=== PATIENT | female | born 1960 ===

== ENCOUNTER 2016-11-29 10:45 | Emergency (ER) | payer MEDICARE, MEDICAID ==
--- NOTE | 2016-11-29 10:52 | ED PDOC ---
Arrival/HPI - General Time Seen by Provider: 11/29/16 10:51 Historian: Patient - History of Present Illness Narrative History of Present Illness (Text): 11/29/16 10:52 This 56 yo female with pmh dm, asthma, presents to this ED c/o left nipple painful nodule for a week. Patient admits similar symptoms in the past on her right breast which it has resolved. Patient denies fever, discharge or erythema. On the contrary to triage note, patient denies right breast abscess. Time/Duration: 1 week Context: Home Past Medical History - Provider Review Nursing Documentation Reviewed: Yes - Infectious Disease Hx of Infectious Diseases: None - Tetanus Immunization Tetanus Immunization: Unknown - Cardiac Hx Cardiac Disorders: Yes Hx Angina: Yes - Pulmonary Hx Respiratory Disorders: Yes Hx Asthma: Yes Hx Chronic Obstructive Pulmonary Disease (COPD): Yes Hx Sleep Apnea: Yes - Neurological Hx Neurological Disorder: Yes Hx Migraine: Yes - HEENT Hx HEENT Disorder: No - Renal Hx Renal Disorder: No - Endocrine/Metabolic Hx Endocrine Disorders: Yes Hx Diabetes Mellitus Type 2: Yes - Hematological/Oncological Hx Blood Transfusions: No - Integumentary Hx Dermatological Disorder: No - Musculoskeletal/Rheumatological Hx Musculoskeletal Disorders: Yes Hx Arthritis: Yes Hx Back Pain: Yes Hx Falls: No - Gastrointestinal Hx Gastrointestinal Disorders: Yes Hx Gastroesophageal Reflux: Yes - Genitourinary/Gynecological Hx Genitourinary Disorders: Yes Hx Urinary Tract Infection: Yes - Psychiatric Hx Psychophysiologic Disorder: Yes Hx Anxiety: Yes Hx Depression: Yes Hx Substance Use: No - Surgical History Hx Cardiac Catheterization: Yes Other/Comment: 12 surgeries to bilateral breast to remove recurrent abccess - Anesthesia Hx Anesthesia Reactions: No Hx Malignant Hyperthermia: No - Suicidal Assessment Feels Threatened In Home Enviroment: No Family/Social History - Physician Review Nursing Documentation Reviewed: Yes Family/Social History: No Known Family HX Smoking Status: Light Smoker < 10 Cigarettes Daily Hx Alcohol Use: No Hx Substance Use: No Hx Substance Use Treatment: No Allergies/Home Meds Allergies/Adverse Reactions: Allergies No Known Allergies Allergy (Verified 11/29/16 10:51) Home Medications: Home Meds Medication Instructions Recorded Confirmed Fluticasone Propionate [Flovent 0.22 mg IH DAILY 06/02/15 11/29/16 Hfa] Review of Systems - Review of Systems Constitutional: Normal. absent: Fatigue, Weight Change, Fevers Eyes: Normal ENT: Normal Respiratory: Normal Cardiovascular: Normal Gastrointestinal: Normal Genitourinary Female: Normal Musculoskeletal: Normal Skin: Other (Pain nodule left breast) Neurological: Normal Endocrine: Normal Hemo/Lymphatic: Normal Psychiatric: Normal Physical Exam Vital Signs Temp Pulse Resp BP Pulse Ox 11/29/16 11:07 99.2 F 86 20 126/77 97 11/29/16 10:52 98.3 F 91 H 18 141/81 97 Temperature: Afebrile Blood Pressure: Normal Pulse: Regular Respiratory Rate: Normal Appearance: Positive for: Well-Appearing, Non-Toxic, Comfortable Pain Distress: None Mental Status: Positive for: Alert and Oriented X 3 - Systems Exam Head: Present: Atraumatic, Normocephalic Neck: Present: Normal Range of Motion Respiratory/Chest: Present: Clear to Auscultation, Good Air Exchange. No: Respiratory Distress, Accessory Muscle Use, Wheezes, Rales, Rhonchi Cardiovascular: Present: Regular Rate and Rhythm, Normal S1, S2. No: Murmurs Abdomen: No: Tenderness Breast/Axillary: Present: Swelling ((+) approx. 1 cm indurated tender cyst like. No fluctuance, erythema, rash, drainage. The rest of breast is non tender. no erythema). No: Axillary Lymphad, Discoloration, Erythema, Fluctuance, Masses, Nipple Discharge Upper Extremity: Present: Normal Inspection, Normal ROM Lower Extremity: Present: Normal Inspection, Normal ROM Neurological: Present: GCS=15, CN II-XII Intact, Speech Normal, Motor Func Grossly Intact, Normal Sensory Function, Normal Cerebellar Funct, Gait Normal, Memory Normal Skin: Present: Warm, Dry, Normal Color. No: Rashes Lymphatic: No: Axillary Adenopathy Psychiatric: Present: Alert, Oriented x 3 Medical Decision Making ED Course and Treatment: 11/29/16 12:23 Re-evaluation. Patient feels better. Discussed results and plan with patient who expresses understanding. All questions answered and there is agreement with the plan to discharge home with instructions. Patient stable for discharge. Return if symptoms persist or worsen. Patient was recommended to apply warmth compress every 2 hours for 2-3 days. To take medication as instructed, and revaluation in 2-3 days. Return to emergency if symptoms worsen. Re-evaluation Time: 12:23 Reassessment Condition: Re-examined, Improved - Medication Orders Current Medication Orders: Discontinued Medications Amoxicillin/Clavulanate Potassium (Augmentin 875 Mg-125 Mg Tab) 1 tab PO STAT STA PRN Reason: Protocol Stop: 11/29/16 12:00 Last Admin: 11/29/16 12:12 Dose: 1 TAB Tramadol/Acetaminophen (Ultracet 37.5/325 Mg) 1 tab PO STAT STA Stop: 11/29/16 12:00 Last Admin: 11/29/16 12:12 Dose: 1 TAB Trimethoprim/Sulfamethoxazole (Bactrim Ds Tab) 1 tab PO STAT STA PRN Reason: Protocol Stop: 11/29/16 11:59 Last Admin: 11/29/16 12:12 Dose: 1 TAB Disposition/Present on Arrival - Present on Arrival Any Indicators Present on Arrival: No History of DVT/PE: No History of Uncontrolled Diabetes: Yes Urinary Catheter: No History Surgical Site Infection Following: None - Disposition Have Diagnosis and Disposition been Completed?: Yes Diagnosis: Abscess Disposition: HOME/ ROUTINE Disposition Time: 12:32 Patient Plan: Discharge Condition: GOOD Discharge Instructions (ExitCare): Abscess (ED) Additional Instructions: Call private doctor for follow up visit in 1-3 days. Take medication as instructed. Apply warmth compress. Return to emergency if symptoms worsen. Prescriptions: Amoxicillin/Clavulanate [Augmentin 875 MG-125 MG] 1 tab PO BID #14 tab Sulfamethoxazole/Trimethoprim [Bactrim DS 800 mg-160 mg] 1 tab PO BID #14 tab Acetaminophen with Codeine [Tylenol with Codeine No. 3 300 mg-30 mg] 1 tab PO TID #12 tab Referrals: Jhon Cabrera MD [Primary Care Provider] - Follow up with primary
[2016-11-29 10:53] VITALS: O2SAT 97
[2016-11-29 11:16] VITALS: BP 126/77; PULSE 86; RESP 20; TEMP 99.2
[2016-11-29] MEDS ORDERED: Tmp-Smz 800 mg-160 mg DS Tab PO STA (11:58)
[2016-11-29] MEDS ORDERED: TraMADol/Apap 37.5/325 mg Tab PO STA (11:59)
[2016-11-29] MEDS ORDERED: Amoxicillin-Clav 875-125 mg Tab PO STA (11:59)
[2016-11-29 12:03] VITALS: BMI 53.4
== END 2016-11-29 12:58 | disposition home or self-care (01) ==
LOC: ED 10:45
DX: N61.1 Abscess of the breast and nipple (principal); F17.210 Nicotine dependence, cigarettes, uncomplicated; E11.9 Type 2 diabetes mellitus without complications

== ENCOUNTER 2017-04-18 10:37 | Day surgery (SDC) | payer OTHER, MEDICAID ==
[2017-03-21 09:34] VITALS: BMI 50.5
[2017-04-18] MEDS ORDERED: Bupivacaine 0.5% Inj(30mL) ONE (10:45)
[2017-04-18] MEDS ORDERED: Propofol 10 mg/ml Inj (20 ML) ONE (11:05)
[2017-04-18] MEDS ORDERED: Midazolam 2 MG/2 ML VIAL ONE (11:05)
[2017-04-18] MEDS ORDERED: Lidocaine 2% Inj (20ml) ONE (11:05)
[2017-04-18] MEDS ORDERED: Sevoflurane - Inhalation Anesthetic Liq (250 ml) ONE (11:13)
[2017-04-18] MEDS ORDERED: HYDROmorphone 0.5 mg/0.5 ml ISec IVP PRN (12:58)
[2017-04-18] MEDS ORDERED: Lactated Ringer's 1,000 ML IV SCH (12:58)
[2017-04-18 14:32] VITALS: RESP 18; TEMP 97.6
[2017-04-18 14:54] VITALS: BP 111/70; PULSE 56; O2SAT 97
--- NOTE | 2017-04-20 21:52 | OP ---
PROCEDURE DATE: 04/18/2017 PREOPERATIVE DIAGNOSES: 1. 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 2. Diabetes mellitus - poor controlled. 3. Chronic obstructive pulmonary disease. 4. Morbid obesity. POSTOPERATIVE DIAGNOSES: 1. Recurrent left breast abscess with ductal disease. 2. Diabetes mellitus - poor controlled. 3. Chronic obstructive pulmonary disease. 4. Morbid obesity. PROCEDURE: On 04/18/2017, left partial mastectomy. SURGEON: Dr. Vargas. METAL FURNITURE GLAZIER: Chavo Kebede DO, PGY-3 SCARF AND ANNEAL OPERATOR: Dr. Pichardo. ANESTHESIA: General - LMA - Marcaine 0.5/18 mL. PATHOLOGY: Pending. OPERATIVE INDICATION: The patient is a 57-year-old female ,who is super morbidly obese over 300 pounds with history of 13 abscess drainages of her left breast. She returns with areolar drainage at this time and significant pain. She is begging for removal of her breast and she has been offered partial mastectomy, removal of the ductal system and the inflamed recurring origin of her breast abscesses. This has been done on the contralateral right breast and has been satisfactory all this year. Risks, benefits, alternatives and their anticipated outcomes were discussed with the patient and she signs the informed consent. OPERATIVE NOTE: The patient was brought to the operating room. She is identified by her wrist band and the indelible marking on the significant breast. She undergoes time-out procedure and was placed on a table in a supine manner and undergoes the induction of general anesthesia in the insertion of an intralaryngeal mask. Once, respirations have been stabilized and vital signs are acceptable and sequential compression devices were placed on her lower extremities and the patient is rotated slightly to the right and the left breast was then prepped with Hibiclens and chlorhexidine preparation and aseptically draped. An elliptical incision was made around the areola edge and it is excised to remove the somewhat transverse incision that is converting right through the upper portion of the areola. The skin has been infiltrated superiorly and inferiorly and the cicatrix of the areola and breast tissue are excised and submitted to pathology in formalin. Hemostasis maintained with the electrocoagulating cautery and the subareolar-nipple complexes excised with the cautery scalpel completely removing all ductal tissue under the skin. The abscess is at this point have become quiescent and cultures are not available for specimens at this time. Hemostasis was contained with electrocoagulating cautery where necessary and the specimen was then submitted to pathology in formalin for permanent section analysis. The incision is now closed with interrupted 3-0 subcuticular Polysorb suture and the skin closed with the suture skin stapler. An 8-Yakut red rubber catheter inserted into the incision and secured by the stapler to the dressing and will be changed by the patient on the first postoperative day. This will allow removal of subcutaneous and incisional fluids to the dressing and prevent accumulation. The breast is not cleaned, dressed aseptically and secured with 3M tape. The patient is now awakened, extubated and transported to the recovery room in a satisfactory condition. Sponge, instrument and suture count were verified as correct at the end of the procedure. Estimated blood loss during this procedure was less than 20 mL of blood. This dictation will be electronically signed without being read. Ghassan Vargas MD
== END 2017-04-18 15:30 | disposition home or self-care (01) ==
LOC: SDS 10:37
PROVIDERS: ATTEND Surgery
DX: N61.1 Abscess of the breast and nipple (principal); L90.5 Scar conditions and fibrosis of skin; E66.01 Morbid (severe) obesity due to excess calories; Z68.43 Body mass index [BMI] 50.0-59.9, adult; E11.65 Type 2 diabetes mellitus with hyperglycemia; J44.9 Chronic obstructive pulmonary disease, unspecified
CPT/HCPCS: 19301; 82948; 88305; 88307; J0690; J1170; J2250; J2704; J2765; J3010; J7120

== ENCOUNTER 2017-05-01 10:53 | Inpatient (IN) | payer OTHER, MEDICAID ==
[2017-05-01] MEDS ORDERED: Morphine 4 mg/ml ISec IVP STA (11:37)
--- NOTE | 2017-05-01 11:37 | ED PDOC ---
Arrival/HPI - General Chief Complaint: Medical Clearance Time Seen by Provider: 05/01/17 11:27 - History of Present Illness Narrative History of Present Illness (Text): 05/01/17 11:34 Patient is a 57 y/o F with DM, morbid obesity and hx of recurrent breast abscess. Patient has had partial mastectomy and removal of ducts from R breast 1 year ago with no recurrence until 3 days ago. She reports that she has had increased redness and pain. She spoke to her surgeon Dr. Vargas and has been taking outpatient antibiotics and pain medication with no improvement. Of note , patient had partial mastectomy to L breast on 04/20 for same and reports no issuess. Past Medical History - Infectious Disease Hx of Infectious Diseases: None - Tetanus Immunization Tetanus Immunization: Unknown - Cardiac Hx Pacemaker: No - Pulmonary Hx Respiratory Disorders: Yes Hx Asthma: Yes Hx Chronic Obstructive Pulmonary Disease (COPD): Yes Hx Sleep Apnea: Yes - Neurological Hx Paralysis: No - HEENT Hx HEENT Disorder: No - Renal Hx Renal Disorder: No - Endocrine/Metabolic Hx Endocrine Disorders: Yes Hx Diabetes Mellitus Type 2: Yes - Hematological/Oncological Hx Blood Transfusions: No - Integumentary Hx Dermatological Disorder: No - Musculoskeletal/Rheumatological Hx Musculoskeletal Disorders: No - Gastrointestinal Hx Gastrointestinal Disorders: Yes Hx Gastroesophageal Reflux: Yes - Genitourinary/Gynecological Hx Genitourinary Disorders: Yes Hx Urinary Tract Infection: Yes - Psychiatric Hx Emotional Abuse: No Hx Physical Abuse: No Hx Substance Use: No - Surgical History Other/Comment: Left breast cyst removal. - Anesthesia Hx Anesthesia Reactions: No Hx Malignant Hyperthermia: No - Suicidal Assessment Feels Threatened In Home Enviroment: No Family/Social History Family/Social History: No Known Family HX Smoking Status: Light Smoker < 10 Cigarettes Daily Hx Alcohol Use: No Hx Substance Use: No Hx Substance Use Treatment: No Allergies/Home Meds Allergies/Adverse Reactions: Allergies No Known Allergies Allergy (Verified 05/01/17 11:07) Home Medications: Home Meds Medication Instructions Recorded Confirmed Atorvastatin [Lipitor] 20 mg PO QPM 03/21/17 05/01/17 Fluticasone/Vilanterol [Breo 1 puff IH DAILY 03/21/17 05/01/17 Ellipta 200-25 Mcg INH] Gabapentin [Neurontin] 300 mg PO QPM 03/21/17 05/01/17 Metformin HCl [Glucophage] 500 mg PO ACTID 03/21/17 05/01/17 Omeprazole 20 mg PO QPM 03/21/17 05/01/17 Ciprofloxacin [Cipro] 500 mg PO BID 05/01/17 05/01/17 Potassium Chloride [K-Dur 20] 20 meq PO DAILY 05/01/17 05/01/17 Review of Systems - Physician Review All systems were reviewed & negative as marked: Yes - Review of Systems Constitutional: Fevers (subjective) Eyes: absent: Vision Changes ENT: absent: Rhinorrhea Respiratory: absent: SOB, Cough, Sputum, Wheezing Cardiovascular: absent: Chest Pain Gastrointestinal: absent: Abdominal Pain, Constipation, Diarrhea, Nausea, Vomiting Genitourinary Female: absent: Dysuria Musculoskeletal: Arthralgias Skin: Skin Lesions, Cellulitis Neurological: absent: Headache, Dizziness Psychiatric: absent: Anxiety, Depression Physical Exam Vital Signs Temp Pulse Resp BP Pulse Ox 05/01/17 10:59 98.2 F 88 17 104/67 97 Temperature: Afebrile Blood Pressure: Normal Pulse: Regular Respiratory Rate: Normal Appearance: Positive for: Well-Appearing, Non-Toxic, Comfortable Pain Distress: None Mental Status: Positive for: Alert and Oriented X 3 - Systems Exam Head: Present: Atraumatic, Normocephalic Pupils: Present: PERRL Extroacular Muscles: Present: EOMI Conjunctiva: Present: Normal Mouth: Present: Moist Mucous Membranes Neck: Present: Normal Range of Motion. No: Meningeal Signs Respiratory/Chest: Present: Clear to Auscultation, Good Air Exchange. No: Respiratory Distress, Accessory Muscle Use Cardiovascular: Present: Regular Rate and Rhythm, Normal S1, S2. No: Murmurs Abdomen: No: Tenderness, Distention Breast/Axillary: Present: Erythema (erythema to R breast from 1oclock to 6 oclock. Surgical dressing to L breast) Upper Extremity: Present: Normal Inspection Lower Extremity: Present: Normal Inspection Psychiatric: Present: Alert, Oriented x 3 Medical Decision Making ED Course and Treatment: 05/01/17 11:38 R breast has extensive cellulitis. Spoke to Dr. Vargas who will evaluate at bedside 05/01/17 11:52 Dr. Vargas evaluated and requesting b/l breast ultrasound with IV antibiotics and admission under his service for recurrent abscess and failed outpatient therapy. - RAD Interpretation Radiology Orders: 05/01/17 11:49 BREAST BILATERAL [US] Stat - Medication Orders Current Medication Orders: Discontinued Medications Morphine Sulfate (Morphine) 4 mg IVP STAT STA Stop: 05/01/17 11:38 Last Admin: 05/01/17 11:59 Dose: 4 mg Disposition/Present on Arrival - Present on Arrival Any Indicators Present on Arrival: No History of DVT/PE: No History of Uncontrolled Diabetes: Yes Urinary Catheter: No History of Decub. Ulcer: No History Surgical Site Infection Following: None - Disposition Have Diagnosis and Disposition been Completed?: Yes Diagnosis: Cellulitis of breast Disposition: HOSPITALIZED Disposition Time: 11:52 Patient Plan: Admission Patient Problems: Current Active Problems Problem Status Onset Cellulitis of breast Acute Condition: FAIR Discharge Instructions (ExitCare): Cellulitis (ED) Forms: [facility] (Romansh)
[2017-05-01 12:22] LABS: ALB/GLOB RATIO 1.4 (1.1-1.8); ALKALINE PHOSPHATASE 85 U/L (38-126); ALT/SGPT 32 U/L (7-56); AST/SGOT 18 U/L (14-36); BILIRUBIN,TOTAL 0.6 mg/dL (0.2-1.3); BLOOD UREA NITROGEN 13 mg/dL (7-21); CALCIUM 9.3 mg/dL (8.4-10.5); CARBON DIOXIDE 25 mmol/L (21-33); CHLORIDE 104 mmol/L (98-107); GFR AFRICAN-AMERICAN > 60; GLUCOSE,RANDOM 100 mg/dL (70-110); SODIUM 143 mmol/L (132-148); TOTAL PROTEIN 6.8 g/dL (5.8-8.3)
[2017-05-01 12:23] LABS: POTASSIUM 3.9 mmol/L (3.6-5.0)
[2017-05-01 12:47] LABS: BASO # 0.03 K/mm3 (0.0-2.0); BASO % 0.2 % (0.0-3.0); EOS # 0.2 (0.0-0.7); EOS % 1.3 % (1.5-5.0); GRAN # 10.08 (1.4-6.5); LYMPH # 2.4 (1.2-3.4); LYMPH % 17.6 % (22.0-35.0); MEAN CELL VOLUME 93.1 fl (80.0-105.0); MEAN CORPUSCULAR HEMOGLOBIN 30.4 pg (25.0-35.0); MEAN CORPUSCULAR HGB CONC 32.6 g/dl (31.0-37.0); MEAN PLATELET VOLUME 10.8 fl (7.0-11.0); MONO # 0.8 (0.1-0.6); MONO % 5.9 % (1.0-6.0); RED CELL DISTRIBUTION WIDTH 13.7 % (11.5-14.5); WHITE BLOOD COUNT 13.5 10^3/ul (4.5-11.0)
--- NOTE | 2017-05-01 13:54 | US ---
HISTORY: Reason for exam: Right breast cellulitis. COMPARISON: None TECHNIQUE: BREAST LIMITED BI FINDINGS: Right breast: At 3 o'clock position in the periareolar region at the site of the scar, there is a 3.2 x 1.7 x 4.4 cm ovoid hypoechoic mass with layering internal echoes thick margins and increased peripheral vascularity. There is also edema in the breast. Left breast: There is heterogeneous background echotexture. There is no suspicious solid mass, cyst or fibroadenoma. IMPRESSION: Findings are concerning for 3.2 x 1.7 x 4.4 cm abscess versus complex fluid collection in the right breast at 3 o'clock position in the periareolar region at the site of the scar. Surgical consultation advised. No evidence of solid or cystic mass in the left breast. BIRAD: BIRADS 3 Probably Benign Recommendation: Short-interval 6-month follow-up
[2017-05-01] MEDS ORDERED: Vancomycin 1gm in NS 250ml 1 GM/250 ML BAG IVPB STA (14:31)
--- NOTE | 2017-05-01 15:44 | CP.PCM.HP ---
History of Present Illness - History of Present Illness History of Present Illness: History and Physical for Dr. Vargas 57F presents with recurrent breast abscess. PMH: DM, morbid obesity. Patient has had partial mastectomy and removal of ducts from R breast 1 year ago with no recurrence until 5 days ago. Patient admits to increased redness and pain. Patient has been taking outpatient antibiotics and pain medication with no improvement. Patient also noticed a redness of the areolar area that began 5 days ago. Patient tolerates pain on left breast s/p partial mastectomy Surgery date 04/20/17 . Patient was placed on IV Abx and breast ultrasound was ordered. Breast US 3.2x1.7x4.4cm fluid collection at 3 o'clock position in perla-areolar region at site of scar PMH: DM, morbid obesity PSH: removal of ducts from R breast (~1 year). partial mastectomy of L breast Present on Admission - Present on Admission Any Indicators Present on Admission: No History of DVT/PE: No History of Uncontrolled Diabetes: No Urinary Catheter: No Decubitus Ulcer Present: No Past Patient History - Infectious Disease Hx of Infectious Diseases: None - Tetanus Immunizations Tetanus Immunization: Unknown - Past Medical History & Family History Past Medical History?: Yes - Past Social History Smoking Status: Light Smoker < 10 Cigarettes Daily - CARDIAC Hx Pacemaker: No - PULMONARY Hx Respiratory Disorders: Yes Hx Asthma: Yes Hx Chronic Obstructive Pulmonary Disease (COPD): Yes Hx Sleep Apnea: Yes - NEUROLOGICAL Hx Paralysis: No - HEENT Hx HEENT Problems: No - RENAL Hx Chronic Kidney Disease: No - ENDOCRINE/METABOLIC Hx Endocrine Disorders: Yes Hx Diabetes Mellitus Type 2: Yes - HEMATOLOGICAL/ONCOLOGICAL Hx Blood Transfusions: No - INTEGUMENTARY Hx Dermatological Problems: No - MUSCULOSKELETAL/RHEUMATOLOGICAL Hx Musculoskeletal Disorders: No - GASTROINTESTINAL Hx Gastrointestinal Disorders: Yes Hx Gastroesophageal Reflux: Yes - GENITOURINARY/GYNECOLOGICAL Hx Genitourinary Disorders: Yes Hx Urinary Tract Infection: Yes - PSYCHIATRIC Hx Emotional Abuse: No Hx Physical Abuse: No Hx Substance Use: No - SURGICAL HISTORY Other/Comment: Left breast cyst removal. - ANESTHESIA Hx Anesthesia Reactions: No Hx Malignant Hyperthermia: No Meds Allergies/Adverse Reactions: Allergies Allergy/AdvReac Type Severity Reaction Status Date / Time No Known Allergies Allergy Verified 05/01/17 17:16 Physical Exam - Constitutional Appears: Non-toxic - Head Exam Head Exam: NORMAL INSPECTION - Eye Exam Eye Exam: EOMI, Normal appearance - ENT Exam ENT Exam: Mucous Membranes Moist - Respiratory Exam Respiratory Exam: Clear to Auscultation Bilateral, NORMAL BREATHING PATTERN. absent: Accessory Muscle Use, Respiratory Distress - Cardiovascular Exam Cardiovascular Exam: REGULAR RHYTHM. absent: Bradycardia, Tachycardia - GI/Abdominal Exam GI & Abdominal Exam: Normal Bowel Sounds, Soft. absent: Firm, Guarding, Hyperactive Bowel Sounds, Hypoactive Bowel Sounds, Rebound, Rigid, Tenderness - Extremities Exam Extremities exam: Positive for: full ROM, normal inspection. Negative for: pedal edema - Neurological Exam Neurological exam: Alert, Normal Gait - Psychiatric Exam Psychiatric exam: Normal Affect, Normal Mood - Skin Skin Exam: Dry, Normal Color, Warm Additional comments: Left periareolar area stapled s/p partial mastectomy 3 days ago. periareolar area with cellulitis induration of right breast tissue correlated with ultrasound findings Results - Vital Signs Recent Vital Signs: Last Vital Signs Temp 98.2 F 05/01/17 10:59 Pulse 88 05/01/17 10:59 Resp 17 05/01/17 10:59 BP 104/67 05/01/17 10:59 Pulse Ox 97 05/01/17 10:59 - Labs Result Diagrams: 05/01/17 11:54 05/01/17 12:00 Labs: Laboratory Results - last 24 hr 05/01/17 05/01/17 11:54 12:00 WBC 13.5 H D RBC 4.51 Hgb 13.7 Hct 42.0 MCV 93.1 MCH 30.4 MCHC 32.6 RDW 13.7 Plt Count 353 MPV 10.8 Gran % 75.0 H Lymph % (Auto) 17.6 L [place] % (Auto) 5.9 Eos % (Auto) 1.3 L Baso % (Auto) 0.2 Gran # 10.08 H Lymph # 2.4 [place] # 0.8 H Eos # 0.2 Baso # 0.03 Sodium 143 Potassium 3.9 Chloride 104 Carbon Dioxide 25 Anion Gap 18 BUN 13 Creatinine 0.7 Est GFR ( Amer) > 60 Est GFR (Non-Af Amer) > 60 Random Glucose 100 Calcium 9.3 Total Bilirubin 0.6 AST 18 ALT 32 Alkaline Phosphatase 85 Total Protein 6.8 Albumin 4.0 Globulin 2.8 Albumin/Globulin Ratio 1.4 Assessment & Plan - Assessment and Plan (Free Text) Assessment: 57F presents with recurrent breast abscess Plan: IV ABx IVF Diet: consistent carbohydrate diet Fingerstick glucose readings q6H c/w pain control Breast US 3.2x1.7x4.4cm fluid collection at 3 o'clock position in perla-areolar region at site of scar Marely Mcbride DO PGY1 - Date & Time Date: 05/01/17 Time: 15:46
[2017-05-01] MEDS ORDERED: Morphine 2 mg/ml ISec IVP PRN (17:31)
--- NOTE | 2017-05-01 19:10 | CP.PCM.PCO ---
Physician Communication Note - Physician Communication Note Physician Communication Note: I & D OR Monday
[2017-05-01] MEDS: Sodium Chloride 0.9% 1,000 ML IV SCH (20:31)
[2017-05-01 21:52] VITALS: BMI 50.1
[2017-05-01] MEDS ORDERED: Pneumococcal 23-Valent Vaccine IM ONE (21:52)
[2017-05-01] MEDS: Morphine 4 mg/ml ISec IVP PRN (22:44)
--- NOTE | 2017-05-02 08:36 | RAD ---
HISTORY: preop COMPARISON: 03/21/2027 TECHNIQUE: Chest PA and lateral FINDINGS: LUNGS: Poor inspiration with low lung volumes, crowded bronchovascular markings and mild bibasilar atelectasis. There is elevation right hemidiaphragm that could be secondary to eventration. PLEURA: No significant pleural effusion identified. No pneumothorax apparent. CARDIOVASCULAR: Cardiomegaly. Aorta ectatic uncoiled. OSSEOUS STRUCTURES: Mild multilevel degenerative spondylosis of the thoracic spine. VISUALIZED UPPER ABDOMEN: Normal. OTHER FINDINGS: None. IMPRESSION: Poor inspiration with low lung volumes, crowded bronchovascular markings and mild bibasilar atelectasis.
[2017-05-02] MEDS: Morphine 4 mg/ml ISec IVP PRN ×3 (10:18→22:29)
[2017-05-02] MEDS ORDERED: Morphine 2 mg/ml ISec IVP PRN (10:32)
[2017-05-02] MEDS ORDERED: Lactated Ringer's 1,000 ML IV SCH (10:45)
[2017-05-02] MEDS ORDERED: Midazolam 2 MG/2 ML VIAL ONE (11:02)
[2017-05-02] MEDS ORDERED: Propofol 10 mg/ml Inj (20 ML) ONE (11:02)
[2017-05-02] MEDS ORDERED: Bupivacaine 0.5% Inj(30mL) ONE (12:04)
[2017-05-02] MEDS ORDERED: Vancomycin 1gm in NS 250ml 1 GM/250 ML BAG IVPB SCH (13:00)
[2017-05-02] MEDS ORDERED: Morphine 2 mg/ml ISec ONE (13:06)
[2017-05-02] MEDS ORDERED: Morphine 2 mg/ml ISec IVP ONE (13:10)
[2017-05-02] MEDS: Vancomycin 1gm in NS 250ml 1 GM/250 ML BAG IVPB SCH (14:48)
[2017-05-02] MEDS: Insulin Lispro (humaLOG) MEDIUM Coverage SC SCH ×2 (16:30→21:53)
--- NOTE | 2017-05-02 16:53 | PCM.SURG1 ---
Surgeon's Initial Post Op Note - Surgeon's Notes Surgeon: Dr. Vargas Medical Sociologist: Dr. Lux PGY-2 Type of Anesthesia: General LMA, IV Sedation Pre-Operative Diagnosis: recurrent right breast abscess Operative Findings: recurrent right breast abscess Post-Operative Diagnosis: see operative report Operation Performed: incision and drainage of recurrent abscess of right breast Specimen/Specimens Removed: pus Estimated Blood Loss: EBL {In ML}: 5 Blood Products Given: N/A Drains Used: No Drains Post-Op Condition: Good Date of Surgery/Procedure: 05/02/17 Time of Surgery/Procedure: 11:00
[2017-05-02] MEDS: Pantoprazole 40 mg EC Tab PO SCH (18:09)
[2017-05-02] MEDS: Sodium Chloride 0.9% 1,000 ML IV SCH (20:09)
--- NOTE | 2017-05-02 22:49 | CARD ---
APPROVED REPORT EKG Measurement Heart [id number] OR [id number] [id number] <Conclusion> Sinus rhythm with marked sinus arrhythmia Nonspecific T wave abnormality Abnormal ECG
[2017-05-03] MEDS: Vancomycin 1gm in NS 250ml 1 GM/250 ML BAG IVPB SCH ×2 (01:27→11:59)
[2017-05-03] MEDS: Morphine 4 mg/ml ISec IVP PRN ×5 (02:31→22:24)
[2017-05-03] MEDS: Sodium Chloride 0.9% 1,000 ML IV SCH (07:37)
[2017-05-03] MEDS: Insulin Lispro (humaLOG) MEDIUM Coverage SC SCH ×4 (08:11→22:23)
[2017-05-03 10:12] LABS: BASO # 0.02 K/mm3 (0.0-2.0); BASO % 0.2 % (0.0-3.0); EOS # 0.2 (0.0-0.7); EOS % 2.2 % (1.5-5.0); GRAN # 5.27 (1.4-6.5); GRAN % 63.6 % (50.0-68.0); HEMATOCRIT 37.2 % (36.0-48.0); LYMPH # 2.2 (1.2-3.4); LYMPH % 26.7 % (22.0-35.0); MEAN CELL VOLUME 93.2 fl (80.0-105.0); MEAN CORPUSCULAR HEMOGLOBIN 30.1 pg (25.0-35.0); MEAN CORPUSCULAR HGB CONC 32.3 g/dl (31.0-37.0); MEAN PLATELET VOLUME 10.3 fl (7.0-11.0); MONO # 0.6 (0.1-0.6); MONO % 7.3 % (1.0-6.0); RED CELL DISTRIBUTION WIDTH 13.6 % (11.5-14.5); WHITE BLOOD COUNT 8.3 10^3/ul (4.5-11.0)
[2017-05-03 10:20] LABS: ALB/GLOB RATIO 1.1 (1.1-1.8); ALKALINE PHOSPHATASE 75 U/L (38-126); ALT/SGPT 31 U/L (7-56); AST/SGOT 16 U/L (14-36); BILIRUBIN,TOTAL 0.3 mg/dL (0.2-1.3); BLOOD UREA NITROGEN 12 mg/dL (7-21); CALCIUM 8.5 mg/dL (8.4-10.5); CARBON DIOXIDE 31 mmol/L (21-33); CHLORIDE 106 mmol/L (95-110); GFR AFRICAN-AMERICAN > 60; GLUCOSE,RANDOM 135 mg/dL (70-110); POTASSIUM 4.1 mmol/L (3.6-5.0); SODIUM 145 mmol/L (132-148); TOTAL PROTEIN 6.4 g/dL (5.8-8.3)
--- NOTE | 2017-05-03 11:39 | CP.PCM.PCO ---
Physician Communication Note - Physician Communication Note Physician Communication Note: Plan Packing out with [place] breast staple removal in am/DC 05/04
--- NOTE | 2017-05-03 13:13 | CP.PCM.PN ---
Subjective - Date & Time of Evaluation Date of Evaluation: 05/03/17 Time of Evaluation: 13:12 - Subjective Subjective: General Surgery Consult for Dr. Vargas PT S&E and examined at bedside. Patient is complaining of pain. Dressing changed at bedside. Packing in place. 4x4 and medipore tape on top. PT denies F/ C, N/V, Constipation, diarrhea Objective - Vital Signs/Intake and Output Vital Signs (last 24 hours): Temp Pulse Resp BP Pulse Ox 99.1 F 82 20 123/59 L 94 L 05/03/17 11:58 05/03/17 06:00 05/03/17 06:00 05/03/17 06:00 05/03/17 06:00 Intake and Output: 05/03/17 05/03/17 06:59 18:59 Intake Total 720 1800 Balance 720 1800 - Medications Medications: Current Medications Acetaminophen (Tylenol 325mg Tab) 650 mg PO Q4H PRN PRN Reason: Pain, Mild (1-3) Last Admin: 05/03/17 11:58 Dose: 650 mg Gabapentin (Neurontin) 300 mg PO QPM [facility] PRN Reason: Protocol Last Admin: 05/02/17 18:09 Dose: 300 mg Sodium Chloride (Sodium Chloride 0.9%) 1,000 mls @ 60 mls/hr IV .[id number] [facility] Last Admin: 05/03/17 07:37 Dose: Not Given Vancomycin HCl (Vancomycin 1gm) 1 gm in 250 mls @ 167 mls/hr IVPB Q12H [facility] PRN Reason: Protocol Last Admin: 05/03/17 11:59 Dose: 167 mls/hr Insulin Human Lispro (Humalog Med) 0 units SC ACHS [facility] PRN Reason: Protocol Last Admin: 05/03/17 11:39 Dose: Not Given Metformin HCl (Glucophage) 500 mg PO ACTID [facility] Last Admin: 05/03/17 11:46 Dose: 500 mg Morphine Sulfate (Morphine) 4 mg IVP Q4H PRN PRN Reason: Pain, moderate (4-7) Last Admin: 05/03/17 10:46 Dose: 4 mg Pantoprazole Sodium (Protonix Ec Tab) 40 mg PO QPM [facility] Last Admin: 05/02/17 18:09 Dose: 40 mg - Labs Labs: 05/03/17 09:45 05/03/17 09:45 - Constitutional Appears: Non-toxic - Head Exam Head Exam: NORMAL INSPECTION - Eye Exam Eye Exam: EOMI, Normal appearance - ENT Exam ENT Exam: Mucous Membranes Moist - Respiratory Exam Respiratory Exam: NORMAL BREATHING PATTERN. absent: Accessory Muscle Use, Respiratory Distress - Cardiovascular Exam Cardiovascular Exam: REGULAR RHYTHM. absent: Bradycardia, Tachycardia - GI/Abdominal Exam GI & Abdominal Exam: Soft, Normal Bowel Sounds - Extremities Exam Extremities Exam: Full ROM, Normal Inspection. absent: Pedal Edema - Neurological Exam Neurological Exam: Alert, Awake, Oriented x3 - Skin Skin Exam: Dry, Warm Additional comments: area of erythema at right periareolar region right I&D site packed. dressings changed at bedside Assessment and Plan - Assessment and Plan (Free Text) Assessment: 57F s/p I&D of Right Breast POD#1 Plan: left periareolar stitches in place. areas without full approximation. Other areas continue with dressings c/w pain control c/w IVF cw/ medical management no surgical intervention needed at this time c/w antibiotics coag neg staph resulted from wound culture Packing out with outpatient staple removed from left periareolar region possible DC tomorrow if patient is stable per Dr. Sam Mcbride, DO PGY1
[2017-05-03] MEDS: Pantoprazole 40 mg EC Tab PO SCH (18:04)
[2017-05-04] MEDS: Vancomycin 1gm in NS 250ml 1 GM/250 ML BAG IVPB SCH (00:25)
[2017-05-04] MEDS: Morphine 4 mg/ml ISec IVP PRN ×2 (05:55→11:32)
[2017-05-04] MEDS: Insulin Lispro (humaLOG) MEDIUM Coverage SC SCH ×2 (08:14→12:21)
[2017-05-04 08:19] VITALS: BP 122/64; PULSE 80; RESP 20; TEMP 99; O2SAT 94
--- NOTE | 2017-05-04 11:07 | CP.PCM.DIS ---
Provider - Provider Date of Admission: 05/01/17 11:50 Attending physician: Ghassan Vargas MD Primary care physician: NO PRIMARY CARE PROVIDER Time Spent in preparation of Discharge (in minutes): 35 Hospital Course - Lab Results Lab Results: Micro Results 05/02/17 13:25 Breast - Right Gram Stain - Final 05/02/17 13:25 Breast - Right Anaerobic Culture - Preliminary No growth. 05/02/17 13:25 Breast - Right Wound Culture - Preliminary Coagulase Neg Staphylococcus 05/01/17 12:15 Blood Blood Culture - Preliminary NO GROWTH AFTER 48 HOURS 05/01/17 12:00 Blood Blood Culture - Preliminary NO GROWTH AFTER 48 HOURS Most Recent Lab Values WBC 8.3 10^3/ul (4.5-11.0) D 05/03/17 09:45 RBC 3.99 10^6/uL (3.5-6.1) 05/03/17 09:45 Hgb 12.0 g/dL (12.0-16.0) 05/03/17 09:45 Hct 37.2 % (36.0-48.0) 05/03/17 09:45 MCV 93.2 fl (80.0-105.0) 05/03/17 09:45 MCH 30.1 pg (25.0-35.0) 05/03/17 09:45 MCHC 32.3 g/dl (31.0-37.0) 05/03/17 09:45 RDW 13.6 % (11.5-14.5) 05/03/17 09:45 Plt Count 298 10^3/uL (120.0-450.0) 05/03/17 09:45 MPV 10.3 fl (7.0-11.0) 05/03/17 09:45 Gran % 63.6 % (50.0-68.0) 05/03/17 09:45 Lymph % (Auto) 26.7 % (22.0-35.0) 05/03/17 09:45 [place] % (Auto) 7.3 % (1.0-6.0) H 05/03/17 09:45 Eos % (Auto) 2.2 % (1.5-5.0) 05/03/17 09:45 Baso % (Auto) 0.2 % (0.0-3.0) 05/03/17 09:45 Gran # 5.27 (1.4-6.5) 05/03/17 09:45 Lymph # 2.2 (1.2-3.4) 05/03/17 09:45 [place] # 0.6 (0.1-0.6) 05/03/17 09:45 Eos # 0.2 (0.0-0.7) 05/03/17 09:45 Baso # 0.02 K/mm3 (0.0-2.0) 05/03/17 09:45 Sodium 145 mmol/L (132-148) 05/03/17 09:45 Potassium 4.1 mmol/L (3.6-5.0) 05/03/17 09:45 Chloride 106 mmol/L (95-110) 05/03/17 09:45 Carbon Dioxide 31 mmol/L (21-33) 05/03/17 09:45 Anion Gap 12 (10-20) 05/03/17 09:45 BUN 12 mg/dL (7-21) 05/03/17 09:45 Creatinine 0.6 mg/dL (0.5-1.4) 05/03/17 09:45 Est GFR ( Amer) > 60 05/03/17 09:45 Est GFR (Non-Af Amer) > 60 05/03/17 09:45 POC Glucose (mg/dL) 166 mg/dL (65-110) H 05/04/17 07:38 Random Glucose 135 mg/dL (70-110) H 05/03/17 09:45 Calcium 8.5 mg/dL (8.4-10.5) 05/03/17 09:45 Total Bilirubin 0.3 mg/dL (0.2-1.3) 05/03/17 09:45 AST 16 U/L (14-36) 05/03/17 09:45 ALT 31 U/L (7-56) 05/03/17 09:45 Alkaline Phosphatase 75 U/L (38-126) 05/03/17 09:45 Total Protein 6.4 g/dL (5.8-8.3) 05/03/17 09:45 Albumin 3.3 g/dL (3.0-4.8) 05/03/17 09:45 Globulin 3.1 gm/dL 05/03/17 09:45 Albumin/Globulin Ratio 1.1 (1.1-1.8) 05/03/17 09:45 - Hospital Course Hospital Course: Discharge Summary for Dr. Vargas 57F presents with recurrent breast abscess. PMH: DM, morbid obesity. Patient has had partial mastectomy and removal of ducts from R breast 1 year ago with no recurrence until 5 days ago. Patient admits to increased redness and pain. Patient has been taking outpatient antibiotics and pain medication with no improvement. Patient also noticed a redness of the areolar area that began 5 days ago. Patient tolerates pain on left breast s/p partial mastectomy Surgery date 04/20/17 Patient was placed on IV Abx and breast ultrasound was ordered. Breast US 3.2x1.7x4.4cm fluid collection at 3 o'clock position in perla-areolar region at site of scar ' Patient had a Right breast &D in the OR 05/02. Patient continued on Vancomycin. culture resulted in coagulase negative gram positive cocci in clusters. Patient instructed to continue medication. Packing removed at bedside. covered with nonadhesive, 4x4 and medipore tape - Date & Time of H&P Date of H&P: 05/04/17 Time of H&P: 11:09 Discharge Exam - Head Exam Head Exam: NORMAL INSPECTION - Eye Exam Eye Exam: EOMI, Normal appearance - ENT Exam ENT Exam: Mucous Membranes Moist - Respiratory Exam Respiratory Exam: NORMAL BREATHING PATTERN. absent: Accessory Muscle Use, Decreased Breath Sounds - Cardiovascular Exam Cardiovascular Exam: REGULAR RHYTHM. absent: Bradycardia, Tachycardia Discharge Plan - Discharge Medications Prescriptions: Cephalexin [cephalexin] 500 mg PO TID #20 cap traMADol [Ultram] 50 mg PO TID #20 tab - Follow Up Plan Condition: FAIR Disposition: HOME/ ROUTINE Instructions: Breast Abscess Drainage (DC) Additional Instructions: If you experience any worsening of pain, increasing shortness of breath, nausea/ vomiting, fever, chills or chest pain contact your doctor or come back to the emergency room. c/w antibiotic therapy pain control as needed f/u with Dr. Vargas in 1 week for staple removal Referrals: PCP,NO [Primary Care Provider] -
--- NOTE | 2017-05-05 17:18 | OP ---
PROCEDURE DATE: 05/02/2017 LOCATION: Room 365, bed 1. PREOPERATIVE DIAGNOSES: 1. Recurrent right breast abscess (13 times). 2. Chronic obstructive pulmonary disease. 3. Obesity. POSTOPERATIVE DIAGNOSES: 1. Recurrent right breast abscess (13 times). 2. Chronic obstructive pulmonary disease. 3. Obesity. PROCEDURE: On 05/02/2017, incision and drainage of a right breast abscess. SURGEON: Ghassan Vargas MD PRODUCT TECHNOLOGY SCIENTIST: Dr. Lux, PGY2. SECOND PRODUCT TECHNOLOGY SCIENTIST: Dr. Mcbride, PGY1. OPERATIVE INDICATION: The patient is a 57-year-old 300-pound [place] lady, who has had 13 previous procedures draining abscess from her right breast. Earlier this year, she had the entire ductal system removed and was doing well and told 3 days prior to this when she developed another recurrent breast abscess prompting admission. Her contralateral breast had gotten red from previous surgery in the last 2 weeks; however, it is cleared at this point. It is recommended to the patient that she undergo incision and drainage and she is wholeheartedly agreeable to this and the plan will be to return after the infection is completely resolved for possible mastectomy. OPERATIVE NOTE: The patient was brought to the operating room. Identified by her wrist band. She undergoes time-out procedure and was placed on a table in a supine manner and undergoes the induction of general anesthesia with the insertion of an intralaryngeal mask. Right breast was prepped with Hibiclens and chlorhexidine preparation and she has been aseptically draped. A field block infiltration is employed from 9 o'clock to 11 o'clock on the superior aspect of the areola and following good take incision is made and approximately 45 to 50 mL of gonzales-purulent material is evacuated, cultured aerobically and anaerobically and loculations are digitally broken up. The wound was lavaged with saline solution until return is clear and hemostasis was confirmed. The wound is packed with 1-inch Iodoform gauze. The dry dressing placed over same and the patient awakened and transported to the recovery room in a satisfactory condition. Sponge, instrument and suture count were verified as correct at the end of the procedure. Estimated blood loss during this procedure was less than 5 mL of blood. The golf course assistant was present throughout the procedure and was extremely helpful in the dissection and in the drainage of the abscess collection. This dictation will be electronically signed without being read. Ghassan Vargas MD [facility] # [id number]
== END 2017-05-04 13:29 | disposition home or self-care (01) | DRG 600 ==
LOC: ED 10:53 → ERH 11:50 → 3RNO 14:51
PROVIDERS: ADMIT Surgery; ATTEND Surgery
PROC: 0H9T0ZZ Drainage of Right Breast, Open Approach (ICD-10-PCS; principal; 2017-05-02 09:30)
DX: N61.1 Abscess of the breast and nipple (principal); Z68.43 Body mass index [BMI] 50.0-59.9, adult; E11.9 Type 2 diabetes mellitus without complications; J44.9 Chronic obstructive pulmonary disease, unspecified; K21.9 Gastro-esophageal reflux disease without esophagitis; E66.01 Morbid (severe) obesity due to excess calories; G47.30 Sleep apnea, unspecified

== ENCOUNTER 2017-08-23 09:54 | Inpatient (IN) | payer MEDICARE, MEDICAID ==
[2017-08-23 12:08] LABS: BASO # 0.03 [, K/mm3] (0.0-2.0); BASO % 0.3 % (0.0-3.0); EOS # 0.1 (0.0-0.7); EOS % 1.5 % (1.5-5.0); GRAN # 5.97 (1.4-6.5); GRAN % 63.7 % (50.0-68.0); HEMOGLOBIN 14.8 g/dL (12.0-16.0); LYMPH # 2.7 (1.2-3.4); MEAN CELL VOLUME 91.3 fl (80.0-105.0); MEAN CORPUSCULAR HEMOGLOBIN 30.1 pg (25.0-35.0); MEAN PLATELET VOLUME 11.5 fl (7.0-11.0); MONO # 0.5 (0.1-0.6); MONO % 5.5 % (1.0-6.0); RBC 4.92 [, 10^6/uL] (3.5-6.1); RED CELL DISTRIBUTION WIDTH 14.4 % (11.5-14.5); WHITE BLOOD COUNT 9.4 [, 10^3/ul] (4.5-11.0)
[2017-08-23 12:16] LABS: ALB/GLOB RATIO 1.3 (1.1-1.8); ALBUMIN 3.7 g/dL (3.0-4.8); ALT/SGPT 37 U/L (7-56); AST/SGOT 20 U/L (14-36); BLOOD UREA NITROGEN 12 mg/dL (7-21); CALCIUM 9.3 mg/dL (8.4-10.5); GFR AFRICAN-AMERICAN > 60; GFR NON-AFRICAN AMERICAN > 60
[2017-08-23] MEDS ORDERED: Piperacillin/Tazobact 3.375 gm 100 ML IVPB STA (12:41)
--- NOTE | 2017-08-23 13:41 | ED PDOC ---
Arrival/HPI - General Chief Complaint: Breast Problem Time Seen by Provider: 08/23/17 11:27 Historian: Patient - History of Present Illness Narrative History of Present Illness (Text): 08/23/17 13:40 57-year-old female with a history of 18 breast surgeries for recurrent abscess presents today sent in by Dr. Vargas for admission for mastitis. Patient has been on by mouth antibiotics for the past 2 days with minimal improvement in her symptoms. She is complaining of pain and erythema over the left breast. Patient denies fevers or chills. No chest pain or shortness of breath. Patient complaining of achy burning pain to the left breast. No other complaints Time/Duration: Other (2 days) Symptom Onset: Gradual Symptom Course: Unchanged Past Medical History - Provider Review Nursing Documentation Reviewed: Yes - Travel History Have you recently traveled outside [place] w/in the past 3 mons?: No - Infectious Disease Hx of Infectious Diseases: None - Tetanus Immunization Tetanus Immunization: Unknown - Cardiac Hx Cardiac Disorders: Yes Hx Pacemaker: No - Pulmonary Hx Respiratory Disorders: Yes (SMOKES 3 CIG A DAY.) Hx Asthma: Yes Hx Chronic Obstructive Pulmonary Disease (COPD): Yes Hx Sleep Apnea: Yes - Neurological Hx Neurological Disorder: Yes Hx Migraine: Yes - HEENT Hx HEENT Disorder: No - Renal Hx Renal Disorder: No - Endocrine/Metabolic Hx Endocrine Disorders: Yes Hx Diabetes Mellitus Type 2: Yes - Hematological/Oncological Hx Blood Transfusions: No - Integumentary Hx Dermatological Disorder: Yes Other/Comment: BILATERAL RECURRENT BREAST ABSCESS. 14 TIMES HAD SURGERY TO RIGHT BREAST. - Musculoskeletal/Rheumatological Hx Musculoskeletal Disorders: No Hx Falls: No - Gastrointestinal Hx Gastrointestinal Disorders: Yes Hx Gastroesophageal Reflux: Yes - Genitourinary/Gynecological Hx Genitourinary Disorders: Yes Hx Urinary Tract Infection: Yes - Psychiatric Hx Emotional Abuse: No Hx Physical Abuse: No Hx Substance Use: No - Surgical History Other/Comment: Left breast cyst removal,UMBILICAL NERNIA REPAIR,CARD CATH, - Anesthesia Hx Anesthesia Reactions: No Hx Malignant Hyperthermia: No - Suicidal Assessment Feels Threatened In Home Enviroment: No Family/Social History - Physician Review Nursing Documentation Reviewed: Yes Family/Social History: Unknown Family HX Smoking Status: Current Some Days Smoker Hx Alcohol Use: No Hx Substance Use: No Hx Substance Use Treatment: No Allergies/Home Meds Allergies/Adverse Reactions: Allergies No Known Allergies Allergy (Verified 08/23/17 10:45) Home Medications: Home Meds Medication Instructions Recorded Confirmed Atorvastatin [Lipitor] 20 mg PO QPM 03/21/17 05/01/17 Fluticasone/Vilanterol [Breo 1 puff IH DAILY 03/21/17 05/01/17 Ellipta 200-25 Mcg INH] Gabapentin [Neurontin] 300 mg PO QPM 03/21/17 05/01/17 Metformin HCl [Glucophage] 500 mg PO ACTID 03/21/17 05/01/17 Omeprazole 20 mg PO QPM 03/21/17 05/01/17 Ciprofloxacin [Cipro] 500 mg PO BID 05/01/17 05/01/17 Potassium Chloride [K-Dur 20 mEq 20 meq PO DAILY 05/01/17 05/01/17 ER Tab] Review of Systems - Review of Systems Constitutional: absent: Fatigue, Fevers Respiratory: absent: SOB, Cough Cardiovascular: absent: Chest Pain, Palpitations Gastrointestinal: absent: Abdominal Pain, Nausea, Vomiting Genitourinary Female: absent: Dysuria Musculoskeletal: absent: Arthralgias, Back Pain, Neck Pain Skin: Rash, Cellulitis Neurological: absent: Headache, Dizziness Psychiatric: absent: Anxiety, Depression Physical Exam Vital Signs Reviewed: Yes Vital Signs Temp Pulse Resp BP Pulse Ox 08/23/17 13:29 62 18 128/75 99 08/23/17 12:05 64 18 131/80 97 08/23/17 11:45 98.2 F 86 18 138/76 98 Temperature: Afebrile Blood Pressure: Normal Pulse: Regular Respiratory Rate: Normal Appearance: Positive for: Well-Appearing, Non-Toxic, Comfortable Pain Distress: None Mental Status: Positive for: Alert and Oriented X 3 - Systems Exam Head: Present: Atraumatic Mouth: Present: Moist Mucous Membranes Neck: Present: Normal Range of Motion Respiratory/Chest: Present: Clear to Auscultation Cardiovascular: Present: Regular Rate and Rhythm, Normal S1, S2. No: Murmurs Breast/Axillary: Present: Erythema, Swelling, Symmetrical, Tender to Palpation ( left breast; there is swelling and erythema along the scar along the superior aspect of the areola; + tenderness. + induration. ). No: Axillary Lymphad, Discoloration, Fluctuance, Nipple Discharge Upper Extremity: Present: Normal ROM Lower Extremity: Present: Normal ROM Neurological: Present: GCS=15, Speech Normal Skin: Present: Warm, Dry, Normal Color Psychiatric: Present: Alert, Oriented x 3 Medical Decision Making ED Course and Treatment: 08/23/17 13:43 57-year-old female with left breast mastitis sent in by her surgeon for IV antibiotics Patient has been PO antibiotics 2 days CBC: wnl cmp; wnl 'blood cultures pending pt was seen and evaluated by dr. vargas; he would like to keep for IV abx for mastitis with failure of outpatient abx. zosyn started IV> case discussed with dr. dodson; accepts admission. impression; mastitis, failure outpatient abx. admit to med/surg - Lab Interpretations Lab Results: 08/23/17 11:50 08/23/17 11:50 Lab Results 08/23/17 11:50: WBC 9.4, RBC 4.92, Hgb 14.8 D, Hct 44.9, MCV 91.3, MCH 30.1, MCHC 33.0, RDW 14.4, Plt Count 316, MPV 11.5 H, Gran % 63.7, Lymph % (Auto) 29.0 , [place] % (Auto) 5.5, Eos % (Auto) 1.5, Baso % (Auto) 0.3, Gran # 5.97, Lymph # 2.7, [place] # 0.5, Eos # 0.1, Baso # 0.03 08/23/17 11:50: Sodium 143, Potassium 4.1, Chloride 104, Carbon Dioxide 28, Anion Gap 15, BUN 12, Creatinine 0.6 L, Est GFR ( Amer) > 60, Est GFR ( Non-Af Amer) > 60, Random Glucose 98, Calcium 9.3, Total Bilirubin 0.6, AST 20, ALT 37, Alkaline Phosphatase 76, Total Protein 6.7, Albumin 3.7, Globulin 2.9, Albumin/Globulin Ratio 1.3 - Medication Orders Current Medication Orders: Discontinued Medications Piperacillin Sod/Tazobactam Sod (Zosyn 3.375 In Ns 100ml) 100 mls @ 200 mls/hr IVPB STAT STA PRN Reason: Protocol Stop: 08/23/17 13:10 Last Admin: 08/23/17 13:00 Dose: 200 mls/hr eMAR Start Stop Document 08/23/17 13:00 OCS (Rec: 08/23/17 13:00 OCS [id number]) Intravenous Solution Start Date 08/23/17 Start Time 13:00 End Date 08/23/17 End time 13:30 Total Infusion Time 30 Disposition/Present on Arrival - Present on Arrival Any Indicators Present on Arrival: No History of DVT/PE: No History of Uncontrolled Diabetes: No Urinary Catheter: No History of Decub. Ulcer: No History Surgical Site Infection Following: None - Disposition Have Diagnosis and Disposition been Completed?: Yes Diagnosis: Mastitis Disposition: HOSPITALIZED Disposition Time: 13:38 Patient Plan: Admission Condition: FAIR Referrals: Jhon Cabrera MD [Primary Care Provider] - Follow up with primary
[2017-08-23] MEDS ORDERED: Piperacillin/Tazobact 3.375 gm 100 ML IVPB SCH (18:15)
--- NOTE | 2017-08-23 18:20 | CP.PCM.PCO ---
Physician Communication Note - Physician Communication Note Physician Communication Note: L subareolar mastitis not responding to po Ab/ Doubt surgery reqd
--- NOTE | 2017-08-23 21:17 | CP.PCM.CON ---
<Danielle Olivares - Last Filed: 08/23/17 21:18> History of Present Illness - History of Present Illness History of Present Illness: GENERAL SURGERY CONSULT NOTE FOR DR. VARGAS 57yo F with PMHx of DM, moribid obesity, HTN, COPD, sleep apnea, asthma and recurrent breast abscesses who presents with failure of outpatient therapy. She had noticed a nodule about 2 weeks ago[address] saw Dr[address] Vargas in his office on Monday. She was give PO antibiotics. On Monday, she returned to Dr. Vargas office. The symptoms had not improved so Dr. Vargas told her to come to the ED. She complains of pain in the lump on the left breast. No fever or chills. No drainage. Last mammogram was around 2 years ago per patient. She states that she is unable to get one because it hurts too much due to the abscesses. 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 Allergies: none SOcial history: smokes 3 cigarettes per day, denies illicit drug use or etoh Review of Systems - Review of Systems All systems: reviewed and no additional remarkable complaints except (as per hpi ) Past Patient History - Infectious Disease Hx of Infectious Diseases: None - Tetanus Immunizations Tetanus Immunization: Unknown - Past Medical History & Family History Past Medical History?: Yes - Past Social History Smoking Status: Current Some Days Smoker - CARDIAC Hx Cardiac Disorders: Yes Hx Pacemaker: No - PULMONARY Hx Respiratory Disorders: Yes (SMOKES 3 CIG A DAY.) Hx Asthma: Yes Hx Chronic Obstructive Pulmonary Disease (COPD): Yes Hx Sleep Apnea: Yes - NEUROLOGICAL Hx Neurological Disorder: Yes Hx Migraine: Yes - HEENT Hx HEENT Problems: No - RENAL Hx Chronic Kidney Disease: No - ENDOCRINE/METABOLIC Hx Endocrine Disorders: Yes Hx Diabetes Mellitus Type 2: Yes - HEMATOLOGICAL/ONCOLOGICAL Hx Blood Transfusions: No - INTEGUMENTARY Hx Dermatological Problems: Yes Other/Comment: BILATERAL RECURRENT BREAST ABSCESS. 14 TIMES HAD SURGERY TO RIGHT BREAST. - MUSCULOSKELETAL/RHEUMATOLOGICAL Hx Musculoskeletal Disorders: No Hx Falls: No - GASTROINTESTINAL Hx Gastrointestinal Disorders: Yes Hx Gastroesophageal Reflux: Yes - GENITOURINARY/GYNECOLOGICAL Hx Genitourinary Disorders: Yes Hx Urinary Tract Infection: Yes - PSYCHIATRIC Hx Emotional Abuse: No Hx Physical Abuse: No Hx Substance Use: No - SURGICAL HISTORY Other/Comment: Left breast cyst removal,UMBILICAL NERNIA REPAIR,CARD CATH, - ANESTHESIA Hx Anesthesia Reactions: No Hx Malignant Hyperthermia: No Meds Allergies/Adverse Reactions: Allergies Allergy/AdvReac Type Severity Reaction Status Date / Time No Known Allergies Allergy Verified 08/23/17 20:35 - Medications Medications: Current Medications Acetaminophen (Tylenol 325mg Tab) 650 mg PO Q6 PRN PRN Reason: Pain, Mild (1-3) Albuterol/Ipratropium (Duoneb 3 Mg/0.5 Mg (3 Ml) Ud) 3 ml IH [id number] [facility] Atorvastatin Calcium (Lipitor) 20 mg PO QPM [facility] Docusate Sodium (Colace) 100 mg PO BID [facility] Famotidine (Pepcid) 20 mg PO BID [facility] Gabapentin (Neurontin) 300 mg PO QPM [facility] PRN Reason: Protocol Heparin Sodium (Porcine) (Heparin) 5,000 units SC Q12 [facility] PRN Reason: Protocol Piperacillin Sod/Tazobactam Sod (Zosyn 3.375 In Ns 100ml) 100 mls @ 200 mls/hr IVPB Q6 [facility] PRN Reason: Protocol Stop: 08/29/17 00:01 Insulin Human Regular (Humulin R Low) 0 units SC ACHS [facility] PRN Reason: Protocol Metformin HCl (Glucophage) 500 mg PO ACTID [facility] Fluticasone/Vilanterol [Breo Ellipta 200-25 Mcg Inh] 1 puff IH DAILY [facility] Pantoprazole Sodium (Protonix Ec Tab) 40 mg PO QPM [facility] Tramadol HCl (Ultram) 50 mg PO TID [facility] Physical Exam - Constitutional Appears: Non-toxic, No Acute Distress - Eye Exam Eye Exam: EOMI, Normal appearance - Respiratory Exam Respiratory Exam: NORMAL BREATHING PATTERN. absent: Respiratory Distress - Cardiovascular Exam Cardiovascular Exam: +S1, +S2 - GI/Abdominal Exam GI & Abdominal Exam: Hernia, Soft. absent: Distended, Firm, Guarding, Tenderness Additional comments: obese abdomen well healed midline incision scar - Neurological Exam Neurological exam: Alert, CN II-XII Intact, Oriented x3 - Psychiatric Exam Psychiatric exam: Normal Affect, Normal Mood - Skin Skin Exam: Dry, Warm Additional comments: Left breast: subareolar mastitis, tender, minimal erythema Results - Vital Signs Recent Vital Signs: Last Vital Signs Temp 98.2 F 08/23/17 14:56 Pulse 70 08/23/17 14:56 Resp 18 08/23/17 14:56 BP 124/73 08/23/17 14:56 Pulse Ox 98 08/23/17 14:56 - Labs Result Diagrams: 08/23/17 11:50 08/23/17 11:50 Assessment & Plan - Assessment and Plan (Free Text) Assessment: 57yo F with PMHx of DM, moribid obesity, HTN, COPD, sleep apnea, asthma and recurrent breast mastitis and failure of outpatient PO antibiotics - Afebrile, VSS - IV antibiotics - No surgery at this time - D/w Dr. Sam Olivares PGY-3 <Ghassan Vargas - Last Filed: 08/24/17 11:03> Meds - Medications Medications: Current Medications Acetaminophen (Tylenol 325mg Tab) 650 mg PO Q6 PRN PRN Reason: Pain, Mild (1-3) Last Admin: 08/24/17 05:43 Dose: 650 mg Albuterol/Ipratropium (Duoneb 3 Mg/0.5 Mg (3 Ml) Ud) 3 ml IH [id number] [facility] Last Admin: 08/24/17 08:07 Dose: 3 ml Atorvastatin Calcium (Lipitor) 20 mg PO QPM [facility] Docusate Sodium (Colace) 100 mg PO BID [facility] Last Admin: 08/24/17 09:33 Dose: 100 mg Famotidine (Pepcid) 20 mg PO BID [facility] Last Admin: 08/24/17 09:35 Dose: 20 mg Gabapentin (Neurontin) 300 mg PO QPM [facility] PRN Reason: Protocol Heparin Sodium (Porcine) (Heparin) 5,000 units SC Q12 CARLOS PRN Reason: Protocol Last Admin: 08/24/17 09:35 Dose: 5,000 units Piperacillin Sod/Tazobactam Sod (Zosyn 3.375 In Ns 100ml) 100 mls @ 200 mls/hr IVPB Q6 CAR[facility]OS PRN Reason: Protocol Stop: 08/29/17 00:01 Last Admin: 08/24/17 05:44 Dose: 200 mls/hr Vancomycin HCl (Vancomycin 1gm) 1 gm in 250 mls @ 167 mls/hr IVPB Q12H [facility] PRN Reason: Protocol Last Admin: 08/23/17 23:36 Dose: 167 mls/hr Insulin Human Regular (Humulin R Low) 0 units SC ACHS CARLOS PRN Reason: Protocol Last Admin: 08/24/17 08:01 Dose: Not Given Metformin HCl (Glucophage) 500 mg PO ACTID [facility] Last Admin: 08/24/17 09:30 Dose: Not Given Fluticasone/Vilanterol [Breo Ellipta 200-25 Mcg Inh] 1 puff IH DAILY [facility] Pantoprazole Sodium (Protonix Ec Tab) 40 mg PO QPM [facility] Tramadol HCl (Ultram) 50 mg PO Q8H PRN PRN Reason: Pain, moderate (4-7) Last Admin: 08/23/17 22:21 Dose: 50 mg Results - Vital Signs Recent Vital Signs: Last Vital Signs Temp 98.7 F 08/24/17 04:00 Pulse 73 08/24/17 04:00 Resp 20 08/24/17 04:00 BP 111/73 08/24/17 04:00 Pulse Ox 98 08/24/17 04:00 - Labs Result Diagrams: 08/24/17 08:00 08/24/17 08:00 Labs: Laboratory Results - last 24 hr 08/23/17 08/24/17 08/24/17 21:22 07:29 08:00 WBC RBC Hgb Hct MCV MCH MCHC RDW Plt Count MPV Gran % Lymph % (Auto) Hill % (Auto) Eos % (Auto) Baso % (Auto) Gran # Lymph # Hill # Eos # Baso # ESR PT INR APTT Sodium 144 Potassium 4.0 Chloride 105 Carbon Dioxide 29 Anion Gap 14 BUN 13 Creatinine 0.7 Est GFR ( Amer) > 60 Est GFR (Non-Af Amer) > 60 POC Glucose (mg/dL) 131 H 128 H Random Glucose 125 H Calcium 8.9 Iron TIBC % Saturation Total Creatine Kinase 48 Triglycerides 137 Cholesterol 162 LDL Cholesterol Direct 109 HDL Cholesterol 33 TSH 3rd Generation 08/24/17 08/24/17 08/24/17 08:00 08:00 08:00 WBC 7.3 D RBC 4.64 Hgb 13.7 Hct 42.5 MCV 91.6 MCH 29.5 MCHC 32.2 RDW 14.6 H Plt Count 299 MPV 11.3 H Gran % 58.7 Lymph % (Auto) 33.1 Hill % (Auto) 5.5 Eos % (Auto) 2.3 Baso % (Auto) 0.4 Gran # 4.25 Lymph # 2.4 Hill # 0.4 Eos # 0.2 Baso # 0.03 ESR 5 PT INR APTT Sodium Potassium Chloride Carbon Dioxide Anion Gap BUN Creatinine Est GFR ( Amer) Est GFR (Non-Af Amer) POC Glucose (mg/dL) Random Glucose Calcium Iron 82 TIBC 356 % Saturation 23 Total Creatine Kinase Triglycerides Cholesterol LDL Cholesterol Direct HDL Cholesterol TSH 3rd Generation 0.51 08/24/17 08:00 WBC RBC Hgb Hct MCV MCH MCHC RDW Plt Count MPV Gran % Lymph % (Auto) Hill % (Auto) Eos % (Auto) Baso % (Auto) Gran # Lymph # Hill # Eos # Baso # ESR PT 12.2 INR 1.06 APTT 28.4 Sodium Potassium Chloride Carbon Dioxide Anion Gap BUN Creatinine Est GFR ( Amer) Est GFR (Non-Af Amer) POC Glucose (mg/dL) Random Glucose Calcium Iron TIBC % Saturation Total Creatine Kinase Triglycerides Cholesterol LDL Cholesterol Direct HDL Cholesterol TSH 3rd Generation Assessment & Plan - Assessment and Plan (Free Text) Assessment: Dx Rec Breast Abscess(14 Operations) Recent bilateral partial mastectomies(Ductal System)-2016 Not responding to PO Ab-Admitted for strong breast pain/IV AB CtChest: Ant Mediastinal Mass Brown cont present Rx This consult done under my direct supervision Anton Vargas MD FACS
--- NOTE | 2017-08-23 21:43 | CP.PCM.HP ---
<Teresa Mcallister - Last Filed: 08/23/17 21:40> History of Present Illness - History of Present Illness History of Present Illness: 57 yr female w/ history of DM II (non-insulin dependent), morbidly obese, sleep apnea, depression, insomnia, hyperlipidemia, neuropathic pain, GERD , & 18 bilateral breast surgeries for recurrent abscess. Pt took PO antibiotics for the past 2 days with minimal improvement. She is complaining of pain and erythema over the L breast. Pt reports wheezing and shortness of breath. Pt denies fevers, chills, n/v, diarrhea, constipation, urinary frequency, or chest pain. Present on Admission - Present on Admission Any Indicators Present on Admission: No History of DVT/PE: No History of Uncontrolled Diabetes: No Urinary Catheter: No Decubitus Ulcer Present: No Review of Systems - Constitutional Constitutional: As Per HPI - EENT Eyes: As Per HPI Ears: As Per HPI Nose/Mouth/Throat: As Per HPI - Breasts Breasts: As Per HPI - Cardiovascular Cardiovascular: As Per HPI - Respiratory Respiratory: As Per HPI - Gastrointestinal Gastrointestinal: As Per HPI - Genitourinary Genitourinary: As Per HPI - Reproductive: Female Reproductive:Female: As Per HPI - Musculoskeletal Musculoskeletal: As Per HPI - Integumentary Integumentary: As Per HPI - Neurological Neurological: As Per HPI - Psychiatric Psychiatric: As Per HPI - Endocrine Endocrine: As Per HPI - Hematologic/Lymphatic Hematologic: As Per HPI Past Patient History - Infectious Disease Hx of Infectious Diseases: None - Tetanus Immunizations Tetanus Immunization: Unknown - Past Medical History & Family History Past Medical History?: Yes - Past Social History Smoking Status: Light Smoker < 10 Cigarettes Daily - CARDIAC Hx Cardiac Disorders: Yes Hx Pacemaker: No - PULMONARY Hx Respiratory Disorders: Yes (SMOKES 3 CIG A DAY.) Hx Asthma: Yes Hx Chronic Obstructive Pulmonary Disease (COPD): Yes Hx Sleep Apnea: Yes - NEUROLOGICAL Hx Neurological Disorder: Yes Hx Migraine: Yes - HEENT Hx HEENT Problems: No - RENAL Hx Chronic Kidney Disease: No - ENDOCRINE/METABOLIC Hx Endocrine Disorders: Yes Hx Diabetes Mellitus Type 2: Yes - HEMATOLOGICAL/ONCOLOGICAL Hx Blood Transfusions: No - INTEGUMENTARY Hx Dermatological Problems: Yes Other/Comment: BILATERAL RECURRENT BREAST ABSCESS. 14 TIMES HAD SURGERY TO RIGHT BREAST. - MUSCULOSKELETAL/RHEUMATOLOGICAL Hx Musculoskeletal Disorders: No Hx Falls: No - GASTROINTESTINAL Hx Gastrointestinal Disorders: Yes Hx Gastroesophageal Reflux: Yes - GENITOURINARY/GYNECOLOGICAL Hx Genitourinary Disorders: Yes Hx Urinary Tract Infection: Yes - PSYCHIATRIC Hx Psychophysiologic Disorder: Yes Hx Depression: Yes Hx Emotional Abuse: No Hx Physical Abuse: No Hx Substance Use: No - SURGICAL HISTORY Hx Surgeries: Yes Other/Comment: Left breast cyst removal,UMBILICAL NERNIA REPAIR,CARD CATH, - ANESTHESIA Hx Anesthesia Reactions: No Hx Malignant Hyperthermia: No Meds Allergies/Adverse Reactions: Allergies Allergy/AdvReac Type Severity Reaction Status Date / Time No Known Allergies Allergy Verified 08/23/17 20:35 Physical Exam - Constitutional Appears: Well - Head Exam Head Exam: ATRAUMATIC, NORMAL INSPECTION, NORMOCEPHALIC - Eye Exam Eye Exam: EOMI, Normal appearance, PERRL Pupil Exam: NORMAL ACCOMODATION, PERRL - ENT Exam ENT Exam: Mucous Membranes Moist, Normal Exam - Neck Exam Neck exam: Positive for: Normal Inspection - Respiratory Exam Respiratory Exam: Decreased Breath Sounds, Wheezes, NORMAL BREATHING PATTERN - Cardiovascular Exam Cardiovascular Exam: REGULAR RHYTHM, +S1, +S2 - GI/Abdominal Exam GI & Abdominal Exam: Normal Bowel Sounds, Soft. absent: Tenderness - Back Exam Back exam: NORMAL INSPECTION - Neurological Exam Neurological exam: Alert, CN II-XII Intact, Normal Gait, Oriented x3, Reflexes Normal - Skin Additional comments: left breast; there is swelling and erythema along the scar along the superior aspect of the areola; + tenderness. + induration. Results - Vital Signs Recent Vital Signs: Last Vital Signs Temp 98.2 F 08/23/17 14:56 Pulse 70 08/23/17 14:56 Resp 18 08/23/17 14:56 BP 124/73 08/23/17 14:56 Pulse Ox 98 08/23/17 14:56 - Labs Result Diagrams: 08/23/17 11:50 08/23/17 11:50 Assessment & Plan (1) Morbid (severe) obesity due to excess calories Status: Acute (2) Wheezing Status: Acute (3) Mastitis Status: Acute (4) Cellulitis of breast Status: Acute - Assessment and Plan (Free Text) Plan: IV zosyn. GI/VTE prophylaxis. CXR. CT scan of chest. US of breast Labs ordered. Ysabel. Consults: Surgery = Dr. Ghassan Vargas ID = Dr. Johnston Facility Specialist = Dr. Dominguez Boring And Filling Machine Operator = Dr. Pollard Reviewed: ECG = ABNOMRAL, NSR nonspecific T wave abnormality - Date & Time Date: 08/23/17 Time: 07:00 <IsidoroShonda thomson - Last Filed: 08/24/17 07:58> Results - Vital Signs Recent Vital Signs: Last Vital Signs Temp 98.7 F 08/24/17 04:00 Pulse 73 08/24/17 04:00 Resp 20 08/24/17 04:00 BP 111/73 08/24/17 04:00 Pulse Ox 98 08/24/17 04:00 - Labs Result Diagrams: 08/23/17 11:50 08/23/17 11:50 Labs: Laboratory Results - last 24 hr 08/23/17 08/24/17 21:22 07:29 POC Glucose (mg/dL) 131 H 128 H Assessment & Plan - Assessment and Plan (Free Text) Plan: 57 yr female w/ history of DM II (non-insulin dependent), morbidly obese, sleep apnea, depression, insomnia, hyperlipidemia, neuropathic pain, GERD , & 18 bilateral breast surgeries for recurrent abscess. Pt took PO antibiotics for the past 2 days with minimal improvement. She is complaining of pain and erythema over the L breast. Pt reports wheezing and shortness of breath. Pt denies fevers, chills, n/v, diarrhea, constipation, urinary frequency, or chest pain. pt is seen and examined at bed side , looking comfortable . no n.v.d .no olivier had breast tenderness . d/d with dr allison . and my payroll tax analyst had , regino . pulmonary consult called , need bi /pap or c/ pap , anb as per id , will f/u agreed all above
[2017-08-23] MEDS: Insulin Reg-LOW-Coverage SC SCH (21:49)
--- NOTE | 2017-08-23 23:21 | CT ---
EXAM: CT Chest Without Intravenous Contrast EXAM DATE/TIME: 08/23/2017 9:25 PM CLINICAL HISTORY: 57 years old, female; Signs and symptoms; Other: Mastitis TECHNIQUE: Axial computed tomography images of the chest without intravenous contrast. All CT scans at this facility use one or more dose reduction techniques, viz.: automated exposure control; ma/kV adjustment per patient size (including targeted exams where dose is matched to indication; i.e. head); or iterative reconstruction technique. Coronal and sagittal reformatted images were created and reviewed. COMPARISON: There are no prior studies for comparison. FINDINGS: Artifacts: Motion artifact degrades image quality. Lungs and pleural spaces: Trachea and main bronchi are patent. There is minimal subsegmental atelectasis/scarring in the right middle lobe. There is no focal consolidation. There is minimal scarring at the left base. There are no effusions. Heart and vasculature: The heart is enlarged. There is no pericardial effusion.Aorta and main pulmonary artery are normal in caliber. Mediastinum: There is a 2.1 x 2.8 x 2.4 cm soft tissue nodule in the fat of the anterior mediastinum. No other mediastinal nodes are identified. Deirdre are not optimally evaluated without contrast material. Esophagus is unremarkable. Thyroid: Thyroid is not optimally demonstrated. Bones/joints: There are degenerative changes in the osseus structures. Soft tissues: Technique and body habitus limit evaluation of the breasts. Upper abdomen: There are no acute abnormalities in the visualized portion of the abdomen. IMPRESSION: Slightly limited by patient motion, no acute cardiopulmonary disease; 2.1 x 2.8 x 2.4 cm anterior mediastinal node/mass; limited evaluation of breasts do to patient size and position Additional nonemergent findings as described above.
[2017-08-23 23:23] VITALS: BMI 43.9
[2017-08-23] MEDS ORDERED: Pneumococcal 23-Valent Vaccine IM ONE (23:23)
[2017-08-23] MEDS ORDERED: Influenza Vaccine 60 mcg/0.5 mL SYR (4YR UP) IM ONE (23:23)
[2017-08-23] MEDS: Vancomycin 1gm in NS 250ml 1 GM/250 ML BAG IVPB SCH (23:36)
[2017-08-24] MEDS: Piperacillin/Tazobact 3.375 gm 100 ML IVPB SCH ×4 (00:24→18:44)
[2017-08-24] MEDS: Albuterol-Ipratrop 3 mg / 0.5 (3 ml) UD IH SCH ×4 (01:34→20:12)
[2017-08-24] MEDS: Insulin Reg-LOW-Coverage SC SCH ×4 (08:01→22:13)
--- NOTE | 2017-08-24 08:20 | RAD ---
HISTORY: Wheeze COMPARISON: 05/01/2017 TECHNIQUE: Chest PA and lateral FINDINGS: LUNGS: No active pulmonary disease. PLEURA: No significant pleural effusion identified. No pneumothorax apparent. CARDIOVASCULAR: Mild cardiomegaly OSSEOUS STRUCTURES: No significant abnormalities. VISUALIZED UPPER ABDOMEN: Normal. OTHER FINDINGS: None. IMPRESSION: No active disease.
--- NOTE | 2017-08-24 08:38 | CP.PCM.PN ---
Subjective - Date & Time of Evaluation Date of Evaluation: 08/24/17 Time of Evaluation: 07:30 - Subjective Subjective: Patient seen and examined at bedside this AM. No acute events reported overnight. Patient is a recent admit for suspected left breast mastitis. Patient reports pain associated with her left breast, tender to touch. Denies discharge, fever, chills, nausea, vomiting, chest pain, shortness of breath. Patient indicates she has had multiple infections similar to her presenting symptoms related to her breasts. Objective - Vital Signs/Intake and Output Vital Signs (last 24 hours): Temp Pulse Resp BP Pulse Ox 98.7 F 73 20 111/73 98 08/24/17 04:00 08/24/17 04:00 08/24/17 04:00 08/24/17 04:00 08/24/17 04:00 Intake and Output: 08/24/17 08/24/17 06:59 18:59 Intake Total 870 Output Total 420 Balance 450 - Medications Medications: Current Medications Acetaminophen (Tylenol 325mg Tab) 650 mg PO Q6 PRN PRN Reason: Pain, Mild (1-3) Last Admin: 08/24/17 05:43 Dose: 650 mg Albuterol/Ipratropium (Duoneb 3 Mg/0.5 Mg (3 Ml) Ud) 3 ml IH [id number] [facility] Last Admin: 08/24/17 08:07 Dose: 3 ml Atorvastatin Calcium (Lipitor) 20 mg PO QPM [facility] Docusate Sodium (Colace) 100 mg PO BID [facility] Famotidine (Pepcid) 20 mg PO BID [facility] Last Admin: 08/23/17 22:21 Dose: 20 mg Gabapentin (Neurontin) 300 mg PO QPM [facility] PRN Reason: Protocol Heparin Sodium (Porcine) (Heparin) 5,000 units SC Q12 [facility] PRN Reason: Protocol Last Admin: 08/23/17 22:21 Dose: 5,000 units Piperacillin Sod/Tazobactam Sod (Zosyn 3.375 In Ns 100ml) 100 mls @ 200 mls/hr IVPB Q6 [facility] PRN Reason: Protocol Stop: 08/29/17 00:01 Last Admin: 08/24/17 05:44 Dose: 200 mls/hr Vancomycin HCl (Vancomycin 1gm) 1 gm in 250 mls @ 167 mls/hr IVPB Q12H [facility] PRN Reason: Protocol Last Admin: 08/23/17 23:36 Dose: 167 mls/hr Insulin Human Regular (Humulin R Low) 0 units SC ACHS [facility] PRN Reason: Protocol Last Admin: 08/24/17 08:01 Dose: Not Given Metformin HCl (Glucophage) 500 mg PO ACTID [facility] Fluticasone/Vilanterol [Breo Ellipta 200-25 Mcg Inh] 1 puff IH DAILY [facility] Pantoprazole Sodium (Protonix Ec Tab) 40 mg PO QPM [facility] Tramadol HCl (Ultram) 50 mg PO Q8H PRN PRN Reason: Pain, moderate (4-7) Last Admin: 08/23/17 22:21 Dose: 50 mg - Constitutional Appears: Non-toxic - Head Exam Head Exam: ATRAUMATIC, NORMAL INSPECTION - Eye Exam Eye Exam: EOMI - ENT Exam ENT Exam: Mucous Membranes Moist - Neck Exam Neck Exam: Full ROM - Respiratory Exam Respiratory Exam: Clear to Ausculation Bilateral, NORMAL BREATHING PATTERN. absent: Rhonchi, Wheezes - Cardiovascular Exam Cardiovascular Exam: +S1, +S2 - GI/Abdominal Exam GI & Abdominal Exam: Soft, Hernia, Normal Bowel Sounds. absent: Firm, Rigid, Tenderness Additional comments: obese abdomen with previous midline incision scar - Extremities Exam Extremities Exam: absent: Calf Tenderness, Pedal Edema - Back Exam Back Exam: absent: paraspinal tenderness, rash noted - Neurological Exam Neurological Exam: Alert, Awake, Normal Gait, Oriented x3 Additional comments: motor and sensory grossly intact, patient able to follow commands, move all extremities past midline - Psychiatric Exam Psychiatric exam: Normal Affect, Normal Mood - Skin Skin Exam: Dry, Intact, Warm. absent: Cyanosis, Pallor, Rash Additional comments: left breast areola with evidence of mastitis with mild erythema, no evidence of purulent drainage, tenderness to palpation Assessment and Plan - Assessment and Plan (Free Text) Assessment: 57 year old female with PMH of DM, moribid obesity, HTN, COPD, sleep apnea, asthma and multiple recurrent breast mastitis of each breast with failure of outpatient PO antibiotics who is admitted for suspected mastitis Plan: - Patient continues to be afebrile - No purulent drainage noted, tender to palpation - Cont IV antibiotics - No plans for surgical intervention at this time - Discuss with Dr. Sam Samson recommendations per Dr. Sam Claire PGY1
[2017-08-24 08:39] LABS: BASO # 0.03 [, K/mm3] (0.0-2.0); BASO % 0.4 % (0.0-3.0); EOS # 0.2 (0.0-0.7); EOS % 2.3 % (1.5-5.0); GRAN # 4.25 (1.4-6.5); GRAN % 58.7 % (50.0-68.0); HEMOGLOBIN 13.7 g/dL (12.0-16.0); LYMPH # 2.4 (1.2-3.4); LYMPH % 33.1 % (22.0-35.0); MEAN CELL VOLUME 91.6 fl (80.0-105.0); MEAN CORPUSCULAR HEMOGLOBIN 29.5 pg (25.0-35.0); MEAN CORPUSCULAR HGB CONC 32.2 g/dl (31.0-37.0); MEAN PLATELET VOLUME 11.3 fl (7.0-11.0); MONO # 0.4 (0.1-0.6); MONO % 5.5 % (1.0-6.0); RBC 4.64 [, 10^6/uL] (3.5-6.1); RED CELL DISTRIBUTION WIDTH 14.6 % (11.5-14.5); WHITE BLOOD COUNT 7.3 [, 10^3/ul] (4.5-11.0)
[2017-08-24 08:48] LABS: IRON 82 ug/dL (45-180)
[2017-08-24 08:50] LABS: BLOOD UREA NITROGEN 13 mg/dL (7-21); CALCIUM 8.9 mg/dL (8.4-10.5); GFR AFRICAN-AMERICAN > 60; GFR NON-AFRICAN AMERICAN > 60; HDL CHOLESTEROL 33 mg/dL (29-60); INR 1.06 (0.93-1.08); PARTIAL THROMBOPLASTIN TIME 28.4 Seconds (25.1-36.5); PROTHROMBIN TIME 12.2 SECONDS (9.4-12.5)
[2017-08-24 08:57] LABS: % IRON SATURATION 23 % (20-55); TOTAL IRON BINDING CAPACITY 356 ug/dL (265-497)
[2017-08-24 09:01] LABS: LDL CHOLESTEROL 109 mg/dL (0-129)
--- NOTE | 2017-08-24 10:50 | CP.PCM.PCO ---
Physician Communication Note - Physician Communication Note Physician Communication Note: Ant Mediastina; mass/Breast OK Now/Cont Rx
[2017-08-24] MEDS ORDERED: Aminophylline 25 mg/ml Inj ONE (11:18)
--- NOTE | 2017-08-24 12:34 | CP.PCM.CON ---
History of Present Illness - History of Present Illness History of Present Illness: 57 year old female with PMH of HTN, dyslipidemia, asthma, anxiety, depression, gastritis, history of colon polyps history of bilateral breast mastitis/ abscesses was sent in by Dr. Vargas because of continued pain and a lump on the left breast area. She had been placed on PO antibiotics as an outpatient but continues to have pain. She has no fever or chills, no nausea or vomiting, no headache or dizziness, no SOB, no cough or colds, no sore throat, no nausea or vomiting, no abdominal pain, no diarrhea, no dysuria. She has not had a mammogram in 2 years because of the pain. Infectious Diseases consult is requested to further evaluate and manage. Review of Systems - Review of Systems All systems: reviewed and no additional remarkable complaints except (as per HPI ) Past Patient History - Infectious Disease Hx of Infectious Diseases: None - Tetanus Immunizations Tetanus Immunization: Unknown - Past Medical History & Family History Past Medical History?: Yes - Past Social History Smoking Status: Light Smoker < 10 Cigarettes Daily - CARDIAC Hx Cardiac Disorders: Yes Hx Pacemaker: No - PULMONARY Hx Respiratory Disorders: Yes (SMOKES 3 CIG A DAY.) Hx Asthma: Yes Hx Chronic Obstructive Pulmonary Disease (COPD): Yes Hx Sleep Apnea: Yes - NEUROLOGICAL Hx Neurological Disorder: Yes Hx Migraine: Yes - HEENT Hx HEENT Problems: No - RENAL Hx Chronic Kidney Disease: No - ENDOCRINE/METABOLIC Hx Endocrine Disorders: Yes Hx Diabetes Mellitus Type 2: Yes - HEMATOLOGICAL/ONCOLOGICAL Hx Blood Transfusions: No - INTEGUMENTARY Hx Dermatological Problems: Yes Other/Comment: BILATERAL RECURRENT BREAST ABSCESS. 14 TIMES HAD SURGERY TO RIGHT BREAST. - MUSCULOSKELETAL/RHEUMATOLOGICAL Hx Musculoskeletal Disorders: No Hx Falls: No - GASTROINTESTINAL Hx Gastrointestinal Disorders: Yes Hx Gastroesophageal Reflux: Yes - GENITOURINARY/GYNECOLOGICAL Hx Genitourinary Disorders: Yes Hx Urinary Tract Infection: Yes - PSYCHIATRIC Hx Psychophysiologic Disorder: Yes Hx Depression: Yes Hx Emotional Abuse: No Hx Physical Abuse: No Hx Substance Use: No - SURGICAL HISTORY Hx Surgeries: Yes Other/Comment: Left breast cyst removal,UMBILICAL NERNIA REPAIR,CARD CATH, - ANESTHESIA Hx Anesthesia Reactions: No Hx Malignant Hyperthermia: No Meds Allergies/Adverse Reactions: Allergies Allergy/AdvReac Type Severity Reaction Status Date / Time No Known Allergies Allergy Verified 08/23/17 20:35 - Medications Medications: Current Medications Acetaminophen (Tylenol 325mg Tab) 650 mg PO Q6 PRN PRN Reason: Pain, Mild (1-3) Albuterol/Ipratropium (Duoneb 3 Mg/0.5 Mg (3 Ml) Ud) 3 ml IH [id number] CARLOS Atorvastatin Calcium (Lipitor) 20 mg PO QPM [facility] Docusate Sodium (Colace) 100 mg PO BID [facility] Famotidine (Pepcid) 20 mg PO BID [facility] Last Admin: 08/23/17 22:21 Dose: 20 mg Gabapentin (Neurontin) 300 mg PO QPM [facility] PRN Reason: Protocol Heparin Sodium (Porcine) (Heparin) 5,000 units SC Q12 CAR[facility]OS PRN Reason: Protocol Last Admin: 08/23/17 22:21 Dose: 5,000 units Piperacillin Sod/Tazobactam Sod (Zosyn 3.375 In Ns 100ml) 100 mls @ 200 mls/hr IVPB Q6 CARLOS PRN Reason: Protocol Stop: 08/29/17 00:01 Vancomycin HCl (Vancomycin 1gm) 1 gm in 250 mls @ 167 mls/hr IVPB Q12H [facility] PRN Reason: Protocol Insulin Human Regular (Humulin R Low) 0 units SC ACHS [facility] PRN Reason: Protocol Last Admin: 08/23/17 21:49 Dose: Not Given Metformin HCl (Glucophage) 500 mg PO ACTID [facility] Fluticasone/Vilanterol [Breo Ellipta 200-25 Mcg Inh] 1 puff IH DAILY [facility] Pantoprazole Sodium (Protonix Ec Tab) 40 mg PO QPM [facility] Tramadol HCl (Ultram) 50 mg PO Q8H PRN PRN Reason: Pain, moderate (4-7) Last Admin: 08/23/17 22:21 Dose: 50 mg Physical Exam - Constitutional Appears: Non-toxic - Head Exam Head Exam: NORMAL INSPECTION - Neck Exam Neck exam: Negative for: Meningismus - Respiratory Exam Respiratory Exam: Decreased Breath Sounds - Cardiovascular Exam Cardiovascular Exam: +S1, +S2 - GI/Abdominal Exam GI & Abdominal Exam: Soft. absent: Tenderness Results - Vital Signs Recent Vital Signs: Last Vital Signs Temp 98.2 F 08/23/17 14:56 Pulse 70 08/23/17 14:56 Resp 18 08/23/17 14:56 BP 124/73 08/23/17 14:56 Pulse Ox 98 08/23/17 14:56 - Labs Result Diagrams: 08/24/17 08:00 08/24/17 08:00 Assessment & Plan - Assessment and Plan (Free Text) Plan: Assessment PRobable left breast mastitis history of recurrent breast abscesses HTN dyslipidemia asthma anxiety depression gastritis history of colon polyps Plan started patient on Vancomycin and Zosyn pending wound cx, blood cx; follow up further surgery recommendations; reviewed CT chest will monitor clinically
[2017-08-24 12:58] LABS: FOLATE 12.2 ng/mL
[2017-08-24] MEDS: Fluticasone/Vilanterol [Breo Ellipta 200-25 Mcg Inh] IH SCH (14:07)
[2017-08-24] MEDS: Vancomycin 1gm in NS 250ml 1 GM/250 ML BAG IVPB SCH (15:53)
--- NOTE | 2017-08-24 16:16 | US ---
HISTORY: COMPARISON:: 05/01/2017 TECHNIQUE: Grayscale imaging was performed. FINDINGS: RIGHT BREAST: There is heterogeneous background echotexture. No solid or cystic masses identified. No axillary lymphadenopathy identified. LEFT BREAST: There is heterogeneous background echotexture. There is a 5 mm well-circumscribed round hypoechoic lesion in the retroareolar region. There is also surrounding diffuse increased echogenicity. There is no central flow on color Doppler imaging No suspicious solid mass identified. No axillary lymphadenopathy identified. IMPRESSION: 5 mm retroareolar lesion could represent a complicated cyst or focal ductal dilatation dilatation. No peripheral increased vascularity to suggest abscess. Also noted is presumable edema in the breast tissue which could represent mild mastitis. Clinical follow-up is advised. Short-term follow-up ultrasound is recommended to assess resolution. BIRADS: BIRADS 3 Probably Benign Recommendation: Short-interval 3-month follow-up
[2017-08-24] MEDS ORDERED: Non Formulary Medication (Omeprazole [Omeprazole] 20 MG) PO SCH (18:00)
[2017-08-24] MEDS: Pantoprazole 40 mg EC Tab PO SCH (18:02)
--- NOTE | 2017-08-24 18:03 | CARD ---
APPROVED REPORT EKG Measurement Heart [id number] <Conclusion> Normal sinus rhythm Nonspecific T wave abnormality Abnormal ECG
--- NOTE | 2017-08-24 18:52 | CARD ---
APPROVED REPORT EXAM: Two-dimensional and M-mode echocardiogram with Doppler and color Doppler. INDICATION Chest Pain 2D DIMENSIONS Left Atrium (2D)3.7 (1.6-4.0cm)IVSd1.3 (0.7-1.1cm) Aortic Root (2D)2.9 (2.0-3.7cm)LVDd3.8 (3.9-5.9cm) PWd1.2 (0.7-1.1cm)LVDs2.3 (2.5-4.0cm) FS (%) 39.6 %LVEF (%)70.9 (>50%) M-Mode DIMENSIONS Aortic Cusp Exc.2.40 (1.5-2.0cm) Aortic Valve AoV Peak Dquqdkte055.0cm/Jaz Peak GR.9mmHg Mitral Valve MV E Hwjtygar19.9cm/sMV A Gfphnobm93.6cm/sE/A ratio1.2 TDI Lateral E' Peak V10.30cm/sMedial E' Peak V7.80cm/sE/Lateral E'8.0 E/Medial E'10.5 Pulmonary Valve PV Peak Lovyzqyj87.9cm/sPV Peak Grad.3mmHg Tricuspid Valve TR Peak Rubptdec346rv/sRAP SBPYEBFE0ptUrTU Peak Gr.27mmHg [id number] LEFT VENTRICLE The left ventricle is normal size. There is mild concentric left ventricular hypertrophy. The left ventricular function is normal.EF-60-65% There is normal LV segmental wall motion. The left ventricular diastolic function is normal. No left ventricle thrombus noted on this study. There is no ventricular septal defect visualized. There is no left ventricular aneurysm. There is no mass noted in the left ventricle. RIGHT VENTRICLE The right ventricle is normal size. There is normal right ventricular wall thickness. The right ventricular systolic function is normal. ATRIA The left atrium size is normal. The right atrium size is normal. The interatrial septum is intact with no evidence for an atrial septal defect. AORTIC VALVE The aortic valve is thickened but opens well. No aortic regurgitation is present. There is no aortic valvular stenosis. There is no aortic valvular vegetation. MITRAL VALVE The mitral valve is thickened but opens well. Mitral regurgitation is trace. There is no mitral valve stenosis. There is no evidence of mitral valve prolapse. TRICUSPID VALVE The tricuspid valve leaflets are thickened , but open well. There is trace tricuspid regurgitation.RVSP-30 mmofhg. There is no tricuspid valve stenosis. There is no tricuspid valve prolapse or vegetation. PULMONIC VALVE The pulmonary valve is normal in structure. There is no pulmonic valvular regurgitation. There is no pulmonic valvular stenosis. GREAT VESSELS The aortic root is normal in size. The ascending aorta is normal in size. The pulmonary artery is normal. The IVC is normal in size and collapses >50% with inspiration. PERICARDIAL EFFUSION There is no pleural effusion. There is no pericardial effusion. <Conclusion> Normal Chamber Size. EF-60-65% Mitral regurgitation is trace. There is trace tricuspid regurgitation.RVSP-30 mmofhg. The IVC is normal in size and collapses >50% with inspiration. There is no pericardial effusion.
--- NOTE | 2017-08-24 20:44 | CARD ---
APPROVED REPORT Protocol: LEXISCAN Test Type: Lexiscan Sestamibi Stress Test Attending Physician: Dr. Kervin Pollard Referring Physician: Dr. Shonda Chaudhry Test Indications: Chest Pain Height:5 ft 3 in Weight:248lbs Medications: TYLENOL, DUONEB, LIPITOR, COLACE, PEPCID, NEURONTIN, HEPARIN, GLUCOPHAGE, BREO, PROTONIZ, ZOSYN, ULLTRAM, VANCO Medical History: 57 YEAR OLD FEMALE WITH A H/O DIABETES, SLEEP APNEA, GERD AND HIGH CHOLESTEROL Target HR: 165 bpm Resting ECG: RSR. ST_T Changes. Resting Heart Rate: 62 bpm Resting Blood Pressure: 112/62mmHg Submaximum (85%): 140 bpm PROCEDURE Pharmacologic stress testing was performed using 0.4mg per 5ml of regadenoson given intravenously over 7-10 seconds. Reversal agent aminophyline 100 mg, given intravenously for Dyspnea. POST EXERCISE Reason for Termination: Protocol completed Target HR: No Max HR: 55 bpm 51% of Maximum Predicted HR: 165 bpm Exercise duration: 00:31 min:sec, 0 Stage Exercise capacity: 1.0METs Max Blood Pressure: 112/62mmHg Blood Pressure response to exercise: normal resting BP - appropriate response Heart Rate response to exercise: appropriate Chest Pain: No, none Angina index: 0 Arrhythmia: No, none ST Change: Yes, No Additional ST_T Changes. Deviation: 0 mm INTERPRETATION Stress EKG Conclusion: IV LEXISCAN NUCLEAR STRESS TEST NEGATIVE FOR CHEST PAIN AND NEGATIVE FOR ST-T CHANGES. NUCLEAR SCAN REPORT PENDING. Signed by Kervin Pollard Electronically Approved: 08/24/2017 12:16:08 EXAM: Myocardial Perfusion REST/STRESS Stress Test Type: Pharmacologic Imaging Protocol Rest Spect myocardial perfusion imaging was performed in supine position 45 minutes following the injection of 10.4 mCi of Tc-99 Myoview. At peak stress, the patient was injected intravenously with 30.9mCi of Tc-99 tetrofosmin after an infusion time of 0 minutes and 10 seconds. Gated Stress Spect was performed 60 minutes after intravenous Tc-99 Myoview injection. The images were gated to evaluate regional wall motion and calculate ventricular ejection fraction.Images were reconstructed using backfilter projection method in short horizontal and verticle long axis. Spect slices were generated. LV Perfusion The quality of the study is good. The left ventricle is within normal limits in size. The right ventricle is unremarkable. The lung uptake is normal. The distribution of tracer reveals heterogeneous uptake with an area of moderately and diffusely decreased perfusion in the inferior wall on the stress study. The remainder of the LV myocardium is unremarkable. The rest myocardial perfusion study shows no significant change. Wall Motion Wall motion study shows good contractility of the left ventricle. LVEF = 64%. Conclusion 1. Essnetially normal SPECT myocardial perfusion study. 2. Heterogeneous activities and fixed, inferior defect are most likely due to low lying breast/ soft tissue attenuation. 3. Normal gated wall motion and thicknening of the left ventricle.
--- NOTE | 2017-08-24 21:45 | PN ---
REASON FOR CONSULTATION: Cardiac evaluation, abnormal EKG. BRIEF CLINICAL HISTORY: A 57-year-old female with past medical history significant for type 2 diabetes, morbid obesity, sleep apnea, depression, insomnia, hyperlipidemia, COPD, asthma, multiple breast surgery, recurrent mastitis, came in with complaint of pain in the left breast, sometimes also pain is retrosternal, short of breath and tightness in the chest. I am not sure it is secondary to asthma or secondary to mastitis. PAST MEDICAL HISTORY: Significant for diabetes, hypertension, hyperlipidemia, morbid obesity, sleep apnea, recurrent mastitis, multiple breast surgery bilateral, admitted with the left breast pain, but also complains of tightness in the chest. It is not sure secondary to asthma or breast pain. SOCIAL HISTORY: Denies smoking. Denies any history of alcohol abuse. CURRENT MEDICATION AT HOME: Patient was taking omeprazole, tramadol, potassium, metformin, gabapentin, ciprofloxacin, Keflex, and atorvastatin. REVIEW OF SYSTEMS: As per HPI. ALLERGIES: NO KNOWN DRUG ALLERGY. PHYSICAL EXAMINATION: GENERAL: As follows, height of the patient is 5 feet 3 inch, weight of the patient 248 pounds, body mass index of 50 kg/M2. VITAL SIGNS: Temperature afebrile, heart rate 73, and blood pressure 101/73. HEENT: PERRLA. Extraocular muscles are intact. NECK: Supple. No carotid bruits or thyromegaly. CHEST: Clear to auscultation. HEART: S1 and S2 regular. ABDOMEN: Soft. EXTREMITIES: Clubbing and cyanosis negative. LABORATORY DATA: Blood workup as follows, WBC , hemoglobin 13.7, hematocrit 42.5, and platelet count 299. Chemistry shows sodium 144, potassium 4, chloride 105, carbon dioxide 29, anion gap of 14, BUN 13, creatinine 0.7. IMPRESSION AND PLAN: Morbid obesity, diabetes, hypertension, hyperlipidemia, chest pain, increasing obesity, diabetes. Suggest echo and stress test. We will get lipid profile, TSH, hemoglobin A1c, echo and stress. Further recommendations after the hospital course. We will follow with you. Thank you Dr. Chaudhry for providing us the opportunity in taking care of the patient, Lizet Bhat. We will follow with you. Kervin Hughes MD [facility] # [id number]
[2017-08-25] MEDS: Piperacillin/Tazobact 3.375 gm 100 ML IVPB SCH ×4 (00:01→17:31)
[2017-08-25] MEDS: Vancomycin 1gm in NS 250ml 1 GM/250 ML BAG IVPB SCH ×3 (00:52→22:57)
--- NOTE | 2017-08-25 02:40 | PN ---
DATE: SUBJECTIVE: The patient is 57-year-old female. The patient is seen and examined at the bedside. In the stress test lab, Dr. Pollard was also at the bedside, complaining about pain in the breast. No fever, no chills. No nausea, vomiting or diarrhea. No headache, no dizziness, no cold sweats, no sore throat, no abdominal pain, no diarrhea, no dysuria. The patient had mammography done 2 years ago because of the pain and has multiple surgeries on the breast, has scar ingrid. PHYSICAL EXAMINATION VITAL SIGNS: Temperature 98.7, pulse 72, blood pressure 111/73, respiratory rate 20. HEENT: Head: Normocephalic and atraumatic. Eyes: PERRLA. Extraocular muscles intact. Conjunctivae clear. Nose patent. Mucous membranes moist. NECK: Supple. No carotid bruits or thyromegaly. CHEST: Bilaterally symmetrical. HEART: S1 and S2 positive. LUNGS: Clear to auscultation. ABDOMEN: Soft. Bowel sounds present. No organomegaly. EXTREMITIES: No edema, no cyanosis. NEUROLOGIC: The patient is awake, alert. Moving all four extremities. No focal deficits. LABORATORY DATA: White blood cell is 7.3, hemoglobin 13.7, hematocrit 42.5, platelets 299. Sodium 144, potassium 4.0, BUN 13, creatinine 0.7, glucose 125, hemoglobin A1c 7.1. ASSESSMENT AND PLAN: Ms. Lizet Bhat is a 57-year-old lady with diabetes mellitus, comorbid obesity, hypertension, hypercholesterolemia. EKG was abnormal. Cardiology consult called. They suggested echo and stress test. Has pain in the breast, multiple scar tissues on the breast, history of multiple surgeries, history of asthma, anxiety, depression, gastritis, history of colon polyp, bilateral mastitis, The patient's doctor was Dr. Ghassan Vargas. Now the patient has lump on the left breast as per the patient. P.o. antibiotic is not helping. History of recurrent breast abscess and now rule out breast mastitis bilaterally. Start the patient on vancomycin as well as Zosyn. Pending wound culture, blood culture. Followup surgery recommended. The patient went for stress test according to Dr. Jose A Dickerson, essentially normal SPECT myocardial perfusion study, heterogenous activity and fixed inferior defect are most likely due to low lying breast and soft tissue attenuation, normal gated wall motion, thickening of the left ventricle. Discussion done with Dr. Ghassan Vargas, who knows this patient from many years. Appreciating Dr. Ghassan Vargas' communication report. CAT scan of the chest shows slightly limited by patient motion, no acute cardiopulmonary disease, 2.1 x 2.8 x 2.4 cm anterior mediastinal node plus mass, limited evaluation of breast due to the patient's size and motion. Gastrointestinal and deep venous thrombosis prophylaxis. Repeat lab. Breast ultrasound done showed 5 mm retroareolar lesion, could represent complicated cyst or focal ductal dilatation. No peripheral increase of vascularity to suggest abscess. Also noted is presumable edema in the breast tissue, which could represent mild mastitis. Continue intravenous antibiotics as per Infectious Disease. We will follow up. Shonda Chaudhry MD [facility]TD[facility]
[2017-08-25] MEDS: Albuterol-Ipratrop 3 mg / 0.5 (3 ml) UD IH SCH ×4 (03:10→20:40)
--- NOTE | 2017-08-25 06:29 | CON ---
DATE: 08/24/2017 PULMONARY CONSULTATION REFERRING PHYSICIAN: Dr. Chaudhry. REASON FOR CONSULTATION: Cough, shortness of breath, sleep apnea syndrome and mediastinal left breast abscess. HISTORY OF PRESENT ILLNESS: This is a 57-year-old female with a past medical history significant for diabetes, sleep apnea syndrome, depression, insomnia, hyperlipidemia, GERD, has a history of recurrent abscesses on the breast. She was seen as outpatient for left breast cellulitis and abscess, used p.o. antibiotics without much relief, finally came to the ER and was admitted, seen by surgery. She also has some cough. At home, she has CPAP and is compliant with it. PAST MEDICAL HISTORY: As per history of present illness. SOCIAL HISTORY: Positive history of smoking. Deny alcohol use. ALLERGIES: NONE KNOWN. FAMILY HISTORY: No significant cardiopulmonary disease reported. MEDICATIONS: She is on Colace 100 mg twice a day, Duo-Nebs q.6 hours, Breo-Ellipta 1 puff daily, metformin 500 mg before meal t.i.d., heparin 5000 units subcutaneously q.12 hours, insulin coverage, Lipitor 20 mg daily, gabapentin 300 mg, Pepcid 20 mg twice a day, Protonix 40 mg daily, Tylenol p.r.n., Ultram 50 mg q.8 hours p.r.n., vancomycin 1 g IV q.12 hours, Zosyn 3.375 g IV q.6 hours. REVIEW OF SYSTEMS: No headache. No rhinitis. Has some cough, shortness of breath. No chest pain. Left breast discomfort. No nausea. No vomiting. No diarrhea. No dysuria. No leg pain or swelling. PHYSICAL EXAMINATION: GENERAL: Lying in the bed, no acute distress. VITAL SIGNS: Temperature is 98, heart rate is 73, respiratory rate is 20, blood pressure is 111/73, pulse ox is 98% on room air. HEENT: Moist mucous membranes. Crowded airway. Mallampati score is IV. NECK: Supple. No JVD. LUNGS: Has scattered rhonchi. HEART: S1, S2. ABDOMEN: Soft, nontender. No organomegaly. EXTREMITIES: No edema. BREASTS: Left breast is tender. NEUROLOGIC: Awake, alert, follows simple commands. LABORATORY DATA: Shows hemoglobin 13.7, hematocrit 42.5, WBC 7.3, platelet is 299. INR 1.06, PTT is 29. Sodium 144, potassium 4.0, chloride 105, bicarbonate 29, BUN 13, creatinine 0.7, glucose is 151, hemoglobin A1c 7.9, calcium 8.9, iron is 82. C-reactive protein 6.14, TSH is 0.5. Microbiology; blood cultures have been negative. Had a myocardial stress test done; the wall motion study shows good contractility, left ventricular ejection fraction of 64, essentially normal SPECT myocardial study. Also had an echocardiogram done, which shows right ventricular systolic pressure is 30, LV ejection fraction 60%-65%. Had a CAT scan of the chest done, which shows slightly limited by patient motion. No acute cardiopulmonary disease. There is 2 x 2.8 x 2.4 cm mediastinal node/mass. Also had a breast ultrasound done, which shows 5 mm retroareolar lesion, could represent complicated cyst or focal ductal dilatation; recommended followup. ASSESSMENT: Recurrent breast abscesses and cellulitis, hypertension, diabetes, morbid obesity, chronic obstructive lung disease, obstructive sleep apnea syndrome, active smoker, mediastinal nodule. PLAN: We will continue inhaled bronchodilator, continue antibiotics. We will speak to the patient in detail the option of followup versus biopsy. Thank you and we will follow with you. Kervin Dominguez MD
[2017-08-25] MEDS: Insulin Reg-LOW-Coverage SC SCH ×4 (08:11→22:30)
--- NOTE | 2017-08-25 08:23 | CP.PCM.PN ---
Subjective - Date & Time of Evaluation Date of Evaluation: 08/25/17 Time of Evaluation: 07:15 - Subjective Subjective: Surgery Progress note. Dr. Vargas Pt seen and examined at bedside. No acute events overnight. Still complain of some pain to left periareolar area. No F/C. No new complaints. Objective - Vital Signs/Intake and Output Vital Signs (last 24 hours): Temp Pulse Resp BP Pulse Ox 98.2 F 82 19 128/82 95 08/25/17 06:00 08/25/17 06:00 08/25/17 06:00 08/25/17 06:00 08/25/17 06:00 - Medications Medications: Current Medications Acetaminophen (Tylenol 325mg Tab) 650 mg PO Q6 PRN PRN Reason: Pain, Mild (1-3) Last Admin: 08/25/17 06:09 Dose: 650 mg Albuterol/Ipratropium (Duoneb 3 Mg/0.5 Mg (3 Ml) Ud) 3 ml IH [id number] [facility] Last Admin: 08/25/17 08:03 Dose: 3 ml Atorvastatin Calcium (Lipitor) 20 mg PO QPM [facility] Last Admin: 08/24/17 18:01 Dose: 20 mg Docusate Sodium (Colace) 100 mg PO BID [facility] Last Admin: 08/24/17 18:00 Dose: 100 mg Famotidine (Pepcid) 20 mg PO BID [facility] Last Admin: 08/24/17 18:01 Dose: 20 mg Gabapentin (Neurontin) 300 mg PO QPM CARLOS PRN Reason: Protocol Last Admin: 08/24/17 18:01 Dose: 300 mg Heparin Sodium (Porcine) (Heparin) 5,000 units SC Q12 CARLOS PRN Reason: Protocol Last Admin: 08/24/17 22:12 Dose: 5,000 units Piperacillin Sod/Tazobactam Sod (Zosyn 3.375 In Ns 100ml) 100 mls @ 200 mls/hr IVPB Q6 CARLOS PRN Reason: Protocol Stop: 08/29/17 00:01 Last Admin: 08/25/17 06:01 Dose: 200 mls/hr Vancomycin HCl (Vancomycin 1gm) 1 gm in 250 mls @ 167 mls/hr IVPB Q12H CARLOS PRN Reason: Protocol Last Admin: 08/25/17 00:52 Dose: 167 mls/hr Insulin Human Regular (Humulin R Low) 0 units SC ACHS [facility] PRN Reason: Protocol Last Admin: 08/25/17 08:11 Dose: Not Given Metformin HCl (Glucophage) 500 mg PO ACTID [facility] Last Admin: 08/24/17 18:00 Dose: 500 mg Fluticasone/Vilanterol [Breo Ellipta 200-25 Mcg Inh] 1 puff IH DAILY [facility] Last Admin: 08/24/17 14:07 Dose: Not Given Pantoprazole Sodium (Protonix Ec Tab) 40 mg PO QPM [facility] Last Admin: 08/24/17 18:02 Dose: 40 mg Tramadol HCl (Ultram) 50 mg PO Q8H PRN PRN Reason: Pain, moderate (4-7) Last Admin: 08/24/17 23:40 Dose: 50 mg - Labs Labs: 08/24/17 08:00 08/24/17 08:00 PT 12.2 SECONDS (9.4-12.5) 08/24/17 08:00 INR 1.06 (0.93-1.08) 08/24/17 08:00 APTT 28.4 Seconds (25.1-36.5) 08/24/17 08:00 - Constitutional Appears: Non-toxic, No Acute Distress - Head Exam Head Exam: ATRAUMATIC, NORMAL INSPECTION, NORMOCEPHALIC - Eye Exam Eye Exam: EOMI, Normal appearance - ENT Exam ENT Exam: Mucous Membranes Moist - Respiratory Exam Respiratory Exam: NORMAL BREATHING PATTERN. absent: Accessory Muscle Use, Respiratory Distress - GI/Abdominal Exam GI & Abdominal Exam: Soft. absent: Guarding, Rigid, Tenderness - Extremities Exam Extremities Exam: Normal Inspection. absent: Calf Tenderness - Skin Additional comments: left breast 12'oclock areola mild discharge expressed. Tenderness to palpation in same area. Previous surgical scars noted. Assessment and Plan - Assessment and Plan (Free Text) Assessment: 57yo F with multiple recurrent Left breast abscess with I&D with failure of outpatient PO antibiotics. Admitted for suspected mastitis - CT scan noted Plan: - Recommend mediastinal mass/node work-up - Pain control - Cont antibiotics as per ID - Continue medical management - No plans for acute surgical intervention at this time Futher recs as per Dr. Sam Durham PGY1 surgery pager: [phone]
[2017-08-25] MEDS: Fluticasone/Vilanterol [Breo Ellipta 200-25 Mcg Inh] IH SCH (09:25)
--- NOTE | 2017-08-25 12:56 | PN ---
DATE: 08/25/2017 REASON FOR CONSULTATION AND FOLLOWUP: Cardiac evaluation, chest pain. Preop evaluation for possible breast surgery. SUBJECTIVE: The patient denies any chest pain, shortness of breath or any palpitation. OBJECTIVE: GENERAL: Not in apparent distress. VITAL SIGNS: Temperature afebrile, heart rate 82, blood pressure 120/82. HEENT: PERRLA intact. NECK: Supple. No carotid bruits or thyromegaly. CHEST: Clear to auscultation. HEART: S1 and S2 regular. ABDOMEN: Soft. EXTREMITIES: Clubbing and cyanosis negative. LABORATORY DATA: Blood workup as follows; WBC 7.3, hemoglobin 13.7, hematocrit 42.5, and platelet count 299. Chemistry shows sodium 144, potassium 4, chloride 105, carbon dioxide 29, anion gap of 14, BUN 13, creatinine was 0.7. Triglycerides are 137, cholesterol 162, LDL 109, HDL 33. TSH 0.5. Hemoglobin A1c 7.5. IMPRESSION: Morbid obesity, diabetes, preoperative evaluation for possible breast surgery, mastitis, multiple breast surgery, hypertension, hyperlipidemia. The patient underwent a stress test is essentially negative. No reversible ischemia. Essentially, normal myocardial perfusion study, ejection fraction reported 64%. The patient had echocardiography done yesterday that showed normal chamber size, ejection fraction of 65%, trace mitral regurgitation and tricuspid regurgitation. RECOMMENDATION: The patient is clear from cardiac point of view to go for surgery for breast if needed. Continue aggressive medical treatment, excessive weight reduction, modification of risk factor for coronary artery disease. The patient is cleared from Cardiology point of view to go for surgery. No absolute contraindication. No evidence of ischemia, no evidence of arrhythmia or congestive heart failure. We will discontinue telemetry, aggressive medical treatment. Kervin Hughes MD
--- NOTE | 2017-08-25 13:48 | CP.PCM.PN ---
Subjective - Date & Time of Evaluation Date of Evaluation: 08/25/17 Time of Evaluation: 10:10 - Subjective Subjective: Still with left breast pain, no fevers overnight, no nausea, no diarrhea. Objective - Vital Signs/Intake and Output Vital Signs (last 24 hours): Temp Pulse Resp BP Pulse Ox 98.2 F 82 19 128/82 95 08/25/17 06:00 08/25/17 06:00 08/25/17 06:00 08/25/17 06:00 08/25/17 06:00 - Medications Medications: Current Medications Acetaminophen (Tylenol 325mg Tab) 650 mg PO Q6 PRN PRN Reason: Pain, Mild (1-3) Last Admin: 08/25/17 06:09 Dose: 650 mg Albuterol/Ipratropium (Duoneb 3 Mg/0.5 Mg (3 Ml) Ud) 3 ml IH [id number] [facility] Last Admin: 08/25/17 03:10 Dose: 3 ml Atorvastatin Calcium (Lipitor) 20 mg PO QPM [facility] Last Admin: 08/24/17 18:01 Dose: 20 mg Docusate Sodium (Colace) 100 mg PO BID [facility] Last Admin: 08/24/17 18:00 Dose: 100 mg Famotidine (Pepcid) 20 mg PO BID [facility] Last Admin: 08/24/17 18:01 Dose: 20 mg Gabapentin (Neurontin) 300 mg PO QPM [facility] PRN Reason: Protocol Last Admin: 08/24/17 18:01 Dose: 300 mg Heparin Sodium (Porcine) (Heparin) 5,000 units SC Q12 CARLOS PRN Reason: Protocol Last Admin: 08/24/17 22:12 Dose: 5,000 units Piperacillin Sod/Tazobactam Sod (Zosyn 3.375 In Ns 100ml) 100 mls @ 200 mls/hr IVPB Q6 CARLOS PRN Reason: Protocol Stop: 08/29/17 00:01 Last Admin: 08/25/17 06:01 Dose: 200 mls/hr Vancomycin HCl (Vancomycin 1gm) 1 gm in 250 mls @ 167 mls/hr IVPB Q12H CARLOS PRN Reason: Protocol Last Admin: 08/25/17 00:52 Dose: 167 mls/hr Insulin Human Regular (Humulin R Low) 0 units SC ACHS CARLOS PRN Reason: Protocol Last Admin: 08/24/17 22:13 Dose: Not Given Metformin HCl (Glucophage) 500 mg PO ACTID [facility] Last Admin: 08/24/17 18:00 Dose: 500 mg Fluticasone/Vilanterol [Breo Ellipta 200-25 Mcg Inh] 1 puff IH DAILY [facility] Last Admin: 08/24/17 14:07 Dose: Not Given Pantoprazole Sodium (Protonix Ec Tab) 40 mg PO QPM [facility] Last Admin: 08/24/17 18:02 Dose: 40 mg Tramadol HCl (Ultram) 50 mg PO Q8H PRN PRN Reason: Pain, moderate (4-7) Last Admin: 08/24/17 23:40 Dose: 50 mg - Labs Labs: 08/24/17 08:00 08/24/17 08:00 PT 12.2 SECONDS (9.4-12.5) 08/24/17 08:00 INR 1.06 (0.93-1.08) 08/24/17 08:00 APTT 28.4 Seconds (25.1-36.5) 08/24/17 08:00 - Constitutional Appears: Non-toxic - Head Exam Head Exam: NORMAL INSPECTION - ENT Exam ENT Exam: Mucous Membranes Moist - Neck Exam Neck Exam: absent: Lymphadenopathy, Meningismus - Respiratory Exam Respiratory Exam: Decreased Breath Sounds - Cardiovascular Exam Cardiovascular Exam: +S1, +S2 - GI/Abdominal Exam GI & Abdominal Exam: Soft. absent: Tenderness Assessment and Plan - Assessment and Plan (Free Text) Plan: Assessment Probable left breast mastitis history of recurrent breast abscesses HTN dyslipidemia asthma anxiety depression gastritis history of colon polyps Plan continue Vancomycin and Zosyn day 2; pending wound cx, blood cx; follow up further surgery recommendations; reviewed CT chest will continue to monitor clinically
--- NOTE | 2017-08-25 16:53 | CP.PCM.PCO ---
Physician Communication Note - Physician Communication Note Physician Communication Note: Pt agrees to CT Bx mediastinal tumor
[2017-08-25] MEDS: Pantoprazole 40 mg EC Tab PO SCH (17:29)
--- NOTE | 2017-08-26 00:29 | PN ---
DATE: 08/25/2017 SUBJECTIVE: The patient is seen and examined at the bedside. looking as comfortable. Still complaining about pain in the breast, getting IV antibiotics. No nausea, vomiting, diarrhea. No fever. No chills. No overnight episode happened. PHYSICAL EXAMINATION VITAL SIGNS: Temperature 98.2, pulse 82, respiratory rate 19, blood pressure 128/82, pulse oximetry 95. HEENT: Head: Normocephalic and atraumatic. Eyes: PERRLA. Extraocular muscles intact. Conjunctivae clear. Nose patent. Mucous membranes moist. NECK: Supple. No carotid bruits. No JVD or thyromegaly. CHEST: Bilaterally symmetrical. HEART: S1, S2 positive. LUNGS: Clear to auscultation. ABDOMEN: Soft. Bowel sounds present. No organomegaly. EXTREMITIES: No edema. No cyanosis. NEUROLOGIC: The patient is awake, alert, and moving all four extremities. No focal deficit. LABORATORY DATA: WBC 7.3, hemoglobin 13.7, hematocrit 42.5. Glucose 299, sodium 144, potassium 4.0. BUN 13, creatinine 0.7, glucose 125. MEDICATIONS: Tylenol, DuoNeb, Lipitor, Colace, Pepcid, Neurontin, Protonix, heparin, Zosyn, vancomycin, Glucophage, Ellipta, tramadol . ASSESSMENT AND PLAN: Ms. Lizet Bhat is a 57-year-old lady with uncontrolled diabetes mellitus, left breast mastitis, history of recurrent breast abscesses, hypertension, dyslipidemia, asthma, anxiety, depression, gastritis, past history of colon polyps. ID is on the case. According to ID continue vancomycin and Zosyn on day #2, finding upon wound cultures, blood cultures. Follow up further Surgery recommendation. CAT scan of the chest shows tumor. The patient agrees for a biopsy. Call consult with Dr. Jim Ma for biopsy. Seen by contract associate manager Dr. Hughes. The patient underwent stress test; test is essentially negative. No reversible ischemia. Normal myocardial perfusion study, ejection fraction was 54%. The patient had echocardiography done also, ejection fraction of 55%, trace mitral regurgitation and tricuspid regurgitation and according to Cardiology, the patient is cleared for surgery if we have to do surgery. Chronic obstructive lung disease, obstructive sleep apnea syndrome, active smoker. We will continue inhaled bronchodilator. GI prophylaxis, repeat laboratories. We will followup. Shonda Chaudhry MD [facility] # [id number] MARIA ALEJANDRA
[2017-08-26] MEDS: Piperacillin/Tazobact 3.375 gm 100 ML IVPB SCH ×4 (00:50→18:07)
[2017-08-26] MEDS: Albuterol-Ipratrop 3 mg / 0.5 (3 ml) UD IH SCH ×4 (02:55→19:30)
--- NOTE | 2017-08-26 04:03 | PN ---
DATE: 08/25/2017 REFERRING PHYSICIAN: Shonda Chaudhry MD. SUBJECTIVE: She is lying in the bed, head at 45 degrees. Night was unremarkable. Could not tolerate full face mask. Usually used to with a nasal pillow mask. Cough and short of breath is better. No nausea. Still has left breast tenderness. No nausea. No vomiting. No diarrhea. No leg pain. No leg swelling. OBJECTIVE: GENERAL: In no acute distress. VITAL SIGNS: Temperature is 98, heart rate 67, respiratory rate is 18, blood pressure 100/61, pulse ox of 95% on nasal cannula. HEENT: Moist mucous membranes. Crowded airway, Mallampati score is IV. NECK: Supple. No JVD. LUNGS: Have a fair airflow with rhonchi. HEART: S1 and S2. BREASTS: Left breast nipple area is tender. ABDOMEN: Soft, nontender. No organomegaly. EXTREMITIES: No edema. NEUROLOGIC: Awake, alert, and follows simple commands. CURRENT MEDICATIONS: She is on Colace 100 mg twice a day, DuoNeb q.6 hours, metformin 500 mg a.c. t.i.d., heparin 5000 units q.12 hours, insulin coverage, Lipitor 20 mg daily, gabapentin 300 mg, Pepcid 20 mg twice a day, Protonix 40 mg daily, Tylenol p.r.n., Ultram 50 mg q.8 hours p.r.n., vancomycin 1 g IV q.12 hours and Zosyn 3.375 g q.6 hours. LABORATORY DATA: Shows blood sugar is 144. Microbiology, blood culture has been negative. IMPRESSION AND PLAN: Recurrent breast abscess and cellulitis, hypertension, diabetes, morbid obesity, chronic obstructive lung disease, obstructive sleep apnea syndrome, active smoker, anterior mediastinal nodule. Case was discussed with Dr. Hurst. Patient may get endoscopy, ultrasound with biopsy. Presently, continue bronchodilator, keep head at 45 degrees, antibiotics; once improve as outpatient, can get a biopsy done. Thank you and we will follow with you. Kervin Dominguez MD
[2017-08-26] MEDS: Insulin Reg-LOW-Coverage SC SCH ×4 (08:31→22:40)
[2017-08-26] MEDS: Fluticasone/Vilanterol [Breo Ellipta 200-25 Mcg Inh] IH SCH (11:49)
[2017-08-26] MEDS: Vancomycin 1gm in NS 250ml 1 GM/250 ML BAG IVPB SCH ×2 (11:57→23:54)
[2017-08-26] MEDS: HYDROmorphone 0.5 mg/0.5 ml ISec IVP PRN ×3 (12:04→23:54)
--- NOTE | 2017-08-26 15:43 | PN ---
DATE: 08/26/2017 LOCATION: Patient in room 365, bed 1. REASON FOR CONSULTATION: Cardiac evaluation, chest pain, possible breast surgery. SUBJECTIVE: The patient is lying comfortably in bed without any shortness of breath or palpitation. Once a while, she gets pain in the chest on coughing and she has tenderness on the anterior chest wall. PHYSICAL EXAMINATION: VITAL SIGNS: Blood pressure 119/56, respirations 20, pulse of 58, and temperature 98. HEENT: Head is normocephalic. Eyes: Pupils are normal. Conjunctivae are normal. Nose and throat normal. NECK: JVP low. Carotid equal. THORAX: AP diameter is normal. LUNGS: Clear. CARDIOVASCULAR: S1 and S2. ABDOMEN: Soft. No tenderness. No organomegaly. EXTREMITIES: No clubbing. No cyanosis. LABORATORY DATA: WBC 7.3, hemoglobin 13.7, hematocrit 42.5, and platelets 299. Random sugar 119. Sodium 144, potassium 4.0, BUN 13, creatinine 0.7, and glucose 125. DIAGNOSES: Chest pain, musculoskeletal, on coughing and also has local tenderness on anterior chest wall; morbid obesity; diabetes; hypertension; hyperlipidemia; history of multiple breast surgeries. The patient's stress test done on this admission is negative with normal LV ejection fraction of 64%. Echo done on this admission also showed normal chamber size, ejection fraction 65%, trace mitral regurgitation, and trace tricuspid regurgitation. RECOMMENDATION AND PLAN: From cardiac point of view, the patient is stable and can go for breast surgery as a moderate risk. The patient is already on IV vancomycin, piperacillin and tazobactam 3.375 IV q. 6 hours, vancomycin 1 gram IV q. 12 hours, heparin 5000 units subcutaneous q. 12 hours, and metformin 500 mg p.o. t.i.d. We will continue present therapy. We will follow. Kervin Pollard MD
--- NOTE | 2017-08-26 16:18 | PN ---
DATE: 08/26/2017 SUBJECTIVE: The patient is in bed in no acute distress, was seen earlier today in 365, bed 1. OBJECTIVE: VITAL SIGNS: Temperature is 98, blood pressure is 119/60, respiratory rate of 20, and heart rate of 58. HEENT: Unremarkable. NECK: Supple. LUNGS: Decreased breath sounds. HEART: Normal S1 and S2. ABDOMEN: Soft and nontender. LABORATORY DATA: Reveals the patient to have white count of 7.3, hemoglobin of 13, and platelets of 299. Coagulation is noted. Chemistries reveals BUN of 13 and creatinine of 0.7. C-reactive protein is 6.14, and microbiology reveals the blood cultures are no growth. ASSESSMENT AND PLAN: This is a 57-year-old female seen in 365, bed 1 earlier with no known allergies who was admitted with left breast mastitis, history of recurrent breast abscesses, hypertension, dyslipidemia, asthma, anxiety, depression, gastritis, and history of colon polyps, currently on vancomycin and Zosyn day #3, with negative blood cultures and awaiting for the wound culture and clinical response. We will continue the present course. We will also order a vancomycin trough level. The patient's vancomycin is given at 11:00 a.m. and 11:00 p.m. We will get vancomycin trough level for tomorrow at 10:00 a.m. We will make further recommendations. Javier Johnston MD
[2017-08-26] MEDS: Pantoprazole 40 mg EC Tab PO SCH (17:18)
[2017-08-27] MEDS: Piperacillin/Tazobact 3.375 gm 100 ML IVPB SCH ×4 (00:42→17:45)
[2017-08-27] MEDS: Albuterol-Ipratrop 3 mg / 0.5 (3 ml) UD IH SCH ×4 (01:23→20:38)
[2017-08-27] MEDS: Insulin Reg-LOW-Coverage SC SCH ×4 (07:45→22:30)
[2017-08-27 08:12] LABS: ALB/GLOB RATIO 1.2 (1.1-1.8); ALBUMIN 3.4 g/dL (3.0-4.8); ALT/SGPT 28 U/L (7-56); AST/SGOT 26 U/L (14-36); BLOOD UREA NITROGEN 10 mg/dL (7-21); GFR AFRICAN-AMERICAN > 60; GFR NON-AFRICAN AMERICAN > 60
[2017-08-27] MEDS: HYDROmorphone 0.5 mg/0.5 ml ISec IVP PRN ×3 (08:58→22:09)
[2017-08-27] MEDS: Vancomycin 1gm in NS 250ml 1 GM/250 ML BAG IVPB SCH (11:01)
--- NOTE | 2017-08-27 12:00 | RAD ---
PROCEDURE: Radiographs of the Lumbar Spine. HISTORY: pain COMPARISON: No prior. FINDINGS: BONES: Normal alignment. No listhesis. No fracture. DISC SPACES: Unremarkable. OTHER FINDINGS: None. IMPRESSION: Unremarkable radiographs of the lumbar spine.
[2017-08-27] MEDS: Pantoprazole 40 mg EC Tab PO SCH (17:39)
[2017-08-27] MEDS: Fluticasone/Vilanterol [Breo Ellipta 200-25 Mcg Inh] IH SCH (17:41)
--- NOTE | 2017-08-27 18:29 | PN ---
DATE: 08/27/2017 LOCATION: Patient in room 365, bed 1. REASON FOR CONSULTATION: Cardiac evaluation, chest pain, possible breast surgery. SUBJECTIVE: Patient is having cough, lying in the bed. She denies chest pain now. Denies any palpitation. PHYSICAL EXAMINATION: VITAL SIGNS: Blood pressure 111/46, respirations 18, pulse 80, temperature 97.3. HEENT: Head: Normocephalic. Eyes: Pupils are normal. Conjunctivae are normal. Nose and throat: Normal. NECK: JVP low. Carotid equal. THORAX: AP diameter is normal. LUNGS: Clear. CARDIOVASCULAR: S1 and S2. ABDOMEN: Protuberant. No organomegaly. EXTREMITIES: No clubbing. No cyanosis. LABORATORY DATA: WBC 7.3, hemoglobin 13.7, hematocrit 42.5, platelets 299. Sodium 143, potassium 4.2, BUN 10, and creatinine 0.7. Random sugar 104. AST and ALT normal. Total protein and bilirubin normal. Patient's stress test on this admission, normal with normal LV ejection fraction of 64%. Also, echo done in this admission showed ejection fraction of 65%, trace mitral regurgitation, trace tricuspid regurgitation. PLAN: As shown by above test and clinically patient's cardiac status is stable. Patient can go for surgery as a moderate risk and patient, in the meantime, is on DuoNeb hand nebulizer therapy, metformin 500 mg p.o. t.i.d., Lipitor 20 daily, gabapentin 300 mg p.o. q.p.m., famotidine 20 mg b.i.d., vancomycin 1 g q. 12 hours, piperacillin-tazobactam 3.375 g IV q. 6 hour. We will continue present therapy and we will follow. Kervin Pollard MD
--- NOTE | 2017-08-27 19:42 | PN ---
DATE: SUBJECTIVE: Patient is a 57-year-old female. Patient is seen and examined at the bedside, looking comfortable. No nausea, vomiting, or diarrhea. No hematuria or hematochezia. No swelling of the legs. Still having breast tenderness, especially on the left side. Cough is a little bit better. Shortness of breath is a little bit better. No headache. No dizziness. PHYSICAL EXAMINATION: VITAL SIGNS: Temperature is 97.3, pulse 80, blood pressure is 111/42, respiratory rate of 18. HEENT: Head: Normocephalic and atraumatic. Eyes: PERRLA. Extraocular muscles intact. Conjunctivae clear. Nose: Patent. Mucous membranes moist. NECK: Supple. No carotid bruits. No JVD or thyromegaly. CHEST: Bilaterally symmetrical. HEART: S1, S2 positive. LUNGS: Clear to auscultation. ABDOMEN: Soft. Bowel sounds present. No organomegaly. EXTREMITIES: No edema. No cyanosis. NEUROLOGIC: Patient is awake, alert, and moving all four extremities. No focal deficit. MEDICATIONS: Colace, Dilaudid, DuoNeb, Breo Ellipta, Glucophage, heparin, Lipitor, gabapentin, Pepcid, tramadol, vancomycin, Zosyn. LABORATORY DATA: While blood cells 7.3, hemoglobin 13.7, hematocrit 42.5, platelets 299. Sodium 143, potassium 4.2, BUN 10, creatinine 0.7, glucose 123, 149. Vancomycin trough is 5.8. ASSESSMENT AND PLAN: Ms. Home Hinds is a 57-year-old lady with uncontrolled diabetes mellitus, comorbid obesity, has breast mastitis especially left, history of recurrent breast abscess, hypertension, hypercholesterolemia, asthma, anxiety, depression, gastritis, history of colon polyp, getting vancomycin and Zosyn, day #3. Negative blood cultures, waiting for the wound culture and clinical response. Continue present treatment. Patient is getting vancomycin trough. Continue antibiotics as per Dr. Johnston, Infectious Disease. History of chronic obstructive pulmonary disease, obstructive sleep apnea syndrome, active smoker, has anterior mediastinal lymph nodes/mass, needs biopsy. We will see either Dr. Hrust, will do ultrasound-guided endoscopic biopsy or Dr. Jim Ma, interventional radiologist, will do a biopsy. We will talk with both of the physicians. Continue present treatment. Gastrointestinal and deep venous thrombosis prophylaxis, out of bed, physical therapy. We will follow. Shonda Chaudhry MD
[2017-08-27] MEDS: Amoxicillin-Clav 875-125 mg Tab PO SCH (21:53)
--- NOTE | 2017-08-27 23:26 | PN ---
DATE: 08/27/2017 PULMONARY PROGRESS NOTE REFERRING PHYSICIAN: Shonda Chaudhry MD SUBJECTIVE: She is lying in the bed head at 45 degrees, feels a little better, mild cough. No nausea. No vomiting. No diarrhea. No leg pain. Has a left breast discomfort. PHYSICAL EXAMINATION GENERAL: In no acute distress. VITAL SIGNS: Temperature is 98, heart rate is 80, respiratory rate is 18, blood pressure is 111/46 and pulse oximetry 93% on 2 L nasal cannula. HEENT: Moist mucous membranes. Crowded airway. NECK: Supple. No JVD. LUNGS: Has fair airflow with few scattered rhonchi. HEART: S1 and S2. ABDOMEN: Soft and nontender. No organomegaly. EXTREMITIES: No edema. NEUROLOGIC: Awake, alert and follows simple commands. MEDICATIONS: She is on Colace 100 mg twice a day, Dilaudid 0.5 mg q.6 hours p.r.n., Breo 200/25 one puff daily, metformin 500 mg a.c. t.i.d., heparin 5000 units subq q.12 hours, insulin coverage, Lipitor 20 mg daily, gabapentin 300 mg daily, Pepcid 20 mg twice a day, Protonix 40 mg daily, Ultram 50 mg q.8 hours p.r.n., vancomycin 1 g q.12 hours and Zosyn 3.375 g q.6 hours. LABORATORY DATA: Shows sodium 143, potassium 4.2, chloride 107, bicarbonate 30, BUN 10, creatinine 0.7, glucose 94 and calcium 9.0. AST 26, ALT 28, alk phos is 67, albumin is 3.4. Microbiology; blood culture has been negative. Has a lumbar spine x-ray done, which shows unremarkable. IMPRESSION AND PLAN: Recurrent breast abscess and cellulitis, hypertension, diabetes, morbid obesity, chronic obstructive lung disease, obstructive sleep apnea syndrome, active smoker, anterior mediastinal nodule, also has lumbar radiculopathy. Pulmonary point of view, she is doing okay. Continue bronchodilator. Keep head at 45 degrees, antibiotics, gastric prophylaxis, deep venous thrombosis prophylaxis. Out of bed to chair. Encourage bilevel positive airway pressure use. May have component of sleep apnea. Thank you, and we will follow with you. Kervin Dominguez MD
--- NOTE | 2017-08-27 23:54 | PN ---
DATE: 08/27/2017 SUBJECTIVE: The patient is in bed, in no acute distress. Nontoxic, was seen early this morning in room 365, bed 1. She states she is feeling better. PHYSICAL EXAMINATION VITAL SIGNS: Temperature is 98, blood pressure is 120/60, respiratory rate of 16. HEENT: Unremarkable. NECK: Supple. LUNGS: Have decreased breath sounds. HEART: Normal S1, S2. ABDOMEN: Soft and nontender. BREASTS: Examination of the left breast, erythema is almost resolved. LABORATORY DATA: Reveals a white count of 7.3, hemoglobin of 13. Chemistries are noted and vancomycin trough is 5.8. Microbiology reveals blood cultures no growth. Review of orders are noted. ASSESSMENT AND PLAN: This is a 57-year-old female seen earlier today in 365, bed 1, admitted with a left breast mastitis, history of recurrent breast abscess, hypertension, dyslipidemia, asthma, anxiety, depression, gastritis, colon polyps; on day #4 of vancomycin and Zosyn. Cultures negative. We will discontinue the vancomycin and Zosyn and complete with p.o. doxycycline and p.o. Augmentin for five days. We will follow closely with you. Javier Johnston MD
[2017-08-28] MEDS: Albuterol-Ipratrop 3 mg / 0.5 (3 ml) UD IH SCH ×4 (01:24→20:23)
[2017-08-28] MEDS: Insulin Reg-LOW-Coverage SC SCH ×4 (08:01→22:31)
[2017-08-28] MEDS: HYDROmorphone 0.5 mg/0.5 ml ISec IVP PRN ×3 (08:24→22:30)
[2017-08-28] MEDS: Amoxicillin-Clav 875-125 mg Tab PO SCH ×2 (09:26→22:30)
--- NOTE | 2017-08-28 09:27 | PN ---
DATE: 08/26/2017 SUBJECTIVE: The patient is a 57-year-old female. The patient was seen and examined on the bedside, complaining about back pain and pain in the left breast. According to her, tramadol and Tylenol is not helping, and back pain is going to left lower extremity, also like numbness. No nausea, vomiting or diarrhea. No hematuria, no hematochezia. No headache, no dizziness. No fever, no chills. PHYSICAL EXAMINATION: VITAL SIGNS: Temperature 98, pulse 58, blood pressure 119/63, respiratory rate 20. HEENT: Head: Normocephalic, atraumatic. Eyes; PERRLA. Extraocular muscles intact. Conjunctivae clear. Nose is patent. Mucous membranes moist. NECK: Supple. No carotid bruits. No JVD or thyromegaly. CHEST: Bilaterally symmetrical. HEART: S1, S2 positive. LUNGS: Clear to auscultation. ABDOMEN: Soft. Bowel sounds positive. No organomegaly. EXTREMITIES: No edema. No cyanosis. NEUROLOGIC: The patient is awake and alert. Moving all 4 extremities. No focal deficits. BREASTS: Left breast is tender to palpation. MEDICATIONS: Colace, Dilaudid, DuoNeb, Ellipta Breo, Glucophage, heparin, insulin, Lipitor, Neurontin, Pepcid, vancomycin, Zosyn. LABORATORY DATA: White blood cell 7.3, hemoglobin 13.7, hematocrit 42.5, platelets 299. Glucose 165. ASSESSMENT AND PLAN: The patient is a 57-year-old lady with multiple medical problems, has recurrent breast abscess and cellulitis bilaterally, but this time this is more on the left, hypertension, diabetes mellitus, morbid obesity, chronic obstructive lung disease, sleep apnea syndrome, active smoker, anterior mediastinal nodule/mass, back pain, rule lumbosacral radiculopathy. The patient may get endoscopy and ultrasound-guided biopsy as per Dr. Hurst. Continue bronchodilators. Antibiotics as per Infectious Disease. Gastrointestinal and deep venous thrombosis prophylaxis. Out of bed. Physical therapy. Appreciate Dr. Vargas' communication note. The patient added to CT biopsy mediastinal tumor by Dr. Jim Ma. We will follow. Shonda Chaudhry MD
--- NOTE | 2017-08-28 09:34 | PN ---
DATE: 08/26/2017 REFERRING PHYSICIAN: Dr. Chaudhry. SUBJECTIVE: She is lying in the bed, head at 45 degrees, on nebulizer treatment, still has cough. No sputum production. Still has swelling erythema of the left breast. No nausea, no vomiting or diarrhea. No leg pain or leg swelling. PHYSICAL EXAMINATION: GENERAL: In no acute distress. VITAL SIGNS: Temperature is 98, heart rate is 50, respiratory rate is 18, blood pressure is 119/66, pulse oximetry 75% on nasal cannula. HEENT: Moist mucous membranes. Crowded airway. NECK: Supple. No JVD. LUNGS: She has a few scattered rhonchi. HEART: S1 and S2. ABDOMEN: Soft, nontender. No organomegaly. EXTREMITIES: There is no edema. NEUROLOGIC: Awake and alert, follows simple command. MEDICATIONS: He is on Colace 100 mg twice a day, Dilaudid 0.5 mg q. 6 hours p.r.n., DuoNeb q. 6 hours, Breo 200/25 one tab daily, metformin 500 mg a.c. t.i.d., heparin 5000 units subcutaneously q. 12 hours, insulin coverage, Lipitor 20 mg daily, gabapentin 300 mg daily, Pepcid 20 mg twice a day, Protonix 40 mg daily, Ultram 50 mg q. 8 hours p.r.n., vancomycin 1 g IV q. 12 hours and Zosyn 3.375 g IV q. 6 hours. LABORATORY DATA: Shows blood sugar this morning 128. Microbiology, blood culture been negative. IMPRESSION AND PLAN: Recurrent breast abscess and cellulitis, hypertension, diabetes morbid obesity, chronic obstructive lung disease, obstructive sleep apnea syndrome, active smoker, anterior mediastinal mass. Pulmonary point of view doing okay. Continue bronchodilator, add Singulair 10 mg daily, keep head elevated at 45 degrees. Once improved, will need biopsy of anterior mediastinal mass. I doubt if we can do CT guided, but if we can reach that would be fine, ideal probably is endoscopy with ultrasound guided. Thank you and we will follow with you. Kervin Dominguez MD [facility] # [id number]
[2017-08-28] MEDS: Fluticasone/Vilanterol [Breo Ellipta 200-25 Mcg Inh] IH SCH (10:47)
--- NOTE | 2017-08-28 11:17 | CP.PCM.PCO ---
Physician Communication Note - Physician Communication Note Physician Communication Note: Await CT guided Bx mediastinal nodule/Cont IV AB for mastitis
--- NOTE | 2017-08-28 16:40 | PN ---
DATE: 08/28/2017 SUBJECTIVE: The patient is in bed, in no acute distress. Nontoxic. PHYSICAL EXAMINATION: VITAL SIGNS: Temperature is 98, blood pressure is 120/70, respiratory rate is 16. HEENT: Unremarkable. NECK: Supple. LUNGS: Have decreased breath sounds. HEART: Normal S1, S2. ABDOMEN: Soft. LABORATORY DATA: Reveals a white count of 7.3, hemoglobin of 13, platelets are 299. Chemistries are noted and blood cultures are negative. Review of orders reveals the patient to be on p.o. doxycycline and p.o. Augmentin. Dr. Vargas' report is reviewed. He is awaiting for CAT scan guided biopsy of mediastinal lymph nodes. Dr. Dominguez's note is reviewed from yesterday. Dr. Chaudhry's note is reviewed. ASSESSMENT AND PLAN: This is a 57-year-old female seen earlier today with left breast mastitis, history of recurrent breast abscess, hypertension, dyslipidemia, asthma, anxiety, depression, gastritis, colonic polyps; had received 4 days of vancomycin and Zosyn. Cultures negative. On exam, the mastitis has resolved. Currently, on doxycycline and Augmentin. Javier Johnston MD
[2017-08-28] MEDS: Pantoprazole 40 mg EC Tab PO SCH (17:11)
--- NOTE | 2017-08-28 19:04 | US ---
HISTORY: epigastric pain COMPARISON: None. TECHNIQUE: Sonographic evaluation of the abdomen. FINDINGS: LIVER: Measures 14.6 cm. Hepatopedal blood flow. Fatty infiltration manifest ultrasonographically as increased echogenicity of the liver parenchyma. No mass. No intrahepatic bile duct dilatation. GALLBLADDER: Unremarkable. No gallstones. COMMON BILE DUCT: Measures 3.6 mm. No stones. No dilatation. PANCREAS: Unremarkable as visualized. No mass. No ductal dilatation. RIGHT KIDNEY: Measures 10.9 x 6.4cm. Normal echogenicity. No calculus, mass, or hydronephrosis. LEFT KIDNEY: Measures 5.4 x 12cm. Normal echogenicity. No calculus, mass, or hydronephrosis. SPLEEN: Normal in size and contour. No mass. AORTA: No aneurysmal dilatation. IVC: Unremarkable. OTHER FINDINGS: None. IMPRESSION: No acute findings related to/accounting for the clinical presentation. Additional benign and/or incidental findings described above.
--- NOTE | 2017-08-28 19:45 | PN ---
DATE: 08/28/2017 REASON FOR CONSULTATION: Followup, cardiac evaluation, chest pain, possible breast surgery for recurrent mastitis. Negative stress test. SUBJECTIVE: The patient denies any chest pain, shortness of breath, or any palpitation. PHYSICAL EXAMINATION: GENERAL: Not in apparent distress. VITAL SIGNS: As follows; temperature afebrile, heart rate , and blood pressure 130/74. HEENT: PERRLA. Extraocular muscles intact. NECK: Supple. No carotid bruits or thyromegaly. CHEST: Clear to auscultation. HEART: S1 and S2, regular. ABDOMEN: Soft. EXTREMITIES: Clubbing and cyanosis negative. IMPRESSION: Morbid obesity, recurrent mastitis, preop evaluation certification for breast surgery, negative stress test and mediastinal mass. The patient had nuclear stress test, and she had negative echocardiogram, showed ejection fraction of 65%, trace mitral regurgitation, trace tricuspid regurgitation, morbid obesity, and chronic obstructive pulmonary disease. RECOMMENDATIONS: Continue aggressive medical treatment, excessive weight reduction. The patient is cleared from cardiac point of view to go for lymph node biopsy, CT-guided, for mediastinal as well as breast surgery if required. No contraindication. We will follow with you. Thank you Dr. Chaudhry for providing us the opportunity in taking care of the patient. Kervin Hughes MD
--- NOTE | 2017-08-28 22:31 | PN ---
PULMONARY PROGRESS NOTE DATE: 08/28/2017 REFERRING PHYSICIAN: Shonda Chaudhry MD SUBJECTIVE: The patient is lying in the bed, head at 45 degrees, could not use BiPAP last night. No headache. No rhinitis. Mild cough. No nausea. No vomiting. No diarrhea. No leg pain or leg swelling. OBJECTIVE: GENERAL: In no acute distress. VITAL SIGNS: Temperature is 98, heart rate is 65, respiratory rate is 20, blood pressure is 128/74 and pulse oximetry 98% on 2 L nasal cannula. HEENT: Moist mucous membranes. Crowded airway. NECK: Supple. No JVD. LUNGS: Has fair airflow with few rhonchi. HEART: S1 and S2. ABDOMEN: Soft and nontender. No organomegaly. BREAST: Left breast area mild erythematous and tender. EXTREMITIES: There is no edema. NEUROLOGIC: Awake, alert and follows simple commands. MEDICATIONS: She is on Augmentin 875 one tab twice a day, Colace 100 mg twice a day, Dilaudid 0.5 mg q. 6 hours p.r.n., doxycycline 100 mg twice a day, DuoNeb q. 6 hours p.r.n., metformin 500 mg a.c. t.i.d., heparin 5000 units subq q. 12 hours, insulin coverage, Lipitor 20 mg daily, gabapentin 300 mg daily, Pepcid 20 mg twice a day, Protonix 40 mg daily and Ultram 50 mg q. 8 hours p.r.n. LABORATORY DATA: Reviewed. Shows blood sugar 96. Microbiology; blood culture has been negative. IMPRESSION AND PLAN: Recurrent breast abscess and cellulitis, hypertension, diabetes, morbid obesity, chronic obstructive lung disease, sleep apnea syndrome, active smoker, anterior mediastinal nodule, lumbar radiculopathy. Pulmonary point of view, doing well on p.o. antibiotics. Continue inhaled bronchodilator. Outpatient pulmonary function test and sleep study. The patient can be discharge home and biopsy can be done as the outpatient. Thank you, and we will follow with you. Kervin Dominguez MD
[2017-08-29] MEDS: Albuterol-Ipratrop 3 mg / 0.5 (3 ml) UD IH SCH ×4 (01:44→20:24)
--- NOTE | 2017-08-29 07:57 | CP.PCM.CON ---
History of Present Illness - History of Present Illness History of Present Illness: Seen and examined at the bedside earlier today, chart review. Request for GI consult is for evaluation for biopsy for mediastinal nodes/mass seen on CT scan. HPI: This is a 57-year-old morbidly obese female with a past medical history of diabetes, GERD, recurrent abscess on breast, depression and sleep apnea into the emergency room with complaints of left breast cellulitis and abscess on oral antibiotics with no relief. The patient also came with complaints of coughing is on CPAP at home chest pain. The patient had a stress test done this admission and it was reported to be normal. The patient also had a chest CT which showed a 2 x 2.8 x 2.4 cm mediastinal nodes/mass. He also underwent a breast ultrasound which showed a 5 mm retro-orbital areolar lesion which could represent a cyst or focal ductal dilatation. The patient denies nausea, no vomiting but does complain of feeling bloated usually after eating. Also reports that she gets postprandial diarrhea. Denies any loss in appetite or unintentional weight loss. The patient states that she had an endoscopy and colonoscopy [address] Oliva in [facility]. Endoscopy she reports she has a history of ulcers and takes omeprazole 40 mg daily. She does get dyspepsia at times. On colonoscopy she does not recall any acute findings , does report history of colon polyps. Patient also reports that she does get constipated at times and does have to strain to have a bowel movement and has history of hemorrhoids and noted blood on tissue at times but does not recall anything recently. Past medical history: Morbid obesity, diabetes, sleep apnea, hyperlipidemia, GERD, colon polyps, recurrent abscess of breast, depression Surgical history: Denies Allergies: No known drug allergies Family history: Denies Social history: Positive for smoking, denies EtOH, denies drug use Medications: Reviewed as per MAR ROS: Systems reviewed with positive finding see HPI. Past Patient History - Infectious Disease Hx of Infectious Diseases: None - Tetanus Immunizations Tetanus Immunization: Unknown - Past Medical History & Family History Past Medical History?: Yes - Past Social History Smoking Status: Light Smoker < 10 Cigarettes Daily - CARDIAC Hx Hypercholesterolemia: Yes - PULMONARY Hx Chronic Obstructive Pulmonary Disease (COPD): Yes - NEUROLOGICAL Hx Neurological Disorder: Yes Hx Migraine: Yes - HEENT Hx HEENT Problems: No - RENAL Hx Chronic Kidney Disease: No - ENDOCRINE/METABOLIC Hx Diabetes Mellitus Type 2: Yes - HEMATOLOGICAL/ONCOLOGICAL Hx Blood Transfusions: No - INTEGUMENTARY Hx Dermatological Problems: Yes Other/Comment: BILATERAL RECURRENT BREAST ABSCESS. 14 TIMES HAD SURGERY TO RIGHT BREAST. - MUSCULOSKELETAL/RHEUMATOLOGICAL Hx Musculoskeletal Disorders: No Hx Falls: No - GASTROINTESTINAL Hx Gastrointestinal Disorders: Yes Hx Gastroesophageal Reflux: Yes - GENITOURINARY/GYNECOLOGICAL Hx Genitourinary Disorders: Yes Hx Urinary Tract Infection: Yes - PSYCHIATRIC Hx Psychophysiologic Disorder: Yes Hx Depression: Yes Hx Emotional Abuse: No Hx Physical Abuse: No Hx Substance Use: No - SURGICAL HISTORY Hx Surgeries: Yes Other/Comment: Left breast cyst removal,UMBILICAL NERNIA REPAIR,CARD CATH, - ANESTHESIA Hx Anesthesia Reactions: No Hx Malignant Hyperthermia: No Meds Allergies/Adverse Reactions: Allergies Allergy/AdvReac Type Severity Reaction Status Date / Time No Known Allergies Allergy Verified 08/23/17 20:35 - Medications Medications: Current Medications Albuterol/Ipratropium (Duoneb 3 Mg/0.5 Mg (3 Ml) Ud) 3 ml IH O6COLUE [facility] Last Admin: 08/28/17 14:00 Dose: 3 ml Amoxicillin/Clavulanate Potassium (Augmentin 875 Mg-125 Mg Tab) 1 tab PO Q12 [facility] PRN Reason: Protocol Stop: 09/01/17 22:01 Last Admin: 08/28/17 09:26 Dose: 1 tab Atorvastatin Calcium (Lipitor) 20 mg PO QPM [facility] Last Admin: 08/27/17 17:42 Dose: 20 mg Docusate Sodium (Colace) 100 mg PO BID [facility] Last Admin: 08/28/17 09:26 Dose: 100 mg Doxycycline Hyclate (Doryx) 100 mg PO Q12 [facility] PRN Reason: Protocol Stop: 09/01/17 22:01 Last Admin: 08/28/17 09:26 Dose: 100 mg Famotidine (Pepcid) 20 mg PO BID [facility] Last Admin: 08/28/17 09:26 Dose: 20 mg Gabapentin (Neurontin) 300 mg PO QPM [facility] PRN Reason: Protocol Last Admin: 08/27/17 17:38 Dose: 300 mg Heparin Sodium (Porcine) (Heparin) 5,000 units SC Q12 [facility] PRN Reason: Protocol Last Admin: 08/28/17 09:26 Dose: 5,000 units Hydromorphone HCl (Dilaudid) 0.5 mg IVP Q6H PRN PRN Reason: Pain, moderate (4-7) Last Admin: 08/28/17 08:24 Dose: 0.5 mg Insulin Human Regular (Humulin R Low) 0 units SC ACHS [facility] PRN Reason: Protocol Last Admin: 08/28/17 11:45 Dose: Not Given Metformin HCl (Glucophage) 500 mg PO ACTID [facility] Last Admin: 08/28/17 11:40 Dose: 500 mg Fluticasone/Vilanterol [Breo Ellipta 200-25 Mcg Inh] 1 puff IH DAILY [facility] Last Admin: 08/28/17 10:47 Dose: Not Given Pantoprazole Sodium (Protonix Ec Tab) 40 mg PO QPM [facility] Last Admin: 08/27/17 17:39 Dose: 40 mg Tramadol HCl (Ultram) 50 mg PO Q8H PRN PRN Reason: Pain, moderate (4-7) Last Admin: 08/26/17 17:24 Dose: 50 mg Physical Exam - Constitutional Appears: No Acute Distress - Head Exam Head Exam: NORMOCEPHALIC - Eye Exam Eye Exam: Normal appearance. absent: Scleral icterus - ENT Exam ENT Exam: Mucous Membranes Moist - Neck Exam Neck exam: Positive for: Normal Inspection - Respiratory Exam Respiratory Exam: Respiratory Distress. absent: NORMAL BREATHING PATTERN - Cardiovascular Exam Cardiovascular Exam: +S1, +S2 - GI/Abdominal Exam GI & Abdominal Exam: Normal Bowel Sounds, Soft, Tenderness (epigastric area). absent: Guarding, Rebound - Extremities Exam Extremities exam: Positive for: pedal pulses present. Negative for: calf tenderness, pedal edema - Neurological Exam Neurological exam: Alert, Oriented x3 - Skin Skin Exam: Dry, Warm Results - Vital Signs Recent Vital Signs: Last Vital Signs Temp 97.9 F 08/28/17 07:44 Pulse 65 08/28/17 07:44 Resp 20 08/28/17 07:44 BP 128/74 08/28/17 07:44 Pulse Ox 98 08/28/17 07:44 - Labs Result Diagrams: 08/24/17 08:00 08/27/17 06:30 Labs: Laboratory Results - last 24 hr 08/27/17 08/27/17 08/28/17 16:46 22:11 07:40 POC Glucose (mg/dL) 94 98 94 08/28/17 11:46 POC Glucose (mg/dL) 142 H Assessment & Plan - Assessment and Plan (Free Text) Assessment: Assessment: Recurrent breast abscess and cellulitis 2 x 2.8 x 2.4 cm mediastinal nodes/mass Epigastric pain Morbid obesity GERD COPD Hypertension Diabetes mellitus Plan: Continue PPI Request for abdominal ultrasound Plan for CT guided biopsy by IR today or tomorrow On IV antibiotics as per ID Diet as tolerated Request for celiac disease panel Spoke to Dr. Chaudhry,patient is plan for CT guided biopsy by IR today or tomorrow. Thank you for this consult and for allowing us to participate in your patient's care, further recommendations based upon clinical course. Seen and discussed with Dr. Cadena who is covering Dr. Hurst.
--- NOTE | 2017-08-29 08:58 | PN ---
DATE: 08/28/2017 SUBJECTIVE: The patient is a 57-year-old female. The patient is seen and examined in the morning, still having pain in the left breast . Getting IV antibiotics. Plan is to go for biopsy. Dr. Jim Ma consult called, may be he will do biopsy either today late evening or tomorrow early in the morning. Family was around, social workers and the patient nurse and GI was standing near the patient's bed also. Discussion done, all questions answered. The patient is feeling better. No fever. No chills. No nausea, vomiting, diarrhea, hematuria or hematochezia. No swelling of the leg. No chest pain. No palpitations. PHYSICAL EXAMINATION: VITAL SIGNS: Temperature 97.9, pulse is 65, blood pressure 128/74 respiratory rate is 20, and oxygen saturation 98%. HEENT: Head; normocephalic and atraumatic. Eyes; PERRLA. Extraocular muscles intact. Conjunctivae clear. Nose patent. Mucous membranes are moist. NECK: Supple. No carotid bruits. No JVD or thyromegaly. CHEST: Bilaterally symmetrical. HEART: S1 and S2 positive. LUNGS: Clear to auscultation. ABDOMEN: Soft. Bowel sounds present. No organomegaly. EXTREMITIES: No edema. No cyanosis. NEUROLOGIC: The patient is awake and alert. Moving all four extremities. No focal deficits. MEDICATIONS: Augmentin, docusate, Dilaudid, doxycycline, ipratropium, hydromorphone, albuterol, Ventolin, metformin, atorvastatin, pantoprazole and tramadol. LABORATORY DATA: White blood cell 7.1, hemoglobin 13.7, hematocrit 42.1 and platelets 299. Glucose 142. ASSESSMENT AND PLAN: Ms. Lizet Bhat is a 57-year-old female with uncontrolled diabetes mellitus, has retrosternal mass in the mediastinum, waiting for CT guided biopsy for mediastinal node/mass, mastitis. Continue antibiotics as per Infectious Disease, obesity, chronic obstructive pulmonary disease, asthma, left breast mastitis, history of recurrent breast abscess, hypertension, hypercholesterolemia, asthma, anxiety, depression, gastritis and colon polyp. Today is a day #4 of vancomycin and Zosyn. Culture is negative. Continue antibiotics as per Infectious Disease. Upon discharge, we will give . Augmentin. We will follow up very closely. We will follow up. Shonda Chaudhry MD [facility] # [id number] MARIA ALEJANDRA
[2017-08-29] MEDS: Amoxicillin-Clav 875-125 mg Tab PO SCH ×2 (09:08→22:27)
[2017-08-29] MEDS: HYDROmorphone 0.5 mg/0.5 ml ISec IVP PRN ×2 (09:09→16:47)
[2017-08-29] MEDS: Insulin Reg-LOW-Coverage SC SCH ×4 (09:36→22:08)
[2017-08-29] MEDS ORDERED: Promethazine DM 6.25 mg-15 mg/5 ml Syrup PO SCH (10:00)
[2017-08-29] MEDS ORDERED: Promethazine 6.25 MG/5 ML CUP PO SCH (10:00)
[2017-08-29] MEDS: Fluticasone/Vilanterol [Breo Ellipta 200-25 Mcg Inh] IH SCH (10:04)
[2017-08-29] MEDS: Promethazine DM 6.25 mg-15 mg/5 ml Syrup PO SCH ×3 (10:20→18:52)
--- NOTE | 2017-08-29 12:36 | PN ---
DATE: 08/29/2017 REASON FOR CONSULTATION: Followup chest pain, recurrent mastitis, possible breast surgery. SUBJECTIVE: The patient denies any chest pain. She complains of dry cough. Denies any palpitation. PHYSICAL EXAMINATION: VITAL SIGNS: Blood pressure 91/50, respirations 20, pulse 75, temperature 97.9. HEENT: Head, normocephalic. Eyes, pupils normal. Conjunctivae normal. Nose and throat normal. NECK: JVP is low. Carotid equal. THORAX: AP diameter normal. LUNGS: Clear. CARDIOVASCULAR: S1 and S2. ABDOMEN: Protuberant. EXTREMITIES: No clubbing. No cyanosis. LABORATORY DATA: Random sugar 96. Other labs were done on 08/27/2017 and they were reported on previous notes. CBC was done on 08/24/2017 and they were reported on previous notes. The patient's stress test is negative done on this admission, on 08/24/2017. DIAGNOSES: Morbid obesity, recurrent mastitis, preoperative evaluation for breast surgery, negative stress test, echocardiogram also was normal, ejection fraction 65%, chronic obstructive pulmonary disease, dry cough. RECOMMENDATION AND PLAN: The patient has been already evaluated from cardiac point of view. She can go for breast surgery, and if needed lymph node biopsy, CT-guided lymph node biopsy for mediastinal node, has moderate risk. We will add Phenergan cough syrup to therapy for dry cough. The patient is already getting Augmentin 875 b.i.d. and doxycycline hyclate 100 mg q. 12 hours, metformin 500 mg p.o. a.c. t.i.d., heparin 5000 units subcutaneously q. 12 hours, Lipitor 20 daily, Neurontin 300 mg at evening daily. We will follow with you. Kervin Pollard MD
--- NOTE | 2017-08-29 16:15 | CP.PCM.PN ---
Subjective - Date & Time of Evaluation Date of Evaluation: 08/29/17 Time of Evaluation: 10:50 - Subjective Subjective: Seen and examined at the bedside earlier today, nothing by mouth for CT guided biopsy today. Patient denies nausea, vomiting, shortness of breath or chest pain. Denies epigastric discomfort, sent for abdominal ultrasound yesterday which was negative for gallstones or any acute findings. Patient reports she at times gets lower abdominal discomfort. Denies dysuria or hematuria. Objective - Vital Signs/Intake and Output Vital Signs (last 24 hours): Temp Pulse Resp BP Pulse Ox 97.9 F 75 20 91/50 L 97 08/29/17 06:00 08/29/17 06:00 08/29/17 06:00 08/29/17 06:00 08/29/17 06:00 Intake and Output: 08/29/17 08/29/17 06:59 18:59 Intake Total 0 Balance 0 - Medications Medications: Current Medications Albuterol/Ipratropium (Duoneb 3 Mg/0.5 Mg (3 Ml) Ud) 3 ml IH [id number] [facility] Last Admin: 08/29/17 13:31 Dose: 3 ml Amoxicillin/Clavulanate Potassium (Augmentin 875 Mg-125 Mg Tab) 1 tab PO Q12 [facility] PRN Reason: Protocol Stop: 09/01/17 22:01 Last Admin: 08/29/17 09:08 Dose: 1 tab Atorvastatin Calcium (Lipitor) 20 mg PO QPM [facility] Last Admin: 08/28/17 17:11 Dose: 20 mg Docusate Sodium (Colace) 100 mg PO BID [facility] Last Admin: 08/29/17 09:08 Dose: 100 mg Doxycycline Hyclate (Doryx) 100 mg PO Q12 [facility] PRN Reason: Protocol Stop: 09/01/17 22:01 Last Admin: 08/29/17 09:08 Dose: 100 mg Famotidine (Pepcid) 20 mg PO BID [facility] Last Admin: 08/29/17 09:08 Dose: 20 mg Gabapentin (Neurontin) 300 mg PO QPM [facility] PRN Reason: Protocol Last Admin: 08/28/17 17:11 Dose: 300 mg Heparin Sodium (Porcine) (Heparin) 5,000 units SC Q12 [facility] PRN Reason: Protocol Last Admin: 08/29/17 09:36 Dose: Not Given Hydromorphone HCl (Dilaudid) 0.5 mg IVP Q6H [facility]N PRN Reason: Pain, moderate (4-7) Last Admin: 08/29/17 09:09 Dose: 0.5 mg Insulin Human Regular (Humulin R Low) 0 units SC ACHS [facility] PRN Reason: Protocol Last Admin: 08/29/17 13:07 Dose: Not Given Metformin HCl (Glucophage) 500 mg PO ACTID [facility] Last Admin: 08/29/17 13:07 Dose: 500 mg Mometasone Furoate (Asmanex Twisthaler 220 Mcg) 2 puff IH QPM [facility] Fluticasone/Vilanterol [Breo Ellipta 200-25 Mcg Inh] 1 puff IH DAILY [facility] Last Admin: 08/29/17 10:04 Dose: Not Given Pantoprazole Sodium (Protonix Ec Tab) 40 mg PO QPM [facility] Last Admin: 08/28/17 17:11 Dose: 40 mg Promethazine HCl/Dextromethorphan (Phenergan Dm Syrup) 5 ml PO TID [facility] Last Admin: 08/29/17 13:11 Dose: 5 ml Tramadol HCl (Ultram) 50 mg PO Q8H PRN PRN Reason: Pain, moderate (4-7) Last Admin: 08/26/17 17:24 Dose: 50 mg - Labs Labs: 08/24/17 08:00 08/27/17 06:30 PT 12.2 SECONDS (9.4-12.5) 08/24/17 08:00 INR 1.06 (0.93-1.08) 08/24/17 08:00 APTT 28.4 Seconds (25.1-36.5) 08/24/17 08:00 - Constitutional Appears: No Acute Distress - Eye Exam Eye Exam: Normal appearance. absent: Scleral icterus - ENT Exam ENT Exam: Mucous Membranes Moist - Respiratory Exam Respiratory Exam: NORMAL BREATHING PATTERN. absent: Respiratory Distress - Cardiovascular Exam Cardiovascular Exam: +S1, +S2 - GI/Abdominal Exam GI & Abdominal Exam: Soft, Normal Bowel Sounds. absent: Guarding ( obese abdomen), Tenderness, Rebound - Neurological Exam Neurological Exam: Alert, Awake, Oriented x3 Assessment and Plan - Assessment and Plan (Free Text) Assessment: Assessment: Recurrent breast abscess and cellulitis 2 x 2.8 x 2.4 cm mediastinal nodes/mass Epigastric pain Morbid obesity GERD COPD Hypertension Diabetes mellitus Plan: Continue GI prophylaxsis CT guided biopsy by IR today On antibiotics as per ID Diet as tolerated on Colave BID follow-up celiac disease panel Discussed with patient abdominal ultrasound finding, patient follows ADALGISA Mota NELDA says she has to FU next month. Recommend to keep FU appt. Seen and discussed with Dr. Cadena who is covering Dr. Hurst.
[2017-08-29] MEDS: Pantoprazole 40 mg EC Tab PO SCH (18:52)
[2017-08-29] MEDS: Mometasone 220 mcg/puff-14 puff Inh IH SCH (18:53)
--- NOTE | 2017-08-29 19:51 | PN ---
DATE: 08/29/2017 PULMONARY PROGRESS NOTE REFERRING PHYSICIAN: Shonda Chaudhry MD. SUBJECTIVE: She is lying in the bed. Night was unremarkable. Not much cough. No sputum production. No nausea. The left breast has some discomfort. No dysuria. No leg pain or leg swelling. OBJECTIVE: GENERAL: In no acute distress. VITAL SIGNS: Temperature is 98, heart rate is 75, respiratory rate is 20, blood pressure is 91/50, and pulse oximetry 97% on room air. HEENT: Moist mucous membranes. No ulcer or thrush. NECK: Supple. No JVD. LUNGS: Have a fair airflow with few rhonchi. HEART: S1 and S2. ABDOMEN: Soft, nontender. No organomegaly. EXTREMITIES: No edema. NEUROLOGIC: Awake, alert, follows simple commands. BREASTS: Left breast has erythema and is tender. MEDICATIONS: She is on Asmanex Twisthaler 220 two puffs daily, Augmentin 875/125 one tab twice a day, Colace 100 mg twice a day, Dilaudid 0.5 mg q. 6 hours p.r.n., doxycycline 100 mg twice a day, DuoNeb q. 6 hours. Also on Breo-Ellipta 1 puff daily, metformin 500 mg a.c. t.i.d., heparin 5000 units subcutaneously q.12 hours, insulin coverage, Lipitor 20 mg daily, gabapentin 300 mg daily, Pepcid 20mg daily, promethazine 5 mL 3 times a day, Protonix 40mg daily, and Ultram 50 mg q. 8 hours p.r.n. LABORATORY DATA: Reviewed and noted. Blood sugar this morning 99. Microbiology; blood culture has been negative. Has abdominal ultrasound done yesterday, which shows no acute finding related to account for clinical presentation. IMPRESSION AND PLAN: Recurrent breast abscess and cellulitis, hypertension, diabetes, morbid obesity, chronic obstructive lung disease, may have sleep apnea syndrome, active smoker, anterior mediastinal nodule, and lumbar radiculopathy. Dr. Ma has been consulted. We will be attempted to do anterior mediastinal mass biopsy to get into it. If failed, may need endoscopic biopsy. Continue bronchodilator, keep head at 45 degrees, on antibiotics. GI and surgical followup. We will follow with you. Kervin Dominguez MD [facility] # [id number]
--- NOTE | 2017-08-29 21:56 | CP.PCM.PN ---
<Teresa Mcallister - Last Filed: 08/29/17 21:51> Subjective - Date & Time of Evaluation Date of Evaluation: 08/29/17 Time of Evaluation: 18:30 - Subjective Subjective: 57 yr female w/ history of DM II (non-insulin dependent), morbidly obese, sleep apnea, depression, insomnia, hyperlipidemia, neuropathic pain, GERD , & 18 bilateral breast surgeries for recurrent abscess. CT guided lymph node biopsy done today. Pt reports "oozing of her breast." Denies any pain. Pt denies fevers, chills, n/v, diarrhea, constipation, urinary frequency, or chest pain. Objective - Vital Signs/Intake and Output Vital Signs (last 24 hours): Temp Pulse Resp BP Pulse Ox 97.8 F 75 20 117/65 91 L 08/29/17 16:00 08/29/17 16:00 08/29/17 16:00 08/29/17 16:00 08/29/17 16:00 Intake and Output: 08/29/17 08/30/17 18:59 06:59 Intake Total 540 Balance 540 - Medications Medications: Current Medications Albuterol/Ipratropium (Duoneb 3 Mg/0.5 Mg (3 Ml) Ud) 3 ml IH [id number] [facility] Last Admin: 08/29/17 20:24 Dose: 3 ml Amoxicillin/Clavulanate Potassium (Augmentin 875 Mg-125 Mg Tab) 1 tab PO Q12 [facility] PRN Reason: Protocol Stop: 09/01/17 22:01 Last Admin: 08/29/17 09:08 Dose: 1 tab Atorvastatin Calcium (Lipitor) 20 mg PO QPM [facility] Last Admin: 08/29/17 18:52 Dose: 20 mg Docusate Sodium (Colace) 100 mg PO BID [facility] Last Admin: 08/29/17 18:52 Dose: 100 mg Doxycycline Hyclate (Doryx) 100 mg PO Q12 [facility] PRN Reason: Protocol Stop: 09/01/17 22:01 Last Admin: 08/29/17 09:08 Dose: 100 mg Famotidine (Pepcid) 20 mg PO BID [facility] Last Admin: 08/29/17 18:52 Dose: 20 mg Gabapentin (Neurontin) 300 mg PO QPM [facility] PRN Reason: Protocol Last Admin: 08/29/17 18:52 Dose: 300 mg Heparin Sodium (Porcine) (Heparin) 5,000 units SC Q12 [facility] PRN Reason: Protocol Last Admin: 08/29/17 09:36 Dose: Not Given Hydromorphone HCl (Dilaudid) 0.5 mg IVP Q6H PRN PRN Reason: Pain, moderate (4-7) Last Admin: 08/29/17 16:47 Dose: 0.5 mg Insulin Human Regular (Humulin R Low) 0 units SC ACHS [facility] PRN Reason: Protocol Last Admin: 08/29/17 16:29 Dose: Not Given Metformin HCl (Glucophage) 500 mg PO ACTID [facility] Last Admin: 08/29/17 16:46 Dose: 500 mg Mometasone Furoate (Asmanex Twisthaler 220 Mcg) 2 puff IH QPM [facility] Last Admin: 08/29/17 18:53 Dose: 2 puff Fluticasone/Vilanterol [Breo Ellipta 200-25 Mcg Inh] 1 puff IH DAILY [facility] Last Admin: 08/29/17 10:04 Dose: Not Given Pantoprazole Sodium (Protonix Ec Tab) 40 mg PO QPM [facility] Last Admin: 08/29/17 18:52 Dose: 40 mg Promethazine HCl/Dextromethorphan (Phenergan Dm Syrup) 5 ml PO TID [facility] Last Admin: 08/29/17 18:52 Dose: 5 ml Tramadol HCl (Ultram) 50 mg PO Q8H PRN PRN Reason: Pain, moderate (4-7) Last Admin: 08/29/17 20:00 Dose: 50 mg - Labs Labs: 08/24/17 08:00 08/27/17 06:30 PT 12.2 SECONDS (9.4-12.5) 08/24/17 08:00 INR 1.06 (0.93-1.08) 08/24/17 08:00 APTT 28.4 Seconds (25.1-36.5) 08/24/17 08:00 - Constitutional Appears: Well - Head Exam Head Exam: ATRAUMATIC - Eye Exam Eye Exam: EOMI, Normal appearance, PERRL - ENT Exam ENT Exam: Mucous Membranes Moist, Normal Exam - Neck Exam Neck Exam: Full ROM, Normal Inspection. absent: Lymphadenopathy - Respiratory Exam Respiratory Exam: Decreased Breath Sounds, Clear to Ausculation Bilateral, NORMAL BREATHING PATTERN - Cardiovascular Exam Cardiovascular Exam: REGULAR RHYTHM, +S1, +S2, Murmur - GI/Abdominal Exam GI & Abdominal Exam: Soft, Normal Bowel Sounds Additional comments: obese. large panniculus. - Extremities Exam Extremities Exam: Normal Capillary Refill, Normal Inspection. absent: Joint Swelling, Pedal Edema - Back Exam Back Exam: NORMAL INSPECTION - Neurological Exam Neurological Exam: Alert, Awake, CN II-XII Intact, Oriented x3 - Psychiatric Exam Psychiatric exam: Normal Affect, Normal Mood - Skin Skin Exam: Dry, Intact, Normal Color, Warm Assessment and Plan (1) Morbid (severe) obesity due to excess calories Status: Acute (2) Wheezing Status: Acute (3) Mastitis Status: Acute (4) Cellulitis of breast Status: Acute (5) Anterior mediastinal tumor Status: Acute - Assessment and Plan (Free Text) Plan: Awaiting results of biopsy. PO amoxicillin, doxycycline. Blood cultures negative. Bipap. PT onboard. Consult: ID - Dr. Johnston = s/p vancomycin and zosyn IV, cultures negative, mastitis has resolved. Pulmonary - Dr. Dominguez = continue bronchodilator Cardio - Dr. Pollard = clearance for breast surgery GI - Dr. Hurst - labs for celiac disease panel Surgery - Dr. Ma Reviewed: ECHO = EF 60-65% US abd = fatty liver WNL Xray LS = WNL Stress test = EF 64% CT chest = 2.1x2.8x2.4 cm anterior mediastinal node/mass CXR = WNL Breast US = 5mm retroareolar lesion, complicated cyst vs. focal ductal dilation. negative abcess, mild mastitis, benign, 3 month f/u ECG = ABNOMRAL, NSR nonspecific T wave abnormality <Shonda Chaudhry - Last Filed: 08/29/17 23:42> Objective - Vital Signs/Intake and Output Vital Signs (last 24 hours): Temp Pulse Resp BP Pulse Ox 97.8 F 75 20 117/65 91 L 08/29/17 16:00 08/29/17 16:00 08/29/17 16:00 08/29/17 16:00 08/29/17 16:00 Intake and Output: 08/29/17 08/30/17 18:59 06:59 Intake Total 540 Balance 540 - Medications Medications: Current Medications Albuterol/Ipratropium (Duoneb 3 Mg/0.5 Mg (3 Ml) Ud) 3 ml IH [id number] [facility] Last Admin: 08/29/17 20:24 Dose: 3 ml Amoxicillin/Clavulanate Potassium (Augmentin 875 Mg-125 Mg Tab) 1 tab PO Q12 [facility] PRN Reason: Protocol Stop: 09/01/17 22:01 Last Admin: 08/29/17 22:27 Dose: 1 tab Atorvastatin Calcium (Lipitor) 20 mg PO QPM [facility] Last Admin: 08/29/17 18:52 Dose: 20 mg Docusate Sodium (Colace) 100 mg PO BID [facility] Last Admin: 08/29/17 18:52 Dose: 100 mg Doxycycline Hyclate (Doryx) 100 mg PO Q12 [facility] PRN Reason: Protocol Stop: 09/01/17 22:01 Last Admin: 08/29/17 22:27 Dose: 100 mg Famotidine (Pepcid) 20 mg PO BID [facility] Last Admin: 08/29/17 18:52 Dose: 20 mg Gabapentin (Neurontin) 300 mg PO QPM [facility] PRN Reason: Protocol Last Admin: 08/29/17 18:52 Dose: 300 mg Heparin Sodium (Porcine) (Heparin) 5,000 units SC Q12 [facility] PRN Reason: Protocol Last Admin: 08/29/17 22:27 Dose: 5,000 units Hydromorphone HCl (Dilaudid) 0.5 mg IVP Q6H PRN PRN Reason: Pain, moderate (4-7) Last Admin: 08/29/17 16:47 Dose: 0.5 mg Insulin Human Regular (Humulin R Low) 0 units SC ACHS [facility] PRN Reason: Protocol Last Admin: 08/29/17 22:08 Dose: Not Given Metformin HCl (Glucophage) 500 mg PO ACTID [facility] Last Admin: 08/29/17 16:46 Dose: 500 mg Mometasone Furoate (Asmanex Twisthaler 220 Mcg) 2 puff IH QPM [facility] Last Admin: 08/29/17 18:53 Dose: 2 puff Fluticasone/Vilanterol [Breo Ellipta 200-25 Mcg Inh] 1 puff IH DAILY [facility] Last Admin: 08/29/17 10:04 Dose: Not Given Pantoprazole Sodium (Protonix Ec Tab) 40 mg PO QPM [facility] Last Admin: 08/29/17 18:52 Dose: 40 mg Promethazine HCl/Dextromethorphan (Phenergan Dm Syrup) 5 ml PO TID [facility] Last Admin: 08/29/17 18:52 Dose: 5 ml Tramadol HCl (Ultram) 50 mg PO Q8H PRN PRN Reason: Pain, moderate (4-7) Last Admin: 08/29/17 20:00 Dose: 50 mg - Labs Labs: 08/24/17 08:00 08/27/17 06:30 PT 12.2 SECONDS (9.4-12.5) 08/24/17 08:00 INR 1.06 (0.93-1.08) 08/24/17 08:00 APTT 28.4 Seconds (25.1-36.5) 08/24/17 08:00 Assessment and Plan - Assessment and Plan (Free Text) Plan: 57 yr female w/ history of DM II (non-insulin dependent), morbidly obese, sleep apnea, depression, insomnia, hyperlipidemia, neuropathic pain, GERD , & 18 bilateral breast surgeries for recurrent abscess. CT guided lymph node biopsy done today. Pt reports "oozing of her breast." Denies any pain. Pt denies fevers, chills, n/v, diarrhea, constipation, urinary frequency, or chest pain. achart , meds and labs noted , greed all above .s/p ln biopsy , waiting for result of biopsy ,will f/u
--- NOTE | 2017-08-29 22:20 | PN ---
DATE: ADDENDUM This is an addendum to a progress note performed by GABRIELA Pardo. I have personally examined this patient. I have reviewed all her laboratory data and radiographic studies. I agree with Giovanna Anthony' assessment and plan. The patient apparently has longstanding history of abdominal pain. Her ultrasound of the abdomen is negative for any acute changes. She is to follow up with her agriculture technician, Dr. Ruthie Lee, in [place] upon discharge. No further GI workup planned at this time. Oleksandr Cadena MD
[2017-08-30] MEDS: Albuterol-Ipratrop 3 mg / 0.5 (3 ml) UD IH SCH ×4 (01:43→19:44)
[2017-08-30] MEDS: HYDROmorphone 0.5 mg/0.5 ml ISec IVP PRN ×3 (06:37→19:59)
--- NOTE | 2017-08-30 08:25 | CON ---
ADDENDUM DATE: 08/28/2017 Addendum to consultation performed by Giovanna Anthony on 08/28/2017. I have personally examined this patient and reviewed her laboratory data. I agree with Giovanna Anthony's assessment and recommendations. This is the patient with recurrent cellulitis of her breast with other medical problems including morbid obesity, bronchitis, mediastinal lymphadenopathy, and chronic GI problems including postprandial bloating and diarrhea. She has been evaluated by Dr. Jesus Hendricks of [facility] in the past. Recommendations are to await biopsy of mediastinal lymph node with Interventional Radiology. Oleksandr Cadena MD
[2017-08-30] MEDS: Insulin Reg-LOW-Coverage SC SCH ×4 (08:33→22:18)
--- NOTE | 2017-08-30 08:39 | PN ---
DATE: 08/29/2017 SUBJECTIVE: The patient is seen earlier today in room 365, bed 1. She is doing better, had less discomfort. There are no fevers and no chills. PHYSICAL EXAMINATION: VITAL SIGNS: Temperature is 97, blood pressure is 100/60, and respiratory rate of 18. HEENT: Unremarkable. NECK: Supple. LUNGS: Have decreased breath sounds. HEART: Normal S1, S2. ABDOMEN: Soft and nontender. LABORATORY DATA: Reveals white count of 7.3, hemoglobin of 13, platelets of 299, BUN of 10, creatinine of 0.7. Vancomycin trough 5.8. Blood cultures showed no growth. Ultrasound of the abdomen is noted. ASSESSMENT AND PLAN: A 57-year-old female who was seen earlier today with history of left breast mastitis, history of depression, gastritis, colonic polyps, has received 4 days of vancomycin and Zosyn, on p.o. Augmentin and p.o. doxycycline x5 more days. We will follow with you. Javier Johnston MD
[2017-08-30] MEDS: Fluticasone/Vilanterol [Breo Ellipta 200-25 Mcg Inh] IH SCH (10:11)
[2017-08-30] MEDS: Promethazine DM 6.25 mg-15 mg/5 ml Syrup PO SCH ×3 (10:12→18:07)
[2017-08-30] MEDS: Amoxicillin-Clav 875-125 mg Tab PO SCH ×2 (10:12→22:40)
--- NOTE | 2017-08-30 13:09 | CP.PCM.PN ---
Subjective - Date & Time of Evaluation Date of Evaluation: 08/30/17 Time of Evaluation: 11:10 - Subjective Subjective: Seen and examined at the bedside earlier today, chart reviewed. Patient awaiting to go for CT-guided biopsy. Denies nausea, vomiting does report occasional lower abdominal pain denies dysuria. Patient reports that she still has episodes of having postprandial bowel movements. No reports of bleeding. Celiac disease panel pending. Objective - Vital Signs/Intake and Output Vital Signs (last 24 hours): Temp Pulse Resp BP Pulse Ox 97.8 F 75 20 117/65 91 L 08/29/17 16:00 08/29/17 16:00 08/29/17 16:00 08/29/17 16:00 08/29/17 16:00 Intake and Output: 08/30/17 08/30/17 06:59 18:59 Intake Total 540 Balance 540 - Medications Medications: Current Medications Albuterol/Ipratropium (Duoneb 3 Mg/0.5 Mg (3 Ml) Ud) 3 ml IH [id number] [facility] Last Admin: 08/30/17 07:34 Dose: 3 ml Amoxicillin/Clavulanate Potassium (Augmentin 875 Mg-125 Mg Tab) 1 tab PO Q12 [facility] PRN Reason: Protocol Stop: 09/01/17 22:01 Last Admin: 08/30/17 10:12 Dose: 1 tab Atorvastatin Calcium (Lipitor) 20 mg PO QPM [facility] Last Admin: 08/29/17 18:52 Dose: 20 mg Docusate Sodium (Colace) 100 mg PO BID [facility] Last Admin: 08/30/17 10:12 Dose: 100 mg Doxycycline Hyclate (Doryx) 100 mg PO Q12 [facility] PRN Reason: Protocol Stop: 09/01/17 22:01 Last Admin: 08/30/17 10:12 Dose: 100 mg Famotidine (Pepcid) 20 mg PO BID [facility] Last Admin: 08/30/17 10:12 Dose: 20 mg Gabapentin (Neurontin) 300 mg PO QPM [facility] PRN Reason: Protocol Last Admin: 08/29/17 18:52 Dose: 300 mg Heparin Sodium (Porcine) (Heparin) 5,000 units SC Q12 [facility] PRN Reason: Protocol Last Admin: 08/30/17 10:12 Dose: Not Given Hydromorphone HCl (Dilaudid) 0.5 mg IVP Q6H PRN PRN Reason: Pain, moderate (4-7) Last Admin: 08/30/17 12:47 Dose: 0.5 mg Insulin Human Regular (Humulin R Low) 0 units SC ACHS [facility] PRN Reason: Protocol Last Admin: 08/30/17 12:04 Dose: Not Given Metformin HCl (Glucophage) 500 mg PO ACTID [facility] Last Admin: 08/30/17 12:46 Dose: 500 mg Mometasone Furoate (Asmanex Twisthaler 220 Mcg) 2 puff IH QPM [facility] Last Admin: 08/29/17 18:53 Dose: 2 puff Fluticasone/Vilanterol [Breo Ellipta 200-25 Mcg Inh] 1 puff IH DAILY [facility] Last Admin: 08/30/17 10:11 Dose: Not Given Pantoprazole Sodium (Protonix Ec Tab) 40 mg PO QPM [facility] Last Admin: 08/29/17 18:52 Dose: 40 mg Promethazine HCl/Dextromethorphan (Phenergan Dm Syrup) 5 ml PO TID [facility] Last Admin: 08/30/17 10:12 Dose: 5 ml Tramadol HCl (Ultram) 50 mg PO Q8H PRN PRN Reason: Pain, moderate (4-7) Last Admin: 08/29/17 20:00 Dose: 50 mg - Labs Labs: 08/24/17 08:00 08/27/17 06:30 PT 12.2 SECONDS (9.4-12.5) 08/24/17 08:00 INR 1.06 (0.93-1.08) 08/24/17 08:00 APTT 28.4 Seconds (25.1-36.5) 08/24/17 08:00 - Constitutional Appears: No Acute Distress - Eye Exam Eye Exam: Normal appearance. absent: Scleral icterus - ENT Exam ENT Exam: Mucous Membranes Moist - Respiratory Exam Respiratory Exam: NORMAL BREATHING PATTERN. absent: Respiratory Distress - Cardiovascular Exam Cardiovascular Exam: +S1, +S2 - GI/Abdominal Exam GI & Abdominal Exam: Soft, Normal Bowel Sounds. absent: Guarding, Organomegaly , Rebound - Extremities Exam Extremities Exam: absent: Calf Tenderness - Neurological Exam Neurological Exam: Alert, Awake, Oriented x3 - Skin Skin Exam: Dry, Warm Assessment and Plan - Assessment and Plan (Free Text) Assessment: Assessment: Recurrent breast abscess and cellulitis 2 x 2.8 x 2.4 cm mediastinal nodes/mass Epigastric pain Morbid obesity GERD COPD Hypertension Diabetes mellitus Plan: Continue GI prophylaxsis CT guided biopsy by IR today On oral antibiotics as per ID Diet as tolerated on Colace BID On heparin subcutaneous follow-up celiac disease panel Seen and discussed with Dr. Cadena who is covering Dr. Hurst. addendum: will request for ct scan of abdomen and pelvis with only oral contrast , on Metformin for complaints of diffuse lower abdominal pain.
[2017-08-30] MEDS ORDERED: Midazolam 2 MG/2 ML VIAL ONE (16:37)
[2017-08-30] MEDS: Pantoprazole 40 mg EC Tab PO SCH (18:06)
[2017-08-30] MEDS: Mometasone 220 mcg/puff-14 puff Inh IH SCH (18:07)
[2017-08-30] MEDS ORDERED: Sodium Chloride 0.45% 1,000 ML IV SCH (18:30)
--- NOTE | 2017-08-30 18:35 | PN ---
PULMONARY PROGRESS NOTE DATE: 08/29/2017 REFERRING PHYSICIAN: Shonda Chaudhry MD SUBJECTIVE: She is sitting up in the bed. Night was unremarkable. Feels okay. BiPAP. Mild cough. No nausea. No vomiting. Mild left breast discomfort. No dysuria, leg pain or leg swelling. OBJECTIVE: GENERAL: In no acute distress. VITAL SIGNS: Temperature is 98, heart rate is 75, respiratory rate is 20, blood pressure is 117/65, and pulse oximetry is 98% on room air. HEENT: Moist mucous membranes. Crowded airway. NECK: Supple. No JVD. LUNGS: Has a fair airflow with few rhonchi. HEART: S1 and S2. ABDOMEN: Soft and nontender. No organomegaly. EXTREMITIES: No edema. NEUROLOGIC: Awake, alert and follows simple commands. MEDICATIONS: She is on Asmanex Twisthaler 220 two puffs daily, Augmentin 875 one tab q.12 hours, Colace 100 mg twice a day, Dilaudid 0.5 mg q.6 hours p.r.n., doxycycline 100 mg twice a day, DuoNeb q.3 hours and q.6 hours, Breo Ellipta 1 puff daily, metformin 500 mg a.c. t.i.d., heparin 500 units subcutaneously q.12 hours, insulin coverage, Lipitor 20 mg daily, gabapentin 300 mg daily, Pepcid 20 mg twice a day, Phenergan DM 5 mL 3 times a day, Protonix 40 mg daily, and Ultram 50 mg q.8 hours p.r.n. LABORATORY DATA: Shows blood sugar this morning 132. Microbiology; blood culture has been negative. IMPRESSION AND PLAN: Recurrent breast abscess and cellulitis, hypertension, diabetes, morbid obesity, chronic obstructive lung disease, may have sleep apnea syndrome, active smoker, anterior mediastinal mass, and awaiting for biopsy. Pulmonary point of view, doing okay. If biopsy is not done, could be done as an outpatient. Thank you and we will follow with you. Kervin Dominguez MD [facility] # [id number]
--- NOTE | 2017-08-30 19:56 | CT ---
PROCEDURE: CT guided anterior mediastinal biopsy. HISTORY: 3 cm well-circumscribed anterior mediastinal mass. Evaluate for malignancy. PHYSICIAN(S): Jim Ma MD. TECHNIQUE: The relative risks and indications of the procedure were explained to the patient and consent obtained. The patient was placed supine on the CT scanner and preliminary images through the upper chest obtained. Conscious sedation and monitoring were provided throughout the procedure by a nurse. There is a well-circumscribed noncalcified 3 cm mass in the anterior mediastinum. A oblique right anterior approach was selected and the area prepped and draped in the usual sterile fashion. 1% Xylocaine was used to anesthetize the skin and soft tissues. A 17-gauge guiding needle was advanced into the 3 cm anterior mediastinal mass. Its position was confirmed with CT. Using coaxial technique, multiple core biopsies were obtained. The postprocedure images show no evidence of large pneumothorax or significant hemorrhage.. IMPRESSION: 1. CT-guided anterior mediastinal biopsy as described above.
--- NOTE | 2017-08-30 21:30 | PN ---
DATE: 08/30/2017 SUBJECTIVE: The patient is in bed, in no acute distress. Nontoxic. PHYSICAL EXAMINATION: VITAL SIGNS: Temperature is 98, blood pressure is 117/60 and respiratory rate of 20. HEENT: Unremarkable. NECK: Supple. LUNGS: Have decreased breath sounds. HEART: Normal S1 and S2. ABDOMEN: Soft. Examination of the much resolved. LABORATORY DATA: Reveals a white count of 7.3 and hemoglobin of 13. BUN of 10 and creatinine of 0.7. Cultures are negative. Review of orders reveals the patient to be on oral Augmentin and doxycycline. Giovanna Anthony' progress note is reviewed. The patient for a possible CAT scan guided biopsy by IR. ASSESSMENT AND PLAN: We will follow with you. possible CAT scan and directed lymph node biopsy. Javier Johnston MD
--- NOTE | 2017-08-31 02:26 | PN ---
DATE: SUBJECTIVE: The patient was seen and examined on the bedside early in the morning, after that she went for biopsy. The patient looks comfortable, pain is little bit better. No nausea, vomiting or diarrhea. No hematuria or hematochezia. No swelling of the leg. No chest pain. No palpitation. No headache or dizziness, but there is discharge from the left breast, it looks like pussy discharge, collected that for culture and sensitivity. Discussion done with Dr. Nieves. PHYSICAL EXAMINATION VITAL SIGNS: Temperature 99.3, pulse 67, blood pressure 141/72 and respiratory rate 15. HEENT: Head; normocephalic and atraumatic. Eyes; PERRLA. Extraocular muscles intact. Conjunctivae clear. Nose patent. NECK: Supple. No carotid bruits. No JVD or thyromegaly. CHEST: Bilaterally symmetrical. HEART: S1 and S2 positive. LUNGS: Clear to auscultation. ABDOMEN: Soft. Bowel sounds present. No organomegaly. EXTREMITIES: No edema. No cyanosis. NEUROLOGIC: The patient is awake and alert. Moving all four extremities. No focal deficits. BREASTS: Left breast is tender. There is a pussy discharge from the nipple. MEDICATIONS: Asmanex, Augmentin, Colace, Dilaudid, doxycycline, Flonase, metformin, heparin, Lipitor, Neurontin, Pepcid, Phenergan, Protonix, sodium and Tramadol. LABORATORY DATA: White blood cell is 7.3, hemoglobin 13.7, hematocrit 42.5 and platelets 299. Glucose 121, 64 and 132. ASSESSMENT AND PLAN: Ms. Lizet Bhat is a 57-year-old female with uncontrolled diabetes mellitus, obesity, has left breast mastitis. The patient went today for CAT scan guided lymph node biopsy. The patient has history of recurrent breast abscess, want mastectomy. Discussion done with Dr. Nieves. Here for hypertension, diabetes mellitus, chronic obstructive lung disease, sleep apnea syndrome, active smoker and anterior mediastinal mass. We will continue antibiotics as per Infectious Disease. History of depression, We will continue present treatment. Out of bed. Physical therapy. Discussion done with Dr. Nieves. We will follow up. Shonda Chaudhry MD [facility] # [id number] MARIA ALEJANDRA
[2017-08-31] MEDS: HYDROmorphone 0.5 mg/0.5 ml ISec IVP PRN ×3 (02:53→18:08)
[2017-08-31] MEDS: Albuterol-Ipratrop 3 mg / 0.5 (3 ml) UD IH SCH ×4 (03:45→22:04)
[2017-08-31] MEDS ORDERED: Barium Sulfate Susp 2.1% w/v, 2.0% w/w 450 mL Bottle PO ONE (06:45)
[2017-08-31 07:42] LABS: HEMOGLOBIN 13.4 g/dL (12.0-16.0); MEAN CELL VOLUME 91.6 fl (80.0-105.0); MEAN CORPUSCULAR HEMOGLOBIN 29.5 pg (25.0-35.0); MEAN CORPUSCULAR HGB CONC 32.1 g/dl (31.0-37.0); MEAN PLATELET VOLUME 11.3 fl (7.0-11.0); RBC 4.55 [, 10^6/uL] (3.5-6.1); RED CELL DISTRIBUTION WIDTH 14.2 % (11.5-14.5); WHITE BLOOD COUNT 8.1 [, 10^3/ul] (4.5-11.0)
--- NOTE | 2017-08-31 08:31 | PN ---
LOCATION: The patient is in room 365, bed 1. REASON FOR CONSULTATION: Chest pain, recurrent mastitis, possible breast surgery. SUBJECTIVE: The patient lying comfortably in bed without any chest pain, shortness of breath. Off and on she gets cough. PHYSICAL EXAMINATION: VITAL SIGNS: Blood pressure 117/65, respirations 20, pulse 75, temperature 97.8. HEENT: Head is normocephalic. Eyes, pupils normal. Conjunctivae normal. Nose and throat normal. NECK: JVP is low. Carotid equal. THORAX: AP diameter normal. LUNGS: Clear. CARDIOVASCULAR: S1 and S2. ABDOMEN: Protuberant. No organomegaly. EXTREMITIES: No clubbing. No cyanosis. LABORATORY DATA: The patient random sugar 132. Other labs were done on 08/27/2017 and 08/24/2017 and they were reported on known previous notes. The patient's nuclear stress tests on this admission were negative, echocardiogram on this admission were also normal with normal LV ejection fraction of 65%. DIAGNOSES: Chest pain probably related to mastitis, stress test negative, morbid obesity, chronic obstructive pulmonary disease. PLAN: The patient is on Augmentin one tablet q. 12 hours, doxycycline hyclate 100 mg p.o. q. 12 hours, DuoNeb hand nebulizer therapy, metformin, heparin 5000 units subcutaneously q. 12 hours, Lipitor 20, gabapentin 300 mg p.o. daily evening, Protonix 40 daily, Phenergan DM 5 mL p.o. t.i.d. was started yesterday for dry cough. We will follow with you. Kervin Pollard MD
--- NOTE | 2017-08-31 08:35 | PN ---
DATE: 08/30/2017 ADDENDUM This is an addendum to a progress note performed by GABRIELA Pardo. I agree with Giovanna Anthony' assessment and recommendations. The patient is awaiting biopsy of mediastinal lymph node. She continues to complain of multiple problems including now with lower abdominal pain. She had complained of upper abdominal pain with postprandial diarrhea and bloating in the past. Agree with recommendation to get a CT scan of the abdomen and pelvis. Oleksandr Cadena MD
[2017-08-31] MEDS: Insulin Reg-LOW-Coverage SC SCH ×4 (08:38→22:06)
[2017-08-31 08:57] LABS: ALB/GLOB RATIO 1.2 (1.1-1.8); ALBUMIN 3.6 g/dL (3.0-4.8); ALT/SGPT 35 U/L (7-56); AST/SGOT 22 U/L (14-36); BLOOD UREA NITROGEN 11 mg/dL (7-21); CALCIUM 9.1 mg/dL (8.4-10.5); GFR AFRICAN-AMERICAN > 60; GFR NON-AFRICAN AMERICAN > 60
--- NOTE | 2017-08-31 10:36 | CT ---
PROCEDURE: CT Abdomen and Pelvis without intravenous contrast HISTORY: abdominal pain COMPARISON: None. TECHNIQUE: Without contrast. Contrast Dose: Radiation dose: Total exam DLP = 1586 mGy-cm. This CT exam was performed using one or more of the following dose reduction techniques: Automated exposure control, adjustment of the mA and/or kV according to patient size, and/or use of iterative reconstruction technique. FINDINGS: LOWER THORAX: Unremarkable. LIVER: Unremarkable. No gross lesion or ductal dilatation. GALLBLADDER AND BILE DUCTS: Unremarkable. PANCREAS: Unremarkable. No gross lesion or ductal dilatation. SPLEEN: Unremarkable. ADRENALS: Unremarkable. No mass. KIDNEYS AND URETERS: Unremarkable. No hydronephrosis. No solid mass. VASCULATURE: Unremarkable. No aortic aneurysm. BOWEL: Unremarkable. No obstruction. No gross mural thickening. APPENDIX: Unremarkable. Normal appendix. PERITONEUM: Unremarkable. No free fluid. No free air. LYMPH NODES: Unremarkable. No enlarged lymph nodes. BLADDER: Unremarkable. REPRODUCTIVE: Unremarkable. BONES: No acute fracture. OTHER FINDINGS: None. IMPRESSION: No acute intra-abdominal findings.
[2017-08-31] MEDS: Promethazine DM 6.25 mg-15 mg/5 ml Syrup PO SCH ×3 (11:02→18:08)
[2017-08-31] MEDS: Amoxicillin-Clav 875-125 mg Tab PO SCH (11:03)
[2017-08-31] MEDS: Fluticasone/Vilanterol [Breo Ellipta 200-25 Mcg Inh] IH SCH (11:09)
--- NOTE | 2017-08-31 11:19 | CP.PCM.PN ---
Subjective - Date & Time of Evaluation Date of Evaluation: 08/31/17 Time of Evaluation: 09:50 - Subjective Subjective: Seen and examined at the bedside earlier today, chart reviewed. Patient status post CT-guided biopsy mediastinal node, denies nausea, vomiting, fever or chills. She tolerated the oral contrast for CT scan of abdomen and pelvis and this report was reviewed and there were no acute findings on her CT scan was unremarkable. The patient is still report diffuse lower abdominal pain no increase in intensity.No reports of overt GI Bleeding. Objective - Vital Signs/Intake and Output Vital Signs (last 24 hours): Temp Pulse Resp BP Pulse Ox 97.5 F L 78 18 106/69 95 08/31/17 09:10 08/31/17 09:10 08/31/17 09:10 08/31/17 09:10 08/31/17 09:10 Intake and Output: 08/31/17 08/31/17 06:59 18:59 Intake Total 300 Balance 300 - Medications Medications: Current Medications Albuterol/Ipratropium (Duoneb 3 Mg/0.5 Mg (3 Ml) Ud) 3 ml IH [id number] [facility] Last Admin: 08/31/17 07:20 Dose: 3 ml Amoxicillin/Clavulanate Potassium (Augmentin 875 Mg-125 Mg Tab) 1 tab PO Q12 CARLOS PRN Reason: Protocol Stop: 09/01/17 22:01 Last Admin: 08/31/17 11:03 Dose: 1 tab Atorvastatin Calcium (Lipitor) 20 mg PO QPM [facility] Last Admin: 08/30/17 18:06 Dose: Not Given Docusate Sodium (Colace) 100 mg PO BID [facility] Last Admin: 08/31/17 11:03 Dose: 100 mg Doxycycline Hyclate (Doryx) 100 mg PO Q12 CARLOS PRN Reason: Protocol Stop: 09/01/17 22:01 Last Admin: 08/31/17 11:03 Dose: 100 mg Famotidine (Pepcid) 20 mg PO BID [facility] Last Admin: 08/31/17 11:04 Dose: 20 mg Gabapentin (Neurontin) 300 mg PO QPM CARLOS PRN Reason: Protocol Last Admin: 08/30/17 18:06 Dose: Not Given Heparin Sodium (Porcine) (Heparin) 5,000 units SC Q12 CARLOS PRN Reason: Protocol Last Admin: 08/31/17 11:06 Dose: 5,000 units Hydromorphone HCl (Dilaudid) 0.5 mg IVP Q6H PRN PRN Reason: Pain, moderate (4-7) Last Admin: 08/31/17 02:53 Dose: 0.5 mg Insulin Human Regular (Humulin R Low) 0 units SC ACHS CARLOS PRN Reason: Protocol Last Admin: 08/31/17 08:38 Dose: Not Given Metformin HCl (Glucophage) 500 mg PO ACTID [facility] Last Admin: 08/31/17 11:03 Dose: 500 mg Mometasone Furoate (Asmanex Twisthaler 220 Mcg) 2 puff IH QPM [facility] Last Admin: 08/30/17 18:07 Dose: Not Given Fluticasone/Vilanterol [Breo Ellipta 200-25 Mcg Inh] 1 puff IH DAILY [facility] Last Admin: 08/31/17 11:09 Dose: Not Given Pantoprazole Sodium (Protonix Ec Tab) 40 mg PO QPM [facility] Last Admin: 08/30/17 18:06 Dose: Not Given Promethazine HCl/Dextromethorphan (Phenergan Dm Syrup) 5 ml PO TID [facility] Last Admin: 08/31/17 11:02 Dose: 5 ml Tramadol HCl (Ultram) 50 mg PO Q8H PRN PRN Reason: Pain, moderate (4-7) Last Admin: 08/31/17 01:04 Dose: 50 mg - Labs Labs: 08/31/17 07:20 08/31/17 07:20 PT 12.2 SECONDS (9.4-12.5) 08/24/17 08:00 INR 1.06 (0.93-1.08) 08/24/17 08:00 APTT 28.4 Seconds (25.1-36.5) 08/24/17 08:00 - Constitutional Appears: No Acute Distress - Eye Exam Eye Exam: Normal appearance. absent: Scleral icterus - ENT Exam ENT Exam: Mucous Membranes Moist - Neck Exam Additional comments: anterior chest wall dressing is in place - Respiratory Exam Respiratory Exam: NORMAL BREATHING PATTERN. absent: Respiratory Distress - Cardiovascular Exam Cardiovascular Exam: +S1, +S2 - Extremities Exam Extremities Exam: absent: Calf Tenderness - Neurological Exam Neurological Exam: Alert, Awake, Oriented x3 - Skin Skin Exam: Dry, Warm Assessment and Plan - Assessment and Plan (Free Text) Assessment: Assessment: Recurrent breast abscess and cellulitis 2 x 2.8 x 2.4 cm mediastinal nodes/mass, status post CT-guided biopsy Resolved Epigastric pain Morbid obesity GERD COPD Hypertension Diabetes mellitus Plan: Continue GI prophylaxsis follow-up mediastinal node biopsy On oral antibiotics as per ID Diet as tolerated on Colace BID On heparin subcutaneous follow-up celiac disease final results Discussed with patient that she would benefit from GI follow up, she has mentioned she has seen Dr. Lee recently due, to go back , but now considering a new GI doctor. Seen and discussed with Dr. Cadena who is covering Dr. Hurst.
[2017-08-31] MEDS: Vancomycin 1gm in NS 250ml 1 GM/250 ML BAG IVPB SCH (12:33)
[2017-08-31] MEDS ORDERED: Potassium Chloride 20 mEq ER Tab PO ONE (13:45)
--- NOTE | 2017-08-31 13:55 | PN ---
DATE: 08/31/2017 SUBJECTIVE: The patient is in bed 365, bed 1. The patient was seen earlier today. OBJECTIVE: VITAL SIGNS: Temperature is 97, blood pressure is 106/60, respiratory rate of 18. HEENT: Unremarkable. NECK: Supple. LUNGS: Have decreased breath sounds. HEART: Normal S1, S2. ABDOMEN: Soft. LABORATORY EXAMINATION: Noted and a white count of 8.1, hemoglobin of 13. BUN of 11, creatinine 0.6 and vancomycin trough level of 5.8. Immunology is noted. Microbiology reveals the breast culture results are pending and the patient had a biopsy yesterday by Dr. Jim Ma. ASSESSMENT AND PLAN: This is a 57-year-old female with uncontrolled diabetes, obesity, and left breast CAT scan guided lymph node biopsy. Case was discussed with Dr. Chaudhry and we will start vancomycin and cefepime as per discussion with Dr. Chaudhry. Pending the culture results from yesterday. Javier Johnston MD
[2017-08-31] MEDS: Cefepime 1gm in NS 100ml 1 GM/100 ML BAG IVPB SCH ×2 (14:55→21:48)
--- NOTE | 2017-08-31 15:25 | PN ---
DATE: REASON FOR CONSULTATION AND FOLLOWUP: Chest pain, recurrent mastitis for possible surgery of the breast. SUBJECTIVE: The patient denies any chest pain, shortness of breath or any palpitation. OBJECTIVE: GENERAL: Not in apparent distress. VITAL SIGNS: As follows; temperature afebrile, heart rate 78, and blood pressure 106/69. HEENT: PERRLA. Extraocular muscles are intact. NECK: Supple. No carotid bruits or thyromegaly. CHEST: Clear to auscultation. HEART: S1 and S2 regular. ABDOMEN: Soft. EXTREMITIES: Clubbing and cyanosis negative. LABORATORY DATA: Blood workup as follows; WBC 8.1, hemoglobin 13, hematocrit 41.7, and platelet count 252. Chemistry shows sodium , potassium 3.8, chloride 103, carbon dioxide 29, anion gap of 14, BUN 11, and creatinine 0.6. IMPRESSION: Morbid obesity, diabetes, hypertension, hyperlipidemia, recurrent mastitis, preoperative evaluation risk stratification, normal stress test, chest pain most likely secondary to mastitis, obesity, and chronic obstructive pulmonary disease. The patient is going to for endoscopy and GI workup. The patient is cleared from Cardiology point of view to go for any endoscopy or any other procedure as needed. Yesterday, the patient had a CT-guided biopsy done, awaiting for the results. We will follow with you. Thank you Dr. Chaudhry for providing us the opportunity in taking care of the patient, Lizet Bhat. Yesterday, the patient had CT-guided anterior mediastinal lymph node biopsy done. We will follow with you. CVS status is stable. stress test. We will supplement potassium of 3.8. Kervin Hughes MD
[2017-08-31] MEDS: Pantoprazole 40 mg EC Tab PO SCH (18:05)
[2017-08-31] MEDS: Mometasone 220 mcg/puff-14 puff Inh IH SCH (19:37)
[2017-09-01] MEDS: Albuterol-Ipratrop 3 mg / 0.5 (3 ml) UD IH SCH ×4 (01:12→20:46)
--- NOTE | 2017-09-01 01:21 | PN ---
DATE: SUBJECTIVE: The patient is a 57-year-old female. The patient was seen and examined on the bedside, still having pain in the left breast, and on squeezing, there is a pussy discharge from the left breast nipple and complaining about abdominal pain. CAT scan of the abdomen done, still waiting for CT-guided biopsy of mediastinal lymph nodes. No nausea, vomiting, or diarrhea. No fever. No chills. No constipation. No headache. No dizziness. Little bit of physical therapy. No overt GI bleeding. PHYSICAL EXAMINATION: VITAL SIGNS: Temperature 97.5, pulse 78, respiratory rate 18, blood pressure 106/69, pulse oximetry 95%. HEENT: Head is normocephalic, atraumatic. Eyes: PERRLA. Extraocular muscles are intact. Conjunctivae clear. Nose patent. Mucous membranes are moist. NECK: Supple. No carotid bruits. No JVD or thyromegaly. CHEST: Bilaterally symmetrical. HEART: S1 and S2 positive. LUNGS: Clear to auscultation. ABDOMEN: Soft. Bowel sounds present. No organomegaly. EXTREMITIES: No edema. No cyanosis. NEUROLOGIC: The patient is awake and alert. Moving all four extremities. No focal deficits. MEDICATIONS: DuoNeb, amoxicillin, Lipitor, Colace, doxycycline, Pepcid, Neurontin, Procaine, Dilaudid, insulin, Glucophage, Asmanex, Breo, Protonix, LABORATORY DATA: White blood cells 8.1, hemoglobin 13.4, hematocrit 41.7, platelets 252. Sodium 141, potassium 3.8, BUN 11, creatinine 0.6. Glucose 88. ASSESSMENT AND PLAN: Ms. Home Hinds is a 57-year-old lady with a recurrent breast abscess and cellulitis especially left breast 2 x 2.8 x 2.4 cm mediastinal node/mass, status post CT guided biopsy, resolved epigastric pain, morbid obesity, gastroesophageal reflux disease, dyspepsia, chronic obstructive pulmonary disease, hypertension, osteomyelitis. There is heavy discharge from the left breast. Sent for culture and sensitivity, results are pending. Discussion done with Dr. Johnston, ID, start her on vancomycin. Continue GI prophylaxis. Diet as tolerated, on Colace. Heparin subcutaneous for deep venous thrombosis prophylaxis. Reviewed GI notes . Reviewed Dr. Johnston's notes. Dr. Dominguez, jewelry coater, on the case for chronic obstructive pulmonary disease, sleep apnea syndrome, active smoker. We will continue present treatment. We will follow up. Shonda Chaudhry MD MARIA ALEJANDRA
--- NOTE | 2017-09-01 02:24 | PN ---
PULMONARY PROGRESS NOTE DATE: 08/31/2017 REFERRING PHYSICIAN: Shonda Chaudhry MD SUBJECTIVE: The patient is lying in the bed, sleepy, arousable, complaining about mild discomfort at the site of biopsy needle entrance, and still has a mild cough. No nausea. No vomiting, diarrhea, leg pain, or leg swelling. OBJECTIVE: GENERAL: In no acute distress. VITAL SIGNS: Temperature is 98, heart rate is 75, respiratory rate is 20, blood pressure is 108/51, and pulse oximetry is 98% on room air. HEENT: Moist mucous membrane. Crowded airway. NECK: Supple. No JVD. LUNGS: Has a fair airflow with rhonchi. HEART: S1 and S2. ABDOMEN: Soft, nontender, and nondistended. EXTREMITIES: No edema. NEUROLOGIC: Awake, alert, and follows simple commands. MEDICATIONS: She is on Asmanex Twisthaler 220 two puffs daily, Colace 100 mg twice a day, Dilaudid 0.5 mg q.6 hours p.r.n., DuoNeb q.6 hours, metformin 500 mg a.c. t.i.d., heparin 5000 units subcutaneously q.12 hours, insulin coverage, Lipitor 20 mg daily, cefepime 1 g q.8 hours, Neurontin 200 mg daily, Pepcid 20 mg twice a day, Phenergan DM 5 mL 3 times a day, Protonix 40 mg daily, Ultram 50 mg q.8 hours, and vancomycin 1 g IV q.12 hours. LABORATORY DATA: Shows hemoglobin 13.4, hematocrit 41.7, WBC 8.1, and platelet is 252. Sodium 141, potassium 3.8, chloride 103, bicarbonate 29, BUN 11, creatinine 0.6, glucose 88, and calcium is 9.1. AST 22, ALT 35, alkaline phosphatase is 67, and albumin is 3.6. Microbiology; breast area culture has a Gram-negative rods. CT of the abdomen and pelvis is unremarkable. IMPRESSION AND PLAN: Recurrent breast abscess and cellulitis, hypertension, diabetes, morbid obesity, chronic obstructive lung disease, may have sleep apnea syndrome, active smoker, anterior mediastinal mass, and status post biopsy. Clinically doing okay. Continue bronchodilator, antibiotics as per Infectious Disease, being followed by ID, GI followup, out of bed to chair, and fall precaution. Thank you and we will follow with you. Kervin Dominguez MD
[2017-09-01] MEDS: Cefepime 1gm in NS 100ml 1 GM/100 ML BAG IVPB SCH ×2 (06:15→14:18)
[2017-09-01] MEDS: Insulin Reg-LOW-Coverage SC SCH ×4 (07:58→23:15)
--- NOTE | 2017-09-01 08:44 | PN ---
DATE: 08/31/[address] Cadena dictating addendum to a progress note performed by Giovanna Anthony APN SUBJECTIVE: I have personally examined this patient and reviewed her laboratory data. The patient denies any abdominal pain today. A CT scan of the abdomen and pelvis was performed and did not reveal any acute abnormalities. She is status post biopsy of mediastinal lymph nodes. Pathology is pending. Oleksandr Cadena MD
[2017-09-01] MEDS: Promethazine DM 6.25 mg-15 mg/5 ml Syrup PO SCH ×3 (09:31→17:22)
--- NOTE | 2017-09-01 10:03 | CP.PCM.PN ---
Subjective - Date & Time of Evaluation Date of Evaluation: 09/01/17 Time of Evaluation: 08:55 - Subjective Subjective: S&E at bedside, chart reviewed, breast culture reveal gram negative rods, patient c/o drain at breast and discomfort, on antibiotics. No N/V, still reports loose BM mostly postprandial, ct scan A&P and celiac panel negative. No reports of overt GIB. Reports suprapubic discomfort, reports that ongoing for 2 eyars, saw BATTING MACHINE OPERATOR, no findings, c/o dysuria no hematuria. Objective - Vital Signs/Intake and Output Vital Signs (last 24 hours): Temp Pulse Resp BP Pulse Ox 98.1 F 62 18 106/52 L 95 09/01/17 08:51 09/01/17 08:51 09/01/17 08:51 09/01/17 08:51 09/01/17 08:51 Intake and Output: 09/01/17 09/01/17 06:59 18:59 Intake Total 880 Balance 880 - Medications Medications: Current Medications Albuterol/Ipratropium (Duoneb 3 Mg/0.5 Mg (3 Ml) Ud) 3 ml IH [id number] [facility] Last Admin: 09/01/17 09:38 Dose: 3 ml Atorvastatin Calcium (Lipitor) 20 mg PO QPM [facility] Last Admin: 08/31/17 18:06 Dose: 20 mg Docusate Sodium (Colace) 100 mg PO BID [facility] Last Admin: 09/01/17 09:28 Dose: 100 mg Famotidine (Pepcid) 20 mg PO BID [facility] Last Admin: 09/01/17 09:31 Dose: 20 mg Gabapentin (Neurontin) 300 mg PO QPM CARLOS PRN Reason: Protocol Last Admin: 08/31/17 18:05 Dose: 300 mg Heparin Sodium (Porcine) (Heparin) 5,000 units SC Q12 CARLOS PRN Reason: Protocol Last Admin: 09/01/17 09:29 Dose: 5,000 units Hydromorphone HCl (Dilaudid) 0.5 mg IVP Q6H PRN PRN Reason: Pain, moderate (4-7) Last Admin: 08/31/17 18:08 Dose: 0.5 mg Vancomycin HCl (Vancomycin 1gm) 1 gm in 250 mls @ 167 mls/hr IVPB Q12H CARLOS PRN Reason: Protocol Stop: 09/09/17 12:31 Last Admin: 08/31/17 12:33 Dose: 167 mls/hr Cefepime HCl (Maxipime 1gm) 1 gm in 100 mls @ 100 mls/hr IVPB Q8 CARLOS PRN Reason: Protocol Stop: 09/09/17 14:01 Last Admin: 09/01/17 06:15 Dose: 100 mls/hr Insulin Human Regular (Humulin R Low) 0 units SC ACHS CARLOS PRN Reason: Protocol Last Admin: 09/01/17 07:58 Dose: Not Given Metformin HCl (Glucophage) 500 mg PO ACTID [facility] Last Admin: 09/01/17 09:28 Dose: 500 mg Mometasone Furoate (Asmanex Twisthaler 220 Mcg) 2 puff IH QPM [facility] Last Admin: 08/31/17 19:37 Dose: 2 puff Fluticasone/Vilanterol [Breo Ellipta 200-25 Mcg Inh] 1 puff IH DAILY [facility] Last Admin: 08/31/17 11:09 Dose: Not Given Pantoprazole Sodium (Protonix Ec Tab) 40 mg PO QPM [facility] Last Admin: 08/31/17 18:05 Dose: 40 mg Promethazine HCl/Dextromethorphan (Phenergan Dm Syrup) 5 ml PO TID [facility] Last Admin: 09/01/17 09:31 Dose: 5 ml Tramadol HCl (Ultram) 50 mg PO Q8H PRN PRN Reason: Pain, moderate (4-7) Last Admin: 08/31/17 15:03 Dose: 50 mg - Labs Labs: 08/31/17 07:20 08/31/17 07:20 PT 12.2 SECONDS (9.4-12.5) 08/24/17 08:00 INR 1.06 (0.93-1.08) 08/24/17 08:00 APTT 28.4 Seconds (25.1-36.5) 08/24/17 08:00 - Constitutional Appears: No Acute Distress - Head Exam Head Exam: NORMOCEPHALIC - Eye Exam Eye Exam: Normal appearance. absent: Scleral icterus - ENT Exam ENT Exam: Mucous Membranes Moist - Neck Exam Neck Exam: Normal Inspection - Respiratory Exam Respiratory Exam: NORMAL BREATHING PATTERN. absent: Respiratory Distress - Cardiovascular Exam Cardiovascular Exam: +S1, +S2 - GI/Abdominal Exam GI & Abdominal Exam: Soft, Normal Bowel Sounds. absent: Guarding, Tenderness, Rebound Additional comments: obese abdomen - Extremities Exam Extremities Exam: absent: Calf Tenderness, Pedal Edema - Neurological Exam Neurological Exam: Alert, Awake, Oriented x3 Assessment and Plan - Assessment and Plan (Free Text) Assessment: Assessment: Recurrent breast abscess and cellulitis 2 x 2.8 x 2.4 cm mediastinal nodes/mass, status post CT-guided biopsy Resolved Epigastric pain Morbid obesity GERD COPD Hypertension Diabetes mellitus Plan: Continue GI prophylaxsis follow-up mediastinal node biopsy On oral antibiotics as per ID Diet as tolerated on Colace BID On heparin subcutaneous urine culture/stool cdiff discuss FU BATTING MACHINE OPERATOR Discussed with patient that she would benefit from GI follow up, she has mentioned she has seen Dr. Lee recently due, to go back , but now considering a new GI doctor. Seen and discussed with Dr. Cadena who is covering Dr. Hurst.
[2017-09-01] MEDS: HYDROmorphone 0.5 mg/0.5 ml ISec IVP PRN ×3 (12:23→23:56)
[2017-09-01] MEDS: Fluticasone/Vilanterol [Breo Ellipta 200-25 Mcg Inh] IH SCH (12:24)
[2017-09-01] MEDS: Vancomycin 1gm in NS 250ml 1 GM/250 ML BAG IVPB SCH ×2 (12:36→12:40)
--- NOTE | 2017-09-01 13:24 | PN ---
DATE: REASON FOR CONSULTATION AND FOLLOWUP: Chest pain, recurrent mastitis with possible surgery of the breast, preop evaluation. SUBJECTIVE: Denies any chest pain, shortness of breath or any palpitation. Feel pain all over the body, but no chest pain. OBJECTIVE: GENERAL: Not in apparent distress. VITAL SIGNS: As follows; temperature afebrile, heart rate 62, and blood pressure 164/52. HEENT: PERRLA. Extraocular muscles intact. NECK: Supple. No carotid bruits or thyromegaly. CHEST: Clear to auscultation. HEART: S1 and S2 regular. ABDOMEN: Soft. EXTREMITIES: Clubbing and cyanosis negative. LABORATORY DATA: Blood workup as follows; WBC 8.1, hemoglobin , hematocrit 41.7, and platelet count 252. Chemistry shows sodium 141, potassium 3.8, chloride 102, carbon dioxide 29, anion gap of 14, BUN 11, and creatinine 0.6. IMPRESSION: Multiple abscesses on both breasts, status post mediastinal lymph node, biopsy; CT guided, result pending. Preoperative evaluation risk stratification for surgical intervention for the breast. Negative stress test. Morbid obesity, hypertension, hyperlipidemia, and electrolyte imbalance. RECOMMENDATIONS: From Cardiology point of view, the patient is stable. Okay to go for endoscopy, colonoscopy if needed as well as ventricular fibrillation test. CVS status is stable. Negative stress test. We will supplement potassium. Thank you Dr. Chaudhry for providing us the opportunity in taking care of the patient, Lizet Bhat. In the interim, continue aggressive medical treatment including DVT prophylaxis. Continue atorvastatin and continue subcu heparin. Kervin Hughes MD
--- NOTE | 2017-09-01 16:10 | PN ---
DATE: 09/01/2017 ADDENDUM This is an addendum to Giovanna Anthony' progress note. I have personally examined this patient and reviewed her laboratory data. She has no new laboratory data from this morning. This patient has multiple complaints and she appears to have new complaints daily. Her CT scan of the abdomen and pelvis performed recently, was negative for any acute changes. Pathology results of her mediastinal lymph node biopsy pending. Wilber Villavicencio MD
[2017-09-01] MEDS: Pantoprazole 40 mg EC Tab PO SCH (17:22)
[2017-09-01] MEDS: Mometasone 220 mcg/puff-14 puff Inh IH SCH (17:23)
--- NOTE | 2017-09-01 18:04 | CP.PCM.PN ---
Subjective - Date & Time of Evaluation Date of Evaluation: 09/01/17 Time of Evaluation: 10:45 - Subjective Subjective: Comfortable, still with pain in the left breast area, no fevers. Objective - Vital Signs/Intake and Output Vital Signs (last 24 hours): Temp Pulse Resp BP Pulse Ox 98.1 F 62 18 106/52 L 95 09/01/17 08:51 09/01/17 08:51 09/01/17 08:51 09/01/17 08:51 09/01/17 08:51 Intake and Output: 09/01/17 09/01/17 06:59 18:59 Intake Total 880 Balance 880 - Medications Medications: Current Medications Albuterol/Ipratropium (Duoneb 3 Mg/0.5 Mg (3 Ml) Ud) 3 ml IH [id number] [facility] Last Admin: 09/01/17 09:38 Dose: 3 ml Atorvastatin Calcium (Lipitor) 20 mg PO QPM [facility] Last Admin: 08/31/17 18:06 Dose: 20 mg Docusate Sodium (Colace) 100 mg PO BID [facility] Last Admin: 09/01/17 09:28 Dose: 100 mg Famotidine (Pepcid) 20 mg PO BID [facility] Last Admin: 09/01/17 09:31 Dose: 20 mg Gabapentin (Neurontin) 300 mg PO QPM CARLOS PRN Reason: Protocol Last Admin: 08/31/17 18:05 Dose: 300 mg Heparin Sodium (Porcine) (Heparin) 5,000 units SC Q12 CARLOS PRN Reason: Protocol Last Admin: 09/01/17 09:29 Dose: 5,000 units Hydromorphone HCl (Dilaudid) 0.5 mg IVP Q6H PRN PRN Reason: Pain, moderate (4-7) Last Admin: 08/31/17 18:08 Dose: 0.5 mg Vancomycin HCl (Vancomycin 1gm) 1 gm in 250 mls @ 167 mls/hr IVPB Q12H CARLOS PRN Reason: Protocol Stop: 09/09/17 12:31 Last Admin: 08/31/17 12:33 Dose: 167 mls/hr Cefepime HCl (Maxipime 1gm) 1 gm in 100 mls @ 100 mls/hr IVPB Q8 CARLOS PRN Reason: Protocol Stop: 09/09/17 14:01 Last Admin: 09/01/17 06:15 Dose: 100 mls/hr Insulin Human Regular (Humulin R Low) 0 units SC ACHS CARLOS PRN Reason: Protocol Last Admin: 09/01/17 07:58 Dose: Not Given Metformin HCl (Glucophage) 500 mg PO ACTID [facility] Last Admin: 09/01/17 09:28 Dose: 500 mg Mometasone Furoate (Asmanex Twisthaler 220 Mcg) 2 puff IH QPM [facility] Last Admin: 08/31/17 19:37 Dose: 2 puff Fluticasone/Vilanterol [Breo Ellipta 200-25 Mcg Inh] 1 puff IH DAILY [facility] Last Admin: 08/31/17 11:09 Dose: Not Given Pantoprazole Sodium (Protonix Ec Tab) 40 mg PO QPM [facility] Last Admin: 08/31/17 18:05 Dose: 40 mg Promethazine HCl/Dextromethorphan (Phenergan Dm Syrup) 5 ml PO TID [facility] Last Admin: 09/01/17 09:31 Dose: 5 ml Tramadol HCl (Ultram) 50 mg PO Q8H PRN PRN Reason: Pain, moderate (4-7) Last Admin: 08/31/17 15:03 Dose: 50 mg - Labs Labs: 08/31/17 07:20 08/31/17 07:20 PT 12.2 SECONDS (9.4-12.5) 08/24/17 08:00 INR 1.06 (0.93-1.08) 08/24/17 08:00 APTT 28.4 Seconds (25.1-36.5) 08/24/17 08:00 - Constitutional Appears: Chronically Ill - Head Exam Head Exam: NORMAL INSPECTION - ENT Exam ENT Exam: Mucous Membranes Moist - Neck Exam Neck Exam: absent: Meningismus - Respiratory Exam Respiratory Exam: Decreased Breath Sounds - Cardiovascular Exam Cardiovascular Exam: +S1, +S2 - GI/Abdominal Exam GI & Abdominal Exam: Soft. absent: Tenderness Assessment and Plan - Assessment and Plan (Free Text) Plan: Assessment Probable left breast mastitis with mediastinal lymph node biopsy, now growing PRoteus history of recurrent breast abscesses HTN dyslipidemia asthma anxiety depression gastritis history of colon polyps Plan on Vancomycin and cefepime - will change to Cefazolin since the Proteus is sensitive; follow up results of the lymph node biopsy will continue to monitor clinically
[2017-09-01] MEDS: ceFAZolin 1 gm in NS 1 GM/100 ML BAG IVPB SCH (22:19)
--- NOTE | 2017-09-01 23:34 | PN ---
DATE: 09/01/2017 REFERRING PHYSICIAN: Dr. Chaudhry. SUBJECTIVE: She is sitting side of the bed. Night was unremarkable. Still has mildly cough. No nausea. No vomiting or diarrhea. No leg pain or leg swelling. OBJECTIVE: GENERAL: In no acute distress. VITAL SIGNS: Temperature is 98, heart rate 62, respiratory rate is 18, blood pressure 106/52, pulse ox 95% on room air. HEENT: Moist mucous membranes. No ulcer or thrush noted. NECK: Supple. No JVD. LUNGS: Have few scattered rhonchi. HEART: S1 and S2. ABDOMEN: Soft, nontender. No organomegaly. EXTREMITIES: There is no edema. NEUROLOGICAL: Awake and alert. Follows simple commands. MEDICATIONS: She is on Ancef 1 gm IV q. 8 hours, Asmanex Twisthaler 220 mEq 2 puffs twice a day, Colace 100 mg twice a day, Dilaudid 7.5 mg q.6 hours p.r.n., albuterol/Atrovent nebulizer q.6 hours, metformin 500 mg a.c. t.i.d., heparin 5000 units subcutaneously q.12 hours, insulin coverage, Lipitor 20 mg daily, gabapentin 300 mg daily, Pepcid 20 mg twice a day, Phenergan DM 5 mL 3 times a day, Protonix 40 mg daily, Ultram 50 mg q.8 hours p.r.n. LABORATORY DATA: Reviewed. Blood sugar this morning is 82. Breast wound had a Proteus mirabilis. IMPRESSION AND PLAN: Recurrent breast sepsis and cellulitis, hypertension, diabetes, morbid obesity, chronic obstructive lung disease, may have obstructive sleep apnea syndrome, active smoker, anterior mediastinal mass, status post biopsy. Pulmonary point of view, doing okay. Continue bronchodilator. Keep head at 45 degree. Followup with discharge planning. Follow up biopsy report as an outpatient. Thank you, and we will follow with you. Kervin Dominguez MD
[2017-09-02] MEDS: Albuterol-Ipratrop 3 mg / 0.5 (3 ml) UD IH SCH ×4 (03:05→20:30)
[2017-09-02] MEDS: ceFAZolin 1 gm in NS 1 GM/100 ML BAG IVPB SCH ×3 (05:22→21:36)
[2017-09-02] MEDS: Insulin Reg-LOW-Coverage SC SCH ×4 (08:10→22:00)
[2017-09-02 08:14] LABS: BLOOD UREA NITROGEN 11 mg/dL (7-21); CALCIUM 8.6 mg/dL (8.4-10.5); GFR AFRICAN-AMERICAN > 60; GFR NON-AFRICAN AMERICAN > 60
[2017-09-02] MEDS: Promethazine DM 6.25 mg-15 mg/5 ml Syrup PO SCH ×3 (09:12→17:13)
[2017-09-02] MEDS: HYDROmorphone 0.5 mg/0.5 ml ISec IVP PRN (09:24)
[2017-09-02 09:26] LABS: HEMOGLOBIN 12.6 g/dL (12.0-16.0); MEAN CORPUSCULAR HEMOGLOBIN 29.6 pg (25.0-35.0); MEAN CORPUSCULAR HGB CONC 32.1 g/dl (31.0-37.0); MEAN PLATELET VOLUME 13.1 fl (7.0-11.0); RBC 4.26 [, 10^6/uL] (3.5-6.1); RED CELL DISTRIBUTION WIDTH 14.4 % (11.5-14.5); WHITE BLOOD COUNT 7.9 [, 10^3/ul] (4.5-11.0)
[2017-09-02] MEDS: Fluticasone/Vilanterol [Breo Ellipta 200-25 Mcg Inh] IH SCH (12:18)
[2017-09-02] MEDS: Pantoprazole 40 mg EC Tab PO SCH (17:12)
[2017-09-02] MEDS: Mometasone 220 mcg/puff-14 puff Inh IH SCH (17:13)
[2017-09-03] MEDS: Albuterol-Ipratrop 3 mg / 0.5 (3 ml) UD IH SCH ×4 (02:20→21:45)
--- NOTE | 2017-09-03 02:41 | PN ---
DATE: 09/02/2017 SUBJECTIVE: The patient is in bed, in no acute distress. PHYSICAL EXAMINATION: VITAL SIGNS: Temperature is 98, blood pressure is 112/40, respiratory rate of 18, and heart rate of 82. HEENT: Unremarkable. NECK: Supple. LUNGS: Decreased breath sounds. HEART: Normal S1 and S2. ABDOMEN: Soft. LABORATORY DATA: Reveals a white count of 7.9, hemoglobin of 12, and platelets of 252. BUN of 11 and creatinine of 0.6. Vancomycin trough is 5.8. The patient's cultures from the breast is Proteus mirabilis, sensitive to ampicillin and cefazolin. ASSESSMENT AND PLAN: This is a 57-year-old female who was sen early this morning in 365, bed 1 with a probable left breast mastitis and lymph node biopsy, growing Proteus and the patient with a history of recurrent breast , hypertension, dyslipidemia, and asthma, currently on cefazolin, may switch to p.o. Augmentin to complete therapy and it is sensitive to ampicillin. Pathology is pending. Upon discharge, may use p.o. Augmentin. Javier Johnston MD
[2017-09-03] MEDS: ceFAZolin 1 gm in NS 1 GM/100 ML BAG IVPB SCH ×3 (05:45→21:56)
[2017-09-03] MEDS: Insulin Reg-LOW-Coverage SC SCH ×4 (07:58→22:30)
[2017-09-03] MEDS: Promethazine DM 6.25 mg-15 mg/5 ml Syrup PO SCH ×2 (09:14→18:16)
[2017-09-03 10:28] VITALS: RESP 18
[2017-09-03] MEDS: Fluticasone/Vilanterol [Breo Ellipta 200-25 Mcg Inh] IH SCH (11:08)
--- NOTE | 2017-09-03 15:15 | CP.PCM.PCO ---
<Richmond Durham - Last Filed: 09/03/17 15:09> Physician Communication Note - Physician Communication Note Physician Communication Note: No further surgical plans. Assessment & Plan - Assessment and Plan (Free Text) Assessment: 57yo F with recurrent Left breast abscess and anterior mediastinal mass noted on CT scan. S/p CT-guided bx of mass. Plan: - f/u pathology results of mediastinal mass bx - No plans for acute surgical intervention at this time - Cleared for discharge from surgical standpoint. Recommend Topical Bactroban + PO Abx upon discharge - F/u with Dr. Vargas in 2-3 weeks for possible elective partial mastectomy Futher recs as per Dr. Sam Durham PGY1 surgery pager: [phone] <Ghassan Vargas - Last Filed: 09/03/17 17:10> Assessment & Plan - Assessment and Plan (Free Text) Assessment: Dx Ant Mediastinal Mass R/O Thymoma Recurrent Mastitis-Breast Abscess Morbid Obesity Plan for Simple Mastectomy on Interval Basis post discharge pending Pathology report Anton Vargas MD FACS
[2017-09-03] MEDS: Pantoprazole 40 mg EC Tab PO SCH (18:17)
[2017-09-03] MEDS: Mometasone 220 mcg/puff-14 puff Inh IH SCH (18:23)
--- NOTE | 2017-09-04 02:46 | PN ---
DATE: 09/03/2017 PULMONARY PROGRESS NOTE REFERRING PHYSICIAN: Shonda Chaudhry MD SUBJECTIVE: She is lying in the bed. Night was unremarkable. On and off uses CPAP. No nausea, no vomiting. Cough is better. No abdominal pain. No leg pain or leg swelling. OBJECTIVE: GENERAL: In no acute distress. VITAL SIGNS: Temperature is 98, heart rate is 77, respiratory rate is 18, blood pressure 121/74, pulse ox 96% on 2 L nasal cannula. HEENT: Moist mucous membranes. Crowded airway. Mallampati score is IV. NECK: Supple. No JVD. LUNGS: Has fair airflow with few rhonchi. HEART: S1 and S2. ABDOMEN: Soft, nontender. No organomegaly. EXTREMITIES: No edema. NEUROLOGIC: Awake, alert and follows simple commands. MEDICATIONS: She is on Ancef 1 gm IV q.8 hours, Asmanex Twisthaler 2 puffs daily, Colace 100 mg twice a day, DuoNeb q.6 hours p.r.n., metformin 500 mg before meals t.i.d., heparin 5000 units subcutaneously q.12 hours, insulin coverage, Lipitor 20 mg daily, Neurontin 300 mg daily, Pepcid 20 mg daily, Phenergan DM 5 mL 3 times a day, Protonix 40 mg daily, Ultram 50 mg q.8 hours p.r.n. LABORATORY DATA: Reviewed. Blood sugar this morning was 97. Influenza A and B were negative. IMPRESSION AND PLAN: History of breast sepsis and cellulitis, hypertension, diabetes, morbid obesity, chronic obstructive lung disease, obstructive sleep apnea syndrome, active smoker, anterior mediastinal mass, status post biopsy. Pathology report is still pending. Pulmonary point of view, doing okay. Keep head of bed at 45 degrees. Bronchodilator. Fall precaution. Follow up pathology report. Outpatient repeat sleep study and pulmonary function test. Thank you, and we will follow with you. Kervin Dominguez MD
[2017-09-04] MEDS: Albuterol-Ipratrop 3 mg / 0.5 (3 ml) UD IH SCH ×2 (03:30→08:17)
[2017-09-04] MEDS: ceFAZolin 1 gm in NS 1 GM/100 ML BAG IVPB SCH (05:43)
--- NOTE | 2017-09-04 06:12 | PN ---
DATE: 09/03/2017 SUBJECTIVE: The patient was seen and examined on the bedside. Looking comfortable. The patient was seen on 09/03/2017. No nausea, vomiting, or diarrhea. No hematuria or hematochezia. No swelling of the legs. No chest pain or palpitation. No headaches or dizziness. Left breast pain is getting better. PHYSICAL EXAMINATION: VITAL SIGNS: Temperature 98.4, pulse 74, blood pressure 121/74 and respiratory rate 18. HEENT: Head is normocephalic, atraumatic. Eyes: PERRLA. Extraocular muscles are intact. Conjunctivae clear. Nose patent. Mucous membranes are moist. NECK: Supple. No carotid bruits. No JVD or thyromegaly. CHEST: Bilaterally symmetrical. HEART: S1 and S2 positive. LUNGS: Clear to auscultation. ABDOMEN: Soft. Bowel sounds present. No organomegaly. EXTREMITIES: No edema. No cyanosis. NEUROLOGIC: The patient is awake and alert. Moving all 4 extremities. No focal deficits. MEDICATIONS: Cefazolin, Asmanex, Colace, DuoNeb, Breo, Glucophage, heparin, insulin, Lipitor, Neurontin, Pepcid, Phenergan, Protonix, and Tramadol. LABORATORY DATA: White blood cell 7.0, hemoglobin 12.6, hematocrit 39.2 and platelets 252. Glucose 93, 97, 138, 110, and 96. ASSESSMENT AND PLAN: Ms. Lizet Bhat is a 57-year-old lady with uncontrolled diabetes mellitus, influenza type A and B is negative, has cellulitis of the left breast, getting IV antibiotics, anterior mediastinal mass, biopsies done, waiting for the result, rule out thymoma, recurrent mastitis and breast abscess, morbid obesity. Plan for simple mastectomy on interval basis post discharge, pending on pathology report as per Dr. Ghassan Vargas and as per the patient's plan. Continue antibiotics as per Infectious Disease. Breast secretions growing Proteus and the patient with history of recurrent breast abscess. Continue cefazolin. We will switch to Augmentin to complete therapy, as it is sensitive to ampicillin. Pathology still pending. The patient has history of chronic obstructive pulmonary disease, obstructive sleep apnea syndrome, history of hypertension, history of active smoker. We will continue present treatment, may be tomorrow discharge home. We will follow up. Shonda Chaudhry MD
--- NOTE | 2017-09-04 06:59 | PN ---
DATE: 09/03/2017 PHYSICAL EXAMINATION: VITAL SIGNS: Temperature is 98, blood pressure is 120/70, respiratory rate of 18, and heart rate of 85. HEENT: Unremarkable. NECK: Supple. LUNGS: Decreased breath sounds. LABORATORY EXAMINATION: Reveals a white count of 7.9, hemoglobin of 12, platelets of 252. Coagulation is noted. Chemistries reveal the patient has a creatinine of 0.6. Vancomycin trough is 5.8. Serology is noted. Breast culture has Proteus mirabilis, sensitive to ampicillin, sensitive to cefazolin. Dr. Vargas's note from today is reviewed the patient has breast abscess and anterior mediastinal mass, status post CAT scan guided biopsy of the mass, and the patient is cleared for discharge, pathology report is pending. ASSESSMENT AND PLAN: This is a 57-year-old female, who I saw earlier this morning I examined her breasts, there is no discharge at this point, although there was discharge earlier with a left breast mastitis with status post CT-guided biopsy, the patient's culture growing Proteus, maybe discharged on p.o. Augmentin, it is sensitive to ampicillin, 875 mg p.o. b.i.d. x10 days. We should followup her biopsy results, very close followup. Javier Johnston MD
[2017-09-04 09:04] VITALS: BP 114/70; PULSE 67; TEMP 98.6; O2SAT 97
--- NOTE | 2017-09-04 09:22 | PN ---
DATE: 09/01/2017 SUBJECTIVE: The patient is 57-year-old female. The patient is seen and examined at the bedside. Looking comfortable, still has pain in the left side of the breast; nipple discharge is improving. No nausea, vomiting, diarrhea. No hematuria or hematochezia. No swelling of the legs. No chest pain. No palpitation. No headache or dizziness. PHYSICAL EXAMINATION: VITAL SIGNS: Temperature 98.1, pulse 62, respiratory rate 18, blood pressure 106/52, pulse oximetry 95%. HEENT: Head: Normocephalic, atraumatic. Eyes: PERRLA. Extraocular muscles intact. Conjunctivae clear. Nose patent. Mucous membranes are moist. NECK: Supple. No carotid bruits, JVD, or thyromegaly. CHEST: Bilaterally symmetrical. HEART: S1 and S2 positive. LUNGS: Clear to auscultation. ABDOMEN: Soft. Bowel sounds present. No organomegaly. EXTREMITIES: No edema. No cyanosis. NEUROLOGIC: The patient is awake and alert. Moving all four extremities. No focal deficits. MEDICATIONS: Albuterol, atorvastatin, Colace, Pepcid, Neurontin, Protonix, Dilaudid, vancomycin, Maxipime, insulin, Glucophage, Asmanex, Breo, promethazine, tramadol. LABORATORY DATA: White blood cells 8.1, hemoglobin 13.4, hematocrit 41.7, platelets 252. Sodium 141, potassium 3.8, BUN 11, creatinine 0.3, glucose 88. ASSESSMENT AND PLAN: Ms. Lizet Bhat is a 57-year-old lady, has breast mastitis with mediastinal lymphadenopathy, now growing Proteus, history of recurrent breast abscess, hypertension, dyslipidemia, anemia, anxiety, depression, gastritis, history of colon polyp, is on vancomycin and cefepime. We will change to cefazolin since the Proteus is active. Follow up results of the lymph node biopsy. Appreciated Dr. Martinez's input. Appreciated Dr. Bustillo's input, seen by GI, Dr. Oleksandr Cadena, covering Dr. Hurst. CAT scan of the abdomen and pelvis performed was negative for any acute changes. Pathology of mediastinal lymph node is still pending. Gram stain of the breast, the patient has Proteus mirabilis. Blood cultures, no growth. Gram stain was negative. Gastrointestinal and deep venous thrombosis prophylaxis. Repeat labs. We will follow up. Shonda Chaudhry MD
[2017-09-04] MEDS: Insulin Reg-LOW-Coverage SC SCH (09:35)
--- NOTE | 2017-09-04 09:42 | PN ---
DATE: 09/02/2017 SUBJECTIVE: The patient is a 57-year-old female. The patient is seen and examined at bedside, looking comfortable, still having little bit pain in the left breast, and still having little bit discharge from the left breast. Complaining about abdominal pain. No nausea, vomiting, diarrhea. No hematuria or hematochezia. No swelling of the legs. No chest pain. No headache. No dizziness. PHYSICAL EXAMINATION VITAL SIGNS: Temperature 98.2, heart rate 62, respiratory rate 18, blood pressure 106/52 and pulse oximetry 95% on room air. HEENT: Head is normocephalic, atraumatic. Eyes; PERRLA. Extraocular muscles are intact. Conjunctivae clear. Nose patent. Mucous membranes are moist. NECK: Supple. No carotid bruits. No JVD or thyromegaly. CHEST: Bilaterally symmetrical. HEART: S1 and S2 positive. LUNGS: Clear to auscultation. ABDOMEN: Soft. Bowel sounds present. No organomegaly. EXTREMITIES: No edema. No cyanosis. NEUROLOGIC: The patient is awake and alert. Moving all four extremities. No focal deficits. MEDICATIONS: Ancef, Asmanex Twisthaler, Colace, Dilaudid, albuterol, metformin, insulin coverage, gabapentin, Pepcid, Phenergan and Protonix. LABORATORY DATA: White blood cells 7.9, hemoglobin 12.6, hematocrit 39.2 and platelets 252. Sodium 144, potassium 3.7, BUN 11, creatinine 0.6, glucose 119 and 142 and calcium 8.6. ASSESSMENT AND PLAN: Ms. Lizet Bhat is a 57-year-old lady with diabetes mellitus, celiac disease interpretation showed no surgical evidence of celiac disease, tTG-IgA may be normalized in individuals with celiac disease who maintain the gluten free diet. Consider HLA- and DQ8 testing to rule out celiac disease. Celiac disease is extremely rare in the absence of DQ2 and DQ8, seen by Dr. Iwona Morales. History of anxiety and depression, left breast mastitis with mediastinal lymph node biopsy, now growing proteus, history of recurrent breast abscess, hypertension, hypercholesterolemia, asthma, history of colon polyps on vancomycin, cefepime, Waiting for followup of lymph node biopsy. I appreciate the Dr. Dominguez and Dr. Bustillo's input and Dr. Hughes's input. We will follow up. Shonda Chaudhry MD [facility] # [id number] MARIA ALEJANDRA
[2017-09-04] MEDS: Promethazine DM 6.25 mg-15 mg/5 ml Syrup PO SCH (09:43)
[2017-09-04] MEDS: Fluticasone/Vilanterol [Breo Ellipta 200-25 Mcg Inh] IH SCH (09:44)
--- NOTE | 2017-09-04 09:46 | PN ---
PULMONARY PROGRESS NOTE DATE: 09/02/2017 REFERRING PHYSICIAN: Shonda Chaudhry MD SUBJECTIVE: The patient is lying in the bed. Night was unremarkable. Could not use CPAP. No headache. No rhinitis. On and off left breast discomfort. No nausea. No vomiting. No leg pain or leg swelling. PHYSICAL EXAMINATION: GENERAL: In no acute distress. VITAL SIGNS: Temperature is 99, heart rate is 85, respiratory rate is 20, blood pressure is 109/54, and pulse oximetry 96% on room air. HEENT: Moist mucous membranes. Crowded airway. NECK: Supple. No JVD. LUNGS: Has a fair airflow with a few rhonchi. HEART: S1 and S2. ABDOMEN: Soft and nontender. No organomegaly. EXTREMITIES: No edema. NEUROLOGIC: Awake, alert, and follows simple commands. MEDICATIONS: She is on Ancef 1 g IV q.8 hours, Asmanex Twisthaler 220 two puffs daily, Colace 100 mg twice a day, DuoNeb q.6 hours, metformin 500 mg a.c. t.i.d., heparin 5000 units subcutaneously q.12 hours, insulin coverage, Lipitor 20 mg daily, gabapentin 300 mg daily, Pepcid 20 mg twice a day, Phenergan 5 mL 3 times a day, Protonix 40 mg daily, and Ultram 50 mg q.8 hours p.r.n. LABORATORY DATA: Shows hemoglobin 12.6, hematocrit 39.2, WBC 7.9, and platelet is 252. Sodium 144, potassium 3.7, chloride 105, bicarbonate 29, BUN 11, creatinine 0.6, glucose 87, and calcium is 8.6. IMPRESSION AND PLAN: Recurrent breast cellulitis and abscess, hypertension, diabetes, morbid obesity, chronic obstructive lung disease, obstructive sleep apnea syndrome, active smoker, and anterior mediastinal mass, status post biopsy. is still pending. Pulmonary point of view; bronchodilator, keep head at 45 degrees, and gastric prophylaxis. Thank you and we will follow with you. Kervin Dominguez MD
--- NOTE | 2017-09-04 12:33 | CP.PCM.DIS ---
<EsvinTeresa Savi - Last Filed: 09/04/17 13:52> Provider - Provider Date of Admission: 08/23/17 14:15 Attending physician: Shonda Chaudhry MD Primary care physician: Jhon Cabrera MD Consults: ID - Dr. Johnston Pulmonary - Dr. Dominguez Cardio - Dr. Pollard = clearance for breast surgery GI - Dr. Hurst Surgery - Dr. Adriana Ma Time Spent in preparation of Discharge (in minutes): 45 Diagnosis - Discharge Diagnosis (1) Morbid (severe) obesity due to excess calories Status: Acute (2) Wheezing Status: Acute (3) Mastitis Status: Acute (4) Cellulitis of breast Status: Acute (5) Anterior mediastinal tumor Status: Acute Hospital Course - Lab Results Lab Results: Micro Results 08/30/17 12:45 Breast - Left Gram Stain - Final 08/30/17 12:45 Breast - Left Wound Culture - Final Proteus Mirabilis Most Recent Lab Values WBC 7.9 10^3/ul (4.5-11.0) 09/02/17 07:30 RBC 4.26 10^6/uL (3.5-6.1) 09/02/17 07:30 Hgb 12.6 g/dL (12.0-16.0) 09/02/17 07:30 Hct 39.2 % (36.0-48.0) 09/02/17 07:30 MCV 92.0 fl (80.0-105.0) 09/02/17 07:30 MCH 29.6 pg (25.0-35.0) 09/02/17 07:30 MCHC 32.1 g/dl (31.0-37.0) 09/02/17 07:30 RDW 14.4 % (11.5-14.5) 09/02/17 07:30 Plt Count 252 10^3/uL (120.0-450.0) 09/02/17 07:30 MPV 13.1 fl (7.0-11.0) H 09/02/17 07:30 Gran % 58.7 % (50.0-68.0) 08/24/17 08:00 Lymph % (Auto) 33.1 % (22.0-35.0) 08/24/17 08:00 [place] % (Auto) 5.5 % (1.0-6.0) 08/24/17 08:00 Eos % (Auto) 2.3 % (1.5-5.0) 08/24/17 08:00 Baso % (Auto) 0.4 % (0.0-3.0) 08/24/17 08:00 Gran # 4.25 (1.4-6.5) 08/24/17 08:00 Lymph # 2.4 (1.2-3.4) 08/24/17 08:00 [place] # 0.4 (0.1-0.6) 08/24/17 08:00 Eos # 0.2 (0.0-0.7) 08/24/17 08:00 Baso # 0.03 K/mm3 (0.0-2.0) 08/24/17 08:00 ESR 5 mm/hr (0.0-20.0) 08/24/17 08:00 PT 12.2 SECONDS (9.4-12.5) 08/24/17 08:00 INR 1.06 (0.93-1.08) 08/24/17 08:00 APTT 28.4 Seconds (25.1-36.5) 08/24/17 08:00 Sodium 144 mmol/L (132-148) 09/02/17 07:30 Potassium 3.7 mmol/L (3.6-5.0) 09/02/17 07:30 Chloride 105 mmol/L (98-107) 09/02/17 07:30 Carbon Dioxide 29 mmol/L (21-33) 09/02/17 07:30 Anion Gap 13 (10-20) 09/02/17 07:30 BUN 11 mg/dL (7-21) 09/02/17 07:30 Creatinine 0.6 mg/dl (0.7-1.2) L 09/02/17 07:30 Est GFR ( Amer) > 60 09/02/17 07:30 Est GFR (Non-Af Amer) > 60 09/02/17 07:30 POC Glucose (mg/dL) 88 mg/dL (65-110) 09/04/17 11:19 Random Glucose 85 mg/dL (70-110) 09/02/17 07:30 Hemoglobin A1c 7.1 % (4.2-6.5) H 08/24/17 08:00 Calcium 8.6 mg/dL (8.4-10.5) 09/02/17 07:30 Iron 82 ug/dL (45-180) 08/24/17 08:00 TIBC 356 ug/dL (265-497) 08/24/17 08:00 % Saturation 23 % (20-55) 08/24/17 08:00 Total Bilirubin 0.5 mg/dL (0.2-1.3) 08/31/17 07:20 AST 22 U/L (14-36) 08/31/17 07:20 ALT 35 U/L (7-56) 08/31/17 07:20 Alkaline Phosphatase 67 U/L (38-126) 08/31/17 07:20 Total Creatine Kinase 48 U/L (35-230) 08/24/17 08:00 C-React Prot High Sens 6.14 mg/L (1.00-3.00) H 08/24/17 08:00 Total Protein 6.6 g/dL (5.8-8.3) 08/31/17 07:20 Albumin 3.6 g/dL (3.0-4.8) 08/31/17 07:20 Globulin 3.0 gm/dL 08/31/17 07:20 Albumin/Globulin Ratio 1.2 (1.1-1.8) 08/31/17 07:20 Triglycerides 137 mg/dL (35-160) 08/24/17 08:00 Cholesterol 162 mg/dL (130-200) 08/24/17 08:00 LDL Cholesterol Direct 109 mg/dL (0-129) 08/24/17 08:00 HDL Cholesterol 33 mg/dL (29-60) 08/24/17 08:00 Vitamin B12 308 pg/mL (239-931) 08/24/17 08:00 Folate 12.2 ng/mL 08/24/17 08:00 TSH 3rd Generation 0.51 mIU/mL (0.46-4.68) 08/24/17 08:00 Vancomycin Trough 5.8 ug/mL (5.0-10.0) 08/27/17 09:45 IgA 205 mg/dL (81-463) 08/29/17 05:30 Endomysial IgA Ab Titer TEST NOT PERFORMED 08/29/17 05:30 Endomysial IgA Ab TEST NOT PERFORMED 08/29/17 05:30 Tiss Transglutamin IgA 1 U/mL 08/29/17 05:30 Celiac Disease Interp See note 08/29/17 05:30 Influenza Typ A,B (EIA) Negative for flu a/b (NEGATIVE) 09/03/17 05:55 - Hospital Course Hospital Course: 57 yr female w/ history of DM II (non-insulin dependent), morbidly obese, sleep apnea, depression, insomnia, hyperlipidemia, neuropathic pain, GERD , & 18 bilateral breast surgeries for recurrent abscess. L breast mastitis with mediastinal lymph node biopsy growing Proteus. F/u for Ant Mediastinal Mass R/O Thymoma and plan for Simple Mastectomy on Interval Basis w/ Dr. Ghassan Vargas after discharge. Sent home on 10 day course of PO augmentin 875mg q BID. Reviewed: CT biopsy = 3cm anterior mediatsinal mass CT abd/pelvis = WNL ECHO = EF 60-65% US abd = fatty liver WNL Xray LS = WNL Stress test = EF 64% CT chest = 2.1x2.8x2.4 cm anterior mediastinal node/mass CXR = WNL Breast US = 5mm retroareolar lesion, complicated cyst vs. focal ductal dilation. negative abcess, mild mastitis, benign, 3 month f/u ECG = ABNOMRAL, NSR nonspecific T wave abnormality - Date & Time of H&P Date of H&P: 09/04/17 Time of H&P: 10:45 Discharge Exam - Head Exam Head Exam: NORMAL INSPECTION - Eye Exam Eye Exam: EOMI, Normal appearance, PERRL Pupil Exam: NORMAL ACCOMODATION, PERRL - ENT Exam ENT Exam: Mucous Membranes Moist - Neck Exam Neck exam: Full Rom - Respiratory Exam Respiratory Exam: Clear to PA & Lateral, NORMAL BREATHING PATTERN, UNREMARKABLE - Cardiovascular Exam Cardiovascular Exam: +S1, +S2 - GI/Abdominal Exam GI & Abdominal Exam: Soft Additional comments: obese. large panniculus. - Extremities Exam Extremities exam: full ROM, normal capillary refill, normal inspection - Back Exam Back exam: FULL ROM - Neurological Exam Neurological exam: Alert, CN II-XII Intact, Oriented x3 - Psychiatric Exam Psychiatric exam: Normal Affect, Normal Mood - Skin Skin Exam: Dry, Intact, Normal Color, Warm Discharge Plan - Discharge Medications Prescriptions: Amoxicillin/Clavulanate [Augmentin 875 MG-125 MG] 1 tab PO BID #20 tab Atorvastatin [Lipitor] 20 mg PO QPM #30 tab Docusate [Colace] 100 mg PO BID #30 cap Famotidine [Pepcid] 20 mg PO BID #30 tab Gabapentin [Neurontin] 300 mg PO QPM #30 cap Metformin HCl [Glucophage] 500 mg PO ACTID #30 tablet Mometasone [Asmanex Twisthaler 220 MCG] 2 puff IH QPM #1 inh Pantoprazole [Protonix EC Tab] 40 mg PO QPM #30 ect Promethazine DM [Phenergan DM Syrup] 5 ml PO TID #6 oz traMADol [Ultram] 50 mg PO Q8H PRN #10 tab PRN Reason: Pain, Moderate (4-7) - Follow Up Plan Condition: FAIR Disposition: HOME/ ROUTINE Instructions: Mastitis (DC), Pneumococcal Vaccine for Adults (DC), Cellulitis ( DC), Heart Healthy Diet (DC), Diabetes Mellitus Type 2 in Adults (DC), Influenza Vaccine (DC) Additional Instructions: Discharge patient to home today. Follow up with Dr. Chaudhry in the office on Monday. Continue medications/prescriptions as instructed. Report to the ED if your symptoms worsen. Referrals: Javier Johnston MD [Staff Provider] - Kervin Pollard MD [Staff Provider] - Ghassan Vargas MD [Staff Provider] - Kervin Dominguez MD [Staff Provider] - <Shonda Chaudhry - Last Filed: 09/04/17 20:16> Provider - Provider Date of Admission: 08/23/17 14:15 Attending physician: Shonda Chaudhry MD Primary care physician: Jhon Cabrera MD Hospital Course - Lab Results Lab Results: Micro Results 08/30/17 12:45 Breast - Left Gram Stain - Final 08/30/17 12:45 Breast - Left Wound Culture - Final Proteus Mirabilis Most Recent Lab Values WBC 7.9 10^3/ul (4.5-11.0) 09/02/17 07:30 RBC 4.26 10^6/uL (3.5-6.1) 09/02/17 07:30 Hgb 12.6 g/dL (12.0-16.0) 09/02/17 07:30 Hct 39.2 % (36.0-48.0) 09/02/17 07:30 MCV 92.0 fl (80.0-105.0) 09/02/17 07:30 MCH 29.6 pg (25.0-35.0) 09/02/17 07:30 MCHC 32.1 g/dl (31.0-37.0) 09/02/17 07:30 RDW 14.4 % (11.5-14.5) 09/02/17 07:30 Plt Count 252 10^3/uL (120.0-450.0) 09/02/17 07:30 MPV 13.1 fl (7.0-11.0) H 09/02/17 07:30 Gran % 58.7 % (50.0-68.0) 08/24/17 08:00 Lymph % (Auto) 33.1 % (22.0-35.0) 08/24/17 08:00 [place] % (Auto) 5.5 % (1.0-6.0) 08/24/17 08:00 Eos % (Auto) 2.3 % (1.5-5.0) 08/24/17 08:00 Baso % (Auto) 0.4 % (0.0-3.0) 08/24/17 08:00 Gran # 4.25 (1.4-6.5) 08/24/17 08:00 Lymph # 2.4 (1.2-3.4) 08/24/17 08:00 [place] # 0.4 (0.1-0.6) 08/24/17 08:00 Eos # 0.2 (0.0-0.7) 08/24/17 08:00 Baso # 0.03 K/mm3 (0.0-2.0) 08/24/17 08:00 ESR 5 mm/hr (0.0-20.0) 08/24/17 08:00 PT 12.2 SECONDS (9.4-12.5) 08/24/17 08:00 INR 1.06 (0.93-1.08) 08/24/17 08:00 APTT 28.4 Seconds (25.1-36.5) 08/24/17 08:00 Sodium 144 mmol/L (132-148) 09/02/17 07:30 Potassium 3.7 mmol/L (3.6-5.0) 09/02/17 07:30 Chloride 105 mmol/L (98-107) 09/02/17 07:30 Carbon Dioxide 29 mmol/L (21-33) 09/02/17 07:30 Anion Gap 13 (10-20) 09/02/17 07:30 BUN 11 mg/dL (7-21) 09/02/17 07:30 Creatinine 0.6 mg/dl (0.7-1.2) L 09/02/17 07:30 Est GFR ( Amer) > 60 09/02/17 07:30 Est GFR (Non-Af Amer) > 60 09/02/17 07:30 POC Glucose (mg/dL) 88 mg/dL (65-110) 09/04/17 11:19 Random Glucose 85 mg/dL (70-110) 09/02/17 07:30 Hemoglobin A1c 7.1 % (4.2-6.5) H 08/24/17 08:00 Calcium 8.6 mg/dL (8.4-10.5) 09/02/17 07:30 Iron 82 ug/dL (45-180) 08/24/17 08:00 TIBC 356 ug/dL (265-497) 08/24/17 08:00 % Saturation 23 % (20-55) 08/24/17 08:00 Total Bilirubin 0.5 mg/dL (0.2-1.3) 08/31/17 07:20 AST 22 U/L (14-36) 08/31/17 07:20 ALT 35 U/L (7-56) 08/31/17 07:20 Alkaline Phosphatase 67 U/L (38-126) 08/31/17 07:20 Total Creatine Kinase 48 U/L (35-230) 08/24/17 08:00 C-React Prot High Sens 6.14 mg/L (1.00-3.00) H 08/24/17 08:00 Total Protein 6.6 g/dL (5.8-8.3) 08/31/17 07:20 Albumin 3.6 g/dL (3.0-4.8) 08/31/17 07:20 Globulin 3.0 gm/dL 08/31/17 07:20 Albumin/Globulin Ratio 1.2 (1.1-1.8) 08/31/17 07:20 Triglycerides 137 mg/dL (35-160) 08/24/17 08:00 Cholesterol 162 mg/dL (130-200) 08/24/17 08:00 LDL Cholesterol Direct 109 mg/dL (0-129) 08/24/17 08:00 HDL Cholesterol 33 mg/dL (29-60) 08/24/17 08:00 Vitamin B12 308 pg/mL (239-931) 08/24/17 08:00 Folate 12.2 ng/mL 08/24/17 08:00 TSH 3rd Generation 0.51 mIU/mL (0.46-4.68) 08/24/17 08:00 Vancomycin Trough 5.8 ug/mL (5.0-10.0) 08/27/17 09:45 IgA 205 mg/dL (81-463) 08/29/17 05:30 Endomysial IgA Ab Titer TEST NOT PERFORMED 08/29/17 05:30 Endomysial IgA Ab TEST NOT PERFORMED 08/29/17 05:30 Tiss Transglutamin IgA 1 U/mL 08/29/17 05:30 Celiac Disease Interp See note 08/29/17 05:30 Influenza Typ A,B (EIA) Negative for flu a/b (NEGATIVE) 09/03/17 05:55 - Hospital Course Hospital Course: ot is seen and examined at bed side , agreed all above . dc home wit po anb, as per id for left breast mastitis , still waiting for biopsy results , will f/u as out pt biopsy results
--- NOTE | 2017-09-04 14:52 | PN ---
DATE: 09/04/2017 LOCATION: The patient in room 365, bed 1. REASON FOR CONSULTATION AND FOLLOWUP: Chest pain, recurrent mastitis with biopsy of anterior mediastinal mass. SUBJECTIVE: The patient is sitting in chair without any shortness of breath or palpitations. She had chest pain, which was associated with breast mastitis and now she is feeling better. PHYSICAL EXAMINATION: VITAL SIGNS: Blood pressure 114/70, respirations 18,pulse 67, and temperature 98.6. HEENT: Head is normocephalic. Eyes, pupils normal. Conjunctivae normal. Nose and throat normal. NECK: JVP low. Carotid equal. THORAX: AP diameter normal. CARDIOVASCULAR: S1 and S2. LUNGS: Clear. ABDOMEN: Soft and protuberant. No organomegaly. EXTREMITIES: No clubbing. No cyanosis. LABORATORY DATA: WBC 7.9, hemoglobin 12.6, hematocrit 39.2, and platelets 252. Random sugar 88. Sodium 144, potassium 3.7, BUN 11, and creatinine 0.6. Random glucose 85, another glucose 96. DIAGNOSES: 1. Multiple abscesses in both breasts, status post mediastinal lymph node biopsy, CT guided, report is pending. 2. Morbid obesity. 3. Sleep apnea. 4. Hyperlipidemia. 5. Hypertension. PLAN: Clinically,cardiac status is stable and the patient does not have any anginal symptoms. The patient already had stress test on this admission, which was negative. We will continue present therapy and the patient on Ancef 1 g IV q.8 hours, metformin 500 mg p.o. a.c. t.i.d., heparin 5000 units subcu q.12 hours, Lipitor 20 daily, Neurontin 300 mg q.p.m., famotidine 20 mg b.i.d., and Protonix 40 mg p.o. q.p.m. We will follow with you. Kervin Pollard MD
--- NOTE | 2017-09-05 03:01 | PN ---
DATE: 09/04/2017 SUBJECTIVE: This patient was seen and evaluated earlier today. The patient is feeling better. Denies any abdominal pain, tolerating the diet. PHYSICAL EXAMINATION: VITAL SIGNS: Afebrile, blood pressure 121/74, respirations 18, pulse 74. HEENT: Atraumatic, anicteric. NECK: Supple. HEART: S1 and S2 heard. LUNGS: Bilateral air entry present. ABDOMEN: Soft. There is no tenderness. EXTREMITIES: No cyanosis. No clubbing. NEUROLOGICALLY: Alert, oriented. Moves all the extremities. LABORATORY DATA: Hemoglobin 12.6, hematocrit 39.2, WBC 7.9, platelets 252. Chemistry is essentially unremarkable. IMPRESSION: This is a 57-year-old patient, admitted with breast abscess/cellulitis, history of gastroesophageal reflux disease, epigastric pain improved. The patient has been followed by Dr. Lee and the patient was advised to follow up with him as an outpatient. Thank you very much for allowing us to participate in the care of the patient. Dago Hurst MD
== END 2017-09-04 12:42 | disposition home or self-care (01) | DRG 600 ==
LOC: ED 09:54 → ERH 14:15 → 2A 17:39 → 3RNO 08-25 22:04 → 5RSO 09-03 12:04 → 3RNO 09-03 12:29 → 5RSO 09-03 13:32
PROVIDERS: ADMIT Internal Medicine; ATTEND Internal Medicine
PROC: 5A09357 Assistance with Respiratory Ventilation, Less than 24 Consecutive Hours, Continuous Positive Airway Pressure (ICD-10-PCS; 2017-08-24)
PROC: 0WBC3ZX Excision of Mediastinum, Percutaneous Approach, Diagnostic (ICD-10-PCS; principal; 2017-08-30 14:00)
DX: N61.1 Abscess of the breast and nipple (principal); Z68.41 Body mass index [BMI] 40.0-44.9, adult; E87.8 Other disorders of electrolyte and fluid balance, not elsewhere classified; E66.01 Morbid (severe) obesity due to excess calories; E11.65 Type 2 diabetes mellitus with hyperglycemia; I08.1 Rheumatic disorders of both mitral and tricuspid valves; R59.0 Localized enlarged lymph nodes; K21.9 Gastro-esophageal reflux disease without esophagitis; F32.9 Major depressive disorder, single episode, unspecified; G47.00 Insomnia, unspecified; B96.4 Proteus (mirabilis) (morganii) as the cause of diseases classified elsewhere; G47.33 Obstructive sleep apnea (adult) (pediatric); J44.9 Chronic obstructive pulmonary disease, unspecified; I10 Essential (primary) hypertension; R07.89 Other chest pain; E78.00 Pure hypercholesterolemia, unspecified; K29.70 Gastritis, unspecified, without bleeding; F41.9 Anxiety disorder, unspecified; M54.17 Radiculopathy, lumbosacral region; D64.9 Anemia, unspecified; F17.210 Nicotine dependence, cigarettes, uncomplicated; Z79.84 Long term (current) use of oral hypoglycemic drugs; Z86.010 Personal history of colon polyps

== ENCOUNTER 2017-09-14 09:22 | Emergency (ER) | payer MEDICAID, MEDICARE ==
[2017-09-14 09:36] VITALS: BMI 44.1
[2017-09-14 09:43] VITALS: RESP 18; TEMP 99.4
--- NOTE | 2017-09-14 10:57 | ED PDOC ---
Arrival/HPI - General Chief Complaint: Breast Problem Time Seen by Provider: 09/14/17 10:14 Historian: Patient - History of Present Illness Narrative History of Present Illness (Text): 09/14/17 10:52 Pt is a 57 year old female who presents with right breast pain X 3 days. Pt has significant h/o mastitis and 18+ breast surgeries for recurrent abscesses. Last ED visit was early in August for a left mastitis. Pt was evaluated and treated by Dr. Vargas and placed on Augmentin 875/125 mg and discharged. Pt now c/o exquisite right breast tenderness that extends to the right axilla. She states that she feels chilled with subjective fever but denies sob, cp, n/v/d. Pt is requesting to see Dr. Vargas. PMD is Dr. Chaudhry 09/14/17 10:57 Time/Duration: Prior to Arrival Symptom Onset: Gradual (3 days) Symptom Course: Unchanged, Worsening Quality: Aching, Pressure, Burning (right breast) Severity Level: Moderate Activities at Onset: Rest Context: Home Past Medical History - Provider Review Nursing Documentation Reviewed: Yes - Travel History Have you recently traveled outside [place] w/in the past 3 mons?: No - Infectious Disease Hx of Infectious Diseases: None - Tetanus Immunization Tetanus Immunization: Unknown - Cardiac Hx Cardiac Disorders: Yes Hx Pacemaker: No - Pulmonary Hx Chronic Obstructive Pulmonary Disease (COPD): Yes - Neurological Hx Neurological Disorder: Yes Hx Migraine: Yes - HEENT Hx HEENT Disorder: No - Renal Hx Renal Disorder: No - Endocrine/Metabolic Hx Diabetes Mellitus Type 2: Yes - Hematological/Oncological Hx Blood Transfusions: No - Integumentary Hx Dermatological Disorder: Yes Other/Comment: BILATERAL RECURRENT BREAST ABSCESS. 14 TIMES HAD SURGERY TO RIGHT BREAST. - Musculoskeletal/Rheumatological Hx Musculoskeletal Disorders: No Hx Falls: No - Gastrointestinal Hx Gastrointestinal Disorders: Yes Hx Gastroesophageal Reflux: Yes - Genitourinary/Gynecological Hx Genitourinary Disorders: Yes Hx Urinary Tract Infection: Yes - Psychiatric Hx Psychophysiologic Disorder: Yes Hx Depression: Yes Hx Emotional Abuse: No Hx Physical Abuse: No Hx Substance Use: No Other/Comment: insomnia - Surgical History Other/Comment: Left breast cyst removal,UMBILICAL NERNIA REPAIR,CARD CATH, - Anesthesia Hx Anesthesia: Yes Hx Anesthesia Reactions: No Hx Malignant Hyperthermia: No - Suicidal Assessment Feels Threatened In Home Enviroment: No Family/Social History - Physician Review Nursing Documentation Reviewed: Yes Family/Social History: Unknown Family HX Smoking Status: Light Smoker < 10 Cigarettes Daily Hx Alcohol Use: No Hx Substance Use: No Hx Substance Use Treatment: No Allergies/Home Meds Allergies/Adverse Reactions: Allergies No Known Allergies Allergy (Verified 08/23/17 20:35) Home Medications: Home Meds Medication Instructions Recorded Confirmed Fluticasone/Vilanterol [Breo 1 puff IH DAILY 03/21/17 09/14/17 Ellipta 200-25 Mcg INH] Omeprazole 20 mg PO QPM 03/21/17 09/14/17 Review of Systems - Physician Review All systems were reviewed & negative as marked: Yes - Review of Systems Constitutional: Normal Eyes: Normal ENT: Normal Respiratory: Normal Cardiovascular: Normal Gastrointestinal: Normal Genitourinary Female: Normal Musculoskeletal: Normal Skin: Abscess, Cellulitis (right breast) Neurological: Normal Endocrine: Normal Hemo/Lymphatic: Normal Psychiatric: Normal Physical Exam Vital Signs Reviewed: Yes Vital Signs Temp Pulse Resp BP Pulse Ox 09/14/17 12:50 90 18 124/85 96 09/14/17 09:42 99.4 F 85 18 123/83 95 Temperature: Afebrile Blood Pressure: Normal Pulse: Regular Respiratory Rate: Normal Appearance: Positive for: Well-Appearing, Non-Toxic, Comfortable Pain Distress: None Mental Status: Positive for: Alert and Oriented X 3 - Systems Exam Head: Present: Atraumatic, Normocephalic Pupils: Present: PERRL Extroacular Muscles: Present: EOMI Conjunctiva: Present: Normal Mouth: Present: Moist Mucous Membranes Neck: Present: Normal Range of Motion Respiratory/Chest: Present: Clear to Auscultation, Good Air Exchange. No: Respiratory Distress, Accessory Muscle Use Cardiovascular: Present: Regular Rate and Rhythm, Normal S1, S2. No: Murmurs Abdomen: Present: Normal Bowel Sounds. No: Tenderness, Distention, Peritoneal Signs Breast/Axillary: Present: Erythema (surrounding areola with a radius of 10 cm or more), Swelling (right breast very tender), Tender to Palpation (right breast and axilla) Back: Present: Normal Inspection Upper Extremity: Present: Normal Inspection. No: Cyanosis, Edema Lower Extremity: Present: Normal Inspection. No: Edema Neurological: Present: GCS=15, CN II-XII Intact, Speech Normal Skin: Present: Warm, Dry, Normal Color. No: Rashes Psychiatric: Present: Alert, Oriented x 3, Normal Insight, Normal Concentration Medical Decision Making ED Course and Treatment: 09/14/17 10:57 Pt IS A 57 YO f WHO PRESENTS WITH right breast PAIN X 3 DAYS. Plan cbc, cmp, ua, ivf, vbg w lactic acid Progress Note Dr. Vargas contacted and waiting Spoke with Dr. Lemon who examined pt at bedside; agreed to admit to med/surg ID - Dr. Johnston 09/14/17 11:[address] Vargas to give cefepime on dc however not available po Pt dc with Bactrim DS q12 x 10d Pt trying to find a way to get admitted to hospital, was advised that insurance does not cover her stay or tx Pt called social media content specialist who I spoke with. [facility] called down to ER for follow up 09/14/17 14:09 Informed that pt eloped and refused to take the scripts and discharge papers. - Lab Interpretations Lab Results: 09/14/17 12:04 Lab Results 09/14/17 12:19: pO2 72 H, VBG pH 7.37, VBG pCO2 54.0, VBG HCO3 31.2 H, VBG Total CO2 32.9 H, VBG O2 Sat (Calc) 96.0 H, VBG Base Excess 4.5 H, VBG Potassium 3.7, Sodium 141.0, Chloride 108.0 H, Glucose 87, Lactate 1.1, FiO2 21.0, Venous Blood Potassium 3.7 09/14/17 12:04: WBC 11.1 H D, RBC 4.56, Hgb 13.7, Hct 41.2, MCV 90.4, MCH 30.0, MCHC 33.3, RDW 14.4, Plt Count 314, MPV 10.9, Gran % 68.2 H, Lymph % (Auto) 23.7 , [place] % (Auto) 6.6 H, Eos % (Auto) 1.3 L, Baso % (Auto) 0.2, Gran # 7.60 H, Lymph # (Auto) 2.6, [place] # (Auto) 0.7 H, Eos # (Auto) 0.1, Baso # (Auto) 0.02 09/14/17 11:00: Urine Color Straw, Urine Appearance Clear, Urine pH 6.5, Ur Specific [place] <= 1.005, Urine Protein Negative, Urine Glucose (UA) Negative, Urine Ketones Negative, Urine Blood Negative, Urine Nitrate Negative, Urine Bilirubin Negative, Urine Urobilinogen 0.2, Ur Leukocyte Esterase Negative Disposition/Present on Arrival - Present on Arrival Any Indicators Present on Arrival: Yes History of DVT/PE: No History of Uncontrolled Diabetes: No Urinary Catheter: No History of Decub. Ulcer: No History Surgical Site Infection Following: None - Disposition Have Diagnosis and Disposition been Completed?: Yes Diagnosis: Mastitis, Cellulitis of breast Disposition: ELOPEMENT - ER ONLY Disposition Time: 11:40 Patient Plan: Discharge Condition: STABLE Prescriptions: Sulfamethoxazole/Trimethoprim [Bactrim DS 800 mg-160 mg] 1 tab PO Q12 10 Days # 20 tab Tramadol HCl [Ultram] 50 mg PO BID #10 tablet
[2017-09-14 11:10] LABS: PH,URINE 6.5 (4.7-8.0); URINE APPEARANCE CLEAR (CLEAR); URINE BILIRUBIN NEGATIVE (NEGATIVE); URINE BLOOD NEGATIVE (NEGATIVE); URINE COLOR STRAW (YELLOW); URINE GLUCOSE (UA) NEGATIVE (NEGATIVE); URINE LEUKOCYTE ESTERASE NEGATIVE Leu/uL (NEGATIVE); URINE NITRATE NEGATIVE (NEGATIVE); URINE PROTEIN NEGATIVE mg/dL (<30 mg/dL); URINE UROBILINOGEN 0.2 E.U./dL (<1 E.U./dL)
[2017-09-14 12:26] LABS: VENOUS BLOOD GAS BASE EXCESS 4.5 mmol/L (0.0-2.0); VENOUS BLOOD GAS PO2 72 mm/Hg (30-55); VENOUS BLOOD PH 7.37 (7.32-7.43)
[2017-09-14 12:26] LABS: BASO # 0.02 K/mm3 (0.0-2.0); BASO % 0.2 % (0.0-3.0); EOS # 0.1 (0.0-0.7); EOS % 1.3 % (1.5-5.0); GRAN # 7.6 (1.4-6.5); GRAN % 68.2 % (50.0-68.0); HEMOGLOBIN 13.7 g/dL (12.0-16.0); LYMPH # 2.6 (1.2-3.4); LYMPH % 23.7 % (22.0-35.0); MEAN CELL VOLUME 90.4 fl (80.0-105.0); MEAN CORPUSCULAR HGB CONC 33.3 g/dl (31.0-37.0); MEAN PLATELET VOLUME 10.9 fl (7.0-11.0); MONO # 0.7 (0.1-0.6); MONO % 6.6 % (1.0-6.0); RBC 4.56 10^6/uL (3.5-6.1); RED CELL DISTRIBUTION WIDTH 14.4 % (11.5-14.5); WHITE BLOOD COUNT 11.1 10^3/ul (4.5-11.0)
[2017-09-14 14:37] VITALS: BP 124/85; PULSE 90; O2SAT 96
== END 2017-09-14 14:30 | disposition left against medical advice (07) ==
LOC: ED 09:22 → ERH 11:40 → UNDOADMIN 11:40
DX: N61.0 Mastitis without abscess (principal); E11.9 Type 2 diabetes mellitus without complications

== ENCOUNTER 2017-11-21 08:27 | Inpatient (IN) | payer MEDICARE, MEDICAID ==
[2017-11-21] MEDS ORDERED: Morphine 2 mg/ml ISec IVP STA (10:10)
[2017-11-21] MEDS ORDERED: Morphine 2 mg/ml ISec IM STA (10:10)
[2017-11-21] MEDS ORDERED: Morphine 4 mg/ml ISec IV STA (10:14)
[2017-11-21] MEDS ORDERED: Morphine 4 mg/ml ISec ONE (10:17)
[2017-11-21] MEDS ORDERED: Bupivacaine 0.5% Inj(30mL) ONE (12:31)
[2017-11-21] MEDS ORDERED: Rocuronium 10 mg/ml (5 ml) ONE (12:54)
[2017-11-21] MEDS ORDERED: Propofol 10 mg/ml Inj (20 ML) ONE (12:54)
[2017-11-21] MEDS ORDERED: Succinylcholine 200 mg/10 ml Inj IV ONE (12:54)
[2017-11-21] MEDS ORDERED: Lidocaine 1% Inj (20ml) ONE (12:55)
[2017-11-21] MEDS ORDERED: Phenylephrine 10 mg/ml Inj ONE (13:31)
[2017-11-21] MEDS ORDERED: Bupivacaine 0.25% Inj(30mL) ONE (13:48)
[2017-11-21] MEDS ORDERED: Neostigmine Methylsulfate 3mg/3ml Syringe IV ONE (14:20)
[2017-11-21] MEDS ORDERED: HYDROmorphone 0.5 mg/0.5 ml ISec IVP PRN ×2 (15:01)
[2017-11-21] MEDS ORDERED: Oxycodone/Acetaminophen 5/325 mg Tab PO PRN (15:10)
[2017-11-21] MEDS ORDERED: Albuterol-Ipratrop 3 mg / 0.5 (3 ml) UD IH PRN (15:12)
[2017-11-21] MEDS ORDERED: Lactated Ringer's 1,000 ML IV SCH (15:15)
--- NOTE | 2017-11-21 15:16 | PCM.SURG1 ---
Surgeon's Initial Post Op Note - Surgeon's Notes Surgeon: Dr. Houston Furniture Upholsterer Apprentice: Samantha mixon PGY2 Type of Anesthesia: General Endo Pre-Operative Diagnosis: recurrent breast abscess b/l Operative Findings: b/l periareolar lesions, well healed scars Post-Operative Diagnosis: Same Operation Performed: b/l simpls mastectomy Specimen/Specimens Removed: b/l breast tissue, skin, nipples Estimated Blood Loss: EBL {In ML}: 100 Blood Products Given: N/A Drains Used: Luigi Osman Post-Op Condition: Good Date of Surgery/Procedure: 11/21/17 Time of Surgery/Procedure: 15:16
[2017-11-21] MEDS ORDERED: HYDROmorphone 0.5 mg/0.5 ml ISec ONE (15:42)
[2017-11-21] MEDS: Morphine 4 mg/ml ISec IVP PRN ×2 (19:28→23:24)
[2017-11-21] MEDS: Insulin Reg-LOW-Coverage SC SCH (22:16)
--- NOTE | 2017-11-22 04:45 | HP ---
CHIEF COMPLAINT: Pain in both breasts. HISTORY OF PRESENT ILLNESS: Ms. Lizet Bhat is a 57-year-old lady with history of morbid obesity, diabetes mellitus, mastitis, cellulitis of the breast, anterior mediastinal tumor, came in to [facility] for surgery. Patient has repeated mastitis, abscess, had multiple times breast surgeries. Biopsy was done also. Surgery was done by Dr. Vargas. I saw the patient in the recovery room, still in pain, but awake and alert, follows simple commands. Patient has non-insulin dependant diabetes mellitus, sleep apnea syndrome, depression, insomnia, hypercholesterolemia, neuropathic pain, GERD. She had 18 bilateral breast surgeries for recurrent abscess. Always taking antibiotics, but still not helpful. Finally, decided to get surgery. PAST MEDICAL HISTORY: As above. History of asthma, COPD, sleep apnea syndrome, migraine, diabetes mellitus type 2, bilateral recurrent breast abscess, multiple times had surgeries on the breasts, GERD, dyspepsia, depression. ALLERGIES: PATIENT IS NOT ALLERGIC TO ANY MEDICATIONS. HABITS: Light smoker. No drugs, no ethanol. REVIEW OF SYSTEMS: Patient was seen and examined at the bedside in the recovery room, still having pain, but awake and alert, moving all four extremities. No hematuria or hematochezia. No swelling of the legs. No fever, no chills. PHYSICAL EXAMINATION: VITAL SIGNS: Temperature 97.2, pulse 59, blood pressure 136/75, respiratory rate 16. HEENT: Head, normocephalic and atraumatic. Eyes, PERRLA. Extraocular muscles intact. Conjunctivae clear. Nose, patent. Mucous membrane moist. NECK: Supple. No carotid bruit. No JVD. No thyromegaly. CHEST: Bilaterally symmetrical. Having dressing, had surgery. LUNGS: Clear to auscultation. ABDOMEN: Soft. Bowel sounds positive. No organomegaly. EXTREMITIES: No edema, no cyanosis. NEUROLOGIC: Patient is awake, alert. Moving all four extremities. No focal deficit. LABORATORY DATA: Blood glucose is 114. We do not have recent labs today, but reviewed old labs. ASSESSMENT AND PLAN: Ms. Lizet Bhat is a 57-year-old lady went for mastectomy, simple, bilaterally, by Dr. Ghassan Vargas, history of recurrent bilateral breast abscesses, obesity, non-insulin dependant diabetes mellitus, not very well controlled, hypertension, hypercholesterolemia, chronic obstructive pulmonary disease, also sleep apnea syndrome, depression, insomnia, hypercholesterolemia, neuropathic pain, gastroesophageal reflux disease, dyspepsia, at least 18 bilateral breast surgeries for recurrent abscess, history of migraine, depression, history of recurrent urinary tract infection, gastroesophageal reflux disease, dyspepsia. Now patient is admitted, restarted home medications. Discussion done with Dr. Nieves. Repeat labs. We will follow up. Shonda Chaudhry MD
[2017-11-22 07:23] LABS: MEAN CELL VOLUME 91.9 fl (80.0-105.0); MEAN CORPUSCULAR HEMOGLOBIN 29.6 pg (25.0-35.0); MEAN CORPUSCULAR HGB CONC 32.2 g/dl (31.0-37.0); MEAN PLATELET VOLUME 11.5 fl (7.0-11.0); RBC 4.06 10^6/uL (3.5-6.1); WHITE BLOOD COUNT 14.8 10^3/ul (4.5-11.0)
[2017-11-22 08:01] LABS: ALB/GLOB RATIO 1.2 (1.1-1.8); ALBUMIN 3.3 g/dL (3.0-4.8); ALT/SGPT 30 U/L (7-56); AST/SGOT 29 U/L (14-36); BLOOD UREA NITROGEN 14 mg/dL (7-21); CALCIUM 8.8 mg/dL (8.4-10.5); GFR AFRICAN-AMERICAN > 60; GFR NON-AFRICAN AMERICAN > 60
[2017-11-22] MEDS: Insulin Reg-LOW-Coverage SC SCH ×4 (08:33→22:20)
[2017-11-22] MEDS ORDERED: Enoxaparin 30 mg Syringe SC SCH (10:00)
[2017-11-22] MEDS: Oxycodone/Acetaminophen 5/325 mg Tab PO PRN (10:22)
--- NOTE | 2017-11-22 11:28 | CP.PCM.PCO ---
Physician Communication Note - Physician Communication Note Physician Communication Note: PO1:OOB/PO Opiate/recheck H/H am
--- NOTE | 2017-11-22 11:48 | CP.PCM.PN ---
Subjective - Date & Time of Evaluation Date of Evaluation: 11/22/17 Time of Evaluation: 11:45 - Subjective Subjective: Surgery: Dr. Vargas Patient reports oozing from left surgical site. Patient reports pain requiring IV medication. She is tolerating reg diet w/o n/v. She denies being OOB. Objective - Vital Signs/Intake and Output Vital Signs (last 24 hours): Temp Pulse Resp BP Pulse Ox 98.3 F 62 18 106/48 L 94 L 11/22/17 06:00 11/22/17 06:00 11/22/17 06:00 11/22/17 06:00 11/22/17 06:00 Intake and Output: 11/22/17 11/22/17 06:59 18:59 Intake Total 440 Output Total 180 Balance 440 -180 - Medications Medications: Current Medications Albuterol/Ipratropium (Duoneb 3 Mg/0.5 Mg (3 Ml) Ud) 3 ml IH Q2H PRN PRN Reason: Shortness of Breath Atorvastatin Calcium (Lipitor) 10 mg PO DIN CARLOS Hydromorphone HCl (Dilaudid) 0.5 mg IVP Q15M PRN PRN Reason: Pain, moderate (4-7) Stop: 11/22/17 17:01 Insulin Human Regular (Humulin R Low) 0 units SC ACHS [facility] PRN Reason: Protocol Last Admin: 11/22/17 08:33 Dose: 1 units Ketorolac Tromethamine (Toradol) 15 mg IVP Q6 PRN PRN Reason: Pain, moderate (4-7) Stop: 11/26/17 15:10 Last Admin: 11/21/17 22:25 Dose: 15 mg Metformin HCl (Glucophage) 500 mg PO TID [facility] Last Admin: 11/22/17 11:04 Dose: 500 mg Montelukast Sodium (Singulair) 10 mg PO HS [facility] Last Admin: 11/21/17 22:25 Dose: 10 mg Oxycodone/Acetaminophen (Percocet 5/325 Mg Tab) 1 tab PO Q6H PRN PRN Reason: Pain, Mild (1-3) Stop: 11/24/17 15:11 Last Admin: 11/22/17 10:22 Dose: 1 tab Pantoprazole Sodium (Protonix Inj) 40 mg IVP DAILY [facility] Last Admin: 11/22/17 11:04 Dose: 40 mg - Labs Labs: 11/22/17 06:45 11/22/17 06:45 - Constitutional Appears: Non-toxic, No Acute Distress - Head Exam Head Exam: ATRAUMATIC, NORMOCEPHALIC - Eye Exam Eye Exam: EOMI, Normal appearance - ENT Exam ENT Exam: Mucous Membranes Moist - Respiratory Exam Respiratory Exam: NORMAL BREATHING PATTERN. absent: Respiratory Distress Additional comments: left mastectomy dressing CDI. Right dressing saturated w/ dark red blood, changed bedside. No active oozing from staple line. Drain site on right side clean. drain put out about 120cc/sanguineous fluid. Assessment and Plan - Assessment and Plan (Free Text) Assessment: 57 y/o female s/p bilateral mastectomy POD1 Plan: -de-escalate pain medications -OOB, PT eval -monitor drain output -re-inforce dressing prn -reg diet -hold lovenox -am CBC -vitals Q6 -pulm and medical consults -further recs per DR. Vargas [facility] PGY3
[2017-11-22] MEDS: Oxycodone/Acetaminophen 10/325 mg Tab PO PRN ×2 (14:31→18:50)
--- NOTE | 2017-11-22 15:30 | CON ---
DATE: 11/22/2017 PULMONARY CONSULT REFERRING PHYSICIAN: Dr. Chaudhry/Dr. Vargas. REASON FOR CONSULT: Chronic lung disease, sleep apnea syndrome, status post right breast surgery secondary to abscess. HISTORY OF PRESENT ILLNESS: This is a 57-year-old female, known to me from previous admission with recurrent infection in the breast and abscesses requiring multiple surgery, also diabetic, sleep apnea syndrome, depression, insomnia, hyperlipidemia, gastroesophageal reflux disease, status post yesterday right breast surgery, has a REGINA drainage, complaining about breast discomfort. Denying any cough or sputum production. No nausea. No vomiting, diarrhea, leg pain, leg swelling. PAST MEDICAL HISTORY: As per history of present illness. ALLERGIES: NONE KNOWN. SOCIAL HISTORY: Positive for smoking. Denies any alcohol use. FAMILY HISTORY: No significant cardiopulmonary disease reported. MEDICATIONS: She is on Dilaudid 0.5 mg IV every 50 minutes p.r.n., DuoNeb every 2 hours p.r.n., metformin 500 mg three times a day, insulin coverage, Lipitor 10 mg daily, oxycodone with Tylenol 10/325 one tab every 4 hours p.r.n., Percocet 5/325 every 6 hours for mild pain, Protonix 40 mg daily, Singulair 10 mg at bedtime. REVIEW OF SYSTEMS: No headache. No rhinitis. No chest pain. Has a right breast discomfort. No nausea. No vomiting, diarrhea, leg pain, leg swelling. PHYSICAL EXAMINATION: GENERAL: Lying in the bed, no acute distress. VITAL SIGNS: Temperature is 98, heart rate 62, respiratory rate is 18, blood pressure 106/48, pulse ox 94% on nasal cannula. HEENT: Moist mucous membrane. Crowded airway. Mallampati score is 4. NECK: Supple. No JVD. LUNGS: Have a fair airflow with few rhonchi. HEART: S1 and S2. ABDOMEN: Soft, nontender. No organomegaly. EXTREMITIES: No edema. NEUROLOGIC: Awake and alert. Follows simple command. BREASTS: Right breast has a dressing with REGINA drainage, tender to touch. LABORATORY DATA: Shows hemoglobin 12, hematocrit 37.3, WBC 14.8, platelet is 307. INR 1.06, PTT 28. Sodium 141, potassium 4.2, chloride 104, bicarbonate 32, BUN 14, creatinine 0.6, glucose 110, calcium is 8.8, AST 29, ALT 30, alk phos is 54. Albumin is 3.3. Microbiology: Blood culture were negative. Urine culture: Proteus mirabilis is noted. IMPRESSION AND PLAN: Status post right breast surgery for recurrent abscess, has a Luigi-Osman drainage, hypertension, diabetes, morbid obesity, chronic obstructive lung disease, obstructive sleep apnea syndrome, active smoker, anterior mediastinal mass, status post biopsy, I believe it was nondiagnostic. Pulmonary point of view, doing okay. We will add inhaled bronchodilator. Keep head at [address] her on continuous positive airway pressure tonight. Careful with sedation. Gastric prophylaxis. Deep venous thrombosis prophylaxis. Thank you and we will follow with you. Kervin Dominguez MD
[2017-11-22 20:06] VITALS: BMI 46.7
[2017-11-22] MEDS ORDERED: Pneumococcal 23-Valent Vaccine IM ONE (20:06)
[2017-11-22] MEDS: Albuterol-Ipratrop 3 mg / 0.5 (3 ml) UD IH SCH (21:06)
--- NOTE | 2017-11-22 21:48 | PN ---
DATE: SUBJECTIVE: The patient seen and examined on the bedside. and friend were sitting on the bedside also. Pain is getting under control. No coughing with sputum production. No nausea, vomiting or diarrhea. No swelling of the legs. No fever, no chills. Has right breast discomfort. REVIEW OF SYSTEMS: A 10-point is negative except above. PHYSICAL EXAMINATION: VITAL SIGNS: Temperature 98.2, heart rate 62, respiratory rate 18, blood pressure 102/48, pulse oximetry 94% on nasal cannula. HEENT: Head normocephalic, atraumatic. Eyes: PERRLA. Extraocular muscles intact. Conjunctivae clear. Nose patent. Mucous membrane moist NECK: Supple. No carotid bruit, JVD or thyromegaly. LUNGS: Has fair airflow with rhonchi. CHEST: Has a dressing. HEART: S1, S2 positive. ABDOMEN: Soft, nontender. No organomegaly. EXTREMITIES: No edema, no cyanosis. NEUROLOGIC: Patient is awake, alert, follow simple commands. BREAST: Right breast has dressing with REGINA drainage, tender to touch. LABORATORY DATA: Hemoglobin 12, hematocrit 37.3, white blood cells 14.8, platelet 307. Sodium 141, potassium 4.2, BUN 14, creatinine 0.6, AST 29, ALT 30. Blood cultures are negative. Urine cultures are Proteus mirabilis noted. ASSESSMENT AND PLAN: Ms. Lizet Bhat has status post right breast surgery for recurrent abscess, having Luigi-Osman drainage, hypertension, diabetes mellitus, morbid obesity, chronic obstructive lung disease, sleep apnea syndrome, active smoker, anterior mediastinal mass, status post biopsy and it was nondiagnostic. I reviewed Dr. Dominguez's notes. He put patient on inhaled bronchodilators. We will put patient on positive airway pressure tonight, careful for sedation, gastric and deep venous thrombosis prophylaxis, repeat labs. We will follow up. Shonda Chaudhry MD
[2017-11-23] MEDS: Oxycodone/Acetaminophen 10/325 mg Tab PO PRN ×4 (00:07→17:28)
[2017-11-23] MEDS: Albuterol-Ipratrop 3 mg / 0.5 (3 ml) UD IH SCH ×4 (01:08→21:07)
[2017-11-23 07:04] LABS: BASO # 0.02 K/mm3 (0.0-2.0); BASO % 0.2 % (0.0-3.0); EOS # 0.1 (0.0-0.7); GRAN # 6.72 (1.4-6.5); GRAN % 62.3 % (50.0-68.0); HEMOGLOBIN 12.1 g/dL (12.0-16.0); LYMPH # 3.2 (1.2-3.4); LYMPH % 29.8 % (22.0-35.0); MEAN CELL VOLUME 92.6 fl (80.0-105.0); MEAN CORPUSCULAR HEMOGLOBIN 29.9 pg (25.0-35.0); MEAN CORPUSCULAR HGB CONC 32.3 g/dl (31.0-37.0); MONO # 0.7 (0.1-0.6); MONO % 6.7 % (1.0-6.0); RBC 4.05 10^6/uL (3.5-6.1); RED CELL DISTRIBUTION WIDTH 14.3 % (11.5-14.5); WHITE BLOOD COUNT 10.8 10^3/ul (4.5-11.0)
[2017-11-23 07:11] LABS: BLOOD UREA NITROGEN 15 mg/dL (7-21); CALCIUM 9.1 mg/dL (8.4-10.5); GFR AFRICAN-AMERICAN > 60; GFR NON-AFRICAN AMERICAN > 60
--- NOTE | 2017-11-23 08:05 | CP.PCM.PN ---
Subjective - Date & Time of Evaluation Date of Evaluation: 11/23/17 Time of Evaluation: 08:02 - Subjective Subjective: Surgery: Dr. Vargas Pt seen and examined. Resting comfortably in bed. Pain controlled w. meds. No F/ C. Limited ambulation. Objective - Vital Signs/Intake and Output Vital Signs (last 24 hours): Temp Pulse Resp BP Pulse Ox 97.5 F L 62 18 108/62 93 L 11/23/17 07:51 11/23/17 07:51 11/23/17 07:51 11/23/17 07:51 11/23/17 07:51 Intake and Output: 11/23/17 11/23/17 06:59 18:59 Intake Total 900 Output Total 330 Balance 570 - Medications Medications: Current Medications Albuterol/Ipratropium (Duoneb 3 Mg/0.5 Mg (3 Ml) Ud) 3 ml IH Q2H PRN PRN Reason: Shortness of Breath Last Admin: 11/23/17 00:41 Dose: 3 ml Albuterol/Ipratropium (Duoneb 3 Mg/0.5 Mg (3 Ml) Ud) 3 ml IH [id number] CARLOS Last Admin: 11/23/17 07:36 Dose: 3 ml Atorvastatin Calcium (Lipitor) 10 mg PO DIN [facility] Last Admin: 11/22/17 18:16 Dose: 10 mg Enoxaparin Sodium (Lovenox) 40 mg SC BID [facility] PRN Reason: Protocol Insulin Human Regular (Humulin R Low) 0 units SC ACHS [facility] PRN Reason: Protocol Last Admin: 11/22/17 22:20 Dose: Not Given Metformin HCl (Glucophage) 500 mg PO TID [facility] Last Admin: 11/22/17 18:16 Dose: 500 mg Montelukast Sodium (Singulair) 10 mg PO HS [facility] Last Admin: 11/22/17 22:18 Dose: 10 mg Oxycodone/Acetaminophen (Percocet 5/325 Mg Tab) 1 tab PO Q6H PRN PRN Reason: Pain, Mild (1-3) Stop: 11/24/17 15:11 Last Admin: 11/22/17 10:22 Dose: 1 tab Oxycodone/Acetaminophen (Percocet 10/325 Mg Tab) 1 tab PO Q4H PRN PRN Reason: Pain, moderate (4-7) Last Admin: 11/23/17 06:32 Dose: 1 tab Pantoprazole Sodium (Protonix Ec Tab) 40 mg PO ACB CARLOS - Labs Labs: 11/23/17 06:00 11/23/17 06:00 - Constitutional Appears: Non-toxic, No Acute Distress - Head Exam Head Exam: ATRAUMATIC, NORMOCEPHALIC - Eye Exam Eye Exam: EOMI - ENT Exam ENT Exam: Mucous Membranes Moist - Neck Exam Neck Exam: Full ROM - Respiratory Exam Respiratory Exam: NORMAL BREATHING PATTERN. absent: Accessory Muscle Use, Respiratory Distress - GI/Abdominal Exam GI & Abdominal Exam: Soft. absent: Distended, Firm, Guarding, Rigid, Tenderness - Extremities Exam Extremities Exam: absent: Calf Tenderness, Pedal Edema - Neurological Exam Neurological Exam: Alert, Awake, Oriented x3 - Skin Additional comments: s/p B/L simple mastectomy, incisions C/D/I w. hector in place, b/l blakes w. serosasng output Assessment and Plan - Assessment and Plan (Free Text) Assessment: 57F w. recurrent b/l breast abscess, s/p B/L simple mastectomy, POD#2 Plan: -L [place] 110cc/12hr serosang, R [place] 200cc/12hr serosang, continue to monitor -Pt given support bra -continue w. pain management -encourage ambulation / OOB -PT/OT -IS, GI/DVT prophylaxis -d/w attending Zemaitis PGY3
[2017-11-23] MEDS: Insulin Reg-LOW-Coverage SC SCH ×4 (08:21→22:18)
[2017-11-23] MEDS: Pantoprazole 40 mg EC Tab PO SCH (09:14)
[2017-11-23] MEDS ORDERED: Enoxaparin 40 mg Syringe SC SCH (10:00)
--- NOTE | 2017-11-23 11:10 | CP.PCM.PCO ---
Physician Communication Note - Physician Communication Note Physician Communication Note: Too weak/still draining([place])/?home in am
[2017-11-23] MEDS: Oxycodone/Acetaminophen 5/325 mg Tab PO PRN (22:25)
--- NOTE | 2017-11-24 02:19 | PN ---
DATE: PULMONARY PROGRESS NOTE REFERRING PHYSICIAN: Shonda Chaudhry MD. SUBJECTIVE: She is lying in the bed, head at 45 degrees. Family is at bedside. Night was unremarkable. Tolerated BiPAP well. Cough is better. Bilateral chest discomfort, has a REGINA drainage. No nausea, no vomiting, no diarrhea. No leg pain, no leg swelling. OBJECTIVE: GENERAL: In no acute distress. VITAL SIGNS: Temperature is 98, heart rate is 62, respiratory rate is 20, blood pressure 116/68, pulse ox 95% on room air. HEENT: Moist mucous membranes. Crowded airway. NECK: Supple. No JVD. BREASTS: Bilateral breasts has dressing and REGINA drainage. LUNGS: Fair airflow. HEART: S1, S2. ABDOMEN: Soft and nontender. No organomegaly. EXTREMITIES: No edema. NEUROLOGIC: Awake, alert, follow simple commands. MEDICATIONS: She is on DuoNeb every 2 hours p.r.n. and every 6 hours round the clock, metformin 500 mg twice a day, insulin coverage, Lipitor 10 mg daily, Percocet 10/325 one tab every 4 hours p.r.n., Protonix 40 mg daily, Singulair 10 mg daily. LABORATORY DATA: Shows hemoglobin 12.1, hematocrit 37.5, WBC 10.8, platelet is 276. Sodium 145, potassium 4.1, chloride 105, bicarbonate 31, BUN 15, creatinine 0.6, glucose 110, calcium 9.1. IMPRESSION AND PLAN: Status post bilateral breast abscesses resection, has bilateral REGINA drainage, hypertension, diabetes, chronic obstructive lung disease, obstructive sleep apnea syndrome, active smoker, history of anterior mediastinal mass, had a biopsy which was not diagnostic. Pulmonary point of view, doing well. Continue intravenous and inhaled bronchodilator, keep head at 45 degrees. Surgical followup. Follow up CT of the chest to assure the stability of mediastinal adenopathy. Thank you and we will follow up with you. Kervin Dominguez MD
[2017-11-24] MEDS: Oxycodone/Acetaminophen 10/325 mg Tab PO PRN ×2 (05:45→10:23)
--- NOTE | 2017-11-24 06:46 | PN ---
DATE: 11/23/2017 SUBJECTIVE: The patient is a 57-year-old female. Patient was seen and examined at bedside, sitting on the chair, still having pain bilaterally. REGINA is draining. No fever. No chills. No nausea, vomiting, or diarrhea. No headache. No dizziness. PHYSICAL EXAMINATION: VITAL SIGNS: Temperature 97.5, pulse 62, respiratory rate 18, blood pressure 108/62, pulse oximetry 93%. HEENT: Head, normocephalic and atraumatic. Eyes, PERRLA. Extraocular muscles intact. Conjunctivae clear. Nose patent. Mucous membranes moist. NECK: Supple. No carotid bruit. No JVD or thyromegaly. CHEST: Bilaterally symmetrical. HEART: S1, S2 positive. LUNGS: Clear to auscultation. ABDOMEN: Soft. Bowel sounds positive. No organomegaly. EXTREMITIES: No edema. No cyanosis. NEUROLOGIC: The patient is awake, alert. Moving all four extremities. No focal deficits. MEDICATIONS: Albuterol, Lovenox, insulin, metformin, metoprolol, oxycodone and pantoprazole. LABORATORY DATA: White blood cell noted , hemoglobin 12.1, hematocrit 37.5, platelets 276. Sodium 145, potassium 4.1, BUN 15, creatinine 0.6 and glucose 110. ASSESSMENT AND PLAN: Ms. Lizet Bhat is a 57-year-old lady with bilateral breast abscesses; bilateral simple mastectomy, post operative day 2; left Grady 110 mL per 12 hours of serosanguineous, right Grady 200 mL per 12 hours of serosanguineous. Continue to monitoring. Still having Luigi-Osman tube. Patient has supportive bra. Continue pain management. Out of bed. Physical therapy. Gastrointestinal and deep venous thrombosis prophylaxis. History of diabetes mellitus, hypertension, hypercholesterolemia, obesity. Discussion done with Dr. Vargas. We will follow up. Shonda Chaudhry MD MTDDivina
--- NOTE | 2017-11-24 07:29 | CP.PCM.PN ---
Subjective - Date & Time of Evaluation Date of Evaluation: 11/24/17 Time of Evaluation: 07:24 - Subjective Subjective: Surgery Progress Note: Dr. Vargas Patient seen and assessed at bedside. No acute events overnight. Denies fevers, chills, SOB, cough, abdominal pain, N/V/D/C, changes in UOP or any new skin changes. Objective - Vital Signs/Intake and Output Vital Signs (last 24 hours): Temp Pulse Resp BP Pulse Ox 98.8 F 66 18 111/66 94 L 11/23/17 22:00 11/23/17 22:00 11/23/17 22:00 11/23/17 22:00 11/23/17 22:00 Intake and Output: 11/24/17 11/24/17 06:59 18:59 Intake Total 180 Balance 180 - Medications Medications: Current Medications Albuterol/Ipratropium (Duoneb 3 Mg/0.5 Mg (3 Ml) Ud) 3 ml IH Q2H PRN PRN Reason: Shortness of Breath Last Admin: 11/23/17 00:41 Dose: 3 ml Albuterol/Ipratropium (Duoneb 3 Mg/0.5 Mg (3 Ml) Ud) 3 ml IH [id number] CARLOS Last Admin: 11/23/17 21:07 Dose: 3 ml Atorvastatin Calcium (Lipitor) 10 mg PO DIN [facility] Last Admin: 11/23/17 17:29 Dose: 10 mg Insulin Human Regular (Humulin R Low) 0 units SC ACHS CARLOS PRN Reason: Protocol Last Admin: 11/23/17 22:18 Dose: Not Given Metformin HCl (Glucophage) 500 mg PO TID [facility] Last Admin: 11/23/17 17:29 Dose: 500 mg Montelukast Sodium (Singulair) 10 mg PO HS [facility] Last Admin: 11/23/17 22:27 Dose: 10 mg Oxycodone/Acetaminophen (Percocet 5/325 Mg Tab) 1 tab PO Q6H PRN PRN Reason: Pain, Mild (1-3) Stop: 11/24/17 15:11 Last Admin: 11/23/17 22:25 Dose: 1 tab Oxycodone/Acetaminophen (Percocet 10/325 Mg Tab) 1 tab PO Q4H PRN PRN Reason: Pain, moderate (4-7) Last Admin: 11/24/17 05:45 Dose: 1 tab Pantoprazole Sodium (Protonix Ec Tab) 40 mg PO ACB CARLOS Last Admin: 11/23/17 09:14 Dose: 40 mg - Labs Labs: 11/23/17 06:00 11/23/17 06:00 - Constitutional Appears: Non-toxic, No Acute Distress - Head Exam Head Exam: ATRAUMATIC, NORMOCEPHALIC - Eye Exam Eye Exam: EOMI, Normal appearance - ENT Exam ENT Exam: Mucous Membranes Moist - Neck Exam Neck Exam: Full ROM - Respiratory Exam Respiratory Exam: NORMAL BREATHING PATTERN. absent: Accessory Muscle Use, Respiratory Distress - Cardiovascular Exam Cardiovascular Exam: REGULAR RHYTHM - GI/Abdominal Exam GI & Abdominal Exam: Soft, Normal Bowel Sounds. absent: Tenderness - Neurological Exam Neurological Exam: Alert, Awake, Oriented x3 - Psychiatric Exam Psychiatric exam: Normal Affect, Normal Mood - Skin Additional comments: s/p B/L simple mastectomy; incisions and wound dressings clean, dry and intact with hector in place; b/l angeles drains with minimal serosanguineous output Assessment and Plan - Assessment and Plan (Free Text) Assessment: 57 year old female with recurrent b/l breast abscess, s/p B/L simple mastectomy , POD#3 Plan: -Left angeles drain with 15mls/12hr (serosanguineous) and Right angeles drain with 25mls/12hr (serosanguineous) -Continue with pain management -Continue ambulation/OOB -PT/OT recommending home upon discharge -Continue IS and GI/DVT prophylaxis -Discuss further with attending Liz Mujica PGY1
[2017-11-24] MEDS: Albuterol-Ipratrop 3 mg / 0.5 (3 ml) UD IH SCH ×2 (07:36→13:15)
[2017-11-24 08:05] VITALS: BP 142/58; PULSE 59; RESP 20; TEMP 97.8; O2SAT 96
[2017-11-24] MEDS: Insulin Reg-LOW-Coverage SC SCH ×2 (08:14→11:21)
[2017-11-24] MEDS: Pantoprazole 40 mg EC Tab PO SCH (08:21)
--- NOTE | 2017-11-24 16:41 | CP.PCM.DIS ---
<EsvinTeresa Savi - Last Filed: 11/24/17 16:38> Provider - Provider Date of Admission: 11/22/17 11:18 Attending physician: Ghassan Vargas MD Primary care physician: Shonda Chaudhry MD Consults: Surgeon - Dr. Gahssan Vargas Time Spent in preparation of Discharge (in minutes): 35 Diagnosis - Discharge Diagnosis (1) Status post bilateral mastectomy Status: Acute (2) Anterior mediastinal tumor Status: Acute Hospital Course - Lab Results Lab Results: Most Recent Lab Values WBC 10.8 10^3/ul (4.5-11.0) D 11/23/17 06:00 RBC 4.05 10^6/uL (3.5-6.1) 11/23/17 06:00 Hgb 12.1 g/dL (12.0-16.0) 11/23/17 06:00 Hct 37.5 % (36.0-48.0) 11/23/17 06:00 MCV 92.6 fl (80.0-105.0) 11/23/17 06:00 MCH 29.9 pg (25.0-35.0) 11/23/17 06:00 MCHC 32.3 g/dl (31.0-37.0) 11/23/17 06:00 RDW 14.3 % (11.5-14.5) 11/23/17 06:00 Plt Count 276 10^3/uL (120.0-450.0) 11/23/17 06:00 MPV 11.0 fl (7.0-11.0) 11/23/17 06:00 Gran % 62.3 % (50.0-68.0) 11/23/17 06:00 Lymph % (Auto) 29.8 % (22.0-35.0) 11/23/17 06:00 [place] % (Auto) 6.7 % (1.0-6.0) H 11/23/17 06:00 Eos % (Auto) 1.0 % (1.5-5.0) L 11/23/17 06:00 Baso % (Auto) 0.2 % (0.0-3.0) 11/23/17 06:00 Gran # 6.72 (1.4-6.5) H 11/23/17 06:00 Lymph # (Auto) 3.2 (1.2-3.4) 11/23/17 06:00 [place] # (Auto) 0.7 (0.1-0.6) H 11/23/17 06:00 Eos # (Auto) 0.1 (0.0-0.7) 11/23/17 06:00 Baso # (Auto) 0.02 K/mm3 (0.0-2.0) 11/23/17 06:00 Sodium 145 mmol/L (132-148) 11/23/17 06:00 Potassium 4.1 mmol/L (3.6-5.0) 11/23/17 06:00 Chloride 105 mmol/L (98-107) 11/23/17 06:00 Carbon Dioxide 31 mmol/L (21-33) 11/23/17 06:00 Anion Gap 12 (10-20) 11/23/17 06:00 BUN 15 mg/dL (7-21) 11/23/17 06:00 Creatinine 0.6 mg/dl (0.7-1.2) L 11/23/17 06:00 Est GFR ( Amer) > 60 11/23/17 06:00 Est GFR (Non-Af Amer) > 60 11/23/17 06:00 POC Glucose (mg/dL) 119 mg/dL (65-110) H 11/24/17 11:13 Random Glucose 110 mg/dL (70-110) 11/23/17 06:00 Calcium 9.1 mg/dL (8.4-10.5) 11/23/17 06:00 Total Bilirubin 0.1 mg/dL (0.2-1.3) L 11/22/17 06:45 AST 29 U/L (14-36) 11/22/17 06:45 ALT 30 U/L (7-56) 11/22/17 06:45 Alkaline Phosphatase 54 U/L (38-126) 11/22/17 06:45 Total Protein 6.1 g/dL (5.8-8.3) 11/22/17 06:45 Albumin 3.3 g/dL (3.0-4.8) 11/22/17 06:45 Globulin 2.8 gm/dL 11/22/17 06:45 Albumin/Globulin Ratio 1.2 (1.1-1.8) 11/22/17 06:45 Blood Type O POSITIVE 11/21/17 12:45 Antibody Screen Negative 11/21/17 12:45 BBK History Checked Patient has bt 11/21/17 12:45 - Hospital Course Hospital Course: 57 yr female w/ history of Proteus Mirabilis infection of L breast, mediastinal lymph node biopsy, DM II (non-insulin dependent), morbidly obese, sleep apnea, depression, insomnia, hyperlipidemia, neuropathic pain, GERD, & 18 bilateral breast surgeries for recurrent abscess. [place] [facility] [place] Ghassan Vargas for b/l simple mastectomy. Bilateral REGINA drains with minial sanguenious drainage and breasts with hector C/D/I. Pt is cleared for discharge. - Date & Time of H&P Date of H&P: 11/24/17 Time of H&P: 10:00 Discharge Exam - Head Exam Head Exam: ATRAUMATIC, NORMOCEPHALIC - Eye Exam Eye Exam: EOMI, Normal appearance, PERRL Pupil Exam: NORMAL ACCOMODATION, PERRL - ENT Exam ENT Exam: Mucous Membranes Moist - Neck Exam Neck exam: Full Rom - Respiratory Exam Respiratory Exam: Clear to PA & Lateral, NORMAL BREATHING PATTERN, UNREMARKABLE - Cardiovascular Exam Cardiovascular Exam: REGULAR RHYTHM, +S1, +S2 - GI/Abdominal Exam GI & Abdominal Exam: Normal Bowel Sounds, Unremarkable - Extremities Exam Extremities exam: normal inspection - Back Exam Back exam: NORMAL INSPECTION - Neurological Exam Neurological exam: Alert, CN II-XII Intact, Normal Gait, Oriented x3, Reflexes Normal - Psychiatric Exam Psychiatric exam: Normal Affect, Normal Mood - Skin Additional comments: b/l mastectomy, with bilateral REGINA drains with minimal sanguineous drainage, wrapped. hector c/d/i. Discharge Plan - Discharge Medications Prescriptions: oxyCODONE/Acetaminophen [Percocet 5/325 mg Tab] 1 ea PO BID PRN #20 tab PRN Reason: Pain, Moderate (4-7) - Follow Up Plan Condition: GOOD Disposition: HOME/ ROUTINE Instructions: Heart Healthy Diet, Luigi-Osman Drain, Carbohydrate Counting Diet, How to Prevent Surgical Site Infections, Surgical Wound (DC), Breast Abscess Drainage (DC), Cellulitis (DC), Cellulitis (GEN), Abscess (GEN) Additional Instructions: Instructed to follow up with Dr. Nieves on November 29, 2017 Instructed to notify the doctor if you have and elevated temperature notice any redness , drainage or pain not relieve with medication. Instructed on how to empty luigi osman . Referrals: Shonda Chaudhry MD [Primary Care Provider] - <Shonda Chaudhry - Last Filed: 11/24/17 21:34> Provider - Provider Date of Admission: 11/22/17 11:18 Attending physician: Ghassan Vargas MD Primary care physician: Shonda Chaudhry MD Hospital Course - Lab Results Lab Results: Most Recent Lab Values WBC 10.8 10^3/ul (4.5-11.0) D 11/23/17 06:00 RBC 4.05 10^6/uL (3.5-6.1) 11/23/17 06:00 Hgb 12.1 g/dL (12.0-16.0) 11/23/17 06:00 Hct 37.5 % (36.0-48.0) 11/23/17 06:00 MCV 92.6 fl (80.0-105.0) 11/23/17 06:00 MCH 29.9 pg (25.0-35.0) 11/23/17 06:00 MCHC 32.3 g/dl (31.0-37.0) 11/23/17 06:00 RDW 14.3 % (11.5-14.5) 11/23/17 06:00 Plt Count 276 10^3/uL (120.0-450.0) 11/23/17 06:00 MPV 11.0 fl (7.0-11.0) 11/23/17 06:00 Gran % 62.3 % (50.0-68.0) 11/23/17 06:00 Lymph % (Auto) 29.8 % (22.0-35.0) 11/23/17 06:00 [place] % (Auto) 6.7 % (1.0-6.0) H 11/23/17 06:00 Eos % (Auto) 1.0 % (1.5-5.0) L 11/23/17 06:00 Baso % (Auto) 0.2 % (0.0-3.0) 11/23/17 06:00 Gran # 6.72 (1.4-6.5) H 11/23/17 06:00 Lymph # (Auto) 3.2 (1.2-3.4) 11/23/17 06:00 [place] # (Auto) 0.7 (0.1-0.6) H 11/23/17 06:00 Eos # (Auto) 0.1 (0.0-0.7) 11/23/17 06:00 Baso # (Auto) 0.02 K/mm3 (0.0-2.0) 11/23/17 06:00 Sodium 145 mmol/L (132-148) 11/23/17 06:00 Potassium 4.1 mmol/L (3.6-5.0) 11/23/17 06:00 Chloride 105 mmol/L (98-107) 11/23/17 06:00 Carbon Dioxide 31 mmol/L (21-33) 11/23/17 06:00 Anion Gap 12 (10-20) 11/23/17 06:00 BUN 15 mg/dL (7-21) 11/23/17 06:00 Creatinine 0.6 mg/dl (0.7-1.2) L 11/23/17 06:00 Est GFR ( Amer) > 60 11/23/17 06:00 Est GFR (Non-Af Amer) > 60 11/23/17 06:00 POC Glucose (mg/dL) 119 mg/dL (65-110) H 11/24/17 11:13 Random Glucose 110 mg/dL (70-110) 11/23/17 06:00 Calcium 9.1 mg/dL (8.4-10.5) 11/23/17 06:00 Total Bilirubin 0.1 mg/dL (0.2-1.3) L 11/22/17 06:45 AST 29 U/L (14-36) 11/22/17 06:45 ALT 30 U/L (7-56) 11/22/17 06:45 Alkaline Phosphatase 54 U/L (38-126) 11/22/17 06:45 Total Protein 6.1 g/dL (5.8-8.3) 11/22/17 06:45 Albumin 3.3 g/dL (3.0-4.8) 11/22/17 06:45 Globulin 2.8 gm/dL 11/22/17 06:45 Albumin/Globulin Ratio 1.2 (1.1-1.8) 11/22/17 06:45 Blood Type O POSITIVE 11/21/17 12:45 Antibody Screen Negative 11/21/17 12:45 BBK History Checked Patient has bt 11/21/17 12:45 - Hospital Course Hospital Course: pt is seen and examined at bed side , looking comfortable , agreed all above , chart , meds and labs noted . will f/u
--- NOTE | 2017-11-30 16:15 | OP ---
PROCEDURE DATE: 11/21/2017 SURGEON: Ghassan Vargas MD MERCHANDISING LEAD: Samantha Dickerson DO, PGY-2 POCKET MACHINE OPERATOR: Ezequiel Gil MD ANESTHESIA: General endotracheal - Marcaine 0.5/30 mL. PREOPERATIVE DIAGNOSES: 1. Bilateral recurrent breast abscesses. 2. Morbid obesity. 3. Chronic obstructive pulmonary disease. 4. Diabetes mellitus. POSTOPERATIVE DIAGNOSES: 1. Bilateral recurrent breast abscesses. 2. Morbid obesity. 3. Chronic obstructive pulmonary disease. 4. Diabetes mellitus. PATHOLOGY: Pending. PROCEDURE: Bilateral total mastectomies. OPERATIVE INDICATION: The patient is a 57-year-old [place] female with a near lifelong history of multiple draining infections from both breasts. At this time, she has between 16 and 18 operations including debulking procedure of the ductal system bilaterally and still has recurring excruciating breast pain and inability to be managed without chronic pain therapy. Extensive discussion was held with the patient and her physicians and they have been cleared for general anesthesia and explaining the risks, benefits, and the alternatives with their anticipated outcome. She signs the informed consent for surgery. OPERATIVE NOTE: The patient was brought to the operating room, identified by her wrist band, undergoes time-out procedure, and was placed on the table in a semi-Hoang position. She underwent the induction of general anesthesia with the insertion of an endotracheal tube and the bilateral massive breasts were prepped with Hibiclens chlorhexidine preparation and the patient was aseptically draped. The previously marked transverse elliptical incisions were utilized and using electrocoagulation current, dissection was carried along transversely above and below the breasts and dissection was performed using the electrocoagulation current and Ammy clamp and 0 chromic catgut ligature for larger vessels. The breasts were now excised down to the anterior fascia and the breasts were submitted first the right and then the left sequentially in formalin to permanent section analysis. The lateral extent on both extremely massive breasts were also excised including a fairly massive subcutaneous panniculus to allow for a machinery cleaner transverse incision closure. An intermediate closure was now performed utilizing interrupted 0 Polysorb sutures for subcuticular closure and closing the skin with an AutoSuture skin stapler. Two Luigi-Osman 10 mm drains were placed into the incisions and were draining the subcutaneous space and these were secured with 2-0 Surgidac polyester suture. The patient was now awakened, extubated and transported to the recovery room in a satisfactory condition. Sponge, instrument, and suture count were verified as correct at the end of the procedure. Infiltration of the skin with dilute bupivacaine was employed to reduce postoperative pain and estimated blood loss during the procedure was less than 150 mL of blood. The neurosurgical nurse practitioner was present throughout the procedure and due to the extremely massive size of the breasts, was absolute essential in providing exposure and in the dissection of these very massive infected breasts. Ghassan Vargas MD
== END 2017-11-24 14:23 | disposition home or self-care (01) | DRG 584 ==
LOC: SDS 08:27 → 5RSO 18:23 → SDS 11-22 11:18 → 5RSO 11-22 11:18
PROVIDERS: ADMIT Surgery; ATTEND Surgery
PROC: 0HBV0ZZ Excision of Bilateral Breast, Open Approach (ICD-10-PCS; principal; 2017-11-22)
PROC: 3E0F7GC Introduction of Other Therapeutic Substance into Respiratory Tract, Via Natural or Artificial Opening (ICD-10-PCS; 2017-11-22)
PROC: 5A09357 Assistance with Respiratory Ventilation, Less than 24 Consecutive Hours, Continuous Positive Airway Pressure (ICD-10-PCS; 2017-11-23)
DX: N61.1 Abscess of the breast and nipple (principal); Z68.42 Body mass index [BMI] 45.0-49.9, adult; N64.4 Mastodynia; E66.01 Morbid (severe) obesity due to excess calories; E11.9 Type 2 diabetes mellitus without complications; E78.00 Pure hypercholesterolemia, unspecified; K21.9 Gastro-esophageal reflux disease without esophagitis; G47.30 Sleep apnea, unspecified; G47.00 Insomnia, unspecified; J44.9 Chronic obstructive pulmonary disease, unspecified; F32.9 Major depressive disorder, single episode, unspecified; I10 Essential (primary) hypertension; G47.33 Obstructive sleep apnea (adult) (pediatric); F17.200 Nicotine dependence, unspecified, uncomplicated

== ENCOUNTER 2018-03-01 15:04 | Observation (INO) | payer MEDICARE, MEDICAID ==
[2018-03-01 15:35] VITALS: BMI 47.5
--- NOTE | 2018-03-01 16:10 | ED PDOC ---
"Arrival/HPI - General Chief Complaint: Breast Problem Time Seen by Provider: 03/01/18 16:01 Historian: Patient - History of Present Illness Narrative History of Present Illness (Text): 03/01/18 16:02 57 y/o female, pmh including hld/dm/asthma/bilateral breast abscess, nkda, post menopausal, c/o lt. sided breast/chest pain radiating to the lt. shoulder region x 3 days. Pt. stated that she started to have lt. sided breast pain about 3 days ago, excessively today which she has pain on lt. sided chest radiating to lt. shoulder, no aggravating or relieving factor, sharp pain, no posterior shoulder back pain, no fever or chills, no coughing, no palpitation, no rash, no other medical or psychological complaints. Past Medical History - Provider Review Nursing Documentation Reviewed: Yes - Infectious Disease Hx of Infectious Diseases: None - Tetanus Immunization Tetanus Immunization: Unknown - Cardiac Hx Hypertension: Yes - Pulmonary Hx Chronic Obstructive Pulmonary Disease (COPD): Yes - Neurological Hx Neurological Disorder: Yes Hx Migraine: Yes - HEENT Hx HEENT Disorder: Yes (eyeglases) - Renal Hx Renal Disorder: No - Endocrine/Metabolic Hx Diabetes Mellitus Type 2: Yes - Hematological/Oncological Hx Blood Disorders: No - Integumentary Hx Dermatological Disorder: Yes Other/Comment: 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, b/l mastectomy 11/22/17 today due to recurrent abcesses/cysts x15 breast bx's x7 - Musculoskeletal/Rheumatological Hx Arthritis: Yes - Gastrointestinal Hx Gastrointestinal Disorders: Yes (obese) Hx Gastroesophageal Reflux: Yes Other/Comment: colon polyps, gastritis - Genitourinary/Gynecological Hx Genitourinary Disorders: Yes (recurrent b/l breast abcesseds) Hx Urinary Tract Infection: Yes Other/Comment: frequency burning on urination - Psychiatric Hx Anxiety: Yes Hx Depression: Yes Hx Emotional Abuse: No Hx Physical Abuse: No Hx Substance Use: No - Surgical History Hx Cardiac Catheterization: Yes (3 yrs ago) Other/Comment: b/l mastectomy for abcesses, b/l breast dressing intact some bloody drainage noted kiana intact dng sanguenous fluid, c/o r breast more painful than left. pt had 7 breast bx's and chronic abceses ad cysts x 15 in the past, umbilical hernia sx 10 yrs ago - Anesthesia Hx Anesthesia Reactions: No Hx Malignant Hyperthermia: No - Suicidal Assessment Feels Threatened In Home Enviroment: No Family/Social History - Physician Review Nursing Documentation Reviewed: Yes Family/Social History: Unknown Family HX Smoking Status: Current Some Days Smoker Hx Alcohol Use: No Hx Substance Use: No Hx Substance Use Treatment: No Allergies/Home Meds Allergies/Adverse Reactions: Allergies No Known Allergies Allergy (Verified 08/23/17 20:35) Home Medications: Home Meds Medication Instructions Recorded Confirmed Fluticasone/Vilanterol [Breo 1 puff IH DAILY 03/21/17 03/01/18 Ellipta 200-25 Mcg INH] Omeprazole 20 mg PO QPM 03/21/17 03/01/18 Montelukast [Singulair] 10 mg PO DAILY 11/10/17 03/01/18 Vitamin B Complex [Balance B-100] 1 tab PO DAILY 11/10/17 03/01/18 Citalopram Hydrobromide [Celexa] 40 mg PO DAILY 03/01/18 03/01/18 Gabapentin [Neurontin] 1 tab PO TID 03/01/18 03/01/18 LORazepam [Ativan] 1 tab PO DAILY PRN 03/01/18 03/01/18 Zolpidem [Ambien] 1 tab PO HS 03/01/18 03/01/18 Review of Systems - Review of Systems Constitutional: absent: Fatigue, Fevers Eyes: absent: Vision Changes ENT: absent: Hearing Changes Respiratory: absent: SOB, Cough Cardiovascular: Chest Pain Gastrointestinal: absent: Abdominal Pain, Nausea, Vomiting Skin: absent: Rash, Pruritis Neurological: absent: Headache, Dizziness Psychiatric: absent: Anxiety, Depression, Suicidal Ideation Physical Exam Vital Signs Reviewed: Yes Vital Signs Temp Pulse Resp BP Pulse Ox 03/01/18 20:00 62 18 110/76 95 03/01/18 18:01 62 16 112/72 96 03/01/18 15:40 98.5 F 58 L 18 108/73 95 Temperature: Afebrile Blood Pressure: Normal Pulse: Bradycardic Respiratory Rate: Normal Appearance: Positive for: Well-Appearing, Non-Toxic, Comfortable Pain Distress: Moderate Mental Status: Positive for: Alert and Oriented X 3 - Systems Exam Head: Present: Atraumatic, Normocephalic Pupils: Present: PERRL Extroacular Muscles: Present: EOMI Conjunctiva: Present: Normal Mouth: Present: Moist Mucous Membranes Neck: Present: Normal Range of Motion Respiratory/Chest: Present: Clear to Auscultation, Good Air Exchange. No: Respiratory Distress, Accessory Muscle Use, Wheezes, Decreased Breath Sounds, Rales, Retracting, Rhonchi, Tachypneic Cardiovascular: Present: Regular Rate and Rhythm, Normal S1, S2. No: Murmurs Abdomen: No: Tenderness, Distention, Peritoneal Signs, Rebound, Guarding Breast/Axillary: Present: Other (bilateral masectomy noted), Symmetrical. No: Discoloration, Erythema, Fluctuance, Masses, Nipple Discharge, Tender to Palpation Back: Present: Normal Inspection Upper Extremity: Present: Normal Inspection. No: Cyanosis, Edema Lower Extremity: Present: Normal Inspection, NORMAL PULSES, Neurovascularly Intact, Capillary Refill < 2 s. No: Edema Neurological: Present: GCS=15, CN II-XII Intact, Speech Normal, Motor Func Grossly Intact. No: Gait Normal, Memory Normal Skin: Present: Warm, Dry, Normal Color. No: Rashes Psychiatric: Present: Alert, Oriented x 3, Normal Insight, Normal Concentration Medical Decision Making ED Course and Treatment: 03/01/18 16:19 Differential: deep breast abscess vs. CAD vs. pneumonthorax vs. pneumonia -Labs -ekg -CT chest with contrast -IV toradol -Observe and reassess 03/01/18 20:06 -EKG: Sinus Bradycardia @ 53 BPM, no ST elevation or depression, T wave inversion noted on lead III and aVF -CT Chest: Incidental noted to have dependent atelectasis. 1. Stable 2.5 cm cystic lesion superior mediastinum. 2. Small hiatal hernia. 3. Bilateral renal cyst largest on left measuring 2.4cm. 4. Fatty infiltration liver. -Labs are non-significant -1st set of troponin is negative. -HEART score is 4, will need admission for observation for chest pain. -I spoke to dr. dodson about this case/labs/radiology result, discussed the case in detail, express my concern, agreed to admit the patient for observation with Dr. Dominguez and Dr. Hughes for routine consult. -Dr. Whyte is off the shift, will place the admission order for him. - Lab Interpretations Lab Results: 03/01/18 17:00 03/01/18 17:00 Lab Results 03/01/18 17:00: WBC 9.8, RBC 4.74, Hgb 13.9, Hct 41.7, MCV 88.0 D, MCH 29.3, MCHC 33.3, RDW 13.7, Plt Count 335, MPV 10.8, Gran % 63.0, Lymph % (Auto) 29.0, [place] % (Auto) 5.5, Eos % (Auto) 2.2, Baso % (Auto) 0.3, Gran # 6.20, Lymph # ( Auto) 2.9, [place] # (Auto) 0.5, Eos # (Auto) 0.2, Baso # (Auto) 0.03 03/01/18 17:00: Sodium 144, Potassium 3.9, Chloride 105, Carbon Dioxide 30, Anion Gap 13, BUN 10, Creatinine 0.6 L, Est GFR ( Amer) > 60, Est GFR ( Non-Af Amer) > 60, Random Glucose 93, Calcium 8.9, Magnesium 2.0, Total Bilirubin 0.4, AST 22, ALT 28, Alkaline Phosphatase 71, Lactate Dehydrogenase 499, Total Creatine Kinase 55, Troponin I < 0.01, Total Protein 6.9, Albumin 3.9 , Globulin 3.0, Albumin/Globulin Ratio 1.3 I have reviewed the lab results: Yes - RAD Interpretation Radiology Orders: 03/01/18 16:11 CHEST W/CONTRAST [CT] Stat COMPARISON: CT - CHEST W/O CONTRAST 2017-08-23 21:59 FINDINGS: LUNGS: Dependent atelectasis. PLEURAL SPACE: No pneumothorax. No significant effusion. HEART: No cardiomegaly. No significant pericardial effusion. MEDIASTINUM: Stable 2.5 cm cystic lesion superior mediastinum. Small hiatal hernia. BONES/JOINTS: Degenerative changes. No acute fracture. SOFT TISSUES: Unremarkable. VASCULATURE: Unremarkable. No thoracic aortic aneurysm. DIANA ESCALONA | Preliminary Radiology Report PRODUCTION SUPERINTENDENT (QA) DISCREPANCY? If there is a discrepancy between the preliminary and final interpretation, please notify [facility] via [email or web address]. If you do not have access to our QA portal, call our QA team at [phone] CONFIDENTIALITY STATEMENT This report is intended only for the use of the referring physician, and only in accordance with law, If you received this in error, call [phone] Page 2 of 2 LYMPH NODES: No enlarged lymph nodes. LIVER: Fatty infiltration liver. KIDNEYS AND URETERS: Bilateral renal cyst largest on left measuring 2.4cm. IMPRESSION: 1. Stable 2.5 cm cystic lesion superior mediastinum. 2. Small hiatal hernia. 3. Bilateral renal cyst largest on left measuring 2.4cm. 4. Fatty infiltration liver. Thank you for allowing us to participate in the care of your patient. Dictated and Authenticated by: Jonathan Saab MD 03/01/2018 7:53 PM Eastern Time ([place] & [place]) Tray Worker: Radiologist - EKG Interpretation EKG Interpretation (Text): 03/01/18 20:32 Sinus Bradycardia @ 53 BPM, no ST elevation or depression, T wave inversion noted on lead III and aVF Interpreted by ED Physician: Yes Type: 12 lead EKG - Medication Orders Current Medication Orders: Discontinued Medications Aspirin (Aspirin) 325 mg PO STAT STA Stop: 03/01/18 20:00 Last Admin: 03/01/18 20:22 Dose: 325 mg Ketorolac Tromethamine (Toradol) 30 mg IVP STAT STA Stop: 03/01/18 16:21 Last Admin: 03/01/18 17:05 Dose: 30 mg MAR Pain Assessment Document 03/01/18 17:05 MS (Rec: 03/01/18 17:05 MS [id number]) Pain Reassessment Is this a pain reassessment? No Sleep Is patient sleeping during reassessment? No Presence of Pain Presence of Pain Yes Pain Scale Used Pain Scale Used Numeric Location Pain Location Body Site Breast Description Description Constant Intensity of Pain at present 7 Pain Behavior Guarding IVP Administration Document 03/01/18 17:05 MS (Rec: 03/01/18 17:05 MS [id number]) Charges for Administration # of IVP Administrations 1 Morphine Sulfate (Morphine) 4 mg IVP STAT STA Stop: 03/01/18 20:00 Last Admin: 03/01/18 20:21 Dose: 4 mg MAR Pain Assessment Document 03/01/18 20:21 MS (Rec: 03/01/18 20:22 MS [id number]) Pain Reassessment Is this a pain reassessment? Yes Sleep Is patient sleeping during reassessment? Yes Pain Scale Used Pain Scale Used Numeric Location Pain Location Body Site Breast Description Description Constant Intensity of Pain at present 6 Pain Behavior Guarding IVP Administration Document 03/01/18 20:21 MS (Rec: 03/01/18 20:22 MS [id number]) Charges for Administration # of IVP Administrations 1 - PA / MIDDLEWARE ENGINEER / Resident Statement MD/DO has reviewed & agrees with the documentation as recorded. Disposition/Present on Arrival - Present on Arrival Any Indicators Present on Arrival: No History of DVT/PE: No History of Uncontrolled Diabetes: No Urinary Catheter: No History of Decub. Ulcer: No History Surgical Site Infection Following: None - Disposition Have Diagnosis and Disposition been Completed?: Yes Diagnosis: Chest pain Disposition: HOSPITALIZED Disposition Time: 20:11 Patient Plan: Admission, Observation, Telemetry Patient Problems: Current Active Problems Problem Status Onset Chest pain Acute Condition: STABLE"
[2018-03-01 17:16] LABS: BASO # 0.03 K/mm3 (0.0-2.0); BASO % 0.3 % (0.0-3.0); EOS # 0.2 (0.0-0.7); EOS % 2.2 % (1.5-5.0); GRAN # 6.2 (1.4-6.5); HEMOGLOBIN 13.9 g/dL (12.0-16.0); LYMPH # 2.9 (1.2-3.4); MEAN CORPUSCULAR HEMOGLOBIN 29.3 pg (25.0-35.0); MEAN CORPUSCULAR HGB CONC 33.3 g/dl (31.0-37.0); MEAN PLATELET VOLUME 10.8 fl (7.0-11.0); MONO # 0.5 (0.1-0.6); MONO % 5.5 % (1.0-6.0); RBC 4.74 10^6/uL (3.5-6.1); RED CELL DISTRIBUTION WIDTH 13.7 % (11.5-14.5); WHITE BLOOD COUNT 9.8 10^3/ul (4.5-11.0)
[2018-03-01 17:22] LABS: ALB/GLOB RATIO 1.3 (1.1-1.8); ALBUMIN 3.9 g/dL (3.0-4.8); ALT/SGPT 28 U/L (7-56); AST/SGOT 22 U/L (14-36); BLOOD UREA NITROGEN 10 mg/dL (7-21); CALCIUM 8.9 mg/dL (8.4-10.5); GFR AFRICAN-AMERICAN > 60; GFR NON-AFRICAN AMERICAN > 60
[2018-03-01 17:33] LABS: TROPONIN I < 0.01 ng/mL
[2018-03-01] MEDS ORDERED: Iohexol 350 MG/100 ML VIAL ONE (17:49)
[2018-03-01] MEDS ORDERED: Morphine 4 mg/ml ISec IVP STA (19:59)
[2018-03-02 00:16] LABS: HDL CHOLESTEROL 30 mg/dL (29-60)
[2018-03-02 00:26] LABS: LDL CHOLESTEROL 110 mg/dL (0-129)
[2018-03-02] MEDS ORDERED: Pantoprazole 40 mg EC Tab PO SCH (06:00)
[2018-03-02] MEDS: Insulin Reg-LOW-Coverage SC SCH ×3 (07:54→16:18)
[2018-03-02] MEDS: Albuterol-Ipratrop 3 mg / 0.5 (3 ml) UD IH SCH ×2 (08:00→13:29)
[2018-03-02 08:01] LABS: TROPONIN I < 0.01 ng/mL
[2018-03-02] MEDS ORDERED: FLUTICASONE IH SCH (10:00)
[2018-03-02] MEDS ORDERED: VILANTEROL IH SCH (10:00)
[2018-03-02] MEDS ORDERED: VITAMIN B COMPLEX PO SCH (10:00)
--- NOTE | 2018-03-02 10:31 | CT ---
Date of service: 03/01/2018 PROCEDURE: CT Chest with contrast HISTORY: lt. breast pain, h/o breast abscess COMPARISON: None. TECHNIQUE: Contiguous axial images were obtained through the chest with intravenous contrast enhancement. Sagittal and coronal reconstructions were performed. IV contrast: 150 cc of Omni 350 Radiation dose (DLP): 743 mGy-cm. This CT exam was performed using one or more of the following dose reduction techniques: Automated exposure control, adjustment of the mA and/or kV according to patient size, and/or use of iterative reconstruction technique. FINDINGS: LUNGS: Clear lungs. Visualized airway clear. MEDIASTINUM: Unremarkable thoracic aorta. No aneurysm or dissection. Normal sized heart. Main pulmonary artery unremarkable. No vascular congestion. No lymphadenopathy. There is a 26 mm cystic lesion in the anterior mediastinum. This is unchanged. PLEURA: No pleural fluid. No pneumothorax. BONES: No fracture. No destructive lesion. UPPER ABDOMEN: Mild fatty infiltration of the liver OTHER FINDINGS: The report concurs with the preliminary [facility] report IMPRESSION: No change in 26 mm cyst in the anterior mediastinum. No acute findings
--- NOTE | 2018-03-02 11:03 | CARD ---
APPROVED REPORT Date of service: 03/01/2018 EKG Measurement Heart [id number] IN [id number] <Conclusion> Sinus bradycardia Otherwise normal ECG
[2018-03-02 11:10] VITALS: RESP 18
[2018-03-02 14:39] VITALS: BP 118/54; PULSE 50; TEMP 98.2; O2SAT 94
--- NOTE | 2018-03-02 14:58 | CP.PCM.CON ---
<Wes Owusu - Last Filed: 03/02/18 15:20> Meds Allergies/Adverse Reactions: Allergies Allergy/AdvReac Type Severity Reaction Status Date / Time No Known Allergies Allergy Verified 08/23/17 20:35 - Medications Medications: Current Medications Albuterol/Ipratropium (Duoneb 3 Mg/0.5 Mg (3 Ml) Ud) 3 ml IH [id number] [facility] Last Admin: 03/02/18 13:29 Dose: 3 ml Atorvastatin Calcium (Lipitor) 20 mg PO QPM [facility] Citalopram Hydrobromide (Celexa) 40 mg PO DAILY [facility] Last Admin: 03/02/18 09:32 Dose: 40 mg Famotidine (Pepcid) 20 mg PO BID [facility] Last Admin: 03/02/18 09:31 Dose: 20 mg Gabapentin (Neurontin) 300 mg PO TID [facility] PRN Reason: Protocol Last Admin: 03/02/18 14:42 Dose: 300 mg Ibuprofen (Motrin Tab) 400 mg PO Q6H PRN PRN Reason: Pain, moderate (4-7) Last Admin: 03/02/18 11:44 Dose: 400 mg Insulin Human Regular (Humulin R Low) 0 units SC ACHS [facility] PRN Reason: Protocol Last Admin: 03/02/18 11:34 Dose: Not Given Metformin HCl (Glucophage) 500 mg PO ACTID [facility] Last Admin: 03/02/18 11:44 Dose: 500 mg Mometasone Furoate (Asmanex Twisthaler 220 Mcg) 2 puff IH QPM [facility] Montelukast Sodium (Singulair) 10 mg PO DAILY [facility] Last Admin: 03/02/18 09:32 Dose: 10 mg Fluticasone/Vilanterol [Breo Ellipta 200-25 Mcg Inh] 1 Puff (Home Med) 1 puff IH DAILY [facility] Last Admin: 03/02/18 09:26 Dose: Not Given Vitamin B Complex [ Balance B-100] 1 Tab (Home Med) 1 tab PO DAILY [facility] Last Admin: 03/02/18 09:27 Dose: Not Given Pantoprazole Sodium (Protonix Ec Tab) 40 mg PO 0600 [facility] Last Admin: 03/02/18 05:39 Dose: 40 mg Tramadol HCl (Ultram) 50 mg PO BID [facility] Last Admin: 07/20/18 09:31 Dose: 50 mg Zolpidem Tartrate (Ambien) 5 mg PO HS [facility] PRN Reason: Protocol Results - Vital Signs Recent Vital Signs: Last Vital Signs Temp 98.2 F 03/02/18 14:00 Pulse 50 L 03/02/18 14:00 Resp 18 03/02/18 14:00 BP 118/54 L 03/02/18 14:00 Pulse Ox 94 L 03/02/18 14:00 - Labs Result Diagrams: 03/01/18 17:00 03/01/18 17:00 Labs: Laboratory Results - last 24 hr 03/01/18 03/02/18 03/02/18 22:16 05:20 06:30 POC Glucose (mg/dL) 86 Lactate Dehydrogenase 428 Total Creatine Kinase 43 Troponin I < 0.01 TSH 3rd Generation 0.57 03/02/18 03/02/18 07:16 11:25 POC Glucose (mg/dL) 104 137 H Lactate Dehydrogenase Total Creatine Kinase Troponin I TSH 3rd Generation <Mary Moncada - Last Filed: 03/02/18 17:09> History of Present Illness - History of Present Illness History of Present Illness: General surgery consult note for Dr. Vargas Consult for chest pain 3 mo post op from a bilateral mastectomy in October with Dr. Vargas Lizet Bhat is a 57 yr old female w/ PMH DM, HLD, asthma and bilateral mastectomy for recurrent breast abscesses in October 2017 who presents c/o left sided chest pain beginning 3 days ago. She describes the pain as sharp and constant. She admits to chills, nausea and diarrhea once this morning but no fevers, vomiting, abdominal pain. Patient denies radiation of pain to left arm. Patient asked during interview to receive more of the IV pain medication she prviously had. PMHx: DM, moribid obesity, HTN, COPD, sleep apnea, asthma, HLD Surgeries: ventral hernia repair, cardiac cath, I&D of bilateral breast abscesses about 18 times, left partial mastectomy on 04/18/17 for recurrent left breast abscesses with ductal disease, bilateral complete mastectomy 11/22/[address] Vargas Allergies: none Social history: smokes 3 cigarettes per day, denies illicit drug use or etoh Review of Systems - Review of Systems All systems: reviewed and no additional remarkable complaints except Review of Systems: as per HPI Past Patient History - Infectious Disease Hx of Infectious Diseases: None - Tetanus Immunizations Tetanus Immunization: Unknown - Past Medical History & Family History Past Medical History?: Yes - Past Social History Smoking Status: Light Smoker < 10 Cigarettes Daily - CARDIAC Hx Hypertension: Yes - PULMONARY Hx Chronic Obstructive Pulmonary Disease (COPD): Yes - NEUROLOGICAL Hx Neurological Disorder: Yes Hx Migraine: Yes - HEENT Hx HEENT Problems: Yes (eyeglases) - RENAL Hx Chronic Kidney Disease: No - ENDOCRINE/METABOLIC Hx Diabetes Mellitus Type 2: Yes - HEMATOLOGICAL/ONCOLOGICAL Hx Blood Disorders: No - INTEGUMENTARY Hx Dermatological Problems: Yes Other/Comment: 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, b/l mastectomy 11/22/17 today due to recurrent abcesses/cysts x15 breast bx's x7 - MUSCULOSKELETAL/RHEUMATOLOGICAL Hx Falls: No - GASTROINTESTINAL Hx Gastrointestinal Disorders: Yes (obese) Hx Gastroesophageal Reflux: Yes Other/Comment: colon polyps, gastritis - GENITOURINARY/GYNECOLOGICAL Hx Genitourinary Disorders: Yes (recurrent b/l breast abcesseds) Hx Urinary Tract Infection: Yes Other/Comment: frequency burning on urination - PSYCHIATRIC Hx Anxiety: Yes Hx Depression: Yes Hx Emotional Abuse: No Hx Physical Abuse: No Hx Substance Use: No - SURGICAL HISTORY Hx Cardiac Catheterization: Yes Other/Comment: b/l mastectomy for abcesses, umbilical hernia sx 10 yrs ago - ANESTHESIA Hx Anesthesia Reactions: No Hx Malignant Hyperthermia: No Meds - Medications Medications: Current Medications Albuterol/Ipratropium (Duoneb 3 Mg/0.5 Mg (3 Ml) Ud) 3 ml IH [id number] [facility] Last Admin: 03/02/18 13:29 Dose: 3 ml Atorvastatin Calcium (Lipitor) 20 mg PO QPM [facility] Citalopram Hydrobromide (Celexa) 40 mg PO DAILY [facility] Last Admin: 03/02/18 09:32 Dose: 40 mg Famotidine (Pepcid) 20 mg PO BID [facility] Last Admin: 03/02/18 09:31 Dose: 20 mg Gabapentin (Neurontin) 300 mg PO TID [facility] PRN Reason: Protocol Last Admin: 03/02/18 14:42 Dose: 300 mg Ibuprofen (Motrin Tab) 400 mg PO Q6H PRN PRN Reason: Pain, moderate (4-7) Last Admin: 03/02/18 11:44 Dose: 400 mg Insulin Human Regular (Humulin R Low) 0 units SC ACHS [facility] PRN Reason: Protocol Last Admin: 03/02/18 11:34 Dose: Not Given Metformin HCl (Glucophage) 500 mg PO ACTID [facility] Last Admin: 03/02/18 11:44 Dose: 500 mg Mometasone Furoate (Asmanex Twisthaler 220 Mcg) 2 puff IH QPM [facility] Montelukast Sodium (Singulair) 10 mg PO DAILY [facility] Last Admin: 03/02/18 09:32 Dose: 10 mg Fluticasone/Vilanterol [Breo Ellipta 200-25 Mcg Inh] 1 Puff (Home Med) 1 puff IH DAILY [facility] Last Admin: 03/02/18 09:26 Dose: Not Given Vitamin B Complex [ Balance B-100] 1 Tab (Home Med) 1 tab PO DAILY [facility] Last Admin: 03/02/18 09:27 Dose: Not Given Pantoprazole Sodium (Protonix Ec Tab) 40 mg PO 0600 [facility] Last Admin: 03/02/18 05:39 Dose: 40 mg Tramadol HCl (Ultram) 50 mg PO BID [facility] Last Admin: 03/02/18 09:31 Dose: 50 mg Zolpidem Tartrate (Ambien) 5 mg PO HS [facility] PRN Reason: Protocol Physical Exam - Constitutional Appears: Well, Non-toxic, No Acute Distress - Head Exam Head Exam: ATRAUMATIC, NORMOCEPHALIC - ENT Exam ENT Exam: Mucous Membranes Moist - Respiratory Exam Respiratory Exam: Chest Wall Tenderness, Rales, Wheezes - Cardiovascular Exam Cardiovascular Exam: Bradycardia - GI/Abdominal Exam GI & Abdominal Exam: Soft. absent: Distended, Firm, Guarding, Rebound, Rigid, Tenderness Additional comments: abdomen is obese with prior surgical scars noted - Extremities Exam Extremities exam: Positive for: pedal pulses present. Negative for: calf tenderness, pedal edema - Neurological Exam Neurological exam: Alert, Oriented x3 - Psychiatric Exam Psychiatric exam: Normal Affect, Normal Mood - Skin Skin Exam: Dry, Intact, Normal Color, Warm Additional comments: Mastectomy incisions are well healed with no erythema, masses, fluctuance or induration on the incision or in any surrounding tissue, no rashes, bruising or petechiae noted on the chest wall - Additional Findings Additional findings: chest wall tenderness is reproduceable in left medial chest wall in 1cm x 2cm area Results - Vital Signs Recent Vital Signs: Last Vital Signs Temp 98.2 F 03/02/18 14:00 Pulse 50 L 03/02/18 14:00 Resp 18 03/02/18 14:00 BP 118/54 L 03/02/18 14:00 Pulse Ox 94 L 03/02/18 14:00 - Labs Result Diagrams: 03/01/18 17:00 03/01/18 17:00 Labs: Laboratory Results - last 24 hr 03/01/18 03/02/18 03/02/18 22:16 05:20 06:30 POC Glucose (mg/dL) 86 Lactate Dehydrogenase 428 Total Creatine Kinase 43 Troponin I < 0.01 TSH 3rd Generation 0.57 03/02/18 03/02/18 07:16 11:25 POC Glucose (mg/dL) 104 137 H Lactate Dehydrogenase Total Creatine Kinase Troponin I TSH 3rd Generation Assessment & Plan - Assessment and Plan (Free Text) Assessment: 57 yr old female s/p bilateral mastectomy 3 months ago with left sided chest wall pain, without left arm radiation; possible costocondritis/ tietze syndrome Plan: - advise patient to place moist heat on area, use UL tested heating pad for safety - recommend rest and avoidance of strenuous activity - follow up in Dr. Vargas' office for lidocaine and steroid injections - recommend minimizing/avoiding IV pain medication - no surgical intervention at this time - plan discussed with Dr. Sam Herrera, PGY 1 <Ghassan Vargas - Last Filed: 03/06/18 07:51> Results - Vital Signs Recent Vital Signs: Last Vital Signs Temp 98.2 F 03/02/18 14:00 Pulse 50 L 03/02/18 14:00 Resp 18 03/02/18 14:00 BP 118/54 L 03/02/18 14:00 Pulse Ox 94 L 03/02/18 14:00 - Labs Result Diagrams: 03/01/18 17:00 03/01/18 17:00 Assessment & Plan - Assessment and Plan (Free Text) Assessment: Tietze syndrome Totally unrelated to prior surgeries Cons Rx/Possible steroid injection in the office post d/c Rhis consult done under my direct ssupervision Anton Vargas MD FACS
--- NOTE | 2018-03-02 16:23 | CON ---
DATE: 03/02/2018 REASON FOR THE CONSULTATION: Left-sided chest pain with tenderness. Cardiac evaluation. BRIEF CLINICAL HISTORY: A 57-year-old female with past medical history significant for type 2 diabetes, morbid obesity, sleep apnea, depression, insomnia, hyperlipidemia, COPD, asthma, history of multiple breast surgery, recurrent mastitis came in with complaint of left-sided chest pain. Denies any chest pain on exertion. Feels very tender. PAST MEDICAL HISTORY: Significant for diabetes, hypertension, hyperlipidemia, morbid obesity, sleep apnea, recurrent mastitis, multiple breast surgery bilateral. Admitted with left-sided chest pain. History of asthma. Denies any chest pain on exertion. SOCIAL HISTORY: Denies smoking. Denies any history of alcohol abuse. CURRENT MEDICATIONS: The patient is taking at home oxycodone, vitamin B, tramadol, Singulair, metformin, Pepcid, atorvastatin. PREVIOUS CARDIAC WORKUP: As follows; the patient had an echocardiography done on 08/24/2017 that showed normal chamber sizes, ejection fraction 60-65%, trace mitral regurgitation, trace tricuspid regurgitation, RV systolic pressure 30. The patient had a stress test on 08/24/2017 that showed ejection fraction 64%. Normal myocardial perfusion study. Normal stress test. REVIEW OF SYSTEMS: As per HPI. PHYSICAL EXAMINATION: VITAL SIGNS: Height of the patient is 5 feet 3 inches, weight of the patient 287 pounds, body mass index 50.8 kg/m2. Rest of the vitals, temperature afebrile, heart rate 50, blood pressure 117/68. HEENT: PERRLA. Extraocular muscles intact. NECK: Supple. No carotid bruit. No thyromegaly. CHEST: Clear to auscultation. HEART: S1 and S2 regular. ABDOMEN: Soft. EXTREMITIES: Clubbing and cyanosis negative. LABORATORY DATA: Blood workup as follows; WBC 9.8, hemoglobin 13.9, hematocrit of 41.7, platelet count 335. Chemistry shows sodium 144, potassium 3.9, chloride 105, carbon dioxide 30, anion gap of 13, BUN 10, creatinine 0.6. Troponin 0.01, negative. EKG shows sinus froy. No acute ST-T changes noted. IMPRESSION: Atypical chest pain, very tender on the left side of the chest. History of multiple breast abscess, history of multiple surgery, obesity, sleep apnea, insomnia, psychiatric disorder, depression. Negative stress test in 08/2017 and negative echo. Trace mitral regurgitation, trace tricuspid regurgitation, preserved left ventricular function. Troponin remains negative. EKG shows normal sinus, sinus bradycardia. RECOMMENDATIONS: We will start ibuprofen. We will discontinue Telemetry. No further cardiac workup is planned or warranted. We will start some ibuprofen 400 mg every 6 hours, first dose now. Start some NSAID. Thank you, Dr. Chaudhry, for providing us the opportunity in taking care of the patient, Lizet Bhat. We will follow with you. Kervin Hughes MD
[2018-03-02] MEDS ORDERED: Mometasone 220 mcg/puff-14 puff Inh IH SCH (18:00)
--- NOTE | 2018-03-02 20:19 | CON ---
DATE: 03/02/2018 PULMONARY CONSULT REFERRING PHYSICIAN: Shonda Chaudhry MD REASON FOR CONSULT: Chronic obstructive lung disease, may have sleep apnea syndrome. HISTORY OF PRESENT ILLNESS: This is a 57 years old female known to me from previous admission, noncompliant with followup, suspected sleep apnea syndrome, chronic lung disease, history of recurrent breast abscess requiring bilateral breast surgeries, also nonspecific chest pain. No nausea, vomiting, or diarrhea. No leg pain or leg swelling. PAST MEDICAL HISTORY: Significant for hypertension, chronic lung disease, diabetes, recurrent breast abscess requiring surgery, history of GERD, colonic polyp, gastritis, anxiety disorder, depression. FAMILY HISTORY: No significant cardiopulmonary disease reported. SOCIAL HISTORY: Denies any alcohol use. She is active smoker. ALLERGIES: NONE KNOWN. MEDICATIONS: She is on Ambien 5 mg at bedtime, daily, Celexa 40 mg daily, DuoNeb every 6 hours, BREO 200/25 one tablet daily, metformin 500 mg before meals t.i.d., Lipitor 20 mg daily, Motrin 400 mg every 6 hours p.r.n., Neurontin 300 mg three times a day, Pepcid 20 mg twice a day, Protonix 40 mg daily, Singulair 10 mg daily, Ultram 50 mg twice a day, vitamin B complex daily. REVIEW OF SYSTEMS: No headache. No rhinitis. Short of breath with exertion. No chest pain. Admit to have snoring, daytime sleepy, and tired. Left-sided muscular type pain. No nausea, no vomiting, no diarrhea. No leg pain or leg swelling. PHYSICAL EXAMINATION: GENERAL: Lying in the bed, sleepy, arousable. VITAL SIGNS: Temperature is 98, heart rate 50, respiratory rate is 18, blood pressure 118/54, pulse ox 94% on room air. HEENT: Moist mucous membrane. Crowded airway. Mallampati score is 4. NECK: Supple. No JVD. LUNGS: Few scattered rhonchi. HEART: S1 and S2. ABDOMEN: Soft, nontender. No organomegaly. EXTREMITIES: No edema. NEUROLOGIC: Awake, alert, and follows simple commands. LABORATORY DATA: Shows hemoglobin 13.9, hematocrit 41.7, WBC 9.8, and platelet count is 335. Sodium 144, potassium 3.9, chloride 105, bicarbonate 30. BUN 10, creatinine 0.6. Glucose 86, hemoglobin A1c 6.6. Calcium 8.9. AST 22, ALT 28, alk phos is 71. Troponin 0.01. Albumin is 3. TSH 0.57. CAT scan of the chest done on admission shows no changes in 26 mm cyst in the anterior mediastinum. No acute finding other than the cyst. IMPRESSION: Chronic obstructive lung disease, may have sleep apnea syndrome, history of multiple breast abscesses requiring surgery, diabetes, hypertension, anxiety disorder, depression, refusing to use CPAP. Continue inhaled bronchodilator. Keep head at 45 degrees. Gastric prophylaxis, deep venous thrombosis prophylaxis. Being followed by Cardiology. Out of bed to chair. Fall precaution. Thank you and we will follow with you. Kervin Dominguez MD
--- NOTE | 2018-03-03 05:27 | DS ---
I saw the patient only one time and the patient was discharged same day; for more details, see my history and physical. Shonda Chaudhry MD
--- NOTE | 2018-03-03 06:59 | HP ---
DATE OF EXAM: 03/02/2018 CHIEF COMPLAINT: Chest pain. HISTORY OF PRESENT ILLNESS: Ms. Lizet Bhat is a 57-year-old female with past medical history of hypercholesterolemia, diabetes mellitus, asthma, bilateral breast abscesses, bilateral mastectomy, postmenopausal, came with left-sided chest pain radiating into the shoulder from, no aggravating or relieving factor. Pain is sharp. No fever, no chills. No coughing. No palpitation. No rash. No hematuria. No hematochezia. PAST MEDICAL HISTORY: As above, hypertension, COPD, diabetes mellitus type 2, chronic recurrent bilateral breast abscess, cyst with green drainage, bilateral mastectomy due to recent abscess and cyst, arthritis, obesity, gastritis, history of urinary tract infection, anxiety, depression, history of cardiac catheterization three years ago. FAMILY HISTORY: Father and mother, noncontributory. HABITS: No smoking. No drugs. No ethanol. ALLERGIES: PATIENT IS NOT ALLERGIC WITH ANY MEDICATIONS. HOME MEDICATIONS: Omeprazole, Singulair, hydromorphone, Neurontin, Ativan, Ambien. REVIEW OF SYSTEMS: The patient was seen and examined at the bedside, looking comfortable. No nausea, vomiting, or diarrhea. No hematuria or hematochezia. No fatigue. No vision changes. No hearing changes. No shortness of breath or coughing. Having left side of the chest is tender. No abdominal pain. No rash. No pruritus. No headache. No dizziness. PHYSICAL EXAMINATION: VITAL SIGNS: Temperature 98.5, pulse 58, respiratory rate 18, blood pressure 108/73, pulse oximetry 95%. HEENT: Head normocephalic, atraumatic. Eyes PERRLA. Extraocular muscles intact. Conjunctivae clear. Nose patent. Mucous membrane moist. NECK: Supple. No carotid bruit. No JVD or thyromegaly. CHEST: Bilaterally symmetrical. HEART: S1 and S2 positive. LUNGS: Clear to auscultation. ABDOMEN: Soft. Bowel sounds positive. No organomegaly. EXTREMITIES: No edema. No cyanosis. NEUROLOGICAL: The patient is awake and alert. Moving all four extremities. No focal deficits. LABORATORY DATA: White blood cells 9.8, hemoglobin 13.9, hematocrit 41.7, platelets 335,000. Sodium 144, potassium 3.9, BUN 10, creatinine 0.6, glucose 93. ASSESSMENT AND PLAN: Ms. Lizet Bhat is a 57-year-old lady who came with left sided chest pain. CT of the chest was done shows stable 2.5-cm cystic lesion superior to mediastinum, small bilateral hernias, bilateral renal cysts, largest of the left measuring 2.4 cm, fatty infiltration of the liver, came with chest pain, as per Dr. Vargas is like costochondritis, need pain medication, intermittent heating pad. Follow up with Dr. Ghassan Vargas' office and my office. Seen by the otolaryngologist, Dr. Hughes. Cardiac enzymes were done. The patient has history of diabetes mellitus, hypertension, hypercholesterolemia, obesity, bilateral mastectomy due to multiple time abscess and cysts. Mastectomy was done three months ago with left sided chest pain came, may be tietze. The patient is advised to place moisture heat on the area, use UL tested heating pad for safety. Recommended to rest and avoidance of strenuous activities. Recommended minimizing, avoiding IV pain medications. No surgical intervention at this time. The patient has history of sleep apnea syndrome also, history of asthma, chronic obstructive pulmonary disease, according to otolaryngologist, it looks like atypical chest pain, very tender on the left side of the chest, may be psychiatric disorder, depression, negative stress test done in 08/2017 and negative echo. Ibuprofen given. Discontinue the telemetry. Discussion done with Dr. Ghassan Vargas and discharged patient home. Follow up with Dr. Ghassan Vargas' office and Dr. Chaudhry's office. Shonda Chaudhry MD
== END 2018-03-02 17:51 | disposition home or self-care (01) ==
LOC: ED 15:04 → ERH 20:13 → 2RNO 22:03 → 5RSO 03-02 12:51
PROVIDERS: ADMIT Internal Medicine; ATTEND Internal Medicine
DX: M94.0 Chondrocostal junction syndrome [Tietze] (principal); J44.9 Chronic obstructive pulmonary disease, unspecified; E11.9 Type 2 diabetes mellitus without complications; F32.9 Major depressive disorder, single episode, unspecified; E66.01 Morbid (severe) obesity due to excess calories; Z68.43 Body mass index [BMI] 50.0-59.9, adult; E78.00 Pure hypercholesterolemia, unspecified; I10 Essential (primary) hypertension; K21.9 Gastro-esophageal reflux disease without esophagitis; K44.9 Diaphragmatic hernia without obstruction or gangrene; G47.00 Insomnia, unspecified; E78.5 Hyperlipidemia, unspecified; G47.30 Sleep apnea, unspecified; K76.0 Fatty (change of) liver, not elsewhere classified; N28.1 Cyst of kidney, acquired; F17.210 Nicotine dependence, cigarettes, uncomplicated; Z86.010 Personal history of colon polyps; Z87.440 Personal history of urinary (tract) infections; Z90.13 Acquired absence of bilateral breasts and nipples; Z91.19 Patient's noncompliance with other medical treatment and regimen; Z79.84 Long term (current) use of oral hypoglycemic drugs; Z78.0 Asymptomatic menopausal state
CPT/HCPCS: 36415; 71260; 80053; 80061; 82550; 82948; 83036; 83615; 83735; 84443; 84484; 85025; 93005; 94640; 94760; 96374; 96375; 96376; 99285; G0378; J1885; J2270; Q9967

== ENCOUNTER 2018-03-27 07:33 | Inpatient (IN) | payer MEDICAID, MEDICARE ==
[2018-03-27] MEDS ORDERED: Morphine 4 mg/ml ISec IVP STA ×2 (07:53→11:55)
[2018-03-27] MEDS ORDERED: Iohexol 240 (50 ml) ONE (07:56)
--- NOTE | 2018-03-27 08:09 | ED PDOC ---
Arrival/HPI - General Chief Complaint: Abdominal Pain Time Seen by Provider: 03/27/18 07:51 Historian: Patient - History of Present Illness Narrative History of Present Illness (Text): 03/27/18 08:02 58 year old female, whose past medical history includes diabetes, asthma, hyperlipidemia, hernia repair surgery, and recurrent bilateral breast abscess, presents to the emergency department with generalized abdominal pain. Patient states pain radiates to both sides as well as her back. Patient is nauseous, but has not vomited. Patient states she has not been able to eat regularly since onset of pain. Patient states pain is constant, yet the affected areas are even more painful to the touch. Patient denies any fever, chills, headache , dizziness, chest pain, shortness of breath, cough, nausea, neck pain, urinary/ bowel changes, or any other complaint. PMD: Dr. Chaudhry Time/Duration: Prior to Arrival Symptom Onset: Gradual Symptom Course: Unchanged Activities at Onset: Light Context: Home Past Medical History - Provider Review Nursing Documentation Reviewed: Yes - Infectious Disease Hx of Infectious Diseases: None - Tetanus Immunization Tetanus Immunization: Unknown - Cardiac Hx Hypertension: Yes - Pulmonary Hx Chronic Obstructive Pulmonary Disease (COPD): Yes - Neurological Hx Neurological Disorder: Yes Hx Migraine: Yes - HEENT Hx HEENT Disorder: Yes (eyeglases) - Renal Hx Renal Disorder: No - Endocrine/Metabolic Hx Diabetes Mellitus Type 2: Yes - Hematological/Oncological Hx Blood Disorders: No - Integumentary Hx Dermatological Disorder: Yes Other/Comment: 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, b/l mastectomy 11/22/17 today due to recurrent abcesses/cysts x15 breast bx's x7 - Musculoskeletal/Rheumatological Hx Falls: No - Gastrointestinal Hx Gastrointestinal Disorders: Yes (obese) Hx Gastroesophageal Reflux: Yes Other/Comment: colon polyps, gastritis - Genitourinary/Gynecological Hx Genitourinary Disorders: Yes (recurrent b/l breast abcesseds) Hx Urinary Tract Infection: Yes Other/Comment: frequency burning on urination - Psychiatric Hx Anxiety: Yes Hx Depression: Yes Hx Emotional Abuse: No Hx Physical Abuse: No Hx Substance Use: No - Surgical History Hx Cardiac Catheterization: Yes Hx Mastectomy: Yes (Bilateral Mastectomy 2017) Other/Comment: umbilical hernia sx 10 yrs ago - Anesthesia Hx Anesthesia Reactions: No Hx Malignant Hyperthermia: No - Suicidal Assessment Feels Threatened In Home Enviroment: No Family/Social History - Physician Review Nursing Documentation Reviewed: Yes Family/Social History: No Known Family HX Smoking Status: Light Smoker < 10 Cigarettes Daily Hx Alcohol Use: No Hx Substance Use: No Hx Substance Use Treatment: No Allergies/Home Meds Allergies/Adverse Reactions: Allergies No Known Allergies Allergy (Verified 03/27/18 14:55) Home Medications: Home Meds Medication Instructions Recorded Confirmed Fluticasone/Vilanterol [Breo 1 puff IH DAILY 03/21/17 03/27/18 Ellipta 200-25 Mcg INH] Omeprazole 20 mg PO QPM 03/21/17 03/27/18 Montelukast [Singulair] 10 mg PO DAILY 11/10/17 03/27/18 Vitamin B Complex [Balance B-100] 1 tab PO DAILY 11/10/17 03/27/18 Citalopram Hydrobromide [Celexa] 40 mg PO DAILY 03/01/18 03/27/18 Gabapentin [Neurontin] 1 tab PO TID 03/01/18 03/27/18 LORazepam [Ativan] 1 tab PO DAILY PRN 03/01/18 03/27/18 Zolpidem [Ambien] 1 tab PO HS 03/01/18 03/27/18 Review of Systems - Physician Review All systems were reviewed & negative as marked: Yes - Review of Systems Constitutional: Normal. absent: Fevers, Night Sweats Eyes: Normal ENT: Normal Respiratory: Normal. absent: SOB, Cough Cardiovascular: Normal. absent: Chest Pain Gastrointestinal: Abdominal Pain (non-localized abdominal pain), Diarrhea (some diarrhea recently), Nausea, Appetite Changes (unable to eat since onset of pain) . absent: Vomiting Genitourinary Female: Normal. absent: Urine Output Changes Musculoskeletal: Back Pain (associated with radiation of her abdominal pain). absent: Neck Pain Skin: Normal Neurological: Normal. absent: Headache, Dizziness Endocrine: Normal Hemo/Lymphatic: Normal Psychiatric: Normal Physical Exam - Physical Exam Narrative Physical Exam (Text): 03/27/18 08:10 Gen: VS reviewed, alert, well developed, well nourished, nontoxic, mild distress. ENT: normal pharynx. Eye: EOMI, PERRL. Neck: no JVD, supple, no adenopathy. CV: regular rate, regular rhythm, no rubs, no murmur, no gallops, S1, S2, pulses equal and strong. Pulm: no distress, clear to auscultation, no wheeze, no rhonchi, breath sounds equal, no rales. Abd: Diffuse abdominal tenderness, no guarding, no rebound, no rigidity, unable to localize pain, questionable bilateral CVA tenderness Ext: no edema. Skin: good color, no rash, no cyanosis. Psych: responds appropriately to questions, normal affect. Neuro: oriented x 3, CN2-12 intact grossly, motor intact, sensation intact. Vital Signs Reviewed: Yes Vital Signs Temp Pulse Resp BP Pulse Ox 03/27/18 12:30 74 18 119/79 94 L 03/27/18 11:23 47 L 18 140/94 H 94 L 03/27/18 09:43 46 L 18 104/66 93 L 03/27/18 07:43 98.9 F 53 L 18 148/110 H 100 Temperature: Afebrile Blood Pressure: Hypertensive Pulse: Regular Respiratory Rate: Normal Appearance: Positive for: Well-Appearing, Non-Toxic, Comfortable Pain Distress: None Mental Status: Positive for: Alert and Oriented X 3 Medical Decision Making ED Course and Treatment: 03/27/18 08:12 Impression: 58 year old female presents to the emergency department with generalized abdominal pain. Plan: -- Abdominopelvic CT -- EKG -- Labs -- Morphine -- Zofran -- Urinalysis -- Reassess and disposition Prior Visits: Notes and results from previous visits were reviewed. Progress Notes: 03/27/18 12:02 patient with continued pain despite multiple medication interventions. admit accpeted by dr. chaudhry. patient to be admitted for intractable abdominal pain. Ed in the workup negative including labs and CT. it is possible that the patient pain pattern may be radicular as there is a component of back pain associated with abdominal pain. there are no acute neurologic deficits to suggest acute compression and etiology such as aortic dissection appears unlikley. - Lab Interpretations Lab Results: 03/27/18 08:19 03/27/18 08:19 Lab Results 03/27/18 08:19: Sodium 146, Potassium 3.8, Chloride 106, Carbon Dioxide 29, Anion Gap 15, BUN 9, Creatinine 0.6 L, Est GFR ( Amer) > 60, Est GFR (Non -Af Amer) > 60, Random Glucose 101, Calcium 8.9, Total Bilirubin 0.4, AST 17, ALT 30, Alkaline Phosphatase 76, Total Protein 6.6, Albumin 3.7, Globulin 2.9, Albumin/Globulin Ratio 1.2, Lipase 50 03/27/18 08:19: Urine Color Yellow, Urine Appearance Clear, Urine pH 6.0, Ur Specific [place] 1.010, Urine Protein Negative, Urine Glucose (UA) Negative, Urine Ketones Negative, Urine Blood Negative, Urine Nitrate Negative, Urine Bilirubin Negative, Urine Urobilinogen 0.2, Ur Leukocyte Esterase Negative 03/27/18 08:19: WBC 7.3 D, RBC 4.74, Hgb 13.9, Hct 41.2, MCV 86.9, MCH 29.3, MCHC 33.7, RDW 14.1, Plt Count 286, MPV 10.9, Gran % 60.3, Lymph % (Auto) 31.2, [place] % (Auto) 5.5, Eos % (Auto) 2.5, Baso % (Auto) 0.5, Gran # 4.41, Lymph # ( Auto) 2.3, [place] # (Auto) 0.4, Eos # (Auto) 0.2, Baso # (Auto) 0.04 - RAD Interpretation Narrative RAD Interpretations (Text): 03/27/18 11:09 CT Abdomen and Pelvis with contrast LOWER THORAX: Unremarkable. LIVER: Unremarkable. No gross lesion or ductal dilatation. GALLBLADDER AND BILE DUCTS: Unremarkable. PANCREAS: Unremarkable. No gross lesion or ductal dilatation. SPLEEN: Unremarkable. ADRENALS: Unremarkable. No mass. KIDNEYS AND URETERS: Unremarkable. No hydronephrosis. No solid mass. VASCULATURE: Unremarkable. No aortic aneurysm. BOWEL: Unremarkable. No obstruction. No gross mural thickening. APPENDIX: Normal appendix. PERITONEUM: Unremarkable. No free fluid. No free air. LYMPH NODES: Unremarkable. No enlarged lymph nodes. BLADDER: Unremarkable. REPRODUCTIVE: Unremarkable. BONES: No acute fracture. OTHER FINDINGS: There is a small fat containing hernia on the left side of the anterior abdominal wall. There is no herniation of bowel loops IMPRESSION: No acute intra-abdominal findings Radiology Orders: 03/27/18 07:52 ABDOMEN & PELVIS [ABD PELVIS PO & IV CONTRAST] [CT] Stat Quality Manager: Radiologist - EKG Interpretation EKG Interpretation (Text): 03/27/18 09:12 0856: sinus bradycardia at 48 bpm, nml qrs, nml axis, nonspecific t wave abn Interpreted by ED Physician: Yes - Medication Orders Current Medication Orders: Citalopram Hydrobromide (Celexa) 40 mg PO DAILY CARLOS Sodium Chloride (Sodium Chloride 0.9%) 1,000 mls @ 150 mls/hr IV .[id number] CARLOS Last Admin: 03/27/18 16:05 Dose: 150 mls/hr eMAR Start Stop Document 03/27/18 16:05 MELINA (Rec: 03/27/18 16:05 MELINA [facility] [id number] Intravenous Solution Start Date 03/27/18 Start Time 16:05 Ceftriaxone Sodium (Rocephin 1 Gram Ivpb) 1 gm in 100 mls @ 100 mls/hr IVPB DAILY CARLOS PRN Reason: Protocol Insulin Human Regular (Humulin R Low) 0 units SC ACHS CARLOS PRN Reason: Protocol Mometasone Furoate (Asmanex Twisthaler 220 Mcg) 2 puff IH QPM CARLOS Non-Formulary Medication (Fluticasone/Vilanterol [Breo Ellipta 200-25 Mcg Inh]) 1 puff IH DAILY CARLOS Non-Formulary Medication (Vitamin B Complex [Balance B-100]) 1 tab PO DAILY CARLOS Ondansetron HCl (Zofran Inj) 4 mg IVP Q6 PRN PRN Reason: Nausea/Vomiting Pantoprazole Sodium (Protonix Inj) 40 mg IVP DAILY [facility] Last Admin: 03/27/18 16:04 Dose: 40 mg IVP Administration Document 03/27/18 16:04 MELINA (Rec: 03/27/18 16:04 MELINA [facility] [id number]) Charges for Administration # of IVP Administrations 1 Zolpidem Tartrate (Ambien) 5 mg PO HS CARLOS PRN Reason: Protocol Discontinued Medications Ketorolac Tromethamine (Toradol) 30 mg IVP STAT STA Stop: 03/27/18 11:06 Last Admin: 03/27/18 11:20 Dose: 30 mg MAR Pain Assessment Document 03/27/18 11:20 GMD (Rec: 03/27/18 11:21 GMD [id number]) Pain Reassessment Is this a pain reassessment? Yes Sleep Is patient sleeping during reassessment? No Presence of Pain Presence of Pain Yes Pain Scale Used Pain Scale Used Numeric Location Upper or Lower Lower Pain Location Body Site Abdomen Description Intensity of Pain at present 8 IVP Administration Document 03/27/18 11:20 GMD (Rec: 03/27/18 11:21 GMD [id number]) Charges for Administration # of IVP Administrations 1 Morphine Sulfate (Morphine) 6 mg IVP STAT STA Stop: 03/27/18 07:54 Last Admin: 03/27/18 08:25 Dose: 6 mg MAR Pain Assessment Document 03/27/18 08:25 SRE (Rec: 03/27/18 08:26 SRE [id number]) Pain Reassessment Is this a pain reassessment? Yes Sleep Is patient sleeping during reassessment? No Presence of Pain Presence of Pain Yes Pain Scale Used Pain Scale Used Numeric Location Pain Location Body Site Abdomen Description Description Intermittent IVP Administration Document 03/27/18 08:25 SRE (Rec: 03/27/18 08:26 SRE [id number]) Charges for Administration # of IVP Administrations 1 Morphine Sulfate (Morphine) 6 mg IVP STAT STA Stop: 03/27/18 11:56 Last Admin: 03/27/18 12:29 Dose: 6 mg MAR Pain Assessment Document 03/27/18 12:29 GMD (Rec: 03/27/18 12:29 GMD [id number]) Pain Reassessment Is this a pain reassessment? Yes Sleep Is patient sleeping during reassessment? No Presence of Pain Presence of Pain Yes Pain Scale Used Pain Scale Used Numeric Description Intensity of Pain at present 10 IVP Administration Document 03/27/18 12:29 GMD (Rec: 03/27/18 12:29 GMD [id number]) Charges for Administration # of IVP Administrations 1 Ondansetron HCl (Zofran Inj) 4 mg IVP STAT STA Stop: 03/27/18 07:54 Last Admin: 03/27/18 08:25 Dose: 4 mg IVP Administration Document 03/27/18 08:25 SRE (Rec: 03/27/18 08:25 SRE [id number]) Charges for Administration # of IVP Administrations 1 - Scribe Statement The provider has reviewed the documentation as recorded by the Scribe Peter Bill All medical record entries made by the Nateibsamantha were at my direction and personally dictated by me. I have reviewed the chart and agree that the record accurately reflects my personal performance of the history, physical exam, medical decision making, and the department course for this patient. I have also personally directed, reviewed, and agree with the discharge instructions and disposition. Disposition/Present on Arrival - Present on Arrival Any Indicators Present on Arrival: No History of DVT/PE: No History of Uncontrolled Diabetes: Yes Urinary Catheter: No History of Decub. Ulcer: No History Surgical Site Infection Following: None - Disposition Have Diagnosis and Disposition been Completed?: Yes Diagnosis: Abdominal pain Disposition: HOSPITALIZED Disposition Time: 12:02 Patient Plan: Admission Condition: STABLE
[2018-03-27] MEDS: Sodium Chloride 0.9% 1,000 ML IV SCH ×2 (08:24→16:05)
[2018-03-27 08:32] LABS: BASO # 0.04 K/mm3 (0.0-2.0); BASO % 0.5 % (0.0-3.0); EOS # 0.2 (0.0-0.7); EOS % 2.5 % (1.5-5.0); GRAN # 4.41 (1.4-6.5); GRAN % 60.3 % (50.0-68.0); HEMOGLOBIN 13.9 g/dL (12.0-16.0); LYMPH # 2.3 (1.2-3.4); LYMPH % 31.2 % (22.0-35.0); MEAN CELL VOLUME 86.9 fl (80.0-105.0); MEAN CORPUSCULAR HEMOGLOBIN 29.3 pg (25.0-35.0); MEAN CORPUSCULAR HGB CONC 33.7 g/dl (31.0-37.0); MEAN PLATELET VOLUME 10.9 fl (7.0-11.0); MONO # 0.4 (0.1-0.6); MONO % 5.5 % (1.0-6.0); RBC 4.74 10^6/uL (3.5-6.1); RED CELL DISTRIBUTION WIDTH 14.1 % (11.5-14.5); URINE BILIRUBIN NEGATIVE (NEGATIVE); URINE BLOOD NEGATIVE (NEGATIVE); URINE GLUCOSE (UA) NEGATIVE (NEGATIVE); URINE LEUKOCYTE ESTERASE NEGATIVE Leu/uL (NEGATIVE); URINE PROTEIN NEGATIVE mg/dL (<30 mg/dL); URINE UROBILINOGEN 0.2 E.U./dL (<1 E.U./dL); WHITE BLOOD COUNT 7.3 10^3/ul (4.5-11.0)
[2018-03-27 08:35] LABS: URINE APPEARANCE CLEAR (CLEAR); URINE COLOR YELLOW (YELLOW)
[2018-03-27 08:49] LABS: ALB/GLOB RATIO 1.2 (1.1-1.8); ALBUMIN 3.7 g/dL (3.0-4.8); ALT/SGPT 30 U/L (7-56); AST/SGOT 17 U/L (14-36); BLOOD UREA NITROGEN 9 mg/dL (7-21); CALCIUM 8.9 mg/dL (8.4-10.5); GFR AFRICAN-AMERICAN > 60; GFR NON-AFRICAN AMERICAN > 60; LIPASE 50 U/L (23-300)
[2018-03-27] MEDS ORDERED: Iohexol 350 MG/100 ML VIAL ONE (10:26)
--- NOTE | 2018-03-27 11:04 | CT ---
Date of service: 03/27/2018 PROCEDURE: CT Abdomen and Pelvis with contrast HISTORY: diffuse pain, hx hernia repair COMPARISON: None. TECHNIQUE: Contrast dose: 150 cc of Omni 350 Radiation dose: Total exam DLP = 1568 mGy-cm. This CT exam was performed using one or more of the following dose reduction techniques: Automated exposure control, adjustment of the mA and/or kV according to patient size, and/or use of iterative reconstruction technique. FINDINGS: LOWER THORAX: Unremarkable. LIVER: Unremarkable. No gross lesion or ductal dilatation. GALLBLADDER AND BILE DUCTS: Unremarkable. PANCREAS: Unremarkable. No gross lesion or ductal dilatation. SPLEEN: Unremarkable. ADRENALS: Unremarkable. No mass. KIDNEYS AND URETERS: Unremarkable. No hydronephrosis. No solid mass. VASCULATURE: Unremarkable. No aortic aneurysm. BOWEL: Unremarkable. No obstruction. No gross mural thickening. APPENDIX: Normal appendix. PERITONEUM: Unremarkable. No free fluid. No free air. LYMPH NODES: Unremarkable. No enlarged lymph nodes. BLADDER: Unremarkable. REPRODUCTIVE: Unremarkable. BONES: No acute fracture. OTHER FINDINGS: There is a small fat containing hernia on the left side of the anterior abdominal wall. There is no herniation of bowel loops IMPRESSION: No acute intra-abdominal findings
--- NOTE | 2018-03-27 12:03 | CARD ---
APPROVED REPORT Date of service: 03/27/2018 EKG Measurement Heart [id number] <Conclusion> Marked sinus bradycardia Nonspecific T wave abnormality Abnormal ECG
--- NOTE | 2018-03-27 14:30 | CP.PCM.CON ---
History of Present Illness - History of Present Illness History of Present Illness: S&E at bedside this afternoon, chart reviewed. Request for consult is for abdominal pain. HPI: This is a 58 year old morbidly obese female with a PMH of DM, Asthma, Hernia repair surgery, breast abscess, known to our service from previous admission in August 2017. She came to the ER with complaints of worsening lower abdominal pain that radiates bilaterally to her back the past 3 days. Describes the pain to be sharp"like menstrual cramps". Decrease appetite due to pain. She c/o feeling dizzy, nausea, no vomiting. Reports dysuria but no hematuria. Denies fever or chills. Currently having loose stool ,no melena or BRBPR. Denies recent antibiotics use. She endorses that she saw Dr. Arias (GI) 2 months ago, was given medication for the discomfort, cannot recall the name. Has heartburn at times and may take Rolaids a few times a week. Patient has lost weight but is intentional. She is trying to loose weight. She had a ct scan of the abdomen and pelvis w/iv and oral contrast and that show no acute intra-abdominal findings, bowel unremarkable except for small fat containing hernia on the let side of the anterior abdominal wall. Recent endoscopy and colonoscopy [address] Arias in [facility] Endoscopy found to have ulcers , on colonoscopy she does not recall any acute findings , does report history of colon polyps. Did see previous scopes by Dr. Matos at [facility] 2012, had colon polyps and esophagus normal and stomach erytehma, gastric bx, no HP. Past medical history: Morbid obesity, diabetes, sleep apnea, hyperlipidemia, GERD, colon polyps, recurrent abscess of breast, depression, Asthma Surgical history: breast abscess, hernia repair surgery, mediastinal mass bx: bronogenic cyst Allergies: No known drug allergies Family history: Denies Social history: Positive for smoking, denies EtOH, denies drug use Medications: Reviewed as per MAR ROS: Systems reviewed with positive finding see HPI. Past Patient History - Infectious Disease Hx of Infectious Diseases: None - Tetanus Immunizations Tetanus Immunization: Unknown - Past Medical History & Family History Past Medical History?: Yes - Past Social History Smoking Status: Light Smoker < 10 Cigarettes Daily - CARDIAC Hx Hypertension: Yes - PULMONARY Hx Chronic Obstructive Pulmonary Disease (COPD): Yes - NEUROLOGICAL Hx Neurological Disorder: Yes Hx Migraine: Yes - HEENT Hx HEENT Problems: Yes (eyeglases) - RENAL Hx Chronic Kidney Disease: No - ENDOCRINE/METABOLIC Hx Diabetes Mellitus Type 2: Yes - HEMATOLOGICAL/ONCOLOGICAL Hx Blood Disorders: No - INTEGUMENTARY Hx Dermatological Problems: Yes Other/Comment: 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, b/l mastectomy 11/22/17 today due to recurrent abcesses/cysts x15 breast bx's x7 - MUSCULOSKELETAL/RHEUMATOLOGICAL Hx Falls: No - GASTROINTESTINAL Hx Gastrointestinal Disorders: Yes (obese) Hx Gastroesophageal Reflux: Yes Other/Comment: colon polyps, gastritis - GENITOURINARY/GYNECOLOGICAL Hx Genitourinary Disorders: Yes (recurrent b/l breast abcesseds) Hx Urinary Tract Infection: Yes Other/Comment: frequency burning on urination - PSYCHIATRIC Hx Anxiety: Yes Hx Depression: Yes Hx Emotional Abuse: No Hx Physical Abuse: No Hx Substance Use: No - SURGICAL HISTORY Hx Cardiac Catheterization: Yes Hx Mastectomy: Yes (Bilateral Mastectomy 2017) Other/Comment: umbilical hernia sx 10 yrs ago - ANESTHESIA Hx Anesthesia Reactions: No Hx Malignant Hyperthermia: No Meds Allergies/Adverse Reactions: Allergies Allergy/AdvReac Type Severity Reaction Status Date / Time No Known Allergies Allergy Verified 03/27/18 14:55 - Medications Medications: Current Medications Sodium Chloride (Sodium Chloride 0.9%) 1,000 mls @ 150 mls/hr IV .Q6H40M [facility] Last Admin: 03/27/18 08:24 Dose: 150 mls/hr Physical Exam - Constitutional Appears: No Acute Distress - Head Exam Head Exam: NORMOCEPHALIC - Eye Exam Eye Exam: Normal appearance. absent: Scleral icterus - ENT Exam ENT Exam: Mucous Membranes Moist - Neck Exam Neck exam: Positive for: Normal Inspection - Respiratory Exam Respiratory Exam: Wheezes, NORMAL BREATHING PATTERN. absent: Respiratory Distress - Cardiovascular Exam Cardiovascular Exam: +S1, +S2 - GI/Abdominal Exam GI & Abdominal Exam: Normal Bowel Sounds, Soft, Tenderness Additional comments: epigastric tenderness, lower abdominal tenderness, obese abdomen, no rebound or guarding. - Extremities Exam Extremities exam: Positive for: pedal pulses present. Negative for: calf tenderness, pedal edema - Neurological Exam Neurological exam: Alert, Oriented x3 - Skin Skin Exam: Dry, Warm Results - Vital Signs Recent Vital Signs: Last Vital Signs Temp 98.9 F 03/27/18 07:43 Pulse 74 03/27/18 12:30 Resp 18 03/27/18 12:30 BP 119/79 03/27/18 12:30 Pulse Ox 94 L 03/27/18 12:30 - Labs Result Diagrams: 03/28/18 06:45 03/28/18 06:45 Assessment & Plan - Assessment and Plan (Free Text) Assessment: ASSESSMENT: Abdominal pain, lower abdomen/epigastric Abdominal hernia noted on ct scan GERD Morbid Obesity DM PLAN: start Protonix 40 mg daily start clear liquid and advance as tolerated surgical evaluation abdominal US on discharge patient will FU with Dr. Arias, her personal hogshead filler Thank you for this consult and for allowing us to participate in your patient care, further recommendation based upon clinical course. Case discussed w/ Dr. Cadena who is covering Dr. Hurst.
--- NOTE | 2018-03-27 15:28 | CP.PCM.CON ---
<Heber Acharya - Last Filed: 03/27/18 15:49> History of Present Illness - History of Present Illness History of Present Illness: General Surgery Consult Note for Dr. Vargas Reason for consult: abdominal pain 58 yo obese F with a PMHx of asthma, DM, hernia repair surgery, recurrent b/l breast abscess, admitted for evaluation and treatment of intractable generalized abdominal pain. As per patient, the pain is cramp-like and generalized, although she points primarily to her lower abdomen during assessment. Patient states the pain radiates to both sides as well as her back. She endorses decreased appetite due to the pain. She has nausea but denies any vomiting. Endorses intermittent heartburn for which she takes Rolaids a few times a week. No fevers or chills, headaches, lightheadedness, or dizziness, no chest pain or palpitations, no diarrhea or constipation, no bleeding episodes. Per patient, most recent endoscopy and colonoscopy was [address] Arias in [facility]. Per patient, endoscopy found to have ulcers; does not recall colonoscopy findings but reports history of colon polyps. PMHx: obesity, sleep apnea, asthma, DM, HLD, GERD, colonic polyps, recurrent breast abscess, depression, anxiety PSHx: hernia repair, b/l mastectomy for recurrent breast abscesses, mediastinal mass bx: bronogenic cyst Allergies: NKDA FHx: denies Social Hx: + smoker, < 10 cigarettes/day; denies alcohol or drug use. Home Medications: Fluticasone/Vilanterol, omeprazole, singulair, celexa, neurontin, ativan, ambien, vitamin B complex PMD: Dr. Chaudhry Review of Systems - Review of Systems All systems: reviewed and no additional remarkable complaints except (as per HPI above) Past Patient History - Infectious Disease Hx of Infectious Diseases: None - Tetanus Immunizations Tetanus Immunization: Unknown - Past Medical History & Family History Past Medical History?: Yes - Past Social History Smoking Status: Light Smoker < 10 Cigarettes Daily - CARDIAC Hx Hypertension: Yes - PULMONARY Hx Chronic Obstructive Pulmonary Disease (COPD): Yes - NEUROLOGICAL Hx Neurological Disorder: Yes Hx Migraine: Yes - HEENT Hx HEENT Problems: Yes (eyeglases) - RENAL Hx Chronic Kidney Disease: No - ENDOCRINE/METABOLIC Hx Diabetes Mellitus Type 2: Yes - HEMATOLOGICAL/ONCOLOGICAL Hx Blood Disorders: No - INTEGUMENTARY Hx Dermatological Problems: Yes Other/Comment: 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, b/l mastectomy 11/22/17 today due to recurrent abcesses/cysts x15 breast bx's x7 - MUSCULOSKELETAL/RHEUMATOLOGICAL Hx Falls: No - GASTROINTESTINAL Hx Gastrointestinal Disorders: Yes (obese) Hx Gastroesophageal Reflux: Yes Other/Comment: colon polyps, gastritis - GENITOURINARY/GYNECOLOGICAL Hx Genitourinary Disorders: Yes (recurrent b/l breast abcesseds) Hx Urinary Tract Infection: Yes Other/Comment: frequency burning on urination - PSYCHIATRIC Hx Anxiety: Yes Hx Depression: Yes Hx Emotional Abuse: No Hx Physical Abuse: No Hx Substance Use: No - SURGICAL HISTORY Hx Cardiac Catheterization: Yes Hx Mastectomy: Yes (Bilateral Mastectomy 2017) Other/Comment: umbilical hernia sx 10 yrs ago - ANESTHESIA Hx Anesthesia Reactions: No Hx Malignant Hyperthermia: No Meds Allergies/Adverse Reactions: Allergies Allergy/AdvReac Type Severity Reaction Status Date / Time No Known Allergies Allergy Verified 03/27/18 14:55 - Medications Medications: Current Medications Sodium Chloride (Sodium Chloride 0.9%) 1,000 mls @ 150 mls/hr IV .Q6H40M [facility] Last Admin: 03/27/18 08:24 Dose: 150 mls/hr Pantoprazole Sodium (Protonix Inj) 40 mg IVP DAILY [facility] Physical Exam - Constitutional Appears: Non-toxic, No Acute Distress - Head Exam Head Exam: ATRAUMATIC, NORMAL INSPECTION, NORMOCEPHALIC - Eye Exam Eye Exam: Normal appearance - ENT Exam ENT Exam: Normal Exam - Respiratory Exam Respiratory Exam: Clear to Auscultation Bilateral, NORMAL BREATHING PATTERN - Cardiovascular Exam Cardiovascular Exam: Bradycardia, +S1, +S2 - GI/Abdominal Exam GI & Abdominal Exam: Normal Bowel Sounds, Soft, Tenderness (Mild generalized TTP , most prominent in epigastric, RUQ, RLQ regions). absent: Distended, Firm, Guarding, Mass, Rebound Additional comments: obese abdomen - Extremities Exam Extremities exam: Positive for: normal inspection - Back Exam Back exam: NORMAL INSPECTION - Neurological Exam Neurological exam: Alert, Oriented x3 - Psychiatric Exam Psychiatric exam: Normal Affect, Normal Mood - Skin Skin Exam: Dry, Intact, Warm Results - Vital Signs Recent Vital Signs: Last Vital Signs Temp 98 F 03/27/18 14:00 Pulse 45 L 03/27/18 14:00 Resp 20 03/27/18 14:00 BP 113/67 03/27/18 14:00 Pulse Ox 93 L 03/27/18 14:00 - Labs Result Diagrams: 03/27/18 08:19 03/27/18 08:19 Assessment & Plan - Assessment and Plan (Free Text) Assessment: 58 yo obese F, PMHx of sleep apnea, asthma, DM, HLD, hernia repair, recurrent b/l breast abscess s/p b/l mastectomy, colon polyps admitted for evaluation and treatment of intractable generalized abdominal pain. CT abdomen/ pelvis unremarkable except for small fat-containing hernia on the L side of the anterior abdominal wall. Plan: -supportive care as needed: pain meds and anti-emetics -keep NPO, IVF -serial abdominal exams -protonix 40 mg -further recs as per Dr. Sam Acharya, PGY-1 <Ghassan Vargas - Last Filed: 03/28/18 10:44> Meds - Medications Medications: Current Medications Citalopram Hydrobromide (Celexa) 40 mg PO DAILY [facility] Last Admin: 03/28/18 10:20 Dose: 40 mg Hydromorphone HCl (Dilaudid) 0.5 mg IVP Q6H PRN PRN Reason: Pain, severe (8-10) Last Admin: 03/27/18 19:23 Dose: 0.5 mg Sodium Chloride (Sodium Chloride 0.9%) 1,000 mls @ 150 mls/hr IV .Q6H40M [facility] Last Admin: 03/27/18 16:05 Dose: 150 mls/hr Ceftriaxone Sodium (Rocephin 1 Gram Ivpb) 1 gm in 100 mls @ 100 mls/hr IVPB DAILY [facility] PRN Reason: Protocol Last Admin: 03/28/18 10:20 Dose: 100 mls/hr Insulin Human Regular (Humulin R Low) 0 units SC ACHS [facility] PRN Reason: Protocol Last Admin: 03/28/18 08:19 Dose: Not Given Mometasone Furoate (Asmanex Twisthaler 220 Mcg) 2 puff IH QPM [facility] Last Admin: 03/27/18 18:29 Dose: 2 puff Non-Formulary Medication (Fluticasone/Vilanterol [Breo Ellipta 200-25 Mcg Inh]) 1 puff IH DAILY [facility] Last Admin: 03/28/18 10:21 Dose: Not Given Non-Formulary Medication (Vitamin B Complex [Balance B-100]) 1 tab PO DAILY [facility] Last Admin: 03/28/18 10:34 Dose: Not Given Ondansetron HCl (Zofran Inj) 4 mg IVP Q6 PRN PRN Reason: Nausea/Vomiting Pantoprazole Sodium (Protonix Inj) 40 mg IVP DAILY [facility] Last Admin: 03/28/18 10:20 Dose: 40 mg Zolpidem Tartrate (Ambien) 5 mg PO HS [facility] PRN Reason: Protocol Last Admin: 03/27/18 21:34 Dose: 5 mg Results - Vital Signs Recent Vital Signs: Last Vital Signs Temp 97.7 F 03/28/18 06:00 Pulse 52 L 03/28/18 06:00 Resp 18 03/28/18 06:00 BP 102/55 L 03/28/18 06:00 Pulse Ox 93 L 03/28/18 06:00 - Labs Result Diagrams: 03/28/18 06:45 03/28/18 06:45 Labs: Laboratory Results - last 24 hr 03/27/18 03/28/18 03/28/18 21:40 06:45 06:45 WBC RBC Hgb Hct MCV MCH MCHC RDW Plt Count MPV Sodium 144 Potassium 4.1 Chloride 107 Carbon Dioxide 29 Anion Gap 12 BUN 7 Creatinine 0.6 L Est GFR ( Amer) > 60 Est GFR (Non-Af Amer) > 60 POC Glucose (mg/dL) 102 Random Glucose 102 Calcium 8.1 L Iron 52 TIBC 407 % Saturation 13 L Triglycerides 102 Cholesterol 152 LDL Cholesterol Direct 103 HDL Cholesterol 29 TSH 3rd Generation 03/28/18 03/28/18 03/28/18 06:45 06:45 06:48 WBC 6.4 RBC 4.66 Hgb 13.3 Hct 41.7 MCV 89.5 MCH 28.5 MCHC 31.9 RDW 14.5 Plt Count 291 MPV 11.6 H Sodium Potassium Chloride Carbon Dioxide Anion Gap BUN Creatinine Est GFR ( Amer) Est GFR (Non-Af Amer) POC Glucose (mg/dL) 112 H Random Glucose Calcium Iron TIBC % Saturation Triglycerides Cholesterol LDL Cholesterol Direct HDL Cholesterol TSH 3rd Generation 0.24 L Assessment & Plan - Assessment and Plan (Free Text) Assessment: Dx Bilateral abdominal pain/Not clinically tender-guarding Pt has fdc history of pain c/o drug seeking This patient is supra morbidly obese and definitely needs Gastric sleeve surgery The paniculus is definitely pulling downward and a girdle might be helpful temporarily This consult done under my direct supervision Anton Vargas MD FACS
[2018-03-27 15:34] VITALS: BMI 47.0
[2018-03-27] MEDS ORDERED: Pneumococcal 23-Valent Vaccine IM ONE (15:35)
--- NOTE | 2018-03-27 15:58 | CON ---
Copied To: Oleksandr Cadena MD Attending MD: Oleksandr Cadena MD ADDENDUM DATE: 03/27/2018 This is an addendum to a consultation performed by Giovanna Anthony APN. REQUESTING PHYSICIAN: Shonda Chaudhry MD HISTORY OF PRESENT ILLNESS: I personally examined this patient. This is a patient with chronic abdominal pain. She has had multiple [facility] admissions over the last [address] scan of the abdomen and pelvis performed in the emergency room was negative for any acute changes. She has a normal white blood cell count. Etiology of the abdominal pain is unclear. The patient is asking for pain medications. However, the patient does not appear to be in any distress from the pain. She is being followed by Dr. Lee at [facility]. RECOMMENDATIONS: We will start the patient on clear liquid diet. No GI workup is planned at this time. The patient can be followed up with Dr. Lee as an outpatient. Oleksandr Cadena MD : 03/27/2018 15:12:13
--- NOTE | 2018-03-27 18:09 | US ---
Date of service: 03/27/2018 HISTORY: epigastric pain COMPARISON: Comparison is made to the previous CT dated 03/27/2018 TECHNIQUE: Sonographic evaluation of the abdomen. FINDINGS: LIVER: Measures 17.1 cm. Increased echogenicity of the liver parenchyma. No mass. No intrahepatic bile duct dilatation. GALLBLADDER: Unremarkable. No gallstones. COMMON BILE DUCT: Measures 3 mm. No stones. No dilatation. PANCREAS: Unremarkable as visualized. No mass. No ductal dilatation. RIGHT KIDNEY: Measures 10.7 x 5.7 x 6.2cm. Normal echogenicity. No calculus, mass, or hydronephrosis. LEFT KIDNEY: Measures 10.8 x 5.4 x 5.7cm. Normal echogenicity. No calculus, mass, or hydronephrosis. SPLEEN: Normal in size and contour. No mass. AORTA: No aneurysmal dilatation. IVC: Unremarkable. OTHER FINDINGS: None. IMPRESSION: Hepatomegaly and diffuse increased echogenicity of the liver suggestive but nonspecific for hepatic steatosis. No evidence of cholelithiasis or cholecystitis.
[2018-03-27] MEDS: cefTRIAXone 1 gm 1 GM/100 ML BAG IVPB SCH (18:29)
[2018-03-27] MEDS: Mometasone 220 mcg/puff-14 puff Inh IH SCH (18:29)
[2018-03-27] MEDS: HYDROmorphone 0.5 mg/0.5 ml ISec IVP PRN (19:23)
[2018-03-27] MEDS: Insulin Reg-LOW-Coverage SC SCH (19:23)
[2018-03-28 07:06] LABS: HEMOGLOBIN 13.3 g/dL (12.0-16.0); MEAN CELL VOLUME 89.5 fl (80.0-105.0); MEAN CORPUSCULAR HEMOGLOBIN 28.5 pg (25.0-35.0); MEAN CORPUSCULAR HGB CONC 31.9 g/dl (31.0-37.0); MEAN PLATELET VOLUME 11.6 fl (7.0-11.0); RBC 4.66 10^6/uL (3.5-6.1); RED CELL DISTRIBUTION WIDTH 14.5 % (11.5-14.5); WHITE BLOOD COUNT 6.4 10^3/ul (4.5-11.0)
[2018-03-28 07:15] LABS: BLOOD UREA NITROGEN 7 mg/dL (7-21); CALCIUM 8.1 mg/dL (8.4-10.5); GFR AFRICAN-AMERICAN > 60; GFR NON-AFRICAN AMERICAN > 60; HDL CHOLESTEROL 29 mg/dL (29-60)
[2018-03-28 07:18] LABS: IRON 52 ug/dL (45-180)
[2018-03-28 07:24] LABS: LDL CHOLESTEROL 103 mg/dL (0-129)
[2018-03-28 07:28] LABS: % IRON SATURATION 13 % (20-55); TOTAL IRON BINDING CAPACITY 407 ug/dL (265-497)
[2018-03-28] MEDS: Insulin Reg-LOW-Coverage SC SCH ×4 (08:19→22:00)
--- NOTE | 2018-03-28 08:36 | HP ---
date 03/27/18 Copied To: Shonda Chaudhry MD Attending MD: Shonda Chaudhry MD CHIEF COMPLAINT: Abdominal pain. HISTORY OF PRESENT ILLNESS: Ms. Lizet Bhat, 58-year-old female with past medical history of diabetes mellitus, asthma, hypercholesterolemia, hernia repair surgery, bilateral mastectomy due to abscesses. Came to the Emergency Department with generalized abdominal pain. The patient states the pain radiates to both sides as well as in the back. The patient is nauseous, but has not vomiting. States that she has not able to eat regularly since the onset of the pain. States that pain is constant, yet the affected areas are even more painful to the touch. Denies any fever, chills, headache, shortness of breath, cough, neck pain, hematuria. No hematochezia. PAST MEDICAL HISTORY: Hypertension, COPD, migraine, diabetes mellitus type 2, gastrointestinal disorder, gastritis, frequent burning on urination, bilateral mastectomy, umbilical hernia. FAMILY HISTORY: Father and mother noncontributory. HABITS: No smoking. No drugs. No ethanol. ALLERGIES: THE PATIENT IS NOT ALLERGIC WITH ANY MEDICATIONS. HOME MEDICATIONS: Breo, omeprazole, Singulair, B complex, citalopram, Neurontin, Ativan, Ambien as per the patient. REVIEW OF SYSTEMS: The patient was seen and examined on the bedside in the emergency room, complaining about abdominal pain. No cough, shortness of breath. No chest pain. Abdominal pain is nonlocalized abdominal pain. Diarrhea, some diarrhea recently. Nausea, appetite change, unable to eat since the onset of the pain. Absent urinary problems. Has back pain associated with radiation of her abdominal pain. No neck pain. No headache, dizziness. No fever. No chills. PHYSICAL EXAMINATION: VITAL SIGNS: Temperature 98.9, pulse 53, respiratory rate 18, blood pressure 148/110, pulse 100. HEENT: Head normocephalic, atraumatic. Eyes PERRLA. Extraocular muscles intact. Conjunctivae clear. Nose patent. Mucous membrane moist. NECK: Supple. No carotid bruit. No JVD or thyromegaly. CHEST: Bilaterally symmetrical. HEART: S1 and S2 positive. ABDOMEN: Diffuse abdominal tenderness. No guarding or rebound. No rigidity. Unable to localize the pain. Questionable bilateral CVA tenderness. EXTREMITIES: No edema. No cyanosis. NEUROLOGICAL: The patient is awake and alert. Moving all 4 extremities. Oriented x3. LABORATORY DATA: White blood cells 7.3, hemoglobin 13.9, hematocrit 41.2, platelets 286. Sodium 146, potassium 3.8, BUN 9, creatinine 0.6, glucose 101. ASSESSMENT AND PLAN: Ms. Lizet Bhat, 58-year-old lady, came with abdominal pain, nauseousness, loss of appetite, has history of bilateral mastectomy due to multiple time abscess and surgeries, history of chronic obstructive pulmonary disease, migraine, diabetes mellitus type 2, obesity, gastritis, anxiety, depression. We admitted the patient. Called GI consult and surgical consult. Seen by Dr. Aris Pardo's nurse practitioner. The patient has abdominal hernia noted on the CAT scan, gastroesophageal reflux disease. Started on Protonix, started on clear liquid diet. I reviewed abdominal ultrasound and CAT scan. Seen by Surgery. We will follow up. Shonda Chaudhry MD MARIA ALEJANDRA
[2018-03-28] MEDS: cefTRIAXone 1 gm 1 GM/100 ML BAG IVPB SCH (10:20)
[2018-03-28] MEDS: Non Formulary Medication (Fluticasone/Vilanterol [Breo Ellipta 200-25 Mcg Inh] 1 PUFF) IH SCH (10:21)
[2018-03-28] MEDS: HYDROmorphone 0.5 mg/0.5 ml ISec IVP PRN ×2 (10:21→17:49)
[2018-03-28] MEDS: Non Formulary Medication (Vitamin B Complex [Balance B-100] 1 TAB) PO SCH (10:34)
--- NOTE | 2018-03-28 10:53 | CP.PCM.PN ---
Subjective - Date & Time of Evaluation Date of Evaluation: 03/28/18 Time of Evaluation: 09:30 - Subjective Subjective: General Surgery Progress Note for Dr. Vargas Patient was seen and examined at bedside this AM. Per patient, she had 3 episodes of non-bloody non-bilious vomiting overnight; however, no episodes were reported overnight or witnessed by nursing. She continues to c/o crampy generalized abdominal that radiates to both flanks, continues to endorse nausea this AM but no vomiting, diarrhea, and decreased appetite. No fevers or chills, no rectal bleeding, no hematemesis, no headaches or dizziness, no chest pain, no SOB, or any other complaints. Objective - Vital Signs/Intake and Output Vital Signs (last 24 hours): Temp Pulse Resp BP Pulse Ox 97.7 F 52 L 18 102/55 L 93 L 03/28/18 06:00 03/28/18 06:00 03/28/18 06:00 03/28/18 06:00 03/28/18 06:00 Intake and Output: 03/28/18 03/28/18 06:59 18:59 Intake Total 0 Balance 0 - Medications Medications: Current Medications Citalopram Hydrobromide (Celexa) 40 mg PO DAILY [facility] Last Admin: 03/28/18 10:20 Dose: 40 mg Hydromorphone HCl (Dilaudid) 0.5 mg IVP Q6H PRN PRN Reason: Pain, severe (8-10) Last Admin: 03/27/18 19:23 Dose: 0.5 mg Sodium Chloride (Sodium Chloride 0.9%) 1,000 mls @ 150 mls/hr IV .Q6H40M [facility] Last Admin: 03/27/18 16:05 Dose: 150 mls/hr Ceftriaxone Sodium (Rocephin 1 Gram Ivpb) 1 gm in 100 mls @ 100 mls/hr IVPB DAILY [facility] PRN Reason: Protocol Last Admin: 03/28/18 10:20 Dose: 100 mls/hr Insulin Human Regular (Humulin R Low) 0 units SC ACHS [facility] PRN Reason: Protocol Last Admin: 03/28/18 08:19 Dose: Not Given Mometasone Furoate (Asmanex Twisthaler 220 Mcg) 2 puff IH QPM [facility] Last Admin: 08/14/18 18:29 Dose: 2 puff Non-Formulary Medication (Fluticasone/Vilanterol [Breo Ellipta 200-25 Mcg Inh]) 1 puff IH DAILY [facility] Last Admin: 03/28/18 10:21 Dose: Not Given Non-Formulary Medication (Vitamin B Complex [Balance B-100]) 1 tab PO DAILY [facility] Last Admin: 03/28/18 10:34 Dose: Not Given Ondansetron HCl (Zofran Inj) 4 mg IVP Q6 PRN PRN Reason: Nausea/Vomiting Pantoprazole Sodium (Protonix Inj) 40 mg IVP DAILY [facility] Last Admin: 03/28/18 10:20 Dose: 40 mg Zolpidem Tartrate (Ambien) 5 mg PO HS [facility] PRN Reason: Protocol Last Admin: 03/27/18 21:34 Dose: 5 mg - Labs Labs: 03/28/18 06:45 03/28/18 06:45 - Constitutional Appears: Non-toxic, No Acute Distress - Head Exam Head Exam: ATRAUMATIC, NORMAL INSPECTION, NORMOCEPHALIC - Eye Exam Eye Exam: Normal appearance - Respiratory Exam Respiratory Exam: NORMAL BREATHING PATTERN - Cardiovascular Exam Cardiovascular Exam: Bradycardia, +S1, +S2 - GI/Abdominal Exam GI & Abdominal Exam: Soft, Tenderness (Generalized mild TTP, particularly in lower abdomen). absent: Distended, Firm, Guarding, Rigid, Mass, Rebound Additional comments: Patient is morbidly obese. Panniculus pulling downward on abdomen. - Extremities Exam Extremities Exam: Normal Inspection - Back Exam Back Exam: NORMAL INSPECTION. absent: CVA tenderness (L), CVA tenderness (R) - Neurological Exam Neurological Exam: Alert, Awake, Oriented x3 - Psychiatric Exam Psychiatric exam: Normal Affect, Normal Mood - Skin Skin Exam: Dry, Intact, Warm Assessment and Plan - Assessment and Plan (Free Text) Assessment: 58 yo obese F, PMHx of sleep apnea, asthma, DM, HLD, hernia repair, recurrent b/l breast abscess s/p b/l mastectomy, colon polyps admitted for evaluation and treatment of intractable generalized abdominal pain. CT abdomen/ pelvis unremarkable except for small fat-containing hernia on the L side of the anterior abdominal wall. Plan: -No acute surgical intervention recommended -Pt is cleared from surgical perspective: recommendations for weight loss & diet modification -Pt has terminal carman hx of pain, c/o drug seeking -Pt would benefit from gastric sleeve surgery -Per Dr. Vargas, the panniculus is significantly pulling downward on the abdomen and a girdle might help temporarily -case d/w Dr. Sam Acharya, PGY-1
--- NOTE | 2018-03-28 11:42 | CP.PCM.PN ---
Subjective - Date & Time of Evaluation Date of Evaluation: 03/28/18 Time of Evaluation: 10:35 - Subjective Subjective: S&E at bedside, chart reviewed. No acute overnight events reported as per nursing. Patient family at bedside, pt reports still have nausea. No vomiting. Endorses that she had loose stool this am, no GI bleeding. No epigastric pain, abdominal US done, no GB stones, CBD 3mm, hepatomegly, hepatic steatosis. C/O of lower abdominal pain, and dysuria no hematuria. Objective - Vital Signs/Intake and Output Vital Signs (last 24 hours): Temp Pulse Resp BP Pulse Ox 97.7 F 52 L 18 102/55 L 93 L 03/28/18 06:00 03/28/18 06:00 03/28/18 06:00 03/28/18 06:00 03/28/18 06:00 Intake and Output: 03/28/18 03/28/18 06:59 18:59 Intake Total 0 Balance 0 - Medications Medications: Current Medications Citalopram Hydrobromide (Celexa) 40 mg PO DAILY [facility] Last Admin: 03/28/18 10:20 Dose: 40 mg Hydromorphone HCl (Dilaudid) 0.5 mg IVP Q6H PRN PRN Reason: Pain, severe (8-10) Last Admin: 03/27/18 19:23 Dose: 0.5 mg Sodium Chloride (Sodium Chloride 0.9%) 1,000 mls @ 150 mls/hr IV .Q6H40M [facility] Last Admin: 03/27/18 16:05 Dose: 150 mls/hr Ceftriaxone Sodium (Rocephin 1 Gram Ivpb) 1 gm in 100 mls @ 100 mls/hr IVPB DAILY [facility] PRN Reason: Protocol Last Admin: 03/28/18 10:20 Dose: 100 mls/hr Insulin Human Regular (Humulin R Low) 0 units SC ACHS [facility] PRN Reason: Protocol Last Admin: 03/28/18 08:19 Dose: Not Given Mometasone Furoate (Asmanex Twisthaler 220 Mcg) 2 puff IH QPM [facility] Last Admin: 03/27/18 18:29 Dose: 2 puff Non-Formulary Medication (Fluticasone/Vilanterol [Breo Ellipta 200-25 Mcg Inh]) 1 puff IH DAILY [facility] Last Admin: 03/28/18 10:21 Dose: Not Given Non-Formulary Medication (Vitamin B Complex [Balance B-100]) 1 tab PO DAILY [facility] Last Admin: 03/28/18 10:34 Dose: Not Given Ondansetron HCl (Zofran Inj) 4 mg IVP Q6 PRN PRN Reason: Nausea/Vomiting Pantoprazole Sodium (Protonix Inj) 40 mg IVP DAILY [facility] Last Admin: 03/28/18 10:20 Dose: 40 mg Zolpidem Tartrate (Ambien) 5 mg PO HS [facility] PRN Reason: Protocol Last Admin: 03/27/18 21:34 Dose: 5 mg - Labs Labs: 03/28/18 06:45 03/28/18 06:45 - Constitutional Appears: No Acute Distress - Head Exam Head Exam: NORMOCEPHALIC - Eye Exam Eye Exam: Normal appearance. absent: Scleral icterus - ENT Exam ENT Exam: Mucous Membranes Moist - Neck Exam Neck Exam: Normal Inspection - Respiratory Exam Respiratory Exam: NORMAL BREATHING PATTERN. absent: Respiratory Distress - Cardiovascular Exam Cardiovascular Exam: +S1, +S2 - GI/Abdominal Exam GI & Abdominal Exam: Soft (obese), Tenderness (more pelvic area), Normal Bowel Sounds. absent: Guarding, Rebound - Extremities Exam Extremities Exam: absent: Calf Tenderness - Neurological Exam Neurological Exam: Alert, Awake, Oriented x3 Assessment and Plan - Assessment and Plan (Free Text) Assessment: ASSESSMENT: Nausea, ? opiate withdrawal, on pain meds at home Abdominal pain, more in the pelvic area Abdominal hernia noted on ct scan GERD Morbid Obesity DM PLAN: start Protonix 40 mg daily continue clear liquid for now and advance as tolerated request for stool cdiff urine culture on ceftriaxone on Dilaudid abdominal US: no gallstones, cbd 3mm on discharge patient will FU with Dr. Arias, her personal forming press operator Thank you for this consult and for allowing us to participate in your patient care, further recommendation based upon clinical course. Case discussed w/ Dr. Cadena who is covering Dr. Hurst.
[2018-03-28 12:48] LABS: FOLATE 14.7 ng/mL
[2018-03-28] MEDS: Mometasone 220 mcg/puff-14 puff Inh IH SCH (17:49)
[2018-03-28] MEDS: Sodium Chloride 0.9% 1,000 ML IV SCH (20:30)
[2018-03-29] MEDS: HYDROmorphone 0.5 mg/0.5 ml ISec IVP PRN (03:27)
--- NOTE | 2018-03-29 08:18 | PN ---
Copied To: Shonda Chaudhry MD Attending MD: Shonda Chaudhry MD DATE: 03/28/2018 SUBJECTIVE: The patient is 58-year-old female. The patient still having abdominal pain. No nausea or vomiting. According to the patient, she has diarrhea. She is feeling her pain is more pelvic than abdominal. No fever. No chills. Surgery and GI saw the patient. Now, the patient is requesting gynecological examination. I called consult to Dr. Ivone Ceron. PHYSICAL EXAMINATION VITAL SIGNS: Temperature 97.7, pulse 52, respiratory rate 18, blood pressure 102/55, pulse oximetry 93%. HEENT: Head normocephalic, atraumatic. Eyes PERRLA. Extraocular muscles intact. Conjunctivae clear. Nose patent. Mucous membrane moist. NECK: Supple. No carotid bruit. No JVD or thyromegaly. CHEST: Bilaterally symmetrical. HEART: S1 and S2 positive. LUNGS: Clear to auscultation. ABDOMEN: Soft, tender at both flanks as per the patient. Bowel sounds positive. No organomegaly. EXTREMITIES: No edema. No cyanosis. NEUROLOGICAL: The patient is awake and alert. Follows simple commands. MEDICATIONS: Celexa, Dilaudid, NS, Rocephin, insulin, Asmanex, fluticasone, vitamins, Zofran, Protonix, Ambien. LABORATORY DATA: White blood cells 6.4, hemoglobin 13.2, hematocrit 31.7, platelets 291. Sodium 134, potassium 4.1, BUN 7, creatinine 0.6, glucose 102. ASSESSMENT AND PLAN: Ms. Lizet Bhat is a 58-year-old lady admitted with abdominal pain, nausea, opioid withdrawal, on pain medications at home. Abdominal pain is more in the pelvic area. Obstetrics/Gynecologic consult called, needs full pelvic examination. Abdominal hernia noted on CAT scan and dyspepsia, morbid obesity, diabetes mellitus, status post bilateral mastectomy for multiple abscess. Started the patient on Protonix, continue plain liquid diet. Requesting stool for Clostridium difficile toxin. Requesting consult with appraisal manager. Urine culture sent. The patient is on ceftriaxone, Dilaudid. Ultrasound shows no gallstones. Common bile duct 3 mm. The patient has her personal appraisal manager. Dr. Hurst wants the patient to see her own personal waiter/waitress take out as outpatient. Appreciated Dr. Ghassan Vargas' and Gabrielle martinez nurse practitioner's notes. GI and DVT prophylaxes. Repeat labs. We will follow. Shonda Chaudhry MD
[2018-03-29] MEDS: Insulin Reg-LOW-Coverage SC SCH ×3 (08:32→16:26)
[2018-03-29] MEDS ORDERED: HYDROmorphone 0.5 mg/0.5 ml ISec IVP PRN (10:03)
[2018-03-29] MEDS: cefTRIAXone 1 gm 1 GM/100 ML BAG IVPB SCH (10:09)
[2018-03-29] MEDS: Non Formulary Medication (Vitamin B Complex [Balance B-100] 1 TAB) PO SCH (10:09)
[2018-03-29] MEDS: Non Formulary Medication (Fluticasone/Vilanterol [Breo Ellipta 200-25 Mcg Inh] 1 PUFF) IH SCH (10:09)
--- NOTE | 2018-03-29 10:53 | CP.PCM.PCO ---
Physician Communication Note - Physician Communication Note Physician Communication Note: oncur with tapering Dilaudid/Gastric sleeve Rx Recommended
[2018-03-29] MEDS ORDERED: Metoclopramide 5 mg/5 ml Oral Sol PO SCH (11:30)
--- NOTE | 2018-03-29 11:34 | CP.PCM.PN ---
Subjective - Date & Time of Evaluation Date of Evaluation: 03/29/18 Time of Evaluation: 10:00 - Subjective Subjective: S&E at bedside, chart reviewed. Still having pelvic pain,describe as menustrual cramps, no vaginal bleeding. No further diarrhea or BM. No SOB or CP, still gets nausea at times, not consuming the clear liquids. No fever or chills, urine culture and cdiff sent. No reports of overt GI bleeding. Objective - Vital Signs/Intake and Output Vital Signs (last 24 hours): Temp Pulse Resp BP Pulse Ox 98.2 F 50 L 20 109/55 L 95 03/29/18 06:00 03/29/18 06:00 03/29/18 06:00 03/29/18 06:00 03/29/18 06:00 - Medications Medications: Current Medications Citalopram Hydrobromide (Celexa) 40 mg PO DAILY [facility] Last Admin: 03/29/18 10:08 Dose: 40 mg Hydromorphone HCl (Dilaudid) 0.25 mg IVP Q8H PRN PRN Reason: Pain, severe (8-10) Sodium Chloride (Sodium Chloride 0.9%) 1,000 mls @ 150 mls/hr IV .Q6H40M [facility] Last Admin: 03/28/18 20:30 Dose: 150 mls/hr Ceftriaxone Sodium (Rocephin 1 Gram Ivpb) 1 gm in 100 mls @ 100 mls/hr IVPB DAILY [facility] PRN Reason: Protocol Last Admin: 03/29/18 10:09 Dose: 100 mls/hr Insulin Human Regular (Humulin R Low) 0 units SC ACHS [facility] PRN Reason: Protocol Last Admin: 03/29/18 08:32 Dose: Not Given Metoclopramide HCl (Reglan) 10 mg PO 0600,1130,1630,2200 [facility] Stop: 03/31/18 11:31 Mometasone Furoate (Asmanex Twisthaler 220 Mcg) 2 puff IH QPM [facility] Last Admin: 03/28/18 17:49 Dose: 2 puff Non-Formulary Medication (Fluticasone/Vilanterol [Breo Ellipta 200-25 Mcg Inh]) 1 puff IH DAILY [facility] Last Admin: 03/29/18 10:09 Dose: Not Given Non-Formulary Medication (Vitamin B Complex [Balance B-100]) 1 tab PO DAILY [facility] Last Admin: 03/29/18 10:09 Dose: Not Given Ondansetron HCl (Zofran Inj) 4 mg IVP Q6 PRN PRN Reason: Nausea/Vomiting Last Admin: 03/28/18 22:05 Dose: 4 mg Pantoprazole Sodium (Protonix Inj) 40 mg IVP DAILY [facility] Last Admin: 03/29/18 10:08 Dose: 40 mg Zolpidem Tartrate (Ambien) 5 mg PO HS [facility] PRN Reason: Protocol Last Admin: 03/28/18 22:00 Dose: 5 mg - Labs Labs: 03/28/18 06:45 03/28/18 06:45 - Constitutional Appears: No Acute Distress - Head Exam Head Exam: NORMOCEPHALIC - Eye Exam Eye Exam: Normal appearance. absent: Scleral icterus - ENT Exam ENT Exam: Mucous Membranes Moist - Neck Exam Neck Exam: Normal Inspection - Respiratory Exam Respiratory Exam: NORMAL BREATHING PATTERN. absent: Respiratory Distress - Cardiovascular Exam Cardiovascular Exam: +S1, +S2 - GI/Abdominal Exam GI & Abdominal Exam: Soft, Tenderness (pelvic), Normal Bowel Sounds. absent: Guarding, Rebound Additional comments: obese abdomen - Extremities Exam Extremities Exam: absent: Calf Tenderness - Neurological Exam Neurological Exam: Alert, Awake, Oriented x3 - Skin Skin Exam: Dry, Warm Assessment and Plan - Assessment and Plan (Free Text) Assessment: ASSESSMENT: Nausea, ? opiate withdrawal, on pain meds at home, ? gastroparesis? Abdominal pain, more in the pelvic area Abdominal hernia noted on ct scan GERD Morbid Obesity DM PLAN: continue Protonix 40 mg daily will advance diet to full liquid, encourage pt to eat, will add Reglan , short course, patient denies h/o seizures cdiff negative urine culture result pending on ceftriaxone on Dilaudid abdominal US: no gallstones, cbd 3mm Pending audit consultant evaluation for pelvic and tranvaginal US on discharge patient will FU with Dr. Arias, her personal noise tester Thank you for this consult and for allowing us to participate in your patient care, further recommendation based upon clinical course. Case discussed w/ Dr. Cadena who is covering Dr. Hurst.
[2018-03-29 14:06] VITALS: BP 142/74; PULSE 49; RESP 19; TEMP 98.3; O2SAT 94
--- NOTE | 2018-03-29 17:57 | US ---
Date of service: 03/29/2018 HISTORY: Pelvic pain. Pelvic cramping. Menstrual status: 20 year postmenopausal. COMPARISON: None available. TECHNIQUE: Transabdominal only. Real-time technique with 2D, duplex and color Doppler FINDINGS: UTERUS: Measures 2.6 x 4 x 7.9 cm. Normal in size and appearance. No fibroid or other mass lesion seen. ENDOMETRIUM: Measures 3.1 mm in diameter. Unremarkable. CERVIX: No cervical abnormality identified.Incidental finding: Nabothian cysts the largest measures less than 1 cm. RIGHT OVARY: Not visible LEFT OVARY: Not visible FREE FLUID: No significant free fluid noted. OTHER FINDINGS: None. IMPRESSION: Unremarkable uterus and endometrial echo complex. Limitations of the current examination: Non visible adnexa bilaterally.
--- NOTE | 2018-03-30 13:46 | US ---
Date of service: 03/29/2018 PROCEDURE: Pelvic ultrasound HISTORY: Pelvic pain. Cramping. Duration of symptoms: Unknown. COMPARISON: None available. TECHNIQUE: Transabdominal, transvaginal. Real -time technique with 2D, duplex and color Doppler. FINDINGS: Findings described in greater detail in the trans abdominal component of this study and summarized below in the Impression: IMPRESSION: Unremarkable uterus and endometrial echo complex. Limitations of the current examination: Non visible adnexa bilaterally
== END 2018-03-29 18:15 | disposition home or self-care (01) | DRG 394 ==
LOC: ED 07:33 → ERH 11:59 → 5RNO 13:03
PROVIDERS: ADMIT Internal Medicine; ATTEND Internal Medicine
DX: K46.9 Unspecified abdominal hernia without obstruction or gangrene (principal); F11.23 Opioid dependence with withdrawal; Z68.42 Body mass index [BMI] 45.0-49.9, adult; E11.9 Type 2 diabetes mellitus without complications; E66.01 Morbid (severe) obesity due to excess calories; E78.00 Pure hypercholesterolemia, unspecified; E78.5 Hyperlipidemia, unspecified; F17.210 Nicotine dependence, cigarettes, uncomplicated; G47.30 Sleep apnea, unspecified; G89.29 Other chronic pain; I10 Essential (primary) hypertension; J44.9 Chronic obstructive pulmonary disease, unspecified; K21.9 Gastro-esophageal reflux disease without esophagitis; N94.6 Dysmenorrhea, unspecified; G43.909 Migraine, unspecified, not intractable, without status migrainosus; Z86.010 Personal history of colon polyps; Z87.440 Personal history of urinary (tract) infections; Z90.13 Acquired absence of bilateral breasts and nipples

== ENCOUNTER 2018-08-10 15:46 | Emergency (ER) | payer MEDICARE, MEDICAID ==
[2018-08-10 15:47] VITALS: BMI 47.0
[2018-08-10 16:03] VITALS: RESP 18; TEMP 98.3
[2018-08-10] MEDS ORDERED: Morphine 4 mg/ml ISec IVP STA (16:38)
[2018-08-10] MEDS ORDERED: Sodium Chloride 0.9% 500 ML IV STA (16:38)
--- NOTE | 2018-08-10 16:41 | ED PDOC ---
Arrival/HPI - General Chief Complaint: Abdominal Pain Time Seen by Provider: 08/10/18 16:16 Historian: Patient - History of Present Illness Narrative History of Present Illness (Text): 08/10/18 16:39 A 58 year old female, whose past medical history includes diabetes, asthma, hyperlipidemia, hernia repair surgery, and recurrent bilateral breast abscess, presents to the emergency department with a complaint of abdominal pain and diarrhea. The patient notes that the pain is a cramping sensation, similar to menstrual cramps. She states that the pain has been presents for the last 2 weeks with associated diarrhea. Patient reports recently having the flu. The patient denies fevers, chills, headache, dizziness, chest pain, shortness of breath, dyspnea on exertion, cough, nausea, vomiting, back pain, neck pain, urinary/bowel changes, or any other complaint. PMD: Dr. Lemon Time/Duration: Other (2 weeks) Symptom Onset: Sudden Activities at Onset: Rest, Light Context: Home Past Medical History - Provider Review Nursing Documentation Reviewed: Yes - Infectious Disease Hx of Infectious Diseases: None - Tetanus Immunization Tetanus Immunization: Unknown - Reproductive Menopause: Yes - Cardiac Hx Hypertension: Yes - Pulmonary Hx Asthma: Yes Hx Chronic Obstructive Pulmonary Disease (COPD): Yes - Neurological Hx Neurological Disorder: Yes Hx Migraine: Yes - HEENT Hx HEENT Disorder: Yes (eyeglases) - Renal Hx Renal Disorder: No - Endocrine/Metabolic Hx Diabetes Mellitus Type 2: Yes - Hematological/Oncological Hx Blood Disorders: No - Integumentary Hx Dermatological Disorder: Yes Other/Comment: 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, b/l mastectomy 11/22/17 today due to recurrent abcesses/cysts x15 breast bx's x7 - Musculoskeletal/Rheumatological Hx Falls: No - Gastrointestinal Hx Gastrointestinal Disorders: Yes (obese) Hx Gastroesophageal Reflux: Yes Other/Comment: colon polyps, gastritis - Genitourinary/Gynecological Hx Genitourinary Disorders: Yes (recurrent b/l breast abcesseds) Hx Urinary Tract Infection: Yes Other/Comment: frequency burning on urination - Psychiatric Hx Anxiety: Yes Hx Depression: Yes Hx Emotional Abuse: No Hx Physical Abuse: No Hx Substance Use: No - Surgical History Hx Cardiac Catheterization: Yes Hx Mastectomy: Yes (Bilateral Mastectomy 2017) Other/Comment: umbilical hernia sx 10 yrs ago - Anesthesia Hx Anesthesia Reactions: No Hx Malignant Hyperthermia: No - Suicidal Assessment Feels Threatened In Home Enviroment: No Family/Social History - Physician Review Nursing Documentation Reviewed: Yes Family/Social History: No Known Family HX Smoking Status: Light Smoker < 10 Cigarettes Daily Hx Alcohol Use: No Hx Substance Use: No Hx Substance Use Treatment: No Allergies/Home Meds Allergies/Adverse Reactions: Allergies No Known Allergies Allergy (Verified 08/10/18 16:00) Home Medications: Home Meds Medication Instructions Recorded Confirmed Fluticasone/Vilanterol [Breo 1 puff IH DAILY 03/21/17 08/10/18 Ellipta 200-25 Mcg INH] Omeprazole 20 mg PO QPM 03/21/17 08/10/18 Montelukast [Singulair] 10 mg PO DAILY 11/10/17 08/10/18 Vitamin B Complex [Balance B-100] 1 tab PO DAILY 11/10/17 08/10/18 Citalopram Hydrobromide [Celexa] 40 mg PO DAILY 03/01/18 08/10/18 Gabapentin [Neurontin] 1 tab PO TID 03/01/18 08/10/18 LORazepam [Ativan] 1 tab PO DAILY PRN 03/01/18 08/10/18 Zolpidem [Ambien] 1 tab PO HS 03/01/18 08/10/18 Review of Systems - Physician Review All systems were reviewed & negative as marked: Yes - Review of Systems Constitutional: absent: Fevers Respiratory: absent: SOB, Cough Cardiovascular: absent: Chest Pain, FLORES Gastrointestinal: Abdominal Pain, Diarrhea. absent: Nausea, Vomiting Genitourinary Female: absent: Urine Output Changes Musculoskeletal: absent: Back Pain, Neck Pain Neurological: absent: Headache, Dizziness Physical Exam - Physical Exam Narrative Physical Exam (Text): 08/10/18 16:43 Gen: VS reviewed, alert, well developed, well nourished, nontoxic, mild distress. ENT: normal pharynx. Eye: EOMI, PERRL. Neck: no JVD, supple, no adenopathy. CV: regular rate, regular rhythm, no rubs, no murmur, no gallops, S1, S2, pulses equal and strong. Pulm: no distress, clear to auscultation, no wheeze, no rhonchi, breath sounds equal, no rales. Abd: soft, diffuse lower abdominal tenderness. no guarding, no rebound, no rigidity, normal bowel sounds. Ext: no edema. Skin: good color, no rash, no cyanosis. Psych: responds appropriately to questions, normal affect. Neuro: oriented x 3, CN2-12 intact grossly, motor intact, sensation intact. Vital Signs Reviewed: Yes Vital Signs Temp Pulse Resp BP Pulse Ox 08/10/18 15:58 98.3 F 55 L 18 144/78 96 Temperature: Afebrile Blood Pressure: Normal Pulse: Bradycardic Respiratory Rate: Normal Appearance: Positive for: Well-Appearing, Non-Toxic, Comfortable Pain Distress: None Mental Status: Positive for: Alert and Oriented X 3 Medical Decision Making ED Course and Treatment: 08/10/18 16:44 Impression: A 58 year old female presents to the emergency department with a complaint of abdominal pain and diarrhea. Plan: -- Abdomen/Pelvis CT -- Morphine and IV Fluids -- Labs -- Reassess and disposition Prior Visits: Notes and results from previous visits were reviewed. Progress Notes: 08/10/18 19:25 patient seen for abdomnial pain and diarrhea. labs ok, CT negative for acute pathology. incidental cyst discussed with patient and verbal instructed/detail given to follow up with specialist for further eval. Patient stable for dc and to follow up with her GI. Patient recently was supposed to get colonoscopy but it was deferred because the patient states she had the flu. - Lab Interpretations I have reviewed the lab results: Yes - EKG Interpretation EKG Interpretation (Text): 08/10/18 18:02 1623: sinus froy at 54 bpm, nml qrs, nm laxis, no acute sttw abn Interpreted by ED Physician: Yes - Scribe Statement The provider has reviewed the documentation as recorded by the Tom Mccartney Provider Scribe Attestation: All medical record entries made by the Scribe were at my direction and personally dictated by me. I have reviewed the chart and agree that the record accurately reflects my personal performance of the history, physical exam, medical decision making, and the department course for this patient. I have also personally directed, reviewed, and agree with the discharge instructions and disposition. Disposition/Present on Arrival - Present on Arrival Any Indicators Present on Arrival: No History of DVT/PE: No History of Uncontrolled Diabetes: Yes Urinary Catheter: No History of Decub. Ulcer: No History Surgical Site Infection Following: None - Disposition Have Diagnosis and Disposition been Completed?: Yes Diagnosis: Abdominal pain, Diarrhea Disposition: HOME/ ROUTINE Disposition Time: 19:26 Patient Plan: Discharge Condition: STABLE Discharge Instructions (ExitCare): Diarrhea in Adolescents and Adults, Acute Abdomen (Belly Pain), Adult (DC) Additional Instructions: return for any new or worsening symptoms. follow up with your cushion filler as soon as possible. follow up with a urologist for evaluation of the cyst in your kidney. Prescriptions: Dicyclomine [Dicyclomine HCl] 10 mg PO QID #12 cap Ibuprofen [Motrin Tab] 600 mg PO QID #42 tab Referrals: Shonda Chaudhry MD [Primary Care Provider] - Follow up with primary China Santos MD [Staff Provider] - Follow up with primary Forms: [facility] (Spanish)
[2018-08-10] MEDS ORDERED: Iohexol 350 MG/100 ML VIAL ONE (17:11)
[2018-08-10 17:12] LABS: BASO # 0.02 K/mm3 (0.0-2.0); BASO % 0.2 % (0.0-3.0); EOS # 0.2 (0.0-0.7); EOS % 1.7 % (1.5-5.0); GRAN # 4.95 (1.4-6.5); GRAN % 56.4 % (50.0-68.0); HEMOGLOBIN 13.8 g/dL (12.0-16.0); LYMPH # 3.1 (1.2-3.4); LYMPH % 35.7 % (22.0-35.0); MEAN CELL VOLUME 90.9 fl (80.0-105.0); MEAN CORPUSCULAR HEMOGLOBIN 29.9 pg (25.0-35.0); MEAN CORPUSCULAR HGB CONC 32.9 g/dl (31.0-37.0); MEAN PLATELET VOLUME 11.1 fl (7.0-11.0); MONO # 0.5 (0.1-0.6); RBC 4.61 10^6/uL (3.5-6.1); RED CELL DISTRIBUTION WIDTH 14.2 % (11.5-14.5); WHITE BLOOD COUNT 8.8 10^3/uL (4.5-11.0)
[2018-08-10 17:22] LABS: ALB/GLOB RATIO 1.2 (1.1-1.8); ALBUMIN 3.4 g/dL (3.0-4.8); ALT/SGPT 22 U/L (7-56); AST/SGOT 16 U/L (14-36); BLOOD UREA NITROGEN 11 mg/dL (7-21); CALCIUM 8.7 mg/dL (8.4-10.5); GFR NON-AFRICAN AMERICAN > 60; LIPASE 65 U/L (23-300)
[2018-08-10] MEDS ORDERED: Potassium Chloride 20 mEq ER Tab PO STA (18:01)
--- NOTE | 2018-08-10 19:06 | CT ---
Date of service: 08/10/2018 PROCEDURE: CT Abdomen and Pelvis with contrast HISTORY: lower abdominal pain, hx hernia repair-type unknown COMPARISON: CT abdomen and pelvis with contrast performed 03/27/18 TECHNIQUE: Contrast dose: 100 mL Omnipaque 350 IV Radiation dose: Total exam DLP = 1402.87 mGy-cm. This CT exam was performed using one or more of the following dose reduction techniques: Automated exposure control, adjustment of the mA and/or kV according to patient size, and/or use of iterative reconstruction technique. FINDINGS: LOWER THORAX: No visible consolidation, pleural effusion, or pneumothorax. Small hiatal hernia/distal esophageal wall thickening. LIVER: Hypoattenuation of the liver compatible with hepatic steatosis. GALLBLADDER AND BILE DUCTS: Unremarkable. PANCREAS: Unremarkable. SPLEEN: Unremarkable. ADRENALS: Unremarkable. KIDNEYS AND URETERS: The kidneys enhance symmetrically. No hydronephrosis or obstructing calculus identified. 2.1 cm left upper pole renal hypodensity 15 HU, slightly higher than expected for simple cyst. 0.8 cm left lower pole renal hypodensity measures approximately 13 HU, likely cyst. VASCULATURE: No aortic aneurysm. No atherosclerotic calcification or mural plaque present. BOWEL: Stomach is nondistended. Lack of oral contrast limits evaluation for bowel pathology. Bowel loops appear within normal limits of caliber without evidence of obstruction. APPENDIX: The appendix appears within normal limits of caliber. No secondary signs of acute appendicitis. PERITONEUM: No significant free fluid. No definite free air. LYMPH NODES: No bulky adenopathy identified. BLADDER: Unremarkable. REPRODUCTIVE: Uterus is present. BONES: Degenerative changes. OTHER FINDINGS: At least 2 fat containing ventral hernias are noted (left anterior and midline anterior) measuring up to 2.5 cm. IMPRESSION: At least 2 fat containing ventral hernias are noted (left anterior and midline anterior) measuring up to 2.5 cm. 2.1 cm left upper pole renal hypodensity 15 HU, slightly higher than expected for simple cyst. 0.8 cm left lower pole renal hypodensity measures approximately 13 HU, likely cyst. Hypoattenuation of the liver compatible with hepatic steatosis.
[2018-08-10 19:16] LABS: PH,URINE 6.5 (4.7-8.0); URINE BILIRUBIN NEGATIVE (NEGATIVE); URINE BLOOD NEGATIVE (NEGATIVE); URINE GLUCOSE (UA) NEGATIVE (NEGATIVE); URINE LEUKOCYTE ESTERASE NEGATIVE Leu/uL (NEGATIVE); URINE PROTEIN NEGATIVE mg/dL (<30 mg/dL); URINE UROBILINOGEN 0.2 E.U./dL (<1 E.U./dL)
[2018-08-10 19:21] LABS: URINE APPEARANCE CLEAR (CLEAR); URINE COLOR YELLOW (YELLOW)
[2018-08-10 19:49] VITALS: BP 118/65; PULSE 62; O2SAT 100
--- NOTE | 2018-08-11 23:18 | CARD ---
APPROVED REPORT Date of service: 08/10/2018 EKG Measurement Heart [id number] <Conclusion> Sinus bradycardia Otherwise normal ECG
== END 2018-08-10 19:48 | disposition home or self-care (01) ==
LOC: ED 15:46
DX: R19.7 Diarrhea, unspecified (principal); R10.9 Unspecified abdominal pain; E11.9 Type 2 diabetes mellitus without complications; E78.5 Hyperlipidemia, unspecified; I10 Essential (primary) hypertension; J44.9 Chronic obstructive pulmonary disease, unspecified; F17.210 Nicotine dependence, cigarettes, uncomplicated
CPT/HCPCS: 74177; 80053; 81003; 83690; 83735; 85025; 87086; 93005; 96374; 99283; J2270; J7040; Q9967

== ENCOUNTER 2018-12-19 08:30 | Outpatient (CLI) | payer MEDICARE, MEDICAID | END 2018-12-19 08:31 | disposition home or self-care (01) | LOC: RAD 08:30 ==